=== PATIENT | male | born 1945 | race Caucasian/White ===

== ENCOUNTER → 2022-10-03 | Outpatient (REF) | payer MEDICARE, MEDICAID, SELFPAY ==
[2022-10-03 09:38] LABS: Hematocrit 36.6 % (40-54); Hemoglobin 11.4 g/dL (13.0-16.5); Mean Corp Hgb Conc 31.1 g/dL (32-36); Mean Corpuscular Hgb 29.4 pg (27.0-32.0); Mean Corpuscular Volume 94.3 fL (80-94); Platelet Count 224 K/mm3 (150-450); RBC Distribution Width CV 16.2 % (11.6-14.6); RBC Distribution Width SD 56.2 fl (35.1-43.9); Red Blood Count 3.88 M/mm3 (4.6-6.2); White Blood Count 6.3 K/mm3 (4.4-11.0)
[2022-10-03 10:01] LABS: ALB/GLOB Ratio 0.8 RATIO (0.9-2.4); AST(SGOT) 23 U/L (15-37); Alanine Aminotransfer ALT/SGPT 18 U/L (16-61); Albumin, Serum 2.8 g/dL (3.2-5.0); Alkaline Phosphatase 84 U/L (45-117); Anion Gap 5 (5-15); BUN 12 mg/dL (7-18); BUN/Creat Ratio 16.2 RATIO (10-20); Chloride 103 mmol/L (98-107); Creatinine, Serum 0.74 mg/dL (0.70-1.30); EST Glomerular Filtration Rate 109 mL/min (>60); Est Glom Filt Rate - Afr Amer 132 mL/min (>60); Globulin 3.7 g/dL (2.2-4.2); Glucose 105 mg/dL (74-106); Potassium 3.8 mmol/L (3.5-5.1); Protein, Total 6.5 g/dL (6.4-8.2); Sodium Level 138 mmol/L (136-145)
== END ==
LOC: OLS.SANC 07:14
PROVIDERS: Visit Provider Internal Medicine
DX: I50.9 Heart failure, unspecified (principal)
CPT/HCPCS: 36415; 80053; 85027

== ENCOUNTER → 2022-10-28 | Outpatient (REF) | payer MEDICARE, MEDICAID, SELFPAY ==
[2022-10-28 08:04] LABS: Color, Urine Yellow (Yellow); Glucose, Dipstick Normal (Normal); Ketone-Dipstick Negative (Negative); Leukocyte Esterase-Dipstick 25 /ul (Negative); Nitrite-Dipstick Negative (Negative); Occult Blood-Urine 10 /ul (Negative); Protein-Dipstick 15 mg/dl (Negative); Urine Bilirubin Dipstick Negative (Negative); Urine Clarity Clear (Clear); Urine Urobilinogen Normal (Normal)
== END ==
LOC: OLS.SANC 05:00
PROVIDERS: Visit Provider Internal Medicine
DX: R39.9 Unspecified symptoms and signs involving the genitourinary system (principal)
CPT/HCPCS: 81002; 87086

== ENCOUNTER → 2022-10-31 | Outpatient (REF) | payer MEDICARE, MEDICAID, SELFPAY ==
[2022-10-31 09:34] LABS: Hematocrit 31.3 % (40-54); Hemoglobin 9.7 g/dL (13.0-16.5); Mean Corpuscular Hgb 28.9 pg (27.0-32.0); Mean Corpuscular Volume 93.2 fL (80-94); Mean Platelet Vol. 9.7 fl (6.2-12.0); Platelet Count 236 K/mm3 (150-450); RBC Distribution Width CV 16.7 % (11.6-14.6); RBC Distribution Width SD 56.7 fl (35.1-43.9); Red Blood Count 3.36 M/mm3 (4.6-6.2); White Blood Count 6.3 K/mm3 (4.4-11.0)
[2022-10-31 09:59] LABS: Anion Gap 3 (5-15); BUN 12 mg/dL (7-18); BUN/Creat Ratio 13.9 RATIO (10-20); Calcium,Total 8.5 mg/dL (8.5-10.1); Chloride 106 mmol/L (98-107); Creatinine, Serum 0.86 mg/dL (0.70-1.30); EST Glomerular Filtration Rate 92 mL/min (>60); Est Glom Filt Rate - Afr Amer 111 mL/min (>60); Glucose 89 mg/dL (74-106); Potassium 4.1 mmol/L (3.5-5.1); Sodium Level 138 mmol/L (136-145)
== END ==
LOC: OLS.SANC 07:15
PROVIDERS: Visit Provider Internal Medicine
DX: J44.9 Chronic obstructive pulmonary disease, unspecified (principal); I10 Essential (primary) hypertension; E78.5 Hyperlipidemia, unspecified
CPT/HCPCS: 36415; 80048; 85027

== ENCOUNTER → 2022-11-23 | Outpatient (REF) | payer MEDICARE, MEDICAID, SELFPAY ==
[2022-11-23 10:24] LABS: Color, Urine Yellow (Yellow); Glucose, Dipstick Normal (Normal); Ketone-Dipstick Negative (Negative); Leukocyte Esterase-Dipstick Negative /ul (Negative); Nitrite-Dipstick Negative (Negative); Occult Blood-Urine Negative /ul (Negative); Protein-Dipstick Negative (Negative); Urine Bilirubin Dipstick Negative (Negative); Urine Clarity Clear (Clear); Urine Urobilinogen 1 mg/dl (Normal); Urine pH 6.5 (5.0 - 8.0)
== END ==
LOC: OLS.SANC 01:00
PROVIDERS: Visit Provider Internal Medicine
DX: R39.9 Unspecified symptoms and signs involving the genitourinary system (principal)
CPT/HCPCS: 81002; 87086

== ENCOUNTER → 2022-11-24 | Outpatient (REF) | payer MEDICARE, MEDICAID, SELFPAY ==
[2022-11-24 08:56] LABS: Hematocrit 33.4 % (40-54); Hemoglobin 10.2 g/dL (13.0-16.5); Mean Corp Hgb Conc 30.5 g/dL (32-36); Mean Corpuscular Hgb 28.1 pg (27.0-32.0); Mean Platelet Vol. 9.6 fl (6.2-12.0); Platelet Count 259 K/mm3 (150-450); RBC Distribution Width CV 16.6 % (11.6-14.6); RBC Distribution Width SD 56.3 fl (35.1-43.9); Red Blood Count 3.63 M/mm3 (4.6-6.2); White Blood Count 7.3 K/mm3 (4.4-11.0)
[2022-11-24 09:09] LABS: Anion Gap 3 (5-15); BUN 12 mg/dL (7-18); BUN/Creat Ratio 15.2 RATIO (10-20); Calcium,Total 8.8 mg/dL (8.5-10.1); Chloride 106 mmol/L (98-107); Creatinine, Serum 0.79 mg/dL (0.70-1.30); EST Glomerular Filtration Rate 101 mL/min (>60); Est Glom Filt Rate - Afr Amer 123 mL/min (>60); Glucose 118 mg/dL (74-106); Potassium 3.8 mmol/L (3.5-5.1); Sodium Level 138 mmol/L (136-145)
== END ==
LOC: OLS.SANC 05:00
PROVIDERS: Visit Provider Internal Medicine
DX: I48.91 Unspecified atrial fibrillation (principal); D64.9 Anemia, unspecified; J44.9 Chronic obstructive pulmonary disease, unspecified; E78.5 Hyperlipidemia, unspecified
CPT/HCPCS: 36415; 80048; 85027

== ENCOUNTER → 2022-12-01 | Outpatient (REF) | payer MEDICARE, MEDICAID, SELFPAY ==
[2022-12-01 08:55] LABS: Hematocrit 32.3 % (40-54); Hemoglobin 9.9 g/dL (13.0-16.5); Mean Corp Hgb Conc 30.7 g/dL (32-36); Mean Corpuscular Hgb 27.8 pg (27.0-32.0); Mean Corpuscular Volume 90.7 fL (80-94); Mean Platelet Vol. 9.6 fl (6.2-12.0); Platelet Count 248 K/mm3 (150-450); RBC Distribution Width CV 16.5 % (11.6-14.6); RBC Distribution Width SD 55.4 fl (35.1-43.9); Red Blood Count 3.56 M/mm3 (4.6-6.2)
[2022-12-01 09:13] LABS: Anion Gap 4 (5-15); BUN 15 mg/dL (7-18); BUN/Creat Ratio 18.9 RATIO (10-20); Calcium,Total 8.5 mg/dL (8.5-10.1); Chloride 106 mmol/L (98-107); Creatinine, Serum 0.79 mg/dL (0.70-1.30); EST Glomerular Filtration Rate 101 mL/min (>60); Est Glom Filt Rate - Afr Amer 122 mL/min (>60); Glucose 101 mg/dL (74-106); Sodium Level 138 mmol/L (136-145)
== END ==
LOC: OLS.SANC 05:00
PROVIDERS: Visit Provider Internal Medicine
DX: I48.91 Unspecified atrial fibrillation (principal); I11.0 Hypertensive heart disease with heart failure; I50.9 Heart failure, unspecified; J44.9 Chronic obstructive pulmonary disease, unspecified; E78.5 Hyperlipidemia, unspecified
CPT/HCPCS: 36415; 80048; 85027

== ENCOUNTER → 2022-12-02 | Outpatient (REF) | payer MEDICARE, MEDICAID, SELFPAY ==
[2022-12-02 08:31] LABS: Hematocrit 32.1 % (40-54); Hemoglobin 9.8 g/dL (13.0-16.5); Mean Corp Hgb Conc 30.5 g/dL (32-36); Mean Corpuscular Hgb 27.9 pg (27.0-32.0); Mean Corpuscular Volume 91.5 fL (80-94); Mean Platelet Vol. 10.1 fl (6.2-12.0); Platelet Count 269 K/mm3 (150-450); RBC Distribution Width CV 16.7 % (11.6-14.6); RBC Distribution Width SD 55.6 fl (35.1-43.9); Red Blood Count 3.51 M/mm3 (4.6-6.2); White Blood Count 6.8 K/mm3 (4.4-11.0)
[2022-12-02 08:44] LABS: Anion Gap 4 (5-15); BUN 16 mg/dL (7-18); BUN/Creat Ratio 19.1 RATIO (10-20); Calcium,Total 8.4 mg/dL (8.5-10.1); Chloride 105 mmol/L (98-107); Creatinine, Serum 0.84 mg/dL (0.70-1.30); EST Glomerular Filtration Rate 95 mL/min (>60); Est Glom Filt Rate - Afr Amer 114 mL/min (>60); Glucose 93 mg/dL (74-106); Potassium 3.9 mmol/L (3.5-5.1); Sodium Level 138 mmol/L (136-145)
== END ==
LOC: OLS.SANC 05:00
PROVIDERS: Visit Provider Internal Medicine
DX: I48.91 Unspecified atrial fibrillation (principal); J44.9 Chronic obstructive pulmonary disease, unspecified; I10 Essential (primary) hypertension
CPT/HCPCS: 36415; 80048; 85027

== ENCOUNTER → 2022-12-16 | Outpatient (REF) | payer MEDICARE, MEDICAID, SELFPAY ==
[2022-12-16 07:39] LABS: Hematocrit 26.5 % (40-54); Mean Corp Hgb Conc 30.2 g/dL (32-36); Mean Corpuscular Volume 92.7 fL (80-94); Mean Platelet Vol. 9.6 fl (6.2-12.0); Platelet Count 278 K/mm3 (150-450); RBC Distribution Width CV 17.3 % (11.6-14.6); RBC Distribution Width SD 57.9 fl (35.1-43.9); Red Blood Count 2.86 M/mm3 (4.6-6.2); White Blood Count 6.5 K/mm3 (4.4-11.0)
[2022-12-16 07:50] LABS: Anion Gap 2 (5-15); BUN 14 mg/dL (7-18); BUN/Creat Ratio 18.7 RATIO (10-20); Calcium,Total 8.1 mg/dL (8.5-10.1); Chloride 104 mmol/L (98-107); Creatinine, Serum 0.75 mg/dL (0.70-1.30); EST Glomerular Filtration Rate 108 mL/min (>60); Est Glom Filt Rate - Afr Amer 130 mL/min (>60); Glucose 110 mg/dL (74-106); Sodium Level 137 mmol/L (136-145)
== END ==
LOC: OLS.SANC 05:00
PROVIDERS: Visit Provider Internal Medicine
DX: I48.91 Unspecified atrial fibrillation (principal); D64.9 Anemia, unspecified; J44.9 Chronic obstructive pulmonary disease, unspecified; I10 Essential (primary) hypertension; E78.5 Hyperlipidemia, unspecified
CPT/HCPCS: 36415; 80048; 85027

== ENCOUNTER → 2022-12-19 | Outpatient (REF) | payer MEDICARE, MEDICAID, SELFPAY ==
[2022-12-19 08:36] LABS: Hematocrit 27.1 % (40-54); Hemoglobin 8.1 g/dL (13.0-16.5); Mean Corp Hgb Conc 29.9 g/dL (32-36); Mean Corpuscular Hgb 27.7 pg (27.0-32.0); Mean Corpuscular Volume 92.8 fL (80-94); Mean Platelet Vol. 9.6 fl (6.2-12.0); Platelet Count 311 K/mm3 (150-450); RBC Distribution Width CV 17.2 % (11.6-14.6); RBC Distribution Width SD 58.6 fl (35.1-43.9); Red Blood Count 2.92 M/mm3 (4.6-6.2); White Blood Count 6.1 K/mm3 (4.4-11.0)
[2022-12-19 08:57] LABS: ALB/GLOB Ratio 0.5 RATIO (0.9-2.4); AST(SGOT) 17 U/L (15-37); Alanine Aminotransfer ALT/SGPT 17 U/L (16-61); Albumin, Serum 2.1 g/dL (3.2-5.0); Alkaline Phosphatase 119 U/L (45-117); Anion Gap 3 (5-15); BUN 17 mg/dL (7-18); BUN/Creat Ratio 24.3 RATIO (10-20); Calcium,Total 8.5 mg/dL (8.5-10.1); Chloride 106 mmol/L (98-107); EST Glomerular Filtration Rate 116 mL/min (>60); Est Glom Filt Rate - Afr Amer 141 mL/min (>60); Globulin 4.4 g/dL (2.2-4.2); Glucose 104 mg/dL (74-106); Potassium 3.9 mmol/L (3.5-5.1); Protein, Total 6.5 g/dL (6.4-8.2); Sodium Level 138 mmol/L (136-145)
== END ==
LOC: OLS.SANC 05:00
PROVIDERS: Visit Provider Internal Medicine
DX: I48.91 Unspecified atrial fibrillation (principal); J44.9 Chronic obstructive pulmonary disease, unspecified; E78.5 Hyperlipidemia, unspecified
CPT/HCPCS: 36415; 80053; 85027

== ENCOUNTER → 2022-12-27 | Outpatient (REF) | payer MEDICARE, MEDICAID, SELFPAY ==
[2022-12-27 10:07] LABS: Hematocrit 29.5 % (40-54); Hemoglobin 8.8 g/dL (13.0-16.5); Mean Corp Hgb Conc 29.8 g/dL (32-36); Mean Corpuscular Hgb 26.7 pg (27.0-32.0); Mean Corpuscular Volume 89.7 fL (80-94); Mean Platelet Vol. 9.5 fl (6.2-12.0); Platelet Count 355 K/mm3 (150-450); RBC Distribution Width CV 17.5 % (11.6-14.6); RBC Distribution Width SD 57.8 fl (35.1-43.9); Red Blood Count 3.29 M/mm3 (4.6-6.2); White Blood Count 6.3 K/mm3 (4.4-11.0)
[2022-12-27 10:44] LABS: Vitamin B12 678 pg/mL (211-911); Vitamin D,25 Hydroxy 35.9 ng/mL
[2022-12-27 11:04] LABS: AST(SGOT) 18 U/L (15-37); Alanine Aminotransfer ALT/SGPT 15 U/L (16-61); Albumin, Serum 2.5 g/dL (3.2-5.0); Alkaline Phosphatase 117 U/L (45-117); Anion Gap 4 (5-15); BUN 23 mg/dL (7-18); BUN/Creat Ratio 25.2 RATIO (10-20); Bilirubin, Direct 0.18 mg/dL (0.00-0.30); Chloride 104 mmol/L (98-107); Creatinine, Serum 0.91 mg/dL (0.70-1.30); EST Glomerular Filtration Rate 86 mL/min (>60); Est Glom Filt Rate - Afr Amer 104 mL/min (>60); Globulin 4.5 g/dL (2.2-4.2); Glucose 104 mg/dL (74-106); Potassium 3.9 mmol/L (3.5-5.1); Sodium Level 138 mmol/L (136-145); T3 Uptake 37 % (33-40); T4 Free Direct 1.29 ng/dL (0.76-1.46); T4 Total, Thyroxin 9.8 ug/dL (4.5-12.1); T7 / Free Thyroxin Index 3.6 (1.4-4.5); Thyroid Stim Hormone (TSH) 3.62 uIU/mL (0.358-3.74)
== END ==
LOC: OLS.SANC 05:00
PROVIDERS: Visit Provider Internal Medicine
DX: J44.9 Chronic obstructive pulmonary disease, unspecified (principal); N39.0 Urinary tract infection, site not specified; I10 Essential (primary) hypertension; E55.9 Vitamin D deficiency, unspecified; E78.5 Hyperlipidemia, unspecified
CPT/HCPCS: 36415; 80048; 80076; 82306; 82607; 82746; 84436; 84439; 84443; 84479; 85027

== ENCOUNTER → 2022-12-28 | Outpatient (REF) | payer MEDICARE, MEDICAID, SELFPAY ==
[2022-12-29 08:50] LABS: Color, Urine Yellow (Yellow); Glucose, Dipstick Normal (Normal); Ketone-Dipstick Negative (Negative); Leukocyte Esterase-Dipstick Negative /ul (Negative); Nitrite-Dipstick Negative (Negative); Occult Blood-Urine Negative /ul (Negative); Protein-Dipstick 15 mg/dl (Negative); Urine Bilirubin Dipstick Negative (Negative); Urine Clarity Sl. Cloudy (Clear); Urine Urobilinogen Normal (Normal)
== END ==
LOC: OLS.SANC 07:30
PROVIDERS: Visit Provider Internal Medicine
DX: N39.0 Urinary tract infection, site not specified (principal)
CPT/HCPCS: 81002; 87086; 87088

== ENCOUNTER → 2023-01-10 | Outpatient (REF) | payer MEDICARE, MEDICAID, SELFPAY ==
[2023-01-10 10:14] LABS: Hematocrit 27.5 % (40-54); Hemoglobin 8.3 g/dL (13.0-16.5); Mean Corp Hgb Conc 30.2 g/dL (32-36); Mean Corpuscular Hgb 26.7 pg (27.0-32.0); Mean Corpuscular Volume 88.4 fL (80-94); Mean Platelet Vol. 9.8 fl (6.2-12.0); Platelet Count 241 K/mm3 (150-450); RBC Distribution Width CV 17.5 % (11.6-14.6); RBC Distribution Width SD 56.3 fl (35.1-43.9); Red Blood Count 3.11 M/mm3 (4.6-6.2); White Blood Count 6.3 K/mm3 (4.4-11.0)
[2023-01-10 10:31] LABS: Anion Gap 4 (5-15); BUN 17 mg/dL (7-18); BUN/Creat Ratio 21.5 RATIO (10-20); Calcium,Total 7.9 mg/dL (8.5-10.1); Chloride 107 mmol/L (98-107); Creatinine, Serum 0.79 mg/dL (0.70-1.30); EST Glomerular Filtration Rate 101 mL/min (>60); Est Glom Filt Rate - Afr Amer 122 mL/min (>60); Glucose 91 mg/dL (74-106); Potassium 3.8 mmol/L (3.5-5.1); Sodium Level 141 mmol/L (136-145)
== END ==
LOC: OLS.SANC 05:00
PROVIDERS: Visit Provider Internal Medicine
DX: I48.91 Unspecified atrial fibrillation (principal); J44.9 Chronic obstructive pulmonary disease, unspecified; E78.5 Hyperlipidemia, unspecified
CPT/HCPCS: 36415; 80048; 85027

== ENCOUNTER → 2023-01-17 | Outpatient (REF) | payer MEDICARE, MEDICAID, SELFPAY ==
[2023-01-17 09:54] LABS: Hematocrit 27.8 % (40-54); Hemoglobin 8.1 g/dL (13.0-16.5); Mean Corp Hgb Conc 29.1 g/dL (32-36); Mean Corpuscular Hgb 25.5 pg (27.0-32.0); Mean Corpuscular Volume 87.4 fL (80-94); Platelet Count 252 K/mm3 (150-450); RBC Distribution Width CV 17.7 % (11.6-14.6); Red Blood Count 3.18 M/mm3 (4.6-6.2); White Blood Count 6.1 K/mm3 (4.4-11.0)
[2023-01-17 10:15] LABS: ALB/GLOB Ratio 0.6 RATIO (0.9-2.4); AST(SGOT) 14 U/L (15-37); Alanine Aminotransfer ALT/SGPT 13 U/L (16-61); Albumin, Serum 2.3 g/dL (3.2-5.0); Alkaline Phosphatase 92 U/L (45-117); Anion Gap 2 (5-15); BUN 23 mg/dL (7-18); Calcium,Total 7.9 mg/dL (8.5-10.1); Chloride 107 mmol/L (98-107); Creatinine, Serum 0.88 mg/dL (0.70-1.30); EST Glomerular Filtration Rate 89 mL/min (>60); Est Glom Filt Rate - Afr Amer 108 mL/min (>60); Globulin 3.7 g/dL (2.2-4.2); Glucose 99 mg/dL (74-106); Potassium 4.3 mmol/L (3.5-5.1); Sodium Level 140 mmol/L (136-145)
== END ==
LOC: OLS.SANC 05:00
PROVIDERS: Visit Provider Internal Medicine
DX: I48.91 Unspecified atrial fibrillation (principal); D64.9 Anemia, unspecified; I11.0 Hypertensive heart disease with heart failure; I50.9 Heart failure, unspecified; J44.9 Chronic obstructive pulmonary disease, unspecified; E78.5 Hyperlipidemia, unspecified
CPT/HCPCS: 36415; 80053; 85027

== ENCOUNTER → 2023-01-20 | Outpatient (REF) | payer MEDICARE, MEDICAID, SELFPAY ==
[2023-01-20 09:45] LABS: AST(SGOT) 17 U/L (15-37); Alanine Aminotransfer ALT/SGPT 13 U/L (16-61); Albumin, Serum 2.4 g/dL (3.2-5.0); Alkaline Phosphatase 98 U/L (45-117); Bilirubin, Direct 0.19 mg/dL (0.00-0.30); Globulin 3.8 g/dL (2.2-4.2); Protein, Total 6.2 g/dL (6.4-8.2); Thyroid Stim Hormone (TSH) 2.46 uIU/mL (0.358-3.74)
== END ==
LOC: OLS.SANC 05:00
PROVIDERS: Visit Provider Internal Medicine
DX: I48.91 Unspecified atrial fibrillation (principal); J44.9 Chronic obstructive pulmonary disease, unspecified; I10 Essential (primary) hypertension; E78.5 Hyperlipidemia, unspecified
CPT/HCPCS: 36415; 80076; 84443

== ENCOUNTER → 2023-01-24 | Outpatient (REF) | payer MEDICARE, MEDICAID, SELFPAY ==
[2023-01-24 09:05] LABS: Hematocrit 28.3 % (40-54); Hemoglobin 8.5 g/dL (13.0-16.5); Mean Corpuscular Hgb 25.8 pg (27.0-32.0); Mean Platelet Vol. 9.7 fl (6.2-12.0); Platelet Count 238 K/mm3 (150-450); RBC Distribution Width CV 17.9 % (11.6-14.6); RBC Distribution Width SD 56.1 fl (35.1-43.9); Red Blood Count 3.29 M/mm3 (4.6-6.2); White Blood Count 4.8 K/mm3 (4.4-11.0)
[2023-01-24 09:21] LABS: Anion Gap 2 (5-15); BUN 15 mg/dL (7-18); BUN/Creat Ratio 17.7 RATIO (10-20); Calcium,Total 8.3 mg/dL (8.5-10.1); Chloride 105 mmol/L (98-107); Creatinine, Serum 0.85 mg/dL (0.70-1.30); EST Glomerular Filtration Rate 93 mL/min (>60); Est Glom Filt Rate - Afr Amer 113 mL/min (>60); Glucose 98 mg/dL (74-106); Potassium 4.3 mmol/L (3.5-5.1); Sodium Level 137 mmol/L (136-145)
== END ==
LOC: OLS.SANC 05:00
PROVIDERS: Visit Provider Internal Medicine
DX: D64.9 Anemia, unspecified (principal); J44.9 Chronic obstructive pulmonary disease, unspecified; I10 Essential (primary) hypertension; E78.5 Hyperlipidemia, unspecified
CPT/HCPCS: 36415; 80048; 85027

== ENCOUNTER → 2023-02-07 | Outpatient (REF) | payer MEDICARE, MEDICAID, SELFPAY ==
--- OUTSIDE RECORDS SUMMARY | 2023-02-07 04:36 | XMS RPT_ITS | CCD ---
Author Name Unknown Address [address] [place] [address] Organization [facility] Care Team Providers Care Gemologist Name Role Phone CALLUM CAMACHO Unavailable Unavailable DONNA NIXON Unavailable Unavailable NICOLE CAMACHO (RES) Unavailable VERONA CastilloCA (RES) Unavailable UnaJuan Groves Unavailable Unavailable PROVIDER, UNKNOWN Unavailable Unavailable Carlos Cuevas Unavailable Unavailable Carlos Cuevas Primary Care Provider Carlos Cuevas MD Primary Care Provider Michael Remy Attending Unavailable PROVIDER, UNKNOWN Referring Unavailable Carlos Cuevas Primary Care Unavailable Carlos Cuevas MD Primary Care Provider Carlos Cuevas MD Primary Care Provider CARLOS CUEVAS Attending Unavailable CARLOS CUEVAS Primary Care Unavailable CARLOS CUEVAS Primary Care Unavailable PRAKASH ZURITA Consulting Unavailable KING ROBLES Attending Unavailable MAURO MORATAYA Admitting Unavailable PRAKASH ZURITA Consulting Unavailable CEZAR FORBES Admitting Unavailable CEZAR FORBES Attending Unavailable CARLOS CUEVAS Primary Care Unavailable Allergies Allergy Classification Reported Allergen(s) Allergy Type Date of Onset Reaction(s) Facility [facility]io[facility] (1 source) Codeine Drug Allergy 02-09-2017 Itching [facility] (7 sources) Codeine Drug Allergy 02-09-2017 Itching [facility] Work Phone: Medications Current Medications Medication Drug Class(es) Dates Sig (Normalized) Sig (Original) [id number] 200 actuat albuterol 0.09 mg/actuat metered dose inhaler (15 sources) beta2-Adrenergic Agonist Start: 09-27-2022 albuterol 108 (90 Base) MCG/ACT inhaler 4 puff Completed/Discontinued Medications Medication Drug Class(es) Dates Sig (Normalized) Sig (Original) Acetaminophen (4 sources) Start: 09-24-2022 End: 09-29-2022 take 1 tablet by mouth every six hours as needed for pain and fever acetaminophen (Tylenol) tablet 650 mg Problems Active Problems Problem Classification Problem Date Documented Date Episodic/Chronic Cardiac dysrhythmias (17 sources) Atrial fibrillation; Translations: [Unspecified atrial fibrillation] Onset: 03-22-2016 04-03-2020 Chronic Chronic kidney disease (5 sources) Anemia in chronic kidney disease; Translations: [Chronic kidney disease, unspecified] Onset: 07-15-2022 07-15-2022 Chronic Chronic obstructive pulmonary disease and bronchiectasis (18 sources) Acute exacerbation of chronic obstructive airways disease; Translations: [Chronic obstructive lung disease] Onset: 03-22-2016 04-03-2020 Chronic Conduction disorders (12 sources) Right bundle branch block AND left posterior fascicular block; Translations: [Bifascicular block] Onset: 04-03-2020 04-03-2020 Chronic Congestive heart failure; nonhypertensive (20 sources) Chronic combined systolic and diastolic heart failure; Translations: [Congestive heart failure stage C] Onset: 03-22-2016 Resolved: 07-15-2022 04-03-2020 Chronic Congestive heart failure; nonhypertensive (2 sources) Congestive heart failure; nonhypertensive Onset: 04-14-2020 Deficiency and other anemia (2 sources) Anemia in chronic kidney disease; Translations: [Anemia in chronic kidney disease] Onset: 07-15-2022 Chronic Disorders of lipid metabolism (12 sources) Hyperlipidemia; Translations: [Hyperlipidemia, unspecified] Onset: 04-03-2020 04-03-2020 Chronic Heart valve disorders (9 sources) Aortic stenosis, non-rheumatic ; Translations: [Nonrheumatic aortic (valve) stenosis] Onset: 09-24-2022 09-25-2022 Chronic Hypertension with complications and secondary hypertension (12 sources) Hypertensive heart disease with congestive heart failure; Translations: [Hypertensive heart disease with heart failure] Onset: 04-03-2020 04-03-2020 Chronic Other nutritional; endocrine; and metabolic disorders (10 sources) Body mass index 40+ - severely obese; Translations: [Morbid (severe) obesity due to excess calories] Onset: 04-05-2016 04-03-2020 Chronic Other nutritional; endocrine; and metabolic disorders (3 sources) Obesity; Translations: [Other obesity] Onset: 04-10-2020 07-03-2022 Chronic Other nutritional; endocrine; and metabolic disorders (2 sources) Body mass index (BMI) 40.0-44.9, adult; Translations: [Body mass index (BMI) 40.0-44.9, adult ([facility])] Onset: 07-15-2022 Chronic Other nutritional; endocrine; and metabolic disorders (1 source) Weight gain; Translations: [Weight gain] Episodic Pulmonary heart disease (12 sources) Pulmonary hypertension; Translations: [Pulmonary hypertension, unspecified] Onset: 03-28-2016 04-03-2020 Chronic Residual codes; unclassified (8 sources) Obstructive sleep apnea syndrome; Translations: [Obstructive sleep apnea (adult) (pediatric)] Onset: 06-04-2020 06-04-2020 Chronic Respiratory failure; insufficiency; arrest (adult) (9 sources) Chronic hypoxemic respiratory failure; Translations: [Chronic respiratory failure with hypoxia] Onset: 06-04-2020 Chronic Unclassified (1 source) Unknown / UNK(Unknown) Onset: 12-06-2016 Unclassified (2 sources) Chronic heart failure co-occurrent with normal ejection fraction; Translations: [Chronic heart failure with preserved ejection fraction (HCC)] Onset: 04-11-2020 04-11-2020 Unclassified (2 sources) Patient Stated Goal Onset: 04-14-2020 Unclassified (2 sources) Longstanding persistent atrial fibrillation; Translations: [Longstanding persistent atrial fibrillation (HCC)] Onset: 07-03-2022 Past or Other Problems Problem Classification Problem Date Documented Da te Episodic/Chronic Diabetes mellitus without complication (8 sources) Prediabetes; Translations: [Prediabetes] Onset: 04-12-2021 12-02-2021 Episodic Inflammation; infection of eye (except that caused by tuberculosis or sexually transmitteddisease) (8 sources) Ulcer of eyelid; Translations: [Ulcerative blepharitis right eye, unspecified eyelid] Onset: 03-22-2016 03-22-2016 Episodic Other aftercare (9 sources) Long-term current use of anticoagulant; Translations: [nursing home (current) use of anticoagulants] Onset: 06-15-2016 04-03-2020 Episodic Other eye disorders (10 sources) Unspecified ectropion of right eye, unspecified eyelid; Translations: [Ectropion of right eyelid] Onset: 04-10-2020 04-10-2020 Episodic Other lower respiratory disease (16 sources) Dyspnea; Translations: [Dyspnea, unspecified] Onset: 04-06-2020 04-06-2020 Episodic Other lower respiratory disease (2 sources) Shortness of breath; Translations: [Shortness of breath] Onset: 09-24-2022 Episodic Other non-epithelial cancer of skin (12 sources) Basal cell carcinoma of skin of right eyelid, including canthus; Translations: [Basal cell carcinoma of skin, unspecified] Onset: 10-13-2016 08-15-2018 Episodic Pancreatic disorders (not diabetes) (8 sources) Gallstone pancreatitis; Translations: [Acute recurrent pancreatitis ] Onset: 12-13-2017 12-13-2017 Episodic Pleurisy; pneumothorax; pulmonary collapse (6 sources) Bilateral pleural effusion; Translations: [Pleural effusion] Onset: 07-03-2022 07-03-2022 Episodic Pneumonia (except that caused by tuberculosis or sexually transmitted disease) (2 sources) Pneumonia, unspecified organism; Translations: [Pneumonia, unspecified organism] Onset: 07-03-2022 Episodic Residual codes; unclassified (2 sources) Localized edema; Translations: [Localized edema] Onset: 07-03-2022 Episodic Skin and subcutaneous tissue infections (5 sources) Cellulitis of right lower limb; Translations: [Cellulitis of right lower limb] Onset: 10-19-2020 Episodic Spondylosis; intervertebral disc disorders; other back problems (4 sources) Acute back pain with sciatica; Translations: [Lumbago with sciatica, left side] Onset: 12-29-2021 12-29-2021 Episodic Results Test Name Value Interpretation Reference Range Facil ity Vital Signs Date Time Vital Sign Value Performing Clinician Faci lity 09-29-2022 09:35-0400 Body temperature 97.39 [degF] Lupillo Richards MD Work Phone: [facility] 09-29-2022 07:48-0400 Diastolic blood pressure 75 mm[Hg] Lupillo Richards MD Work Phone: [facility] 09-29-2022 07:48-0400 Heart rate 82 /min Lupillo Richards MD Work Phone: [facility] 09-29-2022 07:48-0400 Respiratory rate 18 /min Lupillo Richards MD Work Phone: [facility] 09-29-2022 07:48-0400 SaO2% (BldA) [Mass fraction] 99 % Lupillo Richards MD Work Phone: [facility] 09-29-2022 07:48-0400 Systolic blood pressure 128 mm[Hg] Lupillo Richards MD Work Phone: [facility] 09-26-2022 13:03-0400 Body height 182.9 cm Lupillo Richards MD Work Phone: [facility] 09-24-2022 18:58-0400 Body mass index (BMI) [Ratio] 31.74 kg/m2 Lupillo Richards MD Work Phone: [facility] 09-24-2022 18:58-0400 Body weight 106.14 kg Lupillo Richards MD Work Phone: [facility] 10-14-2020 17:58-0400 Diastolic blood pressure 78 mm[Hg] Carlos Cuevas MD Work Phone: [facility] Work Phone: 10-14-2020 17:58-0400 Heart rate 70 /min Carlos Cuevas MD Work Phone: [facility] Work Phone: 10-14-2020 17:58-0400 Respiratory rate 18 /min Carlos Cuevas MD Work Phone: [facility] Work Phone: 10-14-2020 17:58-0400 SaO2% (BldA) [Mass fraction] 98 % Carlos Cuevas MD Work Phone: [facility] Work Phone: 10-14-2020 17:58-0400 Systolic blood pressure 121 mm[Hg] Carlos Cuevas MD Work Phone: [facility] Work Phone: 10-14-2020 17:22-0400 Body mass index (BMI) [Ratio] 40.55 kg/m2 Carlos Cuevas MD Work Phone: [facility] Work Phone: 10-14-2020 17:22-0400 Body temperature 99.19 [degF] Carlos Cuevas MD Work Phone: [facility] Work Phone: 10-14-2020 17:22-0400 Body weight 135.63 kg Carlos Cuevas MD Work Phone: [facility] Work Phone: 07-10-2020 11:17-0400 Heart rate 72 /min Rakesh Damon MD Work Phone: [facility] Work Phone: 07-10-2020 11:17-0400 Respiratory rate 20 /min Rakesh Damon MD Work Phone: [facility] Work Phone: 07-10-2020 11:17-0400 SaO2% (BldA) [Mass fraction] 93 % Rakesh Damon MD Work Phone: [facility] Work Phone: 04-13-2020 09:45-0500 BMI (Body Mass Index) 41.07 kg/m2 Benita Husseinbe [facility] Work Phone: 04-13-2020 09:45-0500 Body weight 137.35 kg Benita Kibe [facility] Work Phone: 04-13-2020 07:57-0500 Pulse Oximetry 93 % Benita Kibe [facility] Work Phone: 04-13-2020 07:57-0500 Respiratory Rate 18 /min Benita Shelby SHAWA Work Phone: 04-13-2020 07:44-0500 Body Temperature 97.7 [degF] Benita Husseinbe [facility] Work Phone: 04-13-2020 07:44-0500 BP Diastolic 49 mm[Hg] Benita Husseinbe [facility] Work Phone: 04-13-2020 07:44-0500 BP Systolic 95 mm[Hg] Benita Shelby SHAWA Work Phone: 04-13-2020 07:44-0500 Pulse (Heart Rate) 77 /min Benita Shelby SHAWA Work Phone: 04-11-2020 16:05-0500 Height 182.9 cm Benita SHAWA Work Phone: 04-08-2020 15:45-0500 Body Temperature 97.3 [degF] Arslan SHAWA Work Phone: 04-08-2020 15:45-0500 BP Diastolic 69 mm[Hg] Arslan SHAWA Work Phone: 04-08-2020 15:45-0500 BP Systolic 113 mm[Hg] Arslan SHAWA Work Phone: 04-08-2020 15:45-0500 Pulse (Heart Rate) 86 /min Arslan SHAWA Work Phone: 04-08-2020 15:45-0500 Pulse Oximetry 93 % Arslan SHAWA Work Phone: 04-08-2020 15:45-0500 Respiratory Rate 22 /min Arslan SHAWA Work Phone: 04-08-2020 04:40-0500 BMI (Body Mass Index) 52.76 kg/m2 Arslan SHAWA Work Phone: 04-08-2020 04:40-0500 Body weight 176.45 kg Arslan GANDARA Work Phone: 04-04-2020 11:05-0500 Height 182.9 cm Arslan GANDARA Work Phone: Encounters Encounter Date Encounter Type Care Provider Facility Start: 12-26-2022 Telephone encounter Carlos Jain MD Work Phone: [facility] Start: 09-24-2022 End: 09-29-2022 Evaluation and management of inpatient PRAKASHReilly ZURITA [facility] Start: 09-24-2022 End: 09-29-2022 Evaluation and management of inpatient Lupillo Richards MD Work Phone: [facility] 2E TELEMETRY Procedures Date Procedure Procedure Detail Performing Clinician Start: 09-28-2022 SARS-CoV-2 (COVID-19 ) Ag [Presence] in Respiratory specimen by Rapid immunoassay Cezar Forbes MD Work Phone: Start: 09-27-2022 BEDSIDE SPIROMETRY W ITH BRONCHODILATOR Prakash Zurita MD Work Phone: Start: 09-26-2022 SARS-CoV-2 (COVID-19 ) Ag [Presence] in Respiratory specimen by Rapid immunoassay Cezar Forbes MD Work Phone: Start: 09-26-2022 Basic metabolic pane l calcium total Pamela Jaswinder PA-C Work Phone: Start: 09-25-2022 Glucose quantitative blood xcpt reagent strip Cezar Forbes MD Work Phone: Start: 09-25-2022 Assay of lactate Preethi Tony [employer]ING SALES MANAGER - [employer] OPERATOR Work Phone: Start: 09-24-2022 Assay of lactate Preethi Tony [employer]ING SALES MANAGER - [employer] PRESS OPERATOR Work Phone: Start: 09-24-2022 Assay of lactate Malathi oscar Richards MD Work Phone: Start: 09-24-2022 Basic metabolic pane l calcium total Lupillo Richards MD Work Phone: Start: 09-24-2022 Radiologic exam ches t single view Lupillo B Lafountain MD Work Phone: Start: 09-24-2022 Ecg routine ecg w/le ast 12 lds trcg only w/o i&r Lupillo Richards MD Work Phone: Start: 07-03-2022 Thyrotropin [Units/v olume] in Serum or Plasma Lupillo Richards MD Work Phone: Start: 11-08-2021 Lipid 1996 panel - S rossy or Plasma Lynne Mello RN Start: 07-10-2020 Brncdilat rspse spmt ry pre&post-brncdilat admn Rakesh Damon MD Work Phone: Start: 04-13-2020 Assay of magnesium Risa Porter Work Phone: Start: 04-13-2020 Basic metabolic pane l calcium total Rimma Porter Work Phone: Start: 04-13-2020 Blood count complete auto&auto difrntl wbc Rimma Cravena Work Phone: Start: 04-13-2020 Natriuretic peptide Jose M rowan Porter Work Phone: Start: 04-12-2020 Assay of magnesium Risa Cristinalla Work Phone: Start: 04-12-2020 Basic metabolic pane l calcium total Reynaer Ibethlla Work Phone: Start: 04-12-2020 Blood count complete auto&auto difrntl wbc Rimma Porter Work Phone: Start: 04-11-2020 Assay of magnesium Risa Cristinalla Work Phone: Start: 04-11-2020 Basic metabolic pane l calcium total Rimma Cristinalla Work Phone: Start: 04-11-2020 Blood count complete auto&auto difrntl wbc Rimma Porter Work Phone: Start: 04-11-2020 Lipid panel Rimma trevino Work Phone: Start: 04-10-2020 Assay of troponin quantitative Rimma Porter Work Phone: Start: 04-10-2020 Assay of troponin quantitative Rimma Porter Work Phone: Start: 04-10-2020 Urnls dip stick/tabl et rgnt auto w/o microscopy Benita Husseinbe Work Phone: Start: 04-10-2020 Radiologic exam ches t single view Benita Husseinbe Work Phone: Start: 04-10-2020 POCT VENOUS Benita Kib e Work Phone: Start: 04-10-2020 Assay of troponin quantitative Benita Kibe Work Phone: Start: 04-10-2020 Basic metabolic pane l calcium total Benita Kibe Work Phone: Start: 04-10-2020 Blood count complete auto&auto difrntl wbc Benita Kibe Work Phone: Start: 04-10-2020 Natriuretic peptide Lillie sca Kibe Work Phone: Start: 04-10-2020 Oxygen therapy [[facility] Data Set] Benita Kibe Work Phone: Start: 04-10-2020 Ecg routine ecg w/le ast 12 lds w/i&r Benita Kibe Work Phone: Start: 04-08-2020 Assay of magnesium Imol a K Osapay Work Phone: Start: 04-08-2020 Basic metabolic pane l calcium total Imola K Osapay Work Phone: Start: 04-08-2020 Blood count complete automated Imola K Osapay Work Phone: Start: 04-07-2020 Radiologic exam ches t single view Tanika Akers Work Phone: Start: 04-07-2020 Assay of magnesium Imol a K Osapay Work Phone: Start: 04-07-2020 Basic metabolic pane l calcium total Imola K Osapay Work Phone: Start: 04-07-2020 Blood count complete automated Imola K Osapay Work Phone: Start: 04-06-2020 Assay of magnesium Imol a K Osapay Work Phone: Start: 04-06-2020 Basic metabolic pane l calcium total Imola K Osapay Work Phone: Start: 04-06-2020 Blood count complete automated Imola K Osapay Work Phone: Start: 04-06-2020 Natriuretic peptide Imo la K Osapay Work Phone: Start: 04-05-2020 Echo tthrc r-t 2d w/wom-mode compl spec&colr d Imola K Osapay Work Phone: Start: 04-05-2020 Assay of magnesium Imol a K Osapay Work Phone: Start: 04-05-2020 Basic metabolic pane l calcium total Imola K Osapay Work Phone: Start: 04-05-2020 Blood count complete automated Imola K Osapay Work Phone: Start: 04-04-2020 Assay of magnesium Imol a K Osapay Work Phone: Start: 04-04-2020 Basic metabolic pane l calcium total Imola K Osapay Work Phone: Start: 04-04-2020 Blood count complete automated Imola K Osapay Work Phone: Start: 04-04-2020 Lipid panel Imola K Os apay Work Phone: Start: 04-04-2020 Prothrombin time Imola K Osapay Work Phone: Start: 04-04-2020 Ecg routine ecg w/le ast 12 lds w/i&r Imola K Osapay Work Phone: Start: 04-03-2020 Urnls dip stick/tabl et rgnt auto w/o microscopy Mauro Faria Work Phone: Start: 04-03-2020 Assay of troponin quantitative Melvi K Osapaherbie Work Phone: Start: 04-03-2020 RESPIRATORY PANEL, MOLECULAR, WITH COVID-19 Mauro Faria Work Phone: Start: 04-03-2020 Assay of magnesium Yuri Faria Work Phone: Start: 04-03-2020 Assay of troponin quantitative Mauro Faria Work Phone: Start: 04-03-2020 Blood count complete auto&auto difrntl wbc Mauro Faria Work Phone: Start: 04-03-2020 Comprehensive metabo lic panel Mauro Faria Work Phone: Start: 04-03-2020 COVID-19, RAPID Mauro Faria Work Phone: Start: 04-03-2020 Natriuretic peptide Gerardo aracelil Giana Work Phone: Start: 04-03-2020 Radiologic exam ches t single view Mauro Faria Work Phone: Start: 04-03-2020 Ecg routine ecg w/le ast 12 lds w/i&r Mauro Faria Work Phone: Plan of Treatment Date Care Activity Detail Author Start: 11-08-2026 Lipid panel Lipid Panel [facility] Start: 09-03-2024 DTaP/Tdap/Td vaccine (2 - Td or Tdap) DTaP/Tdap/Td vaccine (2 - Td or Tdap) [facility] Work Phone: Start: 09-03-2024 DTaP/Tdap/Td vaccine (2 - Td) DTaP/Tdap/Td vaccine (2 - Td) [facility] Work Phone: Start: 09-03-2024 DTaP/Tdap/Td Vaccines (2 - Td or Tdap) DTaP/Tdap/Td Vaccines (2 - Td or Tdap) [facility] Start: 09-27-2023 Creatinine measurement Creatinine Level [facility] Start: 09-27-2023 Potassium measurement Potassium Level [facility] Start: 07-05-2023 Echocardiography Echocardiogram [facility] Start: 07-04-2023 Thyroid stimulating hormone measurement TSH Level [facility] Start: 05-27-2023 Hepatitis C screening Hepatitis C Screening [facility] Immunizations Immunization Date Immunization Notes Care Provider Fa chuck 12-23-2020 Vikash SARS-CoV-2 Vaccination Lynne Mello RN [facility] 11-30-2020 Influenza, High-dose Seasonal, Quadrivalent, Preservative Free Lynne Mello RN [facility] 11-30-2020 influenza virus vacc ine, unspecified formulation Lynne Mello RN [facility] 05-15-2020 COVID-19, J&J, PF, 0.5 mL Da floresita Cuevas MD Work Phone: [facility] Work Phone: 01-06-2020 Influenza, High-dose , Quadv, 65 yrs +, IM (Fluzone) [facility] 10-04-2018 pneumococcal polysaccharide vaccine, 23 valent [facility] 11-30-2017 influenza, high dose seasonal, preservative-free [facility] 11-25-2016 influenza, high dose seasonal, preservative-free [facility] 11-25-2016 pneumococcal conjuga te vaccine, 13 valent [facility] 09-03-2014 tetanus toxoid, redu clau diphtheria toxoid, and acellular pertussis vaccine, adsorbed [facility] Payers Date Payer Category [facility] [place] [facility] [place] [place] [facility] [place] ONLY [id number] 2022-Present [address] [place] [address] Medicaid HMO [id number] 2022 Medicare [id number] 2015 Medicare 2015 Medicare [id number] 1945 Unknown [id number] 1945 Unknown [id number] Social History Date Type Detail Facility Start: 04-07-2020 End: 04-13-2020 Tobacco smoking status NHIS Current some day smoker [facility] Work Phone: Start: 06-04-1980 End: 03-06-2020 History of tobacco use Cigarette Smoker [facility] Work Phone: Start: 04-07-2020 End: 09-26-2022 Cigarettes smoked current (pack per day) - Reported [facility] Start: 04-07-2020 End: 12-29-2021 Tobacco use and exposure Former user [employer] Phone: End: 03-04-2016 History of tobacco use User of smokeless tobacco [employer] Phone: Start: 04-07-2020 End: 09-27-2022 Alcohol intake Current non-drinker of alcohol (finding) [facility] Work Phone: Start: 09-27-2019 History SDOH Physica l Activity DPW 0 [facility] Work Phone: Start: 09-27-2019 End: 05-26-2022 History SDOH Financial 4 [facility] Work Phone: Start: 09-27-2019 End: 05-26-2022 History SDOH Food Worry 1 [facility] Work Phone: Start: 09-27-2019 End: 05-26-2022 History SDOH Transport Med 2 [facility] Work Phone: Start: 12-13-2017 Tobacco Comment smokes 3 packs per week [facility] Work Phone: Start: 1945 Sex Assigned At Not on file [facility] Work Phone: Start: 09-14-2022 End: 09-24-2022 Exposure to SARS-CoV-2 (event) Not sure [facility] Work Phone: Start: 06-04-2020 End: 12-29-2021 Tobacco smoking status NHIS Former smoker [facility] Work Phone: Start: 06-04-1980 End: 03-06-2020 History of tobacco use Current smoker [facility] Start: 10-06-2020 History SDOH Financial 5 [facility] Work Phone: Start: 09-24-2022 End: 09-26-2022 Humiliation, Afraid, Rape, and Kick questionnaire [HARK] [facility] Within the last year , have you been afraid of your partner or ex-partner? No [facility] Are you now , , , , never or living with a partner? Never [facility] How often to you hav e a drink containing alcohol? Never [facility] How many standard dr inks containing alcohol do you have on a typical day? Patient does not drink [facility] How hard is it for y ou to pay for the very basics like food, housing, medical care, and heating Very hard [facility] Do you feel stress - tense, restless, nervous, or anxious, or unable to sleep at night because your mind is troubled all the time - these days [OSQ] Not at all [facility] (I/We) worried whesummer er (my/our) food would run out before (I/we) got money to buy more. Never true [facility] Goals Date Patient Goal Desired Activity /State Clinical Notes 10-14-2020 to 12-28-2022 Telephone Encounter - VARGAS Covarrubias CNP - 12/28/2022 7:29 AM ESTTelephone Encounter - VARGAS Covarrubias CNP - 12/28/2022 7:29 AM MAMTA Razo - 09/29/2022 3:52 PM EDT Note Date & Type Note Facility 12-28-2022 Telephone encounter Note Noted. Will have this managed by the provider seeing him at the [facility]. Thank you. [facility] Phone: 12-28-2022 Miscellaneous Notes Noted. Will have this managed by the provider seeing him at the [facility]. Thank you. The patient is a patient at [facility]. Called patient no answer and no voicemail box set up. We received a fax from [facility] for a prescription request that is not on the patients med list. Attempted to call patient to see if he is using formoterol. Will need to try and call patient again tomorrow. Please do not sign encounter till patient is contacted. The faxed form is in the black box until patient is contacted. documented in this encounter [facility] 12-27-2022 Telephone encounter Note The patient is a patient at [facility]. [facility] 12-26-2022 Telephone encounter Note Called patient no answer and no voicemail box set up. We received a fax from [facility] for a prescription request that is not on the patients med list. Attempted to call patient to see if he is using formoterol. Will need to try and call patient again tomorrow. Please do not sign encounter till patient is contacted. The faxed form is in the black box until patient is contacted. 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 male who presents with chief complaint of dyspnea on exertion. He states he is unable to walk 10 ft and he is short of breath. He denies recent illness of travel. He noticed this last night and when he got up this am to make coffee he was short of breath. The following is a summary of his diagnosis/management during his stay here at [facility]: # Worsening shortness of breath with exertion - BNP only 867. He does have some edema in both legs but states its same and hasn't been any worse. 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 Lasix held as patient was hypotensive in ER (BP was 87/68 and was given fluid bolus in ER). Cardiology Dr. Shepard initially saw and planned for lexiscan stress test to rule out angina equivalent but patient follows with Dr. Zurita who saw and cancelled stress today as patient having runs of Vtach and also in A.fib with RVR. Breathing fine now. Cardiology has okayed for discharge once facility arranged. # Lactic acid elevated - was given bolus of 500 ml in ED, repeat levels now back to normal at 1.6. # Chronic HFpEF and right side heart failure- compensated and NOT in exacerbation. Last echo 06/2022 showed EF of 55% and severe RV and RA dilation with moderate reduced RV systolic function, moderate aortic stenosis. Lasix held as patient was hypotensive in ER (BP was 87/68 and was given fluid bolus in ER). Cardiology has seen. Currently lasix remains on hold. Will continue to hold while here and on discharge will discharge on half dose of prior lasix (was on 40mg daily and therefore will plan to discharge on 20mg daily). Will add daily potassium with lasix on discharge. Discussed with cardiogy Dr. Zurita. Patient will need to follow up with cardiology on discharge. # Multiple beat runs of V tach on 09/26 - cardiology aware. Potassium and mag were normal. Patient started on Amio drip initially and now changed to PO per cardiology. Cardiology has okayed for discharge once facility arranged by [facility]. # Chronic Afib with RVR - was started on Amio drip per cardiology and now is rate controlled. Patient now changed to PO amio per cardiology. Patient also on Eliquis. Dr. Zurita following. Rate remains controlled. # Acute hypotension in ER (was given fluid bolus for BP of 87/68) - he has a history of this with recent admission, improved with fluids, monitor BP. Lasix currently held. BP has been stable. Plan to resume lasix on discharge but only at 20mg daily instead of 40mg like before. # COPD- w/ chronic respiratory failure, does not appear in AE, lung exam shows decreased BS but clear with no wheezing. # Chronic hypoxic respiratory failure due to copd - on chronic 3-4 L NC O2. Currently on baseline oxygen. # Moderate aortic stenosis per echo on 07/03/2022 # Chronic Anemia - now at 12.9, improved # HPL- continue statin # Obesity # Low risk exposure from room mate who tested positive for COVID. Recommendations from ID stewardship is to do covid antigen day 1, 3 and 5 as precaution. 1st one done on 09/26 was negative. And second on 09/28 was also negative. patient asymptomatic Addendum: Per nursing assessment, patient documented to have a BMI of 31.74 / Obesity. Patient wears cpap at home. Epic shows Co2 level of 37 on this admission. This can be further specified as specified as: Obesity - with likely obesity hypoventilation syndrome Physical exam: General appearance: No apparent distress, appears stated age, HEENT: Eyes: No scleral icterus Cardiovascular: S1/S2 heard, irregular Respiratory: decreased BS but clear to auscultation bilaterally, no wheezing. Abdomen: Soft, non-tender, non-distended bowel sounds positive Musculoskeletal: No obvious deformities seen Skin: No visible rashes or lesions. SIGNIFICANT DIAGNOSTIC STUDIES: As above CONSULTANTS: Cardiology RECOMMENDED NEXT STEPS: DISCHARGE MEDICATIONS: Medication List START taking these medications amiodarone 400 MG tablet Commonly known as: Pacerone Take 1 tablet (400 mg) by m (more content not included)... [facility] 09-29-2022 History of Presen t illness Narrative Occupational Therapy Facility/Department: [address] Occupational Therapy Treatment NAME: Adam Mendes : 1945 Date of Service: 09/29/2022 Discharge Recommendations: Home with assist PRN, Home with Home health OT Assessment REQUIRES OT FOLLOW-UP: Yes Performance deficits / Impairments: Decreased functional mobility , Decreased ADL status, Decreased endurance, Decreased balance, Decreased high-level IADLs Assessment: Pt a little agitated this date and wants to know when he is going home. Pt needed max encouragement for UB self care. Pt washed his arms, face, chest and stomach with set up while sitting EOB. Doffed T-shirt and donned gown with set up. Pt stepped into slip on shoes while at the EOB. Did not attempt to fix at the heel. Stood approx 2 min and O2 remains 96-97% in standing. Pt had no LOB and no c/o dizziness. No device used. Pt is limited by fatigue and agitation this date. Pt is recommended for HHC and assist PRN as needed at d/c. Patient Diagnosis(es): The primary encounter diagnosis was Shortness of breath. A diagnosis of Nonrheumatic aortic valve stenosis was also pertinent to this visit. has a past medical history of Atrial fibrillation (CMS/HCC) (HCC), Atrial fibrillation (CMS/HCC) (HCC), Basal cell carcinoma, Cancer (CMS/HCC) (HCC), CHF (congestive heart failure) (CMS/HCC) (HCC), COPD (chronic obstructive pulmonary disease) (HCC), Hyperlipidemia, Hypertension, and Pulmonary hypertension (HCC). He has no past medical history of Arthritis, Asthma, CAD (coronary artery disease), Cerebral artery occlusion with cerebral infarction ([facility]), Diabetes mellitus (HCC), Hemodialysis patient ([facility]/HCC) ([facility]), History of blood transfusion, blood clots, or Thyroid disease. has a past surgical history that includes Hernia repair; Skin biopsy; Eye surgery; and Tonsillectomy. Restrictions Restrictions/Precautions Restrictions/Precautions: General Precautions, Fall Risk Required Braces or Orthoses?: No Cognition/Orientation Overall Cognitive Status: Exceptions Arousal/Alertness: Appropriate responses to stimuli Following Commands: Follows all commands without difficulty Attention Span: Appears intact Memory: Decreased short term memory Safety Judgement: Decreased awareness of need for assistance Problem Solving: Decreased awareness of errors Insights: Decreased awareness of deficits Initiation: Requires cues for some Sequencing: Requires cues for some Cognition Comment: Pt needed encouragement for ADL's and seems unaware of hygiene needs. Pt forgetful and slighlty agitated and wants to know what is going on . Overall Orientation Status: Within Functional Limits Subjective General Chart Reviewed: Yes Family / Caregiver Present: No Subjective Subjective: Sitting EOB. Wants to know when he is leaving and why he is still here. General Comments Comments: OK to see per RN. RN states pt is forgetful and is asking staff all day when he is leaving. Patient Stated Goal: Wants to go home. Patient Observation Observations: Pt sitting EOB and is on O2 at 2 liters. Pt is 99% in sitting and 96-97% in standing. Objective Grooming/Oral Hygiene Assistance Level: Set-up Skilled Clinical Factors: Pt washed his face with set up assist and encouragement. Upper Extremity Bathing Assistance Level: Set-up, Verbal cues Skilled Clinical Factors: Set up assist and verbal cues to wash UB while sitting EOB. Lower Extremity Bathing Skilled Clinical Factors: encouraged but declines UE Dressing Assistance Level: Stand by assist Skilled Clinical Factors: Doffed pullover T -shirt sitting EOB and donned hospital gown. Assist to tie only. Putting On/Taking Off Footwear Assistance Level: Set-up Skilled Clinical Factors: Pt able to step into his shoes while sitting EOB but does not get heel in. Pt's shoes have flattened heels as if he usually wears his shoes this way. Toileting Skilled Clinical Factors: Pt declines Balance Sitting Balance: Modified independent (EOB) Standing Balance: Stand by assistance Standing Balance Time: ~ 2 mintue Activity: O2 reading Comment: Pt stood at the bedside for O2 satreading. Was 99% in sitting and was 96-97% in standing. Pt fatigues and appears SOB towards end of stand. Pt denies and states that he is just angry because he wants to know why he is still here and wants to know what is going on. Functional Mobility Functional Mobility Comments: Pt declines functional mobility. I can get up and walk and do it all the time . Pt slightly agitated. HR 104 in standing. Bed mobility Supine to Sit: Unable to assess Sit to Supine: Unable to assess Comment: EOB before and after session. Transfers Sit to stand: Stand by assistance Stand to sit: Stand by assistance Transfer Comments: Sit <> stand from EOB this date. No device used. Pt denies dizziness and had no LOB. Does fatigue in standing. Plan # of visits: 3 Current Treatment Recommendations: Strengthening, Balance Training, Functional Mobility Training, Endurance Training, Pain Management, Safety Education & Training, Patient/Caregiver Education & Training, Home Management Training, Equipment Evaluation, Education, & procurement, Self-Care / ADL Plan Comment: Continue OT tx per pt's POC and goals. Safety Safety Devices in place: Yes Type of devices: All fall risk precautions in place, Call light within reach, Gait belt, Patient at risk for falls, Left in bed, Nurse notified, No alarms engaged upon entry into room, Patient left seated EOB AM-PAC Score AM-PAC Inpatient Daily Activity Raw Score: 20 ADL Inpatient [facility] G-Code Modifier: CJ Goals Encounter Problems Encounter Problems (Active) Dressing Upper Extremities Patient will complete upper body dressing MOD I (Progressing) Start: 09/27/22 Expected End: 10/04/22 Dressings Lower Extremities Patient will dress lower body MOD I (Progressing) Start: 09/27/22 Expected End: 10/04/22 Mobility Patient will demonstrate functional mobility with LRD and MOD I (Not Addressed) Start: 09/27/22 Expected End: 10/04/22 Toileting Patient will complete toileting tasks at standard toilet with modified independence. (Not Addressed) Start: 09/27/22 Expected End: 10/04/22 Transfers Patient will complete functional transfer with least restrictive device with modified independence in order to prepare for ambulation. (Progressing) Start: 09/27/22 Expected End: 10/04/22 Education Education Given To: Patient Education Provided: OT role, Plan of care, ADL adaptive strategies, Transfer training, Equipment, Energy conservation, Benefits of increasing activity level Education Method: Demonstration, Verbal, Teach Back Barriers to Learning: None Education Outcome: Verbalized understanding, Demonstrated understanding Therapy Time Individual Co-treatment Time In 1416 Time Out 1428 Minutes 12 Timed Code Treatment Minutes: 9 Minutes (adl) MAMTA Tam Images from the original note were not included. Subjective: Symptoms: Improved. He reports cough, weakness and anxiety. Diet: Adequate intake. Activity level: Impaired due to weakness. Pain: He reports no pain. VITAL SIGNS: Temp: [35.3 C (95.5 F)-35.8 C (96.5 F)] 35.3 C (95.5 F) Heart Rate: [78-82] 82 Resp: [18-20] 18 BP: (120-128)/(70-75) 128/75 FiO2 (%): [3 %] 3 % INTAKE/OUTPUT No intake/output data recorded. MEDS: amiodarone, 400 mg, Oral, Daily apixaban, 5 mg, Oral, BID atorvastatin, 10 mg, Oral, Nightly potassium chloride CR, 10 mEq, Oral, BID PRN medications: acetaminophen OR acetaminophen, aluminum & magnesium hydroxide-simethicone OR calcium carbonate, Melatonin OR traZODone OR diphenhydrAMINE, ondansetron ODT OR ondansetron, perflutren lipid microspheres, polyethylene glycol (PEG) 3350 LABS: Lab Results Component Value Date MG 2.1 09/26/2022 Lab Results Component Value Date WBC 7.1 09/24/2022 HGB 12.9 (L) 09/24/2022 HCT 40.0 09/24/2022 MCV 91.2 09/24/2022 PLT 220 09/24/2022 Lab Results Component Value Date GLUCOSE 128 (H) 09/26/2022 CALCIUM 9.3 09/26/2022 NA 137 09/26/2022 K 4.6 09/26/2022 CO2 37 (H) 09/26/2022 CL 97 (L) 09/26/2022 BUN 28 (H) 09/26/2022 CREATININE 0.83 09/26/2022 BNP: No results for input(s): BNP in the last 72 hours. PT/INR: No results for input(s): PROTIME, INR in the last 72 hours. APTT:No results for input(s): APTT in the last 72 hours. CARDIAC ENZYMES: No results for input(s): CKTOTAL, CKMB, CKMBINDEX, TROPONINI in the last 72 hours. FASTING LIPID PANEL:No results found for: CHLPL, HDL, LDLDIRECT, LDLCALC, TRIG LIVER PROFILE: Lab Results Component Value Date ALT 18 07/04/2022 AST 33 07/04/2022 ALKPHOS 94 07/04/2022 BILITOT 0.7 07/04/2022 Lab Results Component Value Date TSH 1.563 07/03/2022 No results found for: DIGOXIN ECHOCARDIOGRAM: 07/03/22 TRANSTHORACIC ECHOCARDIOGRAM (TTE) COMPLETE (CONTRAST/BUBBLE/3D PRN) 07/04/2022 6:24 PM (Final) Interpretation Summary Left Ventricle: Left ventricle size is normal. Normal wall thickness. Normal left ventricular systolic function. The EF by visual approximation is 55%. Normal wall motion. Right Ventricle: Right ventricle is severely dilated. Moderately reduced systolic function. Aortic Valve: Trileaflet. Moderately thickened cusps. Moderately calcified cusps. Moderate stenosis of the aortic valve. AV mean gradient is 11 mmHg. LVOT:AV VTI Index is 0.31. AV area by continuity VTI is 1.2 cm2. Tricuspid Valve: Mildly elevated RVSP. RVSP is 37 mmHg. Left Atrium: Left atrium is severely dilated. LA Vol Index A/L is 81 mL/m2. Right Atrium: Right atrium is severely dilated. No vegetations or other evidence for infectious endocarditis. Technically difficult study. Signed by: Waqas Juarez MD on 07/04/2022 6:24 PM X-RAYS === 09/24/22 === XR CHEST 1 VIEW - Impression - 1. Lines/Tubes/Devices/Hardware: Leads noted. Please confirm position and function of any catheters or attempted catheters clinically. 2. Lungs: No convincing acute process.. Limited due to portable technique. Consider follow-up with PA and lateral chest for persistent symptoms. 3. Pleura: No significant effusion. No significant pneumothorax. 4. Heart and mediastinum: Limited due to technique. 5. Upper abdomen: No acute process seen. 6. Thorax:No acute bony process Report Dictated on Electronically Signed By: Juan Lyons MD Electronically Signed Date/Time: 09/24/2022 10:37 AM EDT Objective: General Appearance: In no acute distress. Vital signs: (most recent): Blood pressure 128/75, pulse 82, temperature (!) 35.3 C (95.5 F), temperature source Temporal, resp. rate 18, height 6' (1.829 m), weight 234 lb (106 kg), SpO2 99 %. Vital signs are normal. Output: Producing urine and producing stool. HEENT: Normal HEENT exam. (Right lower lid ectropion) Lungs: Normal effort and normal respiratory rate. There are decreased breath sounds and rhonchi. Heart: Normal rate. Irregular rhythm. S2 normal. Positive for murmur. (NSVT better.) Abdomen: Abdomen is soft. Bowel sounds are normal. There is no abdominal tenderness. Extremities: Decreased range of motion. Pulses: Distal pulses are intact. Neurological: Patient is alert and oriented to person, place and time. Pupils: Pupils are equal, round, and reactive to light. Skin: Warm and dry. Assessment: Condition: In stable condition. Improving. (Principal Problem: Shortness of breath & COPD (chronic obstructive pulmonary disease) (HCC)>>>Resp Rx. 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 Amiodarone to PO transition. 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 Plan: Transfer Plan: OK for discharge. Per physical therapy. Advance diet as tolerated. Administer medications as ordered. 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 PO Amiodarone Nonrheumatic aortic valve stenosis>>>Observation & Medical Rx Pulmonary hypertension (HCC)>>>Treat FELICIANO & COPD>>Meds Hyperlipemia>>>Meds Reevaluate D/W patient). I personally obtained the medrano and critical portions of the history and physical exam. I reviewed the labs, imaging studies, and electronic medical record. I reviewed the chart documentation, and discussed the patient with treatment team members. I have edited the note to reflect my clinical findings and my assessment and plan. Please note, the time of this note does not reflect the time I saw this patient today, but the time of this documentation. Portions of this note including HPI, ROS, impression/plan, and examination may have been copied forward from admission to today as to provide important historical information essential in contributing to medical decision making. Documentation has been reviewed and edited as necessary to support clinical decision making for today's visit and to reflect my own independent evaluation of this patient. SIGNATURE: Prakash Zurita MD; FACC; FHRS; FASNC; CCDS. PATIENT NAME: Adam Mendes DATE: 09/29/2022 PAGER: [phone] Images from the original note were not included. Hospitalist Progress Note 09/28/2022 [phone]: Please page me ([phone]) for patient care issues. [phone]: Please page [facility] Hospitalist for any issues. Subjective: Admit Date: 09/24/2022 PCP: Carlos Cuevas MD Room#: B2-246/B2-246 B Interval History: Patient states he is breathing fine today and denies sob at rest. A little sob with exertion but feels it is his baseline. Denies palpitations. No chest pain. No NV. No fevers or chills. No new cough. No lightheadedness or dizziness today. Adult diet Regular @[id number]@ 24HR INTAKE/OUTPUT: No intake or output data in the 24 hours ending 09/28/22 1043 Past Medical History: Past Medical History: Diagnosis Date Atrial fibrillation (CMS/HCC) (HCC) Atrial fibrillation (CMS/HCC) (HCC) CHADS 2= 2 ( CHF, HTN) HAS BLED 2 =asa, age) Basal cell carcinoma Cancer (CMS/HCC) (HCC) CHF (congestive heart failure) (CMS/HCC) (HCC) COPD (chronic obstructive pulmonary disease) (HCC) Hyperlipidemia Hypertension Pulmonary hypertension (HCC) LABS: CBC: No results for input(s): WBC, RBC, HGB, HCT, MCV, RDW, PLT in the last 72 hours. BMP: Recent Labs 09/26/22 1134 NA 137 K 4.6 CL 97* CO2 37* BUN 28* CREATININE 0.83 GLUCOSE 128* CALCIUM 9.3 ANIONGAP 2* LIVER PROFILE:No results for input(s): AST, ALT, BILITOT, ALKPHOS, PROT in the last 72 hours. No lab exists for component: LABALBU PT/INR: No results for input(s): PROTIME, INR in the last 72 hours. CARDIAC ENZYMES: No results for input(s): TROPONINI in the last 72 hours. Procalcitonin: No results found for: PROCAL COVID-19 PCR: No results for input(s): COVID19 in the last 72 hours. Objective: Vitals: BP 97/57 (BP Location: Left arm, Patient Position: Sitting) Pulse 87 Temp 36.1 C (97 F) (Temporal) Resp 20 Ht 6' (1.829 m) Wt 234 lb (106 kg) SpO2 93% BMI 31.74 kg/m Pulse Ox: SpO2 Av.7 % Min: 90 % Max: 98 % Supplemental O2: O2 Flow Rate (L/min): 3 L/min General appearance: No apparent distress, appears stated age, HEENT: Eyes: No scleral icterus Oral: Tongue is semi-moist Cardiovascular: S1/S2 heard, irregular Respiratory: decreased BS but clear to auscultation bilaterally, no wheezing. Abdomen: Soft, non-tender, non-distended bowel sounds positive Musculoskeletal: No obvious deformities seen Skin: No visible rashes or lesions. Medications: amiodarone, 400 mg, Oral, Daily apixaban, 5 mg, Oral, BID atorvastatin, 10 mg, Oral, Nightly potassium chloride CR, 10 mEq, Oral, BID Assessment # Worsening shortness of breath with exertion - BNP only 867. He does have some edema in both legs but states its same and hasn't been any worse. 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 Lasix held as patient was hypotensive in ER (BP was 87/68 and was given fluid bolus in ER). Cardiology Dr. Shepard initially saw and planned for lexiscan stress test to rule out angina equivalent but patient follows with Dr. Zurita who saw and cancelled stress today as patient having runs of Vtach and also in A.fib with RVR. Breathing much better now. # Lactic acid elevated - was given bolus of 500 ml in ED, repeat levels now back to normal at 1.6. # Chronic HFpEF and right side heart failure- compensated and NOT in exacerbation. Last echo 06/2022 showed EF of 55% and severe RV and RA dilation with moderate reduced RV systolic function, moderate aortic stenosis. Lasix held as patient was hypotensive in ER (BP was 87/68 and was given fluid bolus in ER). Defer to cardiology when to resume. Cardiology following. # Multiple beat runs of V tach on 09/26 - cardiology aware. Potassium and mag were normal. Patient started on Amio drip initially and now changed to PO. # Chronic Afib with RVR - was started on Amio drip per cardiology and now is rate controlled. Patient now changed to PO amio per cardiology. Patient also on Eliquis. Dr. Zurita following. Rate remains controlled. # Acute hypotension in ER (was given fluid bolus for BP of 87/68) - he has a history of this with recent admission, improved with fluids, monitor BP. Lasix currently held. BP has been stable. # COPD- w/ chronic respiratory failure, does not appear in AE, lung exam shows decreased BS but clear with no wheezing. # Chronic hypoxic respiratory failure due to copd - on chronic 3-4 L NC O2. Currently on baseline oxygen. # Moderate aortic stenosis per echo on 07/03/2022 # Chronic Anemia - now at 12.9, improved # HPL- continue statin # Obesity # Low risk exposure from room mate who tested positive for COVID. Recommendations from ID stewardship is to do covid antigen day 1, 3 and 5 as precaution. 1st one done on 09/26 was negative. Will repeat on 09/28 and 09/30. Plan Repeat covid antigen today given recent low risk exposure as recommended by ID stewardship. Now off of amio drip and changed to PO amio per cardiology. Rate is controlled. Lasix remains on hold. Resume?? (defer when to resume to cardiology). Check daily labs. Continue all other tx the same. PT/OT has seen and recommending home with assist PRN and home health but Per TCC, Siblings state patient can't go back home as he does not have any assistance and are hoping for him to go to a SNF Extended Emergency Contact Information Primary Emergency Contact: Jacqui Mendes Relation: Sibling Secondary Emergency Contact: Adenike Villasenor Relation: Sibling CEZAR FORBES MD Division of Hospitalist Medicine Inpatient Medical Services/[facility] PAGER: Epic chat Occupational Therapy Facility[facility]Department: [facility] [facility] Occupational Therapy Treatment NAME: Adam Mendes : 1945 Date of Service: 09/28/2022 Discharge Recommendations: Home with assist PRN, Home with Home health OT Assessment REQUIRES OT FOLLOW-UP: Yes Performance deficits / Impairments: Decreased functional mobility , Decreased ADL status, Decreased endurance, Decreased balance, Decreased high-level IADLs Assessment: Pt seated EOB upon arrival, agreeable to OT tx. This session was focused on ADL's, STS, balance, transfer and mobility training without use of device. Pt ranges from SBA-CGA for mobility and min assist for ADL's this date. Pt was educated on use of AE for LB dressing to increase indpt. O2 levels and HR monitored throughout therapy session. Pt O2 on 3 L ranges from 86-97% with mobility and HR 96-120 BPM. Pt is limited by generalized weakness, decreased activity tolerance, mild instability, line mgmnt. Pt would continue to benefit from skilled OT therapy services to adapt to deficits and increase strength/endurance. OT is rec [facility] with PRN assist upon planned D/C. Prognosis: Good History: Pt in 09/24 with SOB, fatiuge, and diminished mobility. Exam: AM-PAC Patient Diagnosis(es): The primary encounter diagnosis was Shortness of breath. A diagnosis of Nonrheumatic aortic valve stenosis was also pertinent to this visit. has a past medical history of Atrial fibrillation (CMS/HCC) (HCC), Atrial fibrillation (CMS/HCC) (HCC), Basal cell carcinoma, Cancer (CMS/HCC) (HCC), CHF (congestive heart failure) (CMS/HCC) (HCC), COPD (chronic obstructive pulmonary disease) (HCC), Hyperlipidemia, Hypertension, and Pulmonary hypertension (HCC). He has no past medical history of Arthritis, Asthma, CAD (coronary artery disease), Cerebral artery occlusion with cerebral infarction (HCC), Diabetes mellitus (HCC), Hemodialysis patient (CMS/HCC) (HCC), History of blood transfusion, blood clots, or Thyroid disease. has a past surgical history that includes Hernia repair; Skin biopsy; Eye surgery; and Tonsillectomy. Restrictions Restrictions/Precautions Restrictions/Precautions: General Precautions, Fall Risk Required Braces or Orthoses?: No Vision/Hearing TE-MOAK Cognition/Orientation Overall Cognitive Status: WFL Overall Orientation Status: Within Functional Limits Subjective Ok for therapy per RN. Patient Stated Goal: none stated. Oxygen Therapy SpO2: 93 % Patient Activity During SpO2 Measurement: Walking Oxygen Therapy: Supplemental oxygen O2 Delivery Method: Nasal cannula Objective UE Dressing Assistance Level: Minimal assistance Skilled Clinical Factors: Seated EOB pt required min assist for line mgmnt and to down laces. Putting On/Taking Off Footwear Assistance Level: Minimal assistance Skilled Clinical Factors: Pt required min assist when donning shoes to adjust over BL heel d/t poor trunk flexion- educated pt on use of long handle shoe horn to increase indpt. Balance Sitting Balance: Stand by assistance Standing Balance: Stand by assistance Standing Balance Time: ~ 2 mintue Activity: static standing Comment: Pt completed static standing balance for ~2 mins with SBA for safety d/t generalized weakness and slight instability but no true LOB, slight fatigue noted. Functional Mobility Functional - Mobility Device: No device Activity: Other Assist Level: Contact guard assistance Functional Mobility Comments: Pt completed light bedroom mobility without use of device and CGA for safety d/t slight unsteadiness. HR monitored at 86-120 BOP and O2 with mobility at 3 L at 86-95% with education for proper pursed lip breathing and good carry-over. Bed mobility Supine to Sit: Unable to assess Sit to Supine: Unable to assess Scooting: Supervision Comment: Pt was SUP to scoot hips foward. Unable to acess rest of bed-mobility as pt seated on EOB pre/post session. Transfers Stand Step Transfers: Stand by assistance (Pt completed stand step transfer to EOB with SBA for safety to monitor balance d/t generalized weakness without use of device.) Sit to stand: Stand by assistance Stand to sit: Stand by assistance Transfer Comments: From EOB pt completed x3 STS with proper handplacement for elevation/descent without use of device, pt was SBA for safety to monitor balance and denies any dizziness with positional changes, Plan # of visits: 4 Current Treatment Recommendations: Strengthening, Balance Training, Functional Mobility Training, Endurance Training, Pain Management, Safety Education & Training, Patient/Caregiver Education & Training, Home Management Training, Equipment Evaluation, Education, & procurement, Self-Care / ADL Plan Comment: Continue OT tx per pt's POC and goals. Safety Safety Devices in place: Yes Type of devices: All fall risk precautions in place, Call light within reach, Gait belt, Patient at risk for falls, Left in bed, Nurse notified, No alarms engaged upon entry into room Restraints Initially in place: No AM-PAC Score AM-PAC Inpatient Daily Activity Raw Score: 19 ADL Inpatient CMS G-Code Modifier: CK Goals Encounter Problems Encounter Problems (Active) Dressing Upper Extremities Patient will complete upper body dressing MOD I (Progressing) Start: 09/27/22 Expected End: 10/04/22 Dressings Lower Extremities Patient will dress lower body MOD I (Progressing) Start: 09/27/22 Expected End: 10/04/22 Mobility Patient will demonstrate functional mobility with LRD and MOD I (Progressing) Start: 09/27/22 Expected End: 10/04/22 Toileting Patient will complete toileting tasks at standard toilet with modified independence. (Not Addressed) Start: 09/27/22 Expected End: 10/04/22 Transfers Patient will complete functional transfer with least restrictive device with modified independence in order to prepare for ambulation. (Progressing) Start: 09/27/22 Expected End: 10/04/22 Education Education Given To: Patient Education Provided: OT role, Plan of care, ADL adaptive strategies, Transfer training, Equipment, Energy conservation, Breathing technique Education Provided Comments: Education on proper pursed lip breathing. Education Method: Demonstration, Verbal, Teach Back Barriers to Learning: None Education Outcome: Verbalized understanding, Demonstrated understanding Therapy Time Individual Co-treatment Time In 913 Time Out 936 Minutes 23 Timed Code Treatment Minutes: 23 Minutes (1 ADL, 1 THER ACT) FERMIN Bee Images from the original note were not included. Subjective: Symptoms: Improved. He reports cough, weakness and anxiety. Diet: Adequate intake. Activity level: Impaired due to weakness. Pain: He reports no pain. VITAL SIGNS: Temp: [35.7 C (96.3 F)-36.1 C (97 F)] 36.1 C (97 F) Heart Rate: [76-90] 87 Resp: [18-22] 20 BP: (94-123)/(52-69) 97/57 FiO2 (%): [3 %] 3 % INTAKE/OUTPUT I/O last 3 completed shifts: In: 240 (2.3 mL/kg) [P.O.:240] Out: 650 (6.1 mL/kg) [Urine:650 (0.2 mL/kg/hr)] Weight: 106.1 kg MEDS: amiodarone, 400 mg, Oral, Daily apixaban, 5 mg, Oral, BID atorvastatin, 10 mg, Oral, Nightly potassium chloride CR, 10 mEq, Oral, BID PRN medications: acetaminophen OR acetaminophen, aluminum & magnesium hydroxide-simethicone OR calcium carbonate, Melatonin OR traZODone OR diphenhydrAMINE, ondansetron ODT OR ondansetron, perflutren lipid microspheres, polyethylene glycol (PEG) 3350 LABS: Lab Results Component Value Date MG 2.1 09/26/2022 Lab Results Component Value Date WBC 7.1 09/24/2022 HGB 12.9 (L) 09/24/2022 HCT 40.0 09/24/2022 MCV 91.2 09/24/2022 PLT 220 09/24/2022 Lab Results Component Value Date GLUCOSE 128 (H) 09/26/2022 CALCIUM 9.3 09/26/2022 NA 137 09/26/2022 K 4.6 09/26/2022 CO2 37 (H) 09/26/2022 CL 97 (L) 09/26/2022 BUN 28 (H) 09/26/2022 CREATININE 0.83 09/26/2022 BNP: No results for input(s): BNP in the last 72 hours. PT/INR: No results for input(s): PROTIME, INR in the last 72 hours. APTT:No results for input(s): APTT in the last 72 hours. CARDIAC ENZYMES: No results for input(s): CKTOTAL, CKMB, CKMBINDEX, TROPONINI in the last 72 hours. FASTING LIPID PANEL:No results found for: CHLPL, HDL, LDLDIRECT, LDLCALC, TRIG LIVER PROFILE: Lab Results Component Value Date ALT 18 07/04/2022 AST 33 07/04/2022 ALKPHOS 94 07/04/2022 BILITOT 0.7 07/04/2022 Lab Results Component Value Date TSH 1.563 07/03/2022 No results found for: DIGOXIN ECHOCARDIOGRAM: 07/03/22 TRANSTHORACIC ECHOCARDIOGRAM (TTE) COMPLETE (CONTRAST/BUBBLE/3D PRN) 07/04/2022 6:24 PM (Final) Interpretation Summary Left Ventricle: Left ventricle size is normal. Normal wall thickness. Normal left ventricular systolic function. The EF by visual approximation is 55%. Normal wall motion. Right Ventricle: Right ventricle is severely dilated. Moderately reduced systolic function. Aortic Valve: Trileaflet. Moderately thickened cusps. Moderately calcified cusps. Moderate stenosis of the aortic valve. AV mean gradient is 11 mmHg. LVOT:AV VTI Index is 0.31. AV area by continuity VTI is 1.2 cm2. Tricuspid Valve: Mildly elevated RVSP. RVSP is 37 mmHg. Left Atrium: Left atrium is severely dilated. LA Vol Index A/L is 81 mL/m2. Right Atrium: Right atrium is severely dilated. No vegetations or other evidence for infectious endocarditis. Technically difficult study. Signed by: Waqas Juarez MD on 07/04/2022 6:24 PM X-RAYS === 09/24/22 === XR CHEST 1 VIEW - Impression - 1. Lines/Tubes/Devices/Hardware: Leads noted. Please confirm position and function of any catheters or attempted catheters clinically. 2. Lungs: No convincing acute process.. Limited due to portable technique. Consider follow-up with PA and lateral chest for persistent symptoms. 3. Pleura: No significant effusion. No significant pneumothorax. 4. Heart and mediastinum: Limited due to technique. 5. Upper abdomen: No acute process seen. 6. Thorax:No acute bony process Report Dictated on Electronically Signed By: Juan Lyons MD Electronically Signed Date/Time: 09/24/2022 10:37 AM EDT Objective: General Appearance: In no acute distress. Vital signs: (most recent): Blood pressure 97/57, pulse 87, temperature 36.1 C (97 F), temperature source Temporal, resp. rate 20, height 6' (1.829 m), weight 234 lb (106 kg), SpO2 93 %. Vital signs are normal. Output: Producing urine and producing stool. HEENT: Normal HEENT exam. (Right lower lid ectropion) Lungs: Normal effort and normal respiratory rate. There are decreased breath sounds and rhonchi. Heart: Normal rate. Irregular rhythm. S2 normal. Positive for murmur. (NSVT better.) Abdomen: Abdomen is soft. Bowel sounds are normal. There is no abdominal tenderness. Extremities: Decreased range of motion. Pulses: Distal pulses are intact. Neurological: Patient is alert and oriented to person, place and time. Pupils: Pupils are equal, round, and reactive to light. Skin: Warm and dry. Assessment: Condition: In stable condition. Improving. (Principal Problem: Shortness of breath & COPD (chronic obstructive pulmonary disease) (HCC)>>>Resp Rx. 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 Amiodarone to PO transition. 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 Plan: Per physical therapy. Advance diet as tolerated. Administer medications as ordered. 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 PO Amiodarone Nonrheumatic aortic valve stenosis>>>Observation & Medical Rx Pulmonary hypertension (HCC)>>>Treat FELICIANO & COPD>>Meds Hyperlipemia>>>Meds Reevaluate D/W patient & NS). I personally obtained the medrano and critical portions of the history and physical exam. I reviewed the labs, imaging studies, and electronic medical record. I reviewed the chart documentation, and discussed the patient with treatment team members. I have edited the note to reflect my clinical findings and my assessment and plan. Please note, the time of this note does not reflect the time I saw this patient today, but the time of this documentation. Portions of this note including HPI, ROS, impression/plan, and examination may have been copied forward from admission to today as to provide important historical information essential in contributing to medical decision making. Documentation has been reviewed and edited as necessary to support clinical decision making for today's visit and to reflect my own independent evaluation of this patient. SIGNATURE: Prakash Zurita MD; FACC; FHRS; FASNC; CCDS. PATIENT NAME: Adam Mendes DATE: 09/28/2022 PAGER: [phone] Physical Therapy Facility/Department: [facility] Physical Therapy Initial Evaluation NAME: Adam Mendes : 1945 Date of Service: 09/27/2022 Discharge Recommendations: Home with Home health PT, Home with assist PRN PT Equipment Recommendations Equipment Needed: No Assessment Requires PT Follow-Up: Yes Assessment: Pt admitted 09/24 with SOB and found to have tachycardia. Pt with significant history of COPD and CHF. Pt presents with the below deficits limiting his functional independence. On evaluation patient requires supervision for bed mobility, SBA for transfers and CGA for ambulation with use of no device. Pt demos general unsteadiness and fatigue with mobiltiy. Pt educated on energy conervation techniques, O2 use and safety and use of pulse ox at home. Pt expected to continue to benefit from skilled PT to increase functional indendence and safety. Rec [facility] PT and assist prn. Performance Deficits/Impairments: Decreased functional mobility , Decreased ADL status, Decreased strength, Decreased safe awareness, Decreased endurance, Decreased balance, Decreased posture Decision Making: Medium Complexity History: Pt admitted 09/24 with SOB and found to have tachycardia. Pt with significant history of COPD and CHF. PMH listed below. Exam: AM-PAC Clinical Presentation: Pt has PMH as indicated below that contributes to his clinical presentation. At baseline patient lives with his sister and is functionally independent with a cane prn. Pt would benefit from [facility] PT on discharge. Barriers to Learning: none Barriers to Learning: none Activity Tolerance Activity Tolerance: Patient limited by fatigue, Patient limited by endurance Patient Diagnosis(es): The primary encounter diagnosis was Shortness of breath. A diagnosis of Nonrheumatic aortic valve stenosis was also pertinent to this visit. has a past medical history of Atrial fibrillation (CMS/HCC) (HCC), Atrial fibrillation (CMS/HCC) (HCC), Basal cell carcinoma, Cancer (CMS/HCC) (HCC), CHF (congestive heart failure) (CMS/HCC) (HCC), COPD (chronic obstructive pulmonary disease) (HCC), Hyperlipidemia, Hypertension, and Pulmonary hypertension (HCC). He has no past medical history of Arthritis, Asthma, CAD (coronary artery disease), Cerebral artery occlusion with cerebral infarction (HCC), Diabetes mellitus (HCC), Hemodialysis patient (CMS/HCC) (HCC), History of blood transfusion, blood clots, or Thyroid disease. has a past surgical history that includes Hernia repair; Skin biopsy; Eye surgery; and Tonsillectomy. Restrictions Restrictions/Precautions Restrictions/Precautions: General Precautions, Fall Risk Required Braces or Orthoses?: No Vision/Hearing Vision: Within Functional Limits Hearing: Functional/adequate for paticipation in therapy Hearing Exceptions: Hard of hearing/hearing concerns Cognition/Orientation Overall Cognitive Status: WFL Overall Orientation Status: Within Functional Limits Subjective General Chart Reviewed: Yes Patient Assessed for Rehabilitation Services: Yes Family / Caregiver Present: No Follows Commands: Within Functional Limits General Comment Comments: Per RN patient okay for therapy Subjective Subjective: Pt lying in bed and agreeable to therapy Patient Stated Goal: To return home. Social/Functional History Social/Functional History Lives With: Family (sister) Type of Home: House Home Layout: One level Home Access: Stairs to enter without rails Entrance Stairs - Number of Steps: 3 Bathroom Shower/Tub: Tub/Shower unit (pt sponge bathes) Bathroom Toilet: Standard Bathroom Equipment: Grab bars in shower Bathroom Accessibility: Accessible Home Equipment: Standard walker, Wheelchair-manual ADL Assistance: Independent Homemaking Assistance: Independent Homemaking Responsibilities: Yes Ambulation Assistance: Independent With device?: No Transfer Assistance: Independent Active Product Merchandiser: No Patient's Product Merchandiser Info: brother or sister drives Objective Observation/Palpation Posture: Fair Observation: continuous tele intact, PIV intact; Pt on RA and Spo2 86-94% Gross Assessment: Yes AROM: Generally decreased, functional PROM: Generally decreased, functional Strength: Generally decreased, functional Coordination: Generally decreased, functional Tone: Normal Sensation: Intact Bed mobility Supine to Sit: Supervision Sit to Supine: Supervision Scooting: Supervision Comment: Cues for line management with PIV for safety. No physical assist needed. Use of bedrail. Denies dizziness with change in position. Transfers Sit to Stand: Stand by assistance Stand to sit: Stand by assistance Comment: Pt requires SBA for safety and cues for PIV line management. No acute LOB noted. Ambulation Ambulation: Yes Ambulation 1 Surface 1: Level tile Device 1: No device Assistance 1: Contact guard Quality of Gait 1: reciprocal stepping, equal step length, slow lluvia, shuffling Distance (ft) 1: ~50'x1 Comments 1: Pt completed with CGA for safety and demos slow lluvia and short reicprocal steps. Pt with general unsteadiness and use of furniture to steady. Denies dizziness. Spo2 86% once returned to room and recovered to 92% with standing rest break. Pt educated on correct use of pulse ox at home and importance of wearing O2 NC when ambulating without rest breaks. Pt verbalizes good understanding. Balance Posture: Good Sitting - Static: Good Sitting - Dynamic: Good Standing - Static: Good, - Standing - Dynamic: Fair, + Plan # of visits: 4 visits Current Treatment Recommendations: Strengthening, ROM, Balance Training, Functional Mobility Training, Transfer Training, Endurance Training, Gait Training, Pain Management, Home Exercise Program, Safety Education & Training, Patient/Caregiver Education & Training, Equipment Evaluation, Education, & procurement, Positioning, Stair training Plan Comment: all goals and/or treatment were established in collaboration with patient Safety Safety Devices Safety Devices in Place: Yes Type of Devices: All fall risk precautions in place, Call light within reach, Gait belt, Patient at risk for falls, Left in bed, Nurse notified AM-PAC Score AM-PAC Inpatient Mobility Raw Score (No Stairs) : 17 Goals Encounter Problems Encounter Problems (Active) Balance Patient will maintain dynamic standing balance for 4 minutes with modified independence in order to demonstrate decreased risk of falling. Start: 09/27/22 Expected End: 10/02/22 Exercise Patient will complete lower extremity exercises for 1-2 sets / 5-10 reps in order to improve strength and activity tolerance for mobility. Start: 09/27/22 Expected End: 10/02/22 Mobility Patient will ambulate 100 feet with modified independence and least restrictive device in order to improve safety and independence with mobility. Start: 09/27/22 Expected End: 10/02/22 Patient will ascend and descend 3 stairs with least restrictive device and CGA in order to safely negotiate home. Start: 09/27/22 Expected End: 10/02/22 Pain - Adult Transfers Patient will perform bed mobility with modified independence in order to improve independence and prepare for out of bed mobility. Start: 09/27/22 Expected End: 10/02/22 Patient will complete functional transfer with least restrictive device with modified independence in order to prepare for ambulation. Start: 09/27/22 Expected End: 10/02/22 Education Education Given To: Patient Education Provided: Goals, PT Role, Plan of Care, Discharge recommendations, Precautions, Transfer Training, Energy Conservation, General Safety, Gait Training, Equipment, Functional Mobility Training, Injury Prevention Education Provided Comments: energy conservation, pulse ox, O2 NC use Education Method: Demonstration, Verbal Barriers to Learning: None Education Outcome: Verbalized understanding, Demonstrated understanding, Continued education needed Therapy Time Individual Co-treatment Time In 917 Time Out 0936 Minutes 18 Timed Code Treatment Minutes: 8 Minutes (1 Gt) Charo Walters PT Occupational Therapy Facility/Department: [address] Occupational Therapy Initial Evaluation NAME: Adam Mendes : 1945 Date of Service: 09/27/2022 Discharge Recommendations: Home with assist PRN, Home with Home health OT OT Equipment Recommendations Equipment Needed: No Assessment REQUIRES OT FOLLOW-UP: Yes Performance deficits / Impairments: Decreased functional mobility , Decreased ADL status, Decreased endurance, Decreased balance, Decreased high-level IADLs Assessment: Pt in 09/24 with SOB, fatiuge, and diminished mobility. Pt was previously IND for ADLs, IADLs, and functional transfers / mobility without a device. He is currentlty MIN A - CGA for ADLs, functional transfers / mobility with a FWW. Pt HR noted to be improved from yesterday with 80-120 during activity. Good device management with extended time this date. SpO2 noted to be WFL before and during activity on room air. 94% following activity. Pt is currently below baseline and would benefit from skilled OT services. Recommend planned D/C for [facility] OT with assist PRN. Prognosis: Good Decision Making: Medium Complexity History: Pt in 09/24 with SOB, fatiuge, and diminished mobility. Exam: AM-PAC Assistance / Modification: MIN A - CGA Activity Tolerance Activity Tolerance: Patient limited by fatigue Patient Diagnosis(es): The primary encounter diagnosis was Shortness of breath. A diagnosis of Nonrheumatic aortic valve stenosis was also pertinent to this visit. has a past medical history of Atrial fibrillation (CMS/HCC) (HCC), Atrial fibrillation (CMS/HCC) (HCC), Basal cell carcinoma, Cancer (CMS/HCC) (HCC), CHF (congestive heart failure) (CMS/HCC) (HCC), COPD (chronic obstructive pulmonary disease) (HCC), Hyperlipidemia, Hypertension, and Pulmonary hypertension (HCC). He has no past medical history of Arthritis, Asthma, CAD (coronary artery disease), Cerebral artery occlusion with cerebral infarction (HCC), Diabetes mellitus (HCC), Hemodialysis patient (CMS/HCC) ([facility]), History of blood transfusion, blood clots, or Thyroid disease. has a past surgical history that includes Hernia repair; Skin biopsy; Eye surgery; and Tonsillectomy. Restrictions Restrictions/Precautions Restrictions/Precautions: General Precautions, Fall Risk Required Braces or Orthoses?: No Vision/Hearing Vision: Within Functional Limits Hearing: Functional/adequate for paticipation in therapy Hearing Exceptions: Hard of hearing/hearing concerns Cognition/Orientation Overall Cognitive Status: WFL Overall Orientation Status: Within Functional Limits Subjective General Chart Reviewed: Yes Patient Assessed for Rehabilitation Services: Yes Family / Caregiver Present: No Subjective Subjective: pleasant and cooperative General Comments Comments: OK to see per RN Patient Stated Goal: none stated. Pain Assessment Pain Assessment: No/denies pain Social/Functional History Social/Functional History Lives With: Family (sister) Type of Home: House Home Layout: One level Home Access: Stairs to enter without rails Entrance Stairs - Number of Steps: 3 Bathroom Shower/Tub: Tub/Shower unit (pt sponge bathes) Bathroom Toilet: Standard Bathroom Equipment: Grab bars in shower Bathroom Accessibility: Accessible Home Equipment: Standard walker, Wheelchair-manual ADL Assistance: Independent Homemaking Assistance: Independent Homemaking Responsibilities: Yes Ambulation Assistance: Independent With device?: No Transfer Assistance: Independent Active Product Merchandiser: No Patient's Product Merchandiser Info: brother or sister drives Objective Gross Assessment: Yes (BUE) AROM: Within functional limits Strength: Within functional limits Observation/Palpation Posture: Fair Observation: tele intact and in place, PIV intact and in place Balance Sitting Balance: Stand by assistance (seated at EOB) Standing Balance: Contact guard assistance Standing Balance Time: ~ 1 mintue Activity: static standing Comment: at FWW, increased time required to complete all functional tasks. Increased reliance on device for safety with fair handplacement, correcting with time. Mild fatigue noted. Functional Mobility Functional - Mobility Device: Rolling Walker Activity: Other (short functional home distances in hallway) Assist Level: Contact guard assistance Functional Mobility Comments: no true LOB noted, improving FWW management and hand placement with occasional cueing for safety with line management. CGA overall with mild instability throughout. HR noted to increase to 120s from 80s during mobiltiy. Recovers with return to sitting at EOB. SpO2 noted to be WFL on room air upon arrival and > 92% following mobility on room air. Pt reports that he is typically on 3L O2. spO2 noted to be 94% following mobility while sitting at EOB. Rn in room and aware following session. ADL Feeding: Modified independent Grooming: Contact guard assistance UE Bathing: Contact guard assistance LE Bathing: Minimal assistance UE Dressing: Contact guard assistance LE Dressing: Minimal assistance Toileting: Minimal assistance Additional Comments: Pt limited by increased fatigue at this time with elevated HR noted during OOB activity at this time. Pt demos fair balance, and good strength and functional reach this date for OOB activity. Fair FWW management noted at this time. Increased reliance on device for stability during OOb activity. He demos no true LOb, hwoever diminished stability thorughout. Requires occasional rest breaks 2/2 fatigue and elevated HR Bed mobility Supine to Sit: Stand by assistance Sit to Supine: Stand by assistance Scooting: Stand by assistance Comment: HOB elevated, denies dizziness with positional changes. Increased fatigue noted at this time. SBA overall for safety. Increased reliance on bed rails. Transfers Sit to stand: Contact guard assistance Stand to sit: Contact guard assistance Transfer Comments: from EOB to FWW, good hand placement for push up from / reach back for seated surfaces. Denies dizziness. Good ble management for proper ARAMIS. Plan # of visits: 5 Current Treatment Recommendations: Strengthening, Balance Training, Functional Mobility Training, Endurance Training, Pain Management, Safety Education & Training, Patient/Caregiver Education & Training, Home Management Training, Equipment Evaluation, Education, & procurement, Self-Care / ADL Plan Comment: POC and goals established in collaboration with pt. Safety Safety Devices in place: Yes Type of devices: All fall risk precautions in place, Call light within reach, Gait belt, Patient at risk for falls, Left in bed, Nurse notified, No alarms engaged upon entry into room Restraints Initially in place: No AM-PAC Score AM-PAC Inpatient Daily Activity Raw Score: 19 ADL Inpatient CMS G-Code Modifier: CK Goals Encounter Problems Encounter Problems (Active) Dressing Upper Extremities Patient will complete upper body dressing MOD I Start: 09/27/22 Expected End: 10/04/22 Dressings Lower Extremities Patient will dress lower body MOD I Start: 09/27/22 Expected End: 10/04/22 Mobility Patient will demonstrate functional mobility with LRD and MOD I Start: 09/27/22 Expected End: 10/04/22 Toileting Patient will complete toileting tasks at standard toilet with modified independence. Start: 09/27/22 Expected End: 10/04/22 Transfers Patient will complete functional transfer with least restrictive device with modified independence in order to prepare for ambulation. Start: 09/27/22 Expected End: 10/04/22 Education Education Given To: Patient Education Provided: OT role, Plan of care, ADL adaptive strategies, Transfer training, Equipment Education Method: Demonstration, Verbal, Teach Back Barriers to Learning: None Education Outcome: Verbalized understanding, Demonstrated understanding Therapy Time Individual Co-treatment Time In 0848 Time Out 0911 Minutes 23 Kal Stearns OT Images from the original note were not included. Subjective: Symptoms: Stable. He reports cough, weakness and anxiety. Diet: Adequate intake. Activity level: Impaired due to weakness. Pain: He reports no pain. VITAL SIGNS: Temp: [35.6 C (96.1 F)-36.5 C (97.7 F)] 36.1 C (97 F) Heart Rate: [73-105] 73 Resp: [19-26] 24 BP: (115-130)/(72-88) 122/83 INTAKE/OUTPUT I/O last 3 completed shifts: In: 243.2 (2.3 mL/kg) [I.V.:143.2 (1.3 mL/kg); IV Piggyback:100] Out: 650 (6.1 mL/kg) [Urine:650 (0.2 mL/kg/hr)] Weight: 106.1 kg MEDS: albuterol, 4 puff, Inhalation, Once apixaban, 5 mg, Oral, BID atorvastatin, 10 mg, Oral, Nightly potassium chloride CR, 10 mEq, Oral, BID amiodarone, 0.5 mg/min, Last Rate: 0.5 mg/min (09/27/22 0434) PRN medications: acetaminophen OR acetaminophen, aluminum & magnesium hydroxide-simethicone OR calcium carbonate, Melatonin OR traZODone OR diphenhydrAMINE, ondansetron ODT OR ondansetron, perflutren lipid microspheres, polyethylene glycol (PEG) 3350 LABS: Lab Results Component Value Date MG 2.1 09/26/2022 Lab Results Component Value Date WBC 7.1 09/24/2022 HGB 12.9 (L) 09/24/2022 HCT 40.0 09/24/2022 MCV 91.2 09/24/2022 PLT 220 09/24/2022 Lab Results Component Value Date GLUCOSE 128 (H) 09/26/2022 CALCIUM 9.3 09/26/2022 NA 137 09/26/2022 K 4.6 09/26/2022 CO2 37 (H) 09/26/2022 CL 97 (L) 09/26/2022 BUN 28 (H) 09/26/2022 CREATININE 0.83 09/26/2022 BNP: Recent Labs 09/24/22 1038 BNP 867* PT/INR: No results for input(s): PROTIME, INR in the last 72 hours. APTT:No results for input(s): APTT in the last 72 hours. CARDIAC ENZYMES: Recent Labs 09/24/22 1038 TROPONINI 0.013 FASTING LIPID PANEL:No results found for: CHLPL, HDL, LDLDIRECT, LDLCALC, TRIG LIVER PROFILE: Lab Results Component Value Date ALT 18 07/04/2022 AST 33 07/04/2022 ALKPHOS 94 07/04/2022 BILITOT 0.7 07/04/2022 Lab Results Component Value Date TSH 1.563 07/03/2022 No results found for: DIGOXIN ECHOCARDIOGRAM: 07/03/22 TRANSTHORACIC ECHOCARDIOGRAM (TTE) COMPLETE (CONTRAST/BUBBLE/3D PRN) 07/04/2022 6:24 PM (Final) Interpretation Summary Left Ventricle: Left ventricle size is normal. Normal wall thickness. Normal left ventricular systolic function. The EF by visual approximation is 55%. Normal wall motion. Right Ventricle: Right ventricle is severely dilated. Moderately reduced systolic function. Aortic Valve: Trileaflet. Moderately thickened cusps. Moderately calcified cusps. Moderate stenosis of the aortic valve. AV mean gradient is 11 mmHg. LVOT:AV VTI Index is 0.31. AV area by continuity VTI is 1.2 cm2. Tricuspid Valve: Mildly elevated RVSP. RVSP is 37 mmHg. Left Atrium: Left atrium is severely dilated. LA Vol Index A/L is 81 mL/m2. Right Atrium: Right atrium is severely dilated. No vegetations or other evidence for infectious endocarditis. Technically difficult study. Signed by: Waqas Juarez MD on 07/04/2022 6:24 PM X-RAYS === 09/24/22 === XR CHEST 1 VIEW - Impression - 1. Lines/Tubes/Devices/Hardware: Leads noted. Please confirm position and function of any catheters or attempted catheters clinically. 2. Lungs: No convincing acute process.. Limited due to portable technique. Consider follow-up with PA and lateral chest for persistent symptoms. 3. Pleura: No significant effusion. No significant pneumothorax. 4. Heart and mediastinum: Limited due to technique. 5. Upper abdomen: No acute process seen. 6. Thorax:No acute bony process Report Dictated on Electronically Signed By: Juan Lyons MD Electronically Signed Date/Time: 09/24/2022 10:37 AM EDT Objective: General Appearance: In no acute distress. Vital signs: (most recent): Blood pressure 122/83, pulse 73, temperature 36.1 C (97 F), temperature source Temporal, resp. rate 24, height 6' (1.829 m), weight 234 lb (106 kg), SpO2 99 %. Vital signs are normal. Output: Producing urine and producing stool. HEENT: Normal HEENT exam. (Right lower lid ectropion) Lungs: Normal effort and normal respiratory rate. There are decreased breath sounds and rhonchi. Heart: Normal rate. Irregular rhythm. S2 normal. Positive for murmur. (NSVT on monitor) Abdomen: Abdomen is soft. Bowel sounds are normal. There is no abdominal tenderness. Extremities: Decreased range of motion. Pulses: Distal pulses are intact. Neurological: Patient is alert and oriented to person, place and time. Pupils: Pupils are equal, round, and reactive to light. Skin: Warm and dry. Assessment: Condition: In stable condition. Improving. (Principal Problem: Shortness of breath & COPD (chronic obstructive pulmonary disease) (HCC)>>>Resp Rx. 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 Pt unable to lift arms out of the way of camera>>>Meds Atrial fibrillation (CMS/HCC) (HCC)>>>Rate control & anticoagulate NSVT (nonsustained ventricular tachycardia) (HCC)>>>Keep K>4.0 & Mag>2.0. 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 Plan: Per physical therapy. Advance diet as tolerated. Administer medications as ordered. 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 Had to start IV Amiodarone Nonrheumatic aortic valve stenosis>>>Observation & Medical Rx Pulmonary hypertension (HCC)>>>Treat FELICIANO & COPD>>Meds Hyperlipemia>>>Meds Reevaluate D/W patient & NS). I personally obtained the medrano and critical portions of the history and physical exam. I reviewed the labs, imaging studies, and electronic medical record. I reviewed the chart documentation, and discussed the patient with treatment team members. I have edited the note to reflect my clinical findings and my assessment and plan. Please note, the time of this note does not reflect the time I saw this patient today, but the time of this documentation. Portions of this note including HPI, ROS, impression/plan, and examination may have been copied forward from admission to today as to provide important historical information essential in contributing to medical decision making. Documentation has been reviewed and edited as necessary to support clinical decision making for today's visit and to reflect my own independent evaluation of this patient. SIGNATURE: Prakash Zurita MD; FACC; FHRS; FASNC; CCDS. PATIENT NAME: Adam Mendes DATE: 09/27/2022 PAGER: [phone] Images from the original note were not included. Hospitalist Progress Note 09/27/[id number]: Please page me ([phone]) for patient care issues. [phone]: Please page [facility] Hospitalist for any issues. Subjective: Admit Date: 09/24/2022 PCP: Carlos Cuevas MD Room#: [facility] B Interval History: Patient states he is breathing fine today and denies sob at rest. Denies palpitations. Currently on amiodarone drip. No chest pain. No NV. No fevers or chills. No new cough. No lightheadedness or dizziness today. Adult diet Regular @[id number]@ 24HR INTAKE/OUTPUT: Intake/Output Summary (Last 24 hours) at 09/27/2022 0841 Last data filed at 09/27/2022 0300 Gross per 24 hour Intake 243.19 ml Output 650 ml Net -406.81 ml Past Medical History: Past Medical History: Diagnosis Date Atrial fibrillation (CMS/HCC) (HCC) Atrial fibrillation (CMS/HCC) (HCC) CHADS 2= 2 ( CHF, HTN) HAS BLED 2 =asa, age) Basal cell carcinoma Cancer (CMS/HCC) (HCC) CHF (congestive heart failure) (CMS/HCC) (HCC) COPD (chronic obstructive pulmonary disease) (HCC) Hyperlipidemia Hypertension Pulmonary hypertension (HCC) LABS: CBC: Recent Labs 09/24/22 1038 WBC 7.1 RBC 4.39* HGB 12.9* HCT 40.0 MCV 91.2 RDW 17.3* PLT 220 BMP: Recent Labs 09/24/22 1038 09/26/22 1134 NA 136 137 K 3.8 4.6 CL 98 97* CO2 33* 37* BUN 22* 28* CREATININE 1.00 0.83 GLUCOSE 145* 128* CALCIUM 9.1 9.3 ANIONGAP 5 2* LIVER PROFILE:No results for input(s): AST, ALT, BILITOT, ALKPHOS, PROT in the last 72 hours. No lab exists for component: LABALBU PT/INR: No results for input(s): PROTIME, INR in the last 72 hours. CARDIAC ENZYMES: Recent Labs 09/24/22 1038 TROPONINI 0.013 Procalcitonin: No results found for: PROCAL COVID-19 PCR: No results for input(s): COVID19 in the last 72 hours. Objective: Vitals: BP 122/83 (BP Location: Right arm, Patient Position: Lying) Pulse 73 Temp 36.1 C (97 F) (Temporal) Resp 24 Ht 6' (1.829 m) Wt 234 lb (106 kg) SpO2 99% BMI 31.74 kg/m Pulse Ox: SpO2 Av.8 % Min: 97 % Max: 100 % Supplemental O2: O2 Flow Rate (L/min): 3 L/min General appearance: No apparent distress, appears stated age, HEENT: Eyes: No scleral icterus Oral: Tongue is semi-moist Cardiovascular: S1/S2 heard, RRR Respiratory: decreased BS but clear to auscultation bilaterally, no wheezing. Abdomen: Soft, non-tender, non-distended bowel sounds positive Musculoskeletal: No obvious deformities seen Skin: No visible rashes or lesions. Medications: amiodarone, 0.5 mg/min, Last Rate: 0.5 mg/min (09/27/22 0434) albuterol, 4 puff, Inhalation, Once apixaban, 5 mg, Oral, BID atorvastatin, 10 mg, Oral, Nightly potassium chloride CR, 10 mEq, Oral, BID Assessment # Worsening shortness of breath with exertion - BNP only 867. He does have some edema in both legs but states its same and hasn't been any worse. 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 Lasix held as patient was hypotensive in ER (BP was 87/68 and was given fluid bolus in ER). Cardiology Dr. Shepard initially saw and planning for lexiscan stress test to rule out angina equivalent but patient follows with Dr. Zurita who saw and cancelled stress today as patient having runs of Vtach and also in A.fib with RVR. # Lactic acid elevated - was given bolus of 500 ml in ED, repeat levels now back to normal at 1.6. # Chronic HFpEF and right side heart failure- compensated and NOT in exacerbation. last echo 06/2022 showed EF of 55% and severe RV and RA dilation with moderate reduced RV systolic function, moderate aortic stenosis. Lasix held as patient was hypotensive in ER (BP was 87/68 and was given fluid bolus in ER). # Multiple beat runs of V tach on 09/26 - cardiology aware. Potassium and mag were normal. Patient started on Amio. # Acute hypotension in ER (was given fluid bolus for BP of 87/68) - he has a history of this with recent admission, improved with fluids , monitor BP. Lasix currently held. # COPD- w/ chronic respiratory failure, does not appear in AE, lung exam shows decreased BS but clear with no wheezing. # Chronic hypoxic respiratory failure due to copd - on chronic 3-4 L NC O2. Currently on baseline oxygen. # Moderate aortic stenosis per echo on 07/03/2022 # Chronic Afib with RVR - now started on Amio per cardiology. Dr. Zurita following. # Chronic Anemia - now at 12.9, improved # HPL- continue statin # Obesity # Low risk exposure from room mate who tested positive for COVID. Recommendations from ID stewardship is to do covid antigen day 1, 3 and 5 as precaution. 1st one done on 09/26 was negative. Will repeat on 09/28 and 09/30. Plan Repeat covid antigen tomorrow. Continue holding lasix given hypotension on admission that was fluid responsive. Continue amio for a.fib with RVR as per cardiology. Lasix remains on hold. Resume?? (defer when to resume to cardiology). Check daily labs. Continue all other tx the same. PT/OT eval pending. Per TCC, Siblings state patient can't go back home and are hoping for him to go to a SNF Extended Emergency Contact Information Primary Emergency Contact: Jacqui Mendes Relation: Sibling Secondary Emergency Contact: Adenike Villasenor Relation: Sibling CEZAR FORBES MD Division of Hospitalist Medicine Inpatient Medical Services/[facility] PAGER: Epic chat Occupational Therapy Facility/Department: Occupational Therapy Initial Evaluation NAME: Adam Mendes : 1945 Date of Service: 09/26/2022 Chart review completed and spoke to RN. Patient with recent/current elevated HR (150-180s) and on amiodarone drip and not appropriate to participate in therapy assessment. Will continue to follow and re-attempt as appropriate. Sheryl Orr OT Physical Therapy Facility/Department: [address] Physical Therapy NAME: Adam Mendes : 1945 Date of Service: 09/26/2022 Chart review completed and spoke to RN. Patient with recent/current elevated HR (150-180s) and on amiodarone drip and not appropriate to participate in therapy assessment. Will continue to follow and re-attempt as appropriate. Valerie Polk, PT Nutrition Assessment Type and Reason for Visit: Initial, Positive Nutrition Screen (pt has had weight loss -states intentional) Nutrition Recommendations/Plan: Suggest to continue a regular diet to promote intakes per MNT protocol , initiated vanilla Ensure plus high protein once daily( 350 mckay, 20 gm pro/serving) Please document PO intakes-diet and ONS- consistently in the flowsheet to better assess intake adequacy. Suggest daily mvi Monitor labs, status, intakes,wts to reassess. Follow up at least weekly Malnutrition Assessment: Malnutrition Status: At risk for malnutrition (Comment) Context: Chronic Illness Findings of the 6 clinical characteristics of malnutrition: Energy Intake: 75% or less estimated energy requirements for 1 month or longer (17.1 in 9 mos) Weight Loss: Body Fat Loss: Mild body fat loss (mod) Muscle Mass Loss: Mild muscle mass loss (mod) Fluid Accumulation: Mild Extremities Shader And Toner Strength: Normal debeader strength Nutrition Assessment: PER PA-Mr. Mendes has a history of permanent atrial fibrillation, hypertension, and COPD dependent on home oxygen therapy. He presented with progressive fatigue, weakness, and exertional shortness of breath. His weight was down about 30 pounds from decrease calories. It was felt his shortness of breath was more likely related to underlying pulmonary disease1. Shortness of breath. -Likely related to his underlying pulmonary disease. -Stress testing is ordered to rule out anginal equivalent. 2. Atrial fibrillation. -He is on Eliquis for stroke risk reduction. 3. Moderate aortic valve stenosis. -Last echocardiogram was completed on July 04, 2022 4. COPD. 5. Regular ectopic beats noted on monitor. -Last blood work was September 24, will add a BMP to document stability of electrolytes..STRESS TEST CANCELLED Estimated Daily Nutrient Needs: Energy Requirements Based On: Kcal/kg Weight Used for Energy Requirements: [place] Weight for Energy Calculation (kg): 81 kg Total Energy Requirements (kcals/day): 28-32 or 4508-4059 Weight Used for Protein Requirements: [place] Weight in Kg Used for Protein Requirements: 81 kg Estimated Total Protein (g/day): 1-1.4 or 81-113 Estimated Daily Total Fluid (ml/day): or per md Nutrition Related Findings: SIGNIFICANT WT LOSS-17.1% IN 9 MOS- vs fluid -CHEST CLEAR, non pitting edema,has a fib, 8/5 bm,droopy lid, un 28, glu 128,glu 145, [id number], neg 1075 cc Wound Type: None Current Nutrition Therapies: Adult diet Regular Current Oral Intake Average Meal Intake: 76-100% Average Supplements Intake: None Ordered Anthropometric Measures: Height: 182.9 cm (6') Current Body Weight: 105 kg (232 lb) Weight Source: Standing Scale (09/26) Admission Body Weight: 106 kg (234 lb) (09/24/22) Usual Body Weight: 127 kg (280 lb) % Weight Change (Calculated): -17.1 [place] Body Weight (lbs) (Calculated): 178 lbs [place] Body Weight (Kg) (Calculated): 81 kg % [place] Body Weight (Calculated): 130.3 % BMI (kg/m2) (Calculated): 31.5 BMI Categories: Obese Class 1 (BMI 30.0-34.9) Nutrition Diagnosis: Inadequate protein-energy intake related to impaired respiratory function as evidenced by weight loss, weight loss greater than or equal to 10% in 6 months (17.1% in 9 mos) Nutrition Interventions: Nutrition Education/Counseling: Education initiated, Education declined (declined caridac education- encouraged Ensure) Coordination of Nutrition Care: Continue to monitor while inpatient Plan of Care discussed with: pt Goals: Goals: Meet at least 75% of estimated needs, other (specify) Specify Other Goals: with slow wt loss Nutrition Monitoring and Evaluation: Behavioral-Environmental Outcomes: None Identified Food/Nutrient Intake Outcomes: Food and Nutrient Intake Physical Signs/Symptoms Outcomes: Biochemical Data, Chewing or Swallowing, Fluid Status or Edema, Meal Time Behavior, Nutrition Focused Physical Findings, Skin, Weight Discharge Planning: Continue current diet Rolanda Serna RD Contact: [phone] secure chat Images from the original note were not included. Hospitalist Progress Note 09/26/2022 [phone]: Please page me ([phone]) for patient care issues. [phone]: Please page [facility] Hospitalist for any issues. Subjective: Admit Date: 09/24/2022 PCP: Carlos Cuevas MD Room#: B2-249/B2-249 B Interval History: Patient states he is breathing much better today. Denies sob at rest and said he is not that sob with exertion as before. No chest pain. No NV. No fevers or chills. No new cough. No lightheadedness or dizziness today. NPO diet @[id number]@ 24HR INTAKE/OUTPUT: Intake/Output Summary (Last 24 hours) at 09/26/2022 1051 Last data filed at 09/26/2022 0800 Gross per 24 hour Intake 0 ml Output -- Net 0 ml Past Medical History: Past Medical History: Diagnosis Date Atrial fibrillation (CMS/HCC) (HCC) Atrial fibrillation (CMS/HCC) (HCC) CHADS 2= 2 ( CHF, HTN) HAS BLED 2 =asa, age) Basal cell carcinoma Cancer (CMS/HCC) (HCC) CHF (congestive heart failure) ([facility]/HCC) (HCC) COPD (chronic obstructive pulmonary disease) (HCC) Hyperlipidemia Hypertension Pulmonary hypertension (HCC) LABS: CBC: Recent Labs 09/24/22 1038 WBC 7.1 RBC 4.39* HGB 12.9* HCT 40.0 MCV 91.2 RDW 17.3* PLT 220 BMP: Recent Labs 09/24/22 1038 NA 136 K 3.8 CL 98 CO2 33* BUN 22* CREATININE 1.00 GLUCOSE 145* CALCIUM 9.1 ANIONGAP 5 LIVER PROFILE:No results for input(s): AST, ALT, BILITOT, ALKPHOS, PROT in the last 72 hours. No lab exists for component: LABALBU PT/INR: No results for input(s): PROTIME, INR in the last 72 hours. CARDIAC ENZYMES: Recent Labs 09/24/22 1038 TROPONINI 0.013 Procalcitonin: No results found for: PROCAL COVID-19 PCR: No results for input(s): COVID19 in the last 72 hours. Objective: Vitals: BP (!) 98/43 (BP Location: Left arm, Patient Position: Lying) Pulse 69 Temp 36.2 C (97.1 F) (Temporal) Resp 20 Wt 234 lb (106 kg) SpO2 97% BMI 31.74 kg/m Pulse Ox: SpO2 Av.2 % Min: 94 % Max: 100 % Supplemental O2: O2 Flow Rate (L/min): 3 L/min General appearance: No apparent distress, appears stated age, HEENT: Eyes: No scleral icterus Oral: Tongue is semi-moist Cardiovascular: S1/S2 heard, RRR Respiratory: decreased BS but clear to auscultation bilaterally, no wheezing. Abdomen: Soft, non-tender, non-distended bowel sounds positive Musculoskeletal: No obvious deformities seen Skin: No visible rashes or lesions. Medications: apixaban, 5 mg, Oral, BID atorvastatin, 10 mg, Oral, Nightly potassium chloride CR, 10 mEq, Oral, BID Assessment # Worsening shortness of breath with exertion - BNP only 867. He does have some edema in both legs but states its same and hasn't been any worse. 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 Lasix held as patient was hypotensive in ER (BP was 87/68 and was given fluid bolus in ER). Cardiology Dr. Shepard initially saw and planning for lexiscan stress test to rule out angina equivalent but patient follows with Dr. Zurita who saw and cancelled stress today as patient having runs of Vtach. # Lactic acid elevated - was given bolus of 500 ml in ED, repeat levels now back to normal at 1.6. # Chronic HFpEF and right side heart failure- compensated and NOT in exacerbation. last echo 06/2022 showed EF of 55% and severe RV and RA dilation with moderate reduced RV systolic function, moderate aortic stenosis. Lasix held as patient was hypotensive in ER (BP was 87/68 and was given fluid bolus in ER). # 6 beats run of V tach on 09/26 - cardiology aware. Spoke with Dr. Zurita who states he is checking potassium and mag. If normal, he may consider amio but at this time holding off. # Acute hypotension in ER (was given fluid bolus for BP of 87/68) - he has a history of this with recent admission, improved with fluids , monitor BP. Lasix currently held. # COPD- w/ chronic respiratory failure, does not appear in AE, lung exam shows decreased BS but clear with no wheezing. # Chronic hypoxic respiratory failure due to copd - on chronic 3-4 L NC O2. Currently on baseline oxygen. # Moderate aortic stenosis per echo on 07/03/2022 # Chronic Afib- mostly rate controlled, continue OAC but NOT on any rate controlling meds. # Chronic Anemia - now at 12.9, improved # HPL- continue statin # Obesity Plan Low risk exposure from room mate who tested positive yesterday for COVID. Recommendations from ID stewardship is to do covid antigen day 1, 3 and 5 as precaution. Will start 1st one today. Continue holding lasix given hypotension on admission that was fluid responsive. Cardiology saw for worsening sob and was planning to rule out angina equivalent vs valvular cause, vs other etiology. Cardiology Dr. Shepard initially saw and planning for lexiscan stress test to rule out angina equivalent but patient follows with Dr. Zurita who saw and cancelled stress today as patient having runs of Vtach. Spoke with Dr. Zurita who states he is checking potassium and mag. If normal, he may consider amio but at this time holding off. Check daily labs. Continue all other tx the same. Also will get PT/OT eval. Per TCC, Siblings state patient can't go back home and are hoping for him to go to a SNF Extended Emergency Contact Information Primary Emergency Contact: Jacqui Mendes Relation: Sibling Secondary Emergency Contact: Adenike Villasenor Relation: Sibling CEZAR FORBES MD Division of Hospitalist Medicine Inpatient Medical Services/[facility] PAGER: Epic chat Images from the original note were not included. Subjective: Symptoms: Stable. He reports cough, weakness and anxiety. Diet: Adequate intake. Activity level: Impaired due to weakness. Pain: He reports no pain. VITAL SIGNS: Temp: [35.7 C (96.2 F)-36.4 C (97.6 F)] 36.2 C (97.1 F) Heart Rate: [68-82] 69 Resp: [16-20] 20 BP: (98-112)/(43-66) 98/43 INTAKE/OUTPUT I/O last 3 completed shifts: In: - (0 mL/kg) Out: 1075 (10.1 mL/kg) [Urine:1075 (0.3 mL/kg/hr)] Weight: 106.1 kg MEDS: apixaban, 5 mg, Oral, BID atorvastatin, 10 mg, Oral, Nightly potassium chloride CR, 10 mEq, Oral, BID PRN medications: acetaminophen OR acetaminophen, aluminum & magnesium hydroxide-simethicone OR calcium carbonate, Melatonin OR traZODone OR diphenhydrAMINE, ondansetron ODT OR ondansetron, perflutren lipid microspheres, polyethylene glycol (PEG) 3350, regadenoson LABS: No results found for: MG Lab Results Component Value Date WBC 7.1 09/24/2022 HGB 12.9 (L) 09/24/2022 HCT 40.0 09/24/2022 MCV 91.2 09/24/2022 PLT 220 09/24/2022 Lab Results Component Value Date GLUCOSE 145 (H) 09/24/2022 CALCIUM 9.1 09/24/2022 NA 136 09/24/2022 K 3.8 09/24/2022 CO2 33 (H) 09/24/2022 CL 98 09/24/2022 BUN 22 (H) 09/24/2022 CREATININE 1.00 09/24/2022 BNP: Recent Labs 09/24/22 1038 BNP 867* PT/INR: No results for input(s): PROTIME, INR in the last 72 hours. APTT:No results for input(s): APTT in the last 72 hours. CARDIAC ENZYMES: Recent Labs 09/24/22 1038 TROPONINI 0.013 FASTING LIPID PANEL:No results found for: CHLPL, HDL, LDLDIRECT, LDLCALC, TRIG LIVER PROFILE: Lab Results Component Value Date ALT 18 07/04/2022 AST 33 07/04/2022 ALKPHOS 94 07/04/2022 BILITOT 0.7 07/04/2022 Lab Results Component Value Date TSH 1.563 07/03/2022 No results found for: DIGOXIN ECHOCARDIOGRAM: 07/03/22 TRANSTHORACIC ECHOCARDIOGRAM (TTE) COMPLETE (CONTRAST/BUBBLE/3D PRN) 07/04/2022 6:24 PM (Final) Interpretation Summary Left Ventricle: Left ventricle size is normal. Normal wall thickness. Normal left ventricular systolic function. The EF by visual approximation is 55%. Normal wall motion. Right Ventricle: Right ventricle is severely dilated. Moderately reduced systolic function. Aortic Valve: Trileaflet. Moderately thickened cusps. Moderately calcified cusps. Moderate stenosis of the aortic valve. AV mean gradient is 11 mmHg. LVOT:AV VTI Index is 0.31. AV area by continuity VTI is 1.2 cm2. Tricuspid Valve: Mildly elevated RVSP. RVSP is 37 mmHg. Left Atrium: Left atrium is severely dilated. LA Vol Index A/L is 81 mL/m2. Right Atrium: Right atrium is severely dilated. No vegetations or other evidence for infectious endocarditis. Technically difficult study. Signed by: Waqas Juarez MD on 07/04/2022 6:24 PM X-RAYS === 09/24/22 === XR CHEST 1 VIEW - Impression - 1. Lines/Tubes/Devices/Hardware: Leads noted. Please confirm position and function of any catheters or attempted catheters clinically. 2. Lungs: No convincing acute process.. Limited due to portable technique. Consider follow-up with PA and lateral chest for persistent symptoms. 3. Pleura: No significant effusion. No significant pneumothorax. 4. Heart and mediastinum: Limited due to technique. 5. Upper abdomen: No acute process seen. 6. Thorax:No acute bony process Report Dictated on Electronically Signed By: Juan Lyons MD Electronically Signed Date/Time: 09/24/2022 10:37 AM EDT Objective: General Appearance: In no acute distress. Vital signs: (most recent): Blood pressure (!) 98/43, pulse 69, temperature 36.2 C (97.1 F), temperature source Temporal, resp. rate 20, weight 234 lb (106 kg), SpO2 97 %. Vital signs are normal. Output: Producing urine and producing stool. HEENT: Normal HEENT exam. (Right lower lid ectropion) Lungs: Normal effort and normal respiratory rate. There are decreased breath sounds and rhonchi. Heart: Normal rate. Irregular rhythm. S2 normal. Positive for murmur. (NSVT on monitor) Abdomen: Abdomen is soft. Bowel sounds are normal. There is no abdominal tenderness. Extremities: Decreased range of motion. Pulses: Distal pulses are intact. Neurological: Patient is alert and oriented to person, place and time. Pupils: Pupils are equal, round, and reactive to light. Skin: Warm and dry. Assessment: Condition: In stable condition. Improving. (Principal Problem: Shortness of breath & COPD (chronic obstructive pulmonary disease) (HCC)>>>Resp Rx. 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 Pt unable to lift arms out of the way of camera Atrial fibrillation (CMS/HCC) (HCC)>>>Rate control & anticoagulate NSVT (nonsustained ventricular tachycardia) (HCC)>>>Keep K>4.0 & Mag>2.0. May need Meds. 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 Plan: Per physical therapy. Advance diet as tolerated. Administer medications as ordered. 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 Pt unable to lift arms out of the way of camera Atrial fibrillation (CMS/HCC) (HCC)>>>Rate control & anticoagulate NSVT (nonsustained ventricular tachycardia) (HCC)>>>Keep K>4.0 & Mag>2.0. May need Meds. If PFTs OK may use Low dose Amiodarone Nonrheumatic aortic valve stenosis>>>Observation & medical Rx Pulmonary hypertension (HCC)???Treat FELICIANO & COPD>>Meds Hyperlipemia>>>Meds Reevaluate D/W patient & family). I personally obtained the medrano and critical portions of the history and physical exam. I reviewed the labs, imaging studies, and electronic medical record. I reviewed the chart documentation, and discussed the patient with treatment team members. I have edited the note to reflect my clinical findings and my assessment and plan. Please note, the time of this note does not reflect the time I saw this patient today, but the time of this documentation. SIGNATURE: Prakash Zurita MD; FACC; FHRS; FASNC; CCDS. PATIENT NAME: Adam Mendes DATE: 09/26/2022 PAGER: [phone] [facility] [place] [facility] Cardiology /Electrophysiology Progress Note HPI / Interval History: Mr. Mendes has a history of permanent atrial fibrillation, hypertension, and COPD dependent on home oxygen therapy. He presented with progressive fatigue, weakness, and exertional shortness of breath. His weight was down about 30 pounds from decrease calories. It was felt his shortness of breath was more likely related to underlying pulmonary disease. A stress test has been ordered to rule out potential anginal equivalent. He states he feels his breathing is back to his baseline. Denies any complaints of chest pain. He is scheduled for a nuclear medicine stress test this morning. Assessment/Plan HF NYHA Class [] I [] II [] III [] IV Shortness of breath. -Likely related to his underlying pulmonary disease. -Stress testing is ordered to rule out anginal equivalent. 2. Atrial fibrillation. -He is on Eliquis for stroke risk reduction. 3. Moderate aortic valve stenosis. -Last echocardiogram was completed on July 04, 2022 4. COPD. 5. Regular ectopic beats noted on monitor. -Last blood work was September 24, will add a BMP to document stability of electrolytes. Patient sees Dr Zurita in the outpt setting. Will need follow up scheduled with him. Medications: apixaban, 5 mg, Oral, BID atorvastatin, 10 mg, Oral, Nightly potassium chloride CR, 10 mEq, Oral, BID Infusion Medications: Physical Examination: Vitals: 09/25/22 1539 09/25/22 2021 09/25/22 2235 09/26/22 0743 BP: 100/66 110/66 (!) 98/43 BP Location: Left arm Left arm Left arm Patient Position: Sitting Lying Lying Pulse: 68 82 70 69 Resp: 16 16 20 Temp: 36.4 C (97.6 F) 36 C (96.8 F) 36.2 C (97.1 F) TempSrc: Temporal Temporal Temporal SpO2: 98% 97% 94% 97% Weight: No intake or output data in the 24 hours ending 09/26/22 0942 Wt Readings from Last 3 Encounters: 09/24/22 234 lb (106 kg) 07/15/22 266 lb 12.8 oz (121 kg) 07/06/22 286 lb 3.2 oz (130 kg) Physical Exam Constitutional: General: He is not in acute distress. Appearance: He is not diaphoretic. Comments: NC O2 in place HENT: Head: Normocephalic. Eyes: General: Right eye: No discharge. Left eye: No discharge. Conjunctiva/sclera: Conjunctivae normal. Cardiovascular: Rate and Rhythm: Normal rate. Rhythm irregular. Pulmonary: Breath sounds: No wheezing or rales. Abdominal: General: Bowel sounds are normal. Palpations: Abdomen is soft. Musculoskeletal: Right lower leg: No edema. Left lower leg: No edema. Skin: General: Skin is warm and dry. Findings: No erythema or rash. Neurological: Mental Status: He is oriented to person, place, and time. Psychiatric: Mood and Affect: Mood normal. Laboratory Tests: Recent Labs 09/24/22 1038 NA 136 K 3.8 CL 98 CO2 33* BUN 22* CREATININE 1.00 Recent Labs 09/24/22 1038 WBC 7.1 HGB 12.9* HCT 40.0 MCV 91.2 PLT 220 Recent Labs 09/24/22 1038 TROPONINI 0.013 Recent Labs 09/24/22 1038 BNP 867* No results for input(s): TRIG, HDL, LDLCALC, CHOL in the last 72 hours. No results found for: LDLCHOLESTER Lab Results Component Value Date TSH 1.563 07/03/2022 No results found for: EFBP, PLVEF, LVEFPHYS, LVEF2D, EF 07/03/22 TRANSTHORACIC ECHOCARDIOGRAM (TTE) COMPLETE (CONTRAST/BUBBLE/3D PRN) 07/04/2022 6:24 PM (Final) Interpretation Summary Left Ventricle: Left ventricle size is normal. Normal wall thickness. Normal left ventricular systolic function. The EF by visual approximation is 55%. Normal wall motion. Right Ventricle: Right ventricle is severely dilated. Moderately reduced systolic function. Aortic Valve: Trileaflet. Moderately thickened cusps. Moderately calcified cusps. Moderate stenosis of the aortic valve. AV mean gradient is 11 mmHg. LVOT:AV VTI Index is 0.31. AV area by continuity VTI is 1.2 cm2. Tricuspid Valve: Mildly elevated RVSP. RVSP is 37 mmHg. Left Atrium: Left atrium is severely dilated. LA Vol Index A/L is 81 mL/m2. Right Atrium: Right atrium is severely dilated. No vegetations or other evidence for infectious endocarditis. Technically difficult study. Signed by: Waqas Juarez MD on 07/04/2022 6:24 PM Other reports reviewed: Cardiac Tests: ECG: Tracing reviewed. Telemetry findings reviewed: afib with ventricular ectopic beats No results found for: EFBP, PLVEF, LVEFPHYS, LVEF2D, EF Pamela San PA-C Date Of Service 09/26/2022 Nutrition rescreen complete. Pt assigned a level one for nutrition care. Images from the original note were not included. Hospitalist Progress Note 09/25/[id number]: Please page me ([phone]) for patient care issues. [phone]: Please page [facility] night Hospitalist for any issues. Subjective: Admit Date: 09/24/2022 PCP: Carlos Cuevas MD Room#: B2-249/B2-249 B Interval History: patient breathing fine in bed. Denies sob in bed but states currently cannot walk short distance without being severely sob. No chest pain. No NV. No fevers or chills. No new cough. No lightheadedness or dizziness today. Adult diet Regular; Low Sodium (2 gm) @[id number]@ 24HR INTAKE/OUTPUT: Intake/Output Summary (Last 24 hours) at 09/25/2022 1141 Last data filed at 09/24/2022 2100 Gross per 24 hour Intake -- Output 1075 ml Net -1075 ml Past Medical History: Past Medical History: Diagnosis Date Atrial fibrillation (CMS/HCC) (HCC) Atrial fibrillation (CMS/HCC) (HCC) CHADS 2= 2 ( CHF, HTN) HAS BLED 2 =asa, age) Basal cell carcinoma Cancer (CMS/HCC) (HCC) CHF (congestive heart failure) (CMS/HCC) (HCC) COPD (chronic obstructive pulmonary disease) (HCC) Hyperlipidemia Hypertension Pulmonary hypertension (HCC) LABS: CBC: Recent Labs 09/24/22 1038 WBC 7.1 RBC 4.39* HGB 12.9* HCT 40.0 MCV 91.2 RDW 17.3* PLT 220 BMP: Recent Labs 09/24/22 1038 NA 136 K 3.8 CL 98 CO2 33* BUN 22* CREATININE 1.00 GLUCOSE 145* CALCIUM 9.1 ANIONGAP 5 LIVER PROFILE:No results for input(s): AST, ALT, BILITOT, ALKPHOS, PROT in the last 72 hours. No lab exists for component: LABALBU PT/INR: No results for input(s): PROTIME, INR in the last 72 hours. CARDIAC ENZYMES: Recent Labs 09/24/22 1038 TROPONINI 0.013 Procalcitonin: No results found for: PROCAL COVID-19 PCR: No results for input(s): COVID19 in the last 72 hours. Objective: Vitals: BP 101/81 Pulse 87 Temp (!) 35.7 C (96.3 F) (Temporal) Resp 15 Wt 234 lb (106 kg) SpO2 99% BMI 31.74 kg/m Pulse Ox: SpO2 Av.3 % Min: 90 % Max: 100 % Supplemental O2: O2 Flow Rate (L/min): 4 L/min General appearance: No apparent distress, appears stated age, HEENT: Eyes: No scleral icterus Oral: Tongue is semi-moist Cardiovascular: S1/S2 heard, RRR Respiratory: decreased BS but clear to auscultation bilaterally, no wheezing. Abdomen: Soft, non-tender, non-distended bowel sounds positive Musculoskeletal: No obvious deformities seen Skin: No visible rashes or lesions. Medications: apixaban, 5 mg, Oral, BID atorvastatin, 10 mg, Oral, Nightly potassium chloride CR, 10 mEq, Oral, BID Assessment # Worsening shortness of breath with exertion - BNP only 867. He does have some edema in both legs but states its same and hasn't been any worse. 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 Lasix held as patient was hypotensive in ER (BP was 87/68 and was given fluid bolus in ER). Rule out cardiac etiology (angina equivalent? Valvular?). Repeat troponin now. # Lactic acid elevated - was given bolus of 500 ml in ED, repeat levels now back to normal at 1.6. # Chronic HFpEF and right side heart failure- last echo 06/2022 showed EF of 55% and severe RV and RA dilation with moderate reduced RV systolic function, moderate aortic stenosis. Lasix held as patient was hypotensive in ER (BP was 87/68 and was given fluid bolus in ER). # Acute hypotension in ER (was given fluid bolus for BP of 87/68) - he has a history of this with recent admission, improved with fluids , monitor BP. Lasix currently held. # COPD- w/ chronic respiratory failure, does not appear in AE, lung exam shows decreased BS but clear with no wheezing. # Chronic hypoxic respiratory failure due to copd - on chronic 3-4 L NC O2. Currently on baseline oxygen. # Moderate aortic stenosis per echo on 07/03/2022 # Chronic Afib- mostly rate controlled, continue OAC but NOT on any rate controlling meds. # Chronic Anemia - now at 12.9, improved # HPL- continue statin # Obesity Plan Low risk exposure from room mate who tested positive today for COVID today. Recommendations from ID stewardship is to do covid antigen day 1, 3 and 5 as precaution. Will start 1st one today. Continue holding lasix given hypotension on admission that was fluid responsive. Consult cardiology given worsening sob to rule out angina equivalent vs valvular cause, vs other etiology. Spoke with dr. Shepard on phone who will see patient later. Check daily labs. Continue all other tx the same. Extended Emergency Contact Information Primary Emergency Contact: Jacqui Mendes Relation: Sibling Secondary Emergency Contact: Adenike Villasenor Relation: Sibling CEZAR FORBES MD Division of Hospitalist Medicine Inpatient Medical Services/[facility] PAGER: Epic chat documented in this encounter [facility] 09-29-2022 Note Formatting of this n ote might be different from the original. Discharge med list, MAR and Covid results transmitted to return back to [facility] via [facility] per [facility] request. [facility] 09-29-2022 Note Formatting of this n ote might be different from the original. Discharge med list, MAR and Covid results transmitted to return back to [facility] via [facility] per TCC request. [facility] 09-29-2022 Miscellaneous Notes Discharge med list, MAR and Covid results transmitted to return back to [facility] via [facility] per TCC request. Patient with discharge orders placed. [facility] tasked, via [facility], to send discharge paperwork to [facility]. Secure message sent to to arrange transportation, notify family and facility. 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 Asked by [facility] to set transport to [facility]. Cot transportation arranged through [facility] for 1600 pick pulling machine operator. Pt, pts brother, nurse, unit sec, TCC, and facility informed of time. PASRR completed in [facility] for [facility]. Sent updated notes to return back to [facility] via [facility] per [facility] request. Await review and response regarding ability to accept. [facility] notified. Images from the original note were not included. Care Management Progress Note Patient remains on 2E due to SOB, tachycardic Clinical updates: Patient on 2L O2. Still having episodes of SOB with exertion. Cardiology following . No labs for 2 days. Discharge plan: [facility], continuous churn buttermaker. Awaiting auth. [facility] sent auth to wrong insurance, for short term, need auth from Medicaid for continuous churn buttermaker. Message sent to [facility], via [employer]. Facility also requesting updated therapy and MD notes. Task sent to [facility] via [employer] to send updated therapy and MD notes to above facility. Patient states he thinks he remembers getting a phone call from [employer] in the middle of the night, but he doesn't remember and would like me to mckay his brother in regards to this. Spoke with brother, Jacqui, to inform of both things above. Jacqui states he is going to call security to check if anyone from [employer] called. Discharge obstacles: none noted. TCC to continue to follow. Discharge Milestones and Delays Expected Date/Time: 09/30/[address] discharge order Complete med reconciliation Case mgmt discharge readiness Clinical Stability Diagnsotic Workup Expected Discharge History Expected Date/Time Set By Reviewed At 09/30/2022 Vikki Mayo RN 09/29/2022 8:05 AM TCC estiamte 09/30/2022 Vikki Mayo RN 09/28/2022 7:52 AM 09/30/2022 Vikki Mayo RN 09/27/2022 7:46 AM 09/27/2022 Cezar Forbes MD 09/26/2022 2:18 PM 09/27/2022 Vikki Mayo RN 09/26/2022 8:03 AM 09/26/2022 VARGAS Morris CNP 09/24/2022 7:03 PM 09/26/2022 Preethi Jimenez APRN - [facility] 09/24/2022 3:36 PM 09/25/2022 Lupillo Richards MD 09/24/2022 3:05 PM Length of Stay (Days): 5 GMLOS: 2.7 The patient is Moderately Unstable - Medium risk of patient condition declining or worsening The patient's goals for the shift include rest The clinical goals for the shift include maintain safety Over the shift, the patient did not make progress toward the following goals. Barriers to progression include none. Recommendations to address these barriers include continue current care plan. Images from the original note were not included. Care Management Progress Note Patient remains on 2E due to SOB, tachycardic Clinical updates: Patient on room air. Still having episodes of SOB with exertion. Cardiology following . No labs for 2 days. Discharge plan: [facility], halfway. Awaiting auth. Discharge obstacles: none noted. TCC to continue to follow. Discharge Milestones and Delays Expected Date/Time: 09/30/[address] discharge order Complete med reconciliation Case mgmt discharge readiness Clinical Stability Diagnsotic Workup Expected Discharge History Expected Date/Time Set By Reviewed At 09/30/2022 Vikki Mayo RN 09/28/2022 7:52 AM TCC lio 09/30/2022 Vikki Mayo RN 09/27/2022 7:46 AM 09/27/2022 Cezar Forbes MD 09/26/2022 2:18 PM 09/27/2022 Vikki Mayo RN 09/26/2022 8:03 AM 09/26/2022 Preethi Jimenez APRN - [facility] 09/24/2022 7:03 PM 09/26/2022 Preethi Jimenez APRN - [facility] 09/24/2022 3:36 PM 09/25/2022 Lupillo Richards MD 09/24/2022 3:05 PM Length of Stay (Days): 4 GMLOS: 2.7 Referral placed to [facility] per TCC request. Await review and response regarding ability to accept. TCC notified. Images from the original note were not included. Care Management Progress Note Patient remains on 2E due to SOB, tachycardic Clinical updates: Patient on room air. Still having episodes of SOB with exertion. Cardiology following for runs of V-tach. Discharge plan: TBD. Possible continuous churn buttermaker. Spoke with brother Jacqui, and therapy. Therapy recommending home with home care. Explained to brother that insurance would not pay for a SNF since therapy recommending home care. Jacqui still insistent that patient cannot return home, that their sister is 80 and is not capable of helping him or taking care of him and that he himself is also unable. therapy stating that they can get equipment to help, brother says no. He states patient has Medicaid and would like to have referral placed to [facility] for continuous churn buttermaker placement under Medicaid. Jacqui states he has already talked to someone at [facility] and they are able to accept. Explained the process here and he verbalized understanding. Also explained that if patient decides he does not want to go, we cannot force him. Task sent to [facility] via [facility] to place referral as above. Discharge obstacles: none noted. TCC to continue to follow. Discharge Milestones and Delays Expected Date/Time: 09/30/[address] discharge order Complete med reconciliation Case mgmt discharge readiness Clinical Stability Diagnsotic Workup Expected Discharge History Expected Date/Time Set By Reviewed At 09/30/2022 Vikki Mayo RN 09/27/2022 7:46 AM TCC lio 09/27/2022 Cezar Forbes MD 09/26/2022 2:18 PM 09/27/2022 Vikki Mayo RN 09/26/2022 8:03 AM 09/26/2022 VARGAS Morris CNP 09/24/2022 7:03 PM 09/26/2022 VARGAS Morris CNP 09/24/2022 3:36 PM 09/25/2022 Lupillo Richards MD 09/24/2022 3:05 PM Length of Stay (Days): 3 GMLOS: 2.7 Problem: Safety - Adult Goal: Free from fall injury Outcome: Progressing Flowsheets (Taken 09/27/2022 0234) Free from fall injury: Instruct family/caregiver on patient safety Images from the original note were not included. Care Management Progress Note TRANSITIONAL CARE DAILY NOTE/UPDATES: Patient remains on 2E due to SOB. Clinical updates: Patient was NPO for nuclear stress test today. Patient on 3L O2, has O2 at home. Cardiology following. Discharge plan: TBD. Spoke with brother Jacqui, who states patient cannot return home as they can't take care of him, would like him placed at [facility] in [place]. Explained to brother that I will need to get therapy ordered and we will have to see what their recommendations are, if they recommend a skilled facility we can make the referral but if they recommend home with home care insurance would not pay for a SNF. He verbalized understanding. Secure message sent to Dr. Forbes asking for a therapy order, he will order therapy. Discharge obstacles: none noted. TCC to continue to follow. Discharge Milestones and Delays Expected Date/Time: 09/27/[address] discharge order Complete med reconciliation Case mgmt discharge readiness Clinical Stability Diagnsotic Workup Expected Discharge History Expected Date/Time Set By Reviewed At 09/27/2022 Vikki Mayo RN 09/26/2022 8:03 AM TCC estiamte 09/26/2022 VARGAS Morris CNP 09/24/2022 7:03 PM 09/26/2022 VARGAS Morris CNP 09/24/2022 3:36 PM 09/25/2022 Lupillo Richards MD 09/24/2022 3:05 PM Length of Stay (Days): 0 GMLOS: No GMLOS Documented The patient is Moderately Stable - Low risk of patient condition declining or worsening The patient's goals for the shift include eat/drink after stress test The clinical goals for the shift include tolerate stress test Over the shift, the patient did not make progress toward the following goals. Barriers to progression include pending test. Care Managment Initial Assessment Date: 09/25/2022 Patient Name: Adam Mendes : 1945 Patient Information Source of Information: Patient Name/Contact Information: JACQUI MENDES [phone] BROTHER Cognition/Language: WFL - Within Functional Limits Permission given to speak with patient retention representative/caregiver as indicated: Yes Confirmation of Payer with patient/family: Yes Payer Name: UHC MEDICARE [place]: No Confirmation of Primary Care Physician: Confirmed PCP Name: DR. CUEVAS Seen in last 2 years?: Yes Primary Caregiver: Self If assistance needed, confirmed caregiver ready, willing and able to care for patient at discharge: Yes Confirmed with: PER PATIENT SISTER ADENIKE Living Arrangements Current Residence: House Number of Floors 1 Number of Entry Steps: 3 Bed/Bath Levels: Both first floor Facility: [facility] Name[facility] Plan to Return: Yes Lives with: Extended family members (SISTER ADENIKE) Support Systems: Family members (SISTER AND BROTHER) Activities of Daily Living Ambulation: Independent Bathing/Dressing: Independent (HAS BEEN SPONGE BATHING) Elimination/Continence/Toiletin g: Independent Feeding: Independent Who Assists with Activities of Daily Living: Instrumental Activities of Daily Living Prescription Coverage: Yes Pharmacy Used: [facility] Medication Management: Prescription pick-up Who assists with medication securing and setup?: SISTER OR BROTHER ASSIST WITH PICKING UP PRESCRIPTIONS Transportation/Shopping: Assistance Provider Transportation/Shopping Assistance Provider Name: SISTER OR BROTHER Transportation Mode: Car Needs Assistance with Transportation at Discharge: No (SISTER OR BROTHER) Meal Preparation: Assistance Provider Meal Prep Assistance Provider Name: Laundry/Cleaning: Assistance Provider Laundry/Cleaning Assistance Provider Name: Finances/Bill Paying: Independent Communication: Independent Types of Care Services/Equipment Utilized Care Services: Dialysis Type: NA Durable Medical Equipment: Walker, Wheelchair (standard or power), Nebulizer, Oxygen (Continuous or prn) Oxygen Flow Rate: 3.5 LITERS TO 4 LITERS CONT DME Provider: RA Patient's Goal/Discharge Plan Patient expects to be discharged to: HOME Discharge Planning Actions: Continue to follow Patient's Choice Rights and [employer] and Collaborative Relationships Disclosed as Indicated for Post-Acute Care: NA Interdisciplinary Team Engagement: Home Health Care Social Work Referral for: Additional Information:observation status from home with sob. Ad[facility], cardiology consulted, daily labs. Discharge preparation checklist reviewed with patient. Has prescription coverage and able to afford medications. Lives at home with his sister. Wears oxygen at 3.5 to 4 liters cont at home. Has nebulizer with medications. States is in dependent in his adls and his sister performs most household tasks. His brother or sister provide transportation for him, as he does not drive. Is currently refusing need for home care services. States his brother has been looking into assisted living facilities for him . When asked if he had director case through his insurance company he was working with, he stated he had a couple people , but he did not know their names. Discharge plan is home with brother and sister to assist when medically stable. Rolanda Matthews RN documented in this encounter [facility] 09-29-2022 Note Formatting of this n ote might be different from the original. Patient with discharge orders placed. CHARITO tasked, via [employer], to send discharge paperwork to [facility]. Secure message sent to to arrange transportation, notify family and facility. 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 [facility] 09-29-2022 Note Formatting of this n ote might be different from the original. Patient with discharge orders placed. CHARITO tasked, via [employer], to send discharge paperwork to [facility]. Secure message sent to to arrange transportation, notify family and facility. 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 male who presents with chief complaint of dyspnea on exertion. He states he is unable to walk 10 ft and he is short of breath. He denies recent illness of travel. He noticed this last night and when he got up this am to make coffee he was short of breath. The following is a summary of his diagnosis/management during his stay here at [facility]: # Worsening shortness of breath with exertion - BNP only 867. He does have some edema in both legs but states its same and hasn't been any worse. 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 Lasix held as patient was hypotensive in ER (BP was 87/68 and was given fluid bolus in ER). Cardiology Dr. Shepard initially saw and planned for lexiscan stress test to rule out angina equivalent but patient follows with Dr. Zurita who saw and cancelled stress today as patient having runs of Vtach and also in A.fib with RVR. Breathing fine now. Cardiology has okayed for discharge once facility arranged. # Lactic acid elevated - was given bolus of 500 ml in ED, repeat levels now back to normal at 1.6. # Chronic HFpEF and right side heart failure- compensated and NOT in exacerbation. Last echo 06/2022 showed EF of 55% and severe RV and RA dilation with moderate reduced RV systolic function, moderate aortic stenosis. Lasix held as patient was hypotensive in ER (BP was 87/68 and was given fluid bolus in ER). Cardiology has seen. Currently lasix remains on hold. Will continue to hold while here and on discharge will discharge on half dose of prior lasix (was on 40mg daily and therefore will plan to discharge on 20mg daily). Will add daily potassium with lasix on discharge. Discussed with cardiogy Dr. Zurita. Patient will need to follow up with cardiology on discharge. # Multiple beat runs of V tach on 09/26 - cardiology aware. Potassium and mag were normal. Patient started on Amio drip initially and now changed to PO per cardiology. Cardiology has okayed for discharge once facility arranged by [facility]/SW. # Chronic Afib with RVR - was started on Amio drip per cardiology and now is rate controlled. Patient now changed to PO amio per cardiology. Patient also on Eliquis. Dr. Zurita following. Rate remains controlled. # Acute hypotension in ER (was given fluid bolus for BP of 87/68) - he has a history of this with recent admission, improved with fluids, monitor BP. Lasix currently held. BP has been stable. Plan to resume lasix on discharge but only at 20mg daily instead of 40mg like before. # COPD- w/ chronic respiratory failure, does not appear in AE, lung exam shows decreased BS but clear with no wheezing. # Chronic hypoxic respiratory failure due to copd - on chronic 3-4 L NC O2. Currently on baseline oxygen. # Moderate aortic stenosis per echo on 07/03/2022 # Chronic Anemia - now at 12.9, improved # HPL- continue statin # Obesity # Low risk exposure from room mate who tested positive for COVID. Recommendations from ID stewardship is to do covid antigen day 1, 3 and 5 as precaution. 1st one done on 09/26 was negative. And second on 09/28 was also negative. patient asymptomatic Physical exam: General appearance: No apparent distress, appears stated age, HEENT: Eyes: No scleral icterus Cardiovascular: S1/S2 heard, irregular Respiratory: decreased BS but clear to auscultation bilaterally, no wheezing. Abdomen: Soft, non-tender, non-distended bowel sounds positive Musculoskeletal: No obvious deformities seen Skin: No visible rashes or lesions. SIGNIFICANT DIAGNOSTIC STUDIES: As above CONSULTANTS: Cardiology RECOMMENDED NEXT STEPS: DISCHARGE MEDICATIONS: Medication List START taking these medications amiodarone 400 MG tablet Commonly known as: Pacerone Take 1 tablet (400 mg) by mouth daily. Do not start before September 30, 2022. Start taking on: September 30, 2022 polyethylene glycol (PEG) 3350 17 g packet Commonly known as: Miralax Take 17 g by mouth Daily as needed (constipation) for up to 3 days. CHANGE how you take these medications furosemide 40 MG tablet Commonly known as: Lasix Take 0.5 tablets (20 mg) by mouth daily. What changed: how much to take potassium chloride CR 10 MEQ ER tablet Commonly known as: Klor-Con M10 Take 1 tablet (10 mEq) by mouth daily. What changed: when to take this CONTINUE taking these medications albuterol (2.5 MG/3ML) 0.083% nebulizer solution USE 1 VIAL IN NEBULIZER 6 TIMES DAILY apixaban 5 MG tablet Commonly known as: Eliquis Take 1 tablet (5 mg) by mouth 2 times daily. DSS 100 MG capsule nitroglycerin 0.4 MG SL tablet Commonly known as: Nitrostat oxygen gas Commonly known as: O2 simvastatin 20 MG tablet Commonly known as: Zocor Where to Get Your Medications These medications were sent to [facility] [place] [id number] [facility], [facility] [address] furosemide 40 MG tablet Information about where to get these medications is not yet available Ask your nurse or doctor about these medications amiodarone 400 MG tablet polyethylene glycol (PEG) 3350 17 g packet potassium chloride CR 10 MEQ ER tablet DIET: Adult diet Regular ACTIVITY: Up with assist _ COMPLEXITY OF FOLLOW UP: [] Moderate Complexity: follow up within 7-14 calendar days (64349) [] Severe Complexity: follow up within 7 calendar days (06219) FOLLOW UP TESTING, PENDING RESULTS OR REFERRALS AT TRANSITIONAL CARE VISIT: [] Yes [] No PENDING STUDIES: DISPOSITION: Skilled Facility FACILITY/HOME CARE AGENCY NAME: Follow up with No follow-up provider specified. Follow up with cardiology and PCP INSTRUCTIONS TO MA/SW: Please call patient on day after discharge (must document patient contacted within 2 business days of discharge). FOLLOW UP QUESTIONS FOR MA/SW: 1. Did you get medications filled and taking them as instructed from discharge? 2. Are you following your discharge instructions from your hospital stay? 3. Please confirm patient is scheduled for a follow up appointment within the above time frame. DISCHARGE TIME: > 31 minutes SIGNED: CEZAR FORBES MD 09/29/2022, 3:02 PM documented in this encounter [facility] 09-29-2022 Note Formatting of this n ote might be different from the original. Asked by [facility] to set transport to [facility]. Cot transportation arranged through [facility] for 1600 pick pulling machine operator. Pt, pts brother, nurse, unit sec, TCC, and facility informed of time. [facility] 09-29-2022 Note Formatting of this n ote might be different from the original. Asked by [facility] to set transport to [facility]. Cot transportation arranged through [facility] for 1600 pick pulling machine operator. Pt, pts brother, nurse, unit sec, TCC, and facility informed of time. [facility] 09-29-2022 Note Care Management Prog ress Note Patient remains on 2E due to SOB, tachycardic Clinical updates: Patient on 2L O2. Still having episodes of SOB with exertion. Cardiology following . No labs for 2 days. Discharge plan: [facility], continuous churn buttermaker. Awaiting auth. [facility] sent auth to [facility] insurance, for short term, need auth from Medicaid for halfway. Message sent to [facility], via [employer]. Facility also requesting updated therapy and MD notes. Task sent to [facility] via [employer] to send updated therapy and MD notes to above facility. Patient states he thinks he remembers getting a phone call from [employer] in the middle of the night, but he doesn't remember and would like me to mckay his brother in regards to this. Spoke with brother, Jacqui, to inform of both things above. Jacqui states he is going to call security to check if anyone from [employer] called. Discharge obstacles: none noted. TCC to continue to follow. Discharge Milestones and Delays Expected Date/Time: 09/30/[address] discharge order Complete med reconciliation Case mgmt discharge readiness Clinical Stability Diagnsotic Workup Expected Discharge History Expected Date/Time Set By Reviewed At 09/30/2022 Vikki Mayo RN 09/29/2022 8:05 AM TCC [place]iamte 09/30/2022 Vikki Mayo RN 09/28/2022 7:52 AM 09/30/2022 Vikki Mayo RN 09/27/2022 7:46 AM 09/27/2022 Cezar Forbes MD 09/26/2022 2:18 PM 09/27/2022 Vikki Mayo RN 09/26/2022 8:03 AM 09/26/2022 VARGAS Morris CNP 09/24/2022 7:03 PM 09/26/2022 VARGAS Morris CNP 09/24/2022 3:36 PM 09/25/2022 Lupillo Richards MD 09/24/2022 3:05 PM Length of Stay (Days): 5 GMLOS: 2.7 [facility] 09-29-2022 Note Formatting of this n ote might be different from the original. PASRR completed in [facility]. [facility] 09-29-2022 Note Formatting of this n ote might be different from the original. PASRR completed in [facility]. [facility] 09-29-2022 Hospital Discharg e instructions Yina Melo RN - 09/29/2022 11:27 AM EDT Continuity of Care Form Patient Name: Adam Mendes : 1945 Admit date: 09/24/2022 Discharge date: 09/29/22 Code Status Order: Full Code Advance Directives: N Admitting Physician: Cezar Forbes MD PCP: Carlos Cuevas MD Discharging Nurse: Discharging Hospital Unit/Room#: B2-246/B2-246 B Discharging Unit Phone Number: [phone] Emergency Contact: Extended Emergency Contact Information Primary Emergency Contact: Jacqui Mendes Relation: Sibling Secondary Emergency Contact: Adenike Villasenor Relation: Sibling Past Surgical History: Past Surgical History: Procedure Laterality Date EYE SURGERY HERNIA REPAIR SKIN BIOPSY TONSILLECTOMY (HISTORICAL) Immunization History: Immunization History Administered Date(s) Administered Influenza, High Dose Seasonal, Preservative Free 11/25/2016, 11/30/2017 Influenza, High-dose Seasonal, Quadrivalent, Preservative Free 01/06/2020, 11/30/2020 Vikash SARS-CoV-2 Vaccination 05/15/2020, 12/23/2020 Pneumococcal Conjugate PCV 13 11/25/2016 Pneumococcal Polysaccharide PPSV23 10/04/2018 Tdap 09/03/2014 Active Problems: Medical Problems Problem List * (Principal) Shortness of breath Pulmonary hypertension (HCC) 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) Hyperlipemia 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 (HCC) Pre-diabetes Acute left-sided low back pain with left-sided sciatica Pleural effusion on right Body mass index (BMI) 40.0-44.9, adult ([facility]) Anemia due to chronic kidney disease NSVT (nonsustained ventricular tachycardia) ([facility]) Nonrheumatic aortic valve stenosis Ectropion of right eye Chronic heart failure with preserved ejection fraction ([facility]) ([facility]) Dyspnea Chronic respiratory failure with hypoxia ([facility]) ([facility]) FELICIANO (obstructive sleep apnea) COPD (chronic obstructive pulmonary disease) ([facility]) Ulceration of right eyelid Atrial fibrillation (CMS/HCC) ([facility]) Moderate obesity Cellulitis of right lower extremity Current use of continuous churn buttermaker anticoagulation Hyperglycemia Basal cell carcinoma (BCC) of right lower eyelid Isolation/Infection: No active isolations No active infections Nurse Assessment: Last Vital Signs: BP 128/75 (BP Location: Right arm, Patient Position: Sitting) Pulse 82 Temp 36.3 C (97.4 F) (Oral) Resp 18 Ht 1.829 m (6') Wt 106 kg (234 lb) SpO2 99% BMI 31.74 kg/m Last documented pain score (0-10 scale): Last Weight: Wt Readings from Last 1 Encounters: 09/24/22 106 kg (234 lb) Mental Status: ROSELIA Patient Mental Status: oriented and alert IV Access: ROSELIA IV Access: None Nursing Mobility/ADLs: Walking Minimal assistance Transfer Minimal assistance Bathing Minimal assistance Dressing Minimal assistance Toileting Minimal assistance Feeding Minimal assistance Station Engineer Main Line Minimal assistance Med Delivery yes Wound Care Documentation and Therapy: Elimination: Continence: Bowel: yes Bladder: yes Urinary Catheter: None Colostomy/Ileostomy/Ileal Conduit: None Date of Last BM: No intake or output data in the 24 hours ending 09/29/22 1127 No intake/output data recorded. Safety Concerns: at risk for falls Impairments/Disabilities: vision and hearing Nutrition Therapy: Current Nutrition Therapy: Oral diet: general Routes of Feeding: oral Liquids: no restrictions Daily Fluid Restriction: no Last Modified Barium Swallow with Video (Video Swallowing Test): not done Treatments at the Time of Hospital Discharge: Respiratory Treatments: na Oxygen Therapy: is on oxygen at 3 L/min per nasal cannula. Ventilator: No ventilator support Rehab Therapies: physical therapy and occupational therapy Weight Bearing Status/Restrictions: no restriction Other Medical Equipment (for information only, NOT a DME order): walker Other Treatments: Patient's personal belongings (please select all that are sent with patient): none RN SIGNATURE: MANAGEMENT/SOCIAL WORK SECTION Inpatient Status Date: 09/24/2022 Readmission Risk Assessment Score: @READMISSIONRISKDETAILS@ Discharging to Facility/ Agency Name: [facility] Address: [place] [address] Fax: Dialysis Facility (if applicable) Name: Address: Dialysis Schedule: Phone: Fax: Wheel Truer/Oil Drilling Engineer signature: ICIAN SECTION Prognosis: fair Condition at Discharge: stable Rehab Potential (if transferring to Rehab): good Recommended Labs or Other Treatments After Discharge: Physician Certification: I certify the above information and transfer of Adam Mendes is necessary for the continuing treatment of the diagnosis listed and that he requires retirement facility for greater than 30 days. Update Admission H&P: No change in H&P PHYSICIAN SIGNATURE: documented in this encounter [facility] 09-29-2022 Note Formatting of this n ote might be different from the original. Sent updated notes to return back to [facility] per TCC request. Await review and response regarding ability to accept. TCC notified. [facility] 09-29-2022 Note Formatting of this n ote might be different from the original. Sent updated notes to return back to [facility] per TCC request. Await review and response regarding ability to accept. TCC notified. [facility] 09-29-2022 Note Formatting of this n ote is different from the original. Images from the original note were not included. Care Management Progress Note Patient remains on 2E due to SOB, tachycardic Clinical updates: Patient on 2L O2. Still having episodes of SOB with exertion. Cardiology following . No labs for 2 days. Discharge plan: [facility] [place], halfway. Awaiting auth. [facility] sent auth to [facility] insurance, for short term, need auth from Medicaid for continuous churn buttermaker. Message sent to [facility], via [employer]. Facility also requesting updated therapy and MD notes. Task sent to [facility] via [employer] to send updated therapy and MD notes to above facility. Patient states he thinks he remembers getting a phone call from [employer] in the middle of the night, but he doesn't remember and would like me to mckay his brother in regards to this. Spoke with brother, Jacqui, to inform of both things above. Jacqui states he is going to call security to check if anyone from [employer] called. Discharge obstacles: none noted. TCC to continue to follow. Discharge Milestones and Delays Expected Date/Time: 09/30/[address] discharge order Complete med reconciliation Case mgmt discharge readiness Clinical Stability Diagnsotic Workup Expected Discharge History Expected Date/Time Set By Reviewed At 09/30/2022 Vikki Mayo RN 09/29/2022 8:05 AM TCC estiamte 09/30/2022 Vikki Mayo RN 09/28/2022 7:52 AM 09/30/2022 Vikki Mayo RN 09/27/2022 7:46 AM 09/27/2022 Cezar Forbes MD 09/26/2022 2:18 PM 09/27/2022 Vikki Mayo RN 09/26/2022 8:03 AM 09/26/2022 Preethi Jimenez APRN - DAREK 09/24/2022 7:03 PM 09/26/2022 Preethi Jimenez APRN - DAREK 09/24/2022 3:36 PM 09/25/2022 Lupillo Richards MD 09/24/2022 3:05 PM Length of Stay (Days): 5 GMLOS: 2.7 [facility] 09-29-2022 Note Formatting of this n ote is different from the original. Images from the original note were not included. Care Management Progress Note Patient remains on 2E due to SOB, tachycardic Clinical updates: Patient on 2L O2. Still having episodes of SOB with exertion. Cardiology following . No labs for 2 days. Discharge plan: [facility] halfway. Awaiting auth. [facility] sent auth to [facility] insurance, for short term, need auth from Medicaid for halfway. Message sent to [facility], via [employer]. Facility also requesting updated therapy and MD notes. Task sent to [facility] via [employer] to send updated therapy and MD notes to above facility. Patient states he thinks he remembers getting a phone call from [employer] in the middle of the night, but he doesn't remember and would like me to mckay his brother in regards to this. Spoke with brother, Jacqui, to inform of both things above. Jacqui states he is going to call security to check if anyone from [employer] [facility] called. Discharge obstacles: none noted. TCC to continue to follow. Discharge Milestones and Delays Expected Date/Time: 09/30/[address] discharge order Complete med reconciliation Case mgmt discharge readiness Clinical Stability Diagnsotic Workup Expected Discharge History Expected Date/Time Set By Reviewed At 09/30/2022 Vikki Mayo RN 09/29/2022 8:05 AM TCC [place] 09/30/2022 Vikki Mayo RN 09/28/2022 7:52 AM 09/30/2022 Vikki Mayo RN 09/27/2022 7:46 AM 09/27/2022 Cezar Forbes MD 09/26/2022 2:18 PM 09/27/2022 Vikki Mayo RN 09/26/2022 8:03 AM 09/26/2022 Pretehi Jimenez APRN - MOLD PRESS OPERATOR 09/24/2022 7:03 PM 09/26/2022 Preethi Jimenez APRN - DAREK 09/24/2022 3:36 PM 09/25/2022 Lupillo Richards MD 09/24/2022 3:05 PM Length of Stay (Days): 5 GMLOS: 2.7 [facility] 09-29-2022 Plan of care note The patient is Moderately Unstable - Medium risk of patient condition declining or worsening The patient's goals for the shift include rest The clinical goals for the shift include maintain safety Over the shift, the patient did not make progress toward the following goals. Barriers to progression include none. Recommendations to address these barriers include continue current care plan. [facility] 09-28-2022 Note Hospitalist Progress Note 09/28/2022 [phone]: Please page il ([phone]) for patient care issues. [phone]: Please page [facility] Hospitalist for any issues. Subjective: Admit Date: 09/24/2022 PCP: Carlos Cuevas MD Room#: B2-246/B2-246 B Interval History: Patient states he is breathing fine today and denies sob at rest. A little sob with exertion but feels it is his baseline. Denies palpitations. No chest pain. No NV. No fevers or chills. No new cough. No lightheadedness or dizziness today. Adult diet Regular @[id number]@ 24HR INTAKE/OUTPUT: No intake or output data in the 24 hours ending 09/28/22 1043 Past Medical History: Past Medical History: Diagnosis Date Atrial fibrillation (CMS/HCC) (HCC) Atrial fibrillation (CMS/HCC) (HCC) CHADS 2= 2 ( CHF, HTN) HAS BLED 2 =asa, age) Basal cell carcinoma Cancer (CMS/HCC) (HCC) CHF (congestive heart failure) (CMS/HCC) (HCC) COPD (chronic obstructive pulmonary disease) (HCC) Hyperlipidemia Hypertension Pulmonary hypertension (HCC) LABS: CBC: No results for input(s): WBC, RBC, HGB, HCT, MCV, RDW, PLT in the last 72 hours. BMP: Recent Labs 09/26/22 1134 NA 137 K 4.6 CL 97* CO2 37* BUN 28* CREATININE 0.83 GLUCOSE 128* CALCIUM 9.3 ANIONGAP 2* LIVER PROFILE:No results for input(s): AST, ALT, BILITOT, ALKPHOS, PROT in the last 72 hours. No lab exists for component: LABALBU PT/INR: No results for input(s): PROTIME, INR in the last 72 hours. CARDIAC ENZYMES: No results for input(s): TROPONINI in the last 72 hours. Procalcitonin: No results found for: PROCAL COVID-19 PCR: No results for input(s): COVID19 in the last 72 hours. Objective: Vitals: BP 97/57 (BP Location: Left arm, Patient Position: Sitting) Pulse 87 Temp 36.1 ?C (97 ?F) (Temporal) Resp 20 Ht 6' (1.829 m) Wt 234 lb (106 kg) SpO2 93% BMI 31.74 kg/m? Pulse Ox: SpO2 Av.7 % Min: 90 % Max: 98 % Supplemental O2: O2 Flow Rate (L/min): 3 L/min General appearance: No apparent distress, appears stated age, HEENT: Eyes: No scleral icterus Oral: Tongue is semi-moist Cardiovascular: S1/S2 heard, irregular Respiratory: decreased BS but clear to auscultation bilaterally, no wheezing. Abdomen: Soft, non-tender, non-distended bowel sounds positive Musculoskeletal: No obvious deformities seen Skin: No visible rashes or lesions. Medications: amiodarone, 400 mg, Oral, Daily apixaban, 5 mg, Oral, BID atorvastatin, 10 mg, Oral, Nightly potassium chloride CR, 10 mEq, Oral, BID Assessment # Worsening shortness of breath with exertion - BNP only 867. He does have some edema in both legs but states its same and hasn't been any worse. 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 Lasix held as patient was hypotensive in ER (BP was 87/68 and was given fluid bolus in ER). Cardiology Dr. Shepard initially saw and planned for lexiscan stress test to rule out angina equivalent but patient follows with Dr. Zurita who saw and cancelled stress today as patient having runs of Vtach and also in A.fib with RVR. Breathing much better now. # Lactic acid elevated - was given bolus of 500 ml in ED, repeat levels now back to normal at 1.6. # Chronic HFpEF and right side heart failure- compensated and NOT in exacerbation. Last echo 06/2022 showed EF of 55% and severe RV and RA dilation with moderate reduced RV systolic function, moderate aortic stenosis. Lasix held as patient was hypotensive in ER (BP was 87/68 and was given fluid bolus in ER). Defer to cardiology when to resume. Cardiology following. # Multiple beat runs of V tach on 09/26 - cardiology aware. Potassium and mag were normal. Patient started on Amio drip initially and now changed to PO. # Chronic Afib with RVR - was started on Amio drip per cardiology and now is rate controlled. Patient now changed to PO amio per cardiology. Patient also on Eliquis. Dr. Zurita following. Rate remains controlled. # Acute hypotension in ER (was given fluid bolus for BP of 87/68) - he has a history of this with recent admission, improved with fluids, monitor BP. Lasix currently held. BP has been stable. # COPD- w/ chronic respiratory failure, does not appear in AE, lung exam shows decreased BS but clear with no wheezing. # Chronic hypoxic respiratory failure due to copd - on chronic 3-4 L NC O2. Currently on baseline oxygen. # Moderate aortic stenosis per echo on 07/03/2022 # Chronic Anemia - now at 12.9, improved # HPL- continue statin # Obesity # Low risk exposure from room mate who tested positive for COVID. Recommendations from ID stewardship is to do covid antigen day 1, 3 and 5 as precaution. 1st one done on 09/26 was negative. Will repeat on 09/28 and 09/30. Plan Repeat covid antigen today given recent low risk exposure as recommended by ID stewardship. Now off of [place] (more content not included)... [facility] 09-28-2022 Note Care Management Prog ress Note Patient remains on 2E due to SOB, tachycardic Clinical updates: Patient on room air. Still having episodes of SOB with exertion. Cardiology following . No labs for 2 days. Discharge plan: [facility]. Awaiting auth. Discharge obstacles: none noted. TCC to continue to follow. Discharge Milestones and Delays Expected Date/Time: 09/30/[address] discharge order Complete med reconciliation Case mgmt discharge readiness Clinical Stability Diagnsotic Workup Expected Discharge History Expected Date/Time Set By Reviewed At 09/30/2022 Vikki Mayo RN 09/28/2022 7:52 AM TCC estiaashlyn 09/30/2022 Vikki Mayo RN 09/27/2022 7:46 AM 09/27/2022 Cezar Forbes MD 09/26/2022 2:18 PM 09/27/2022 Vikki Mayo RN 09/26/2022 8:03 AM 09/26/2022 Preethi Jimenez CATERING SALES MANAGER - MOLD PRESS OPERATOR 09/24/2022 7:03 PM 09/26/2022 Preethi Jimenez APRN - MOLD PRESS OPERATOR 09/24/2022 3:36 PM 09/25/2022 Lupillo Richards MD 09/24/2022 3:05 PM Length of Stay (Days): 4 GMLOS: 2.7 [facility] 09-28-2022 Note Formatting of this n ote is different from the original. Images from the original note were not included. Care Management Progress Note Patient remains on 2E due to SOB, tachycardic Clinical updates: Patient on room air. Still having episodes of SOB with exertion. Cardiology following . No labs for 2 days. Discharge plan: [facility]. Awaiting auth. Discharge obstacles: none noted. TCC to continue to follow. Discharge Milestones and Delays Expected Date/Time: 09/30/[address] discharge order Complete med reconciliation Case mgmt discharge readiness Clinical Stability Diagnsotic Workup Expected Discharge History Expected Date/Time Set By Reviewed At 09/30/2022 Vikki Mayo RN 09/28/2022 7:52 AM TCC [place] 09/30/2022 Vikki Mayo RN 09/27/2022 7:46 AM 09/27/2022 Cezar Forbes MD 09/26/2022 2:18 PM 09/27/2022 Vikki Mayo RN 09/26/2022 8:03 AM 09/26/2022 Preethi Jimenez APRN - DAREK 09/24/2022 7:03 PM 09/26/2022 Preethi Jimenez APRN - MOLD PRESS OPERATOR 09/24/2022 3:36 PM 09/25/2022 Lupillo Richards MD 09/24/2022 3:05 PM Length of Stay (Days): 4 GMLOS: 2.7 T [facility] 09-28-2022 Note Formatting of this n ote is different from the original. Images from the original note were not included. Care Management Progress Note Patient remains on 2E due to SOB, tachycardic Clinical updates: Patient on room air. Still having episodes of SOB with exertion. Cardiology following . No labs for 2 days. Discharge plan: [facility] term. Awaiting auth. Discharge obstacles: none noted. TCC to continue to follow. Discharge Milestones and Delays Expected Date/Time: 09/30/[address] discharge order Complete med reconciliation Case mgmt discharge readiness Clinical Stability Diagnsotic Workup Expected Discharge History Expected Date/Time Set By Reviewed At 09/30/2022 Vikki Mayo RN 09/28/2022 7:52 AM TCC [place] 09/30/2022 Vikki Mayo RN 09/27/2022 7:46 AM 09/27/2022 Cezar Forbes MD 09/26/2022 2:18 PM 09/27/2022 Vikki Mayo RN 09/26/2022 8:03 AM 09/26/2022 Preethi Jimenez APRN - MOLD PRESS OPERATOR 09/24/2022 7:03 PM 09/26/2022 Preethi Jimenez APRN - MOLD PRESS OPERATOR 09/24/2022 3:36 PM 09/25/2022 Lupillo Richards MD 09/24/2022 3:05 PM Length of Stay (Days): 4 GMLOS: 2.7 [facility] 09-27-2022 Note Referral placed to [facility] via [facility] per TCC request. Await review and response regarding ability to accept. TCC notified. [facility] 09-27-2022 Note Formatting of this n ote might be different from the original. Referral placed to [facility] via [employer] per TCC request. Await review and response regarding ability to accept. TCC notified. [facility] 09-27-2022 Note Formatting of this n ote might be different from the original. Referral placed to [facility] via [employer] per TCC request. Await review and response regarding ability to accept. TCC notified. T [facility] 09-27-2022 Note Care Management Prog ress Note Patient remains on 2E due to SOB, tachycardic Clinical updates: Patient on room air. Still having episodes of SOB with exertion. Cardiology following for runs of V-tach. Discharge plan: TBD. Possible halfway. Spoke with brother Jacqui, and therapy. Therapy recommending home with home care. Explained to brother that insurance would not pay for a SNF since therapy recommending home care. Jacqui still insistent that patient cannot return home, that their sister is 80 and is not capable of helping him or taking care of him and that he himself is also unable. therapy stating that they can get equipment to help, brother says no. He states patient has Medicaid and would like to have referral placed to [facility] for continuous churn buttermaker placement under Medicaid. Jacqui states he has already talked to someone at [facility] and they are able to accept. Explained the process here and he verbalized understanding. Also explained that if patient decides he does not want to go, we cannot force him. Task sent to [facility] via [employer] to place referral as above. Discharge obstacles: none noted. TCC to continue to follow. Discharge Milestones and Delays Expected Date/Time: 09/30/[address] discharge order Complete med reconciliation Case mgmt discharge readiness Clinical Stability Diagnsotic Workup Expected Discharge History Expected Date/Time Set By Reviewed At 09/30/2022 Vikki Mayo RN 09/27/2022 7:46 AM TCC [place] 09/27/2022 Cezar Forbes MD 09/26/2022 2:18 PM 09/27/2022 Vikki Mayo RN 09/26/2022 8:03 AM 09/26/2022 VARGAS Morris CNP 09/24/2022 7:03 PM 09/26/2022 VARGAS Morris CNP 09/24/2022 3:36 PM 09/25/2022 Lupillo Richards MD 09/24/2022 3:05 PM Length of Stay (Days): 3 GMLOS: 2.7 [facility] 09-27-2022 Note Hospitalist Progress Note 09/27/2022 [phone]: Please page me ([phone]) for patient care issues. [phone]: Please page [facility] Hospitalist for any issues. Subjective: Admit Date: 09/24/2022 PCP: Carlos Cuevas MD Room#: B2-246/B2-246 B Interval History: Patient states he is breathing fine today and denies sob at rest. Denies palpitations. Currently on amiodarone drip. No chest pain. No NV. No fevers or chills. No new cough. No lightheadedness or dizziness today. Adult diet Regular @[id number]@ 24HR INTAKE/OUTPUT: Intake/Output Summary (Last 24 hours) at 09/27/2022 0841 Last data filed at 09/27/2022 0300 Gross per 24 hour Intake 243.19 ml Output 650 ml Net -406.81 ml Past Medical History: Past Medical History: Diagnosis Date Atrial fibrillation (CMS/HCC) (HCC) Atrial fibrillation (CMS/HCC) (HCC) CHADS 2= 2 ( CHF, HTN) HAS BLED 2 =asa, age) Basal cell carcinoma Cancer (CMS/HCC) (HCC) CHF (congestive heart failure) (CMS/HCC) (HCC) COPD (chronic obstructive pulmonary disease) (HCC) Hyperlipidemia Hypertension Pulmonary hypertension (HCC) LABS: CBC: Recent Labs 09/24/22 1038 WBC 7.1 RBC 4.39* HGB 12.9* HCT 40.0 MCV 91.2 RDW 17.3* PLT 220 BMP: Recent Labs 09/24/22 1038 09/26/22 1134 NA 136 137 K 3.8 4.6 CL 98 97* CO2 33* 37* BUN 22* 28* CREATININE 1.00 0.83 GLUCOSE 145* 128* CALCIUM 9.1 9.3 ANIONGAP 5 2* LIVER PROFILE:No results for input(s): AST, ALT, BILITOT, ALKPHOS, PROT in the last 72 hours. No lab exists for component: LABALBU PT/INR: No results for input(s): PROTIME, INR in the last 72 hours. CARDIAC ENZYMES: Recent Labs 09/24/22 1038 TROPONINI 0.013 Procalcitonin: No results found for: PROCAL COVID-19 PCR: No results for input(s): COVID19 in the last 72 hours. Objective: Vitals: BP 122/83 (BP Location: Right arm, Patient Position: Lying) Pulse 73 Temp 36.1 ?C (97 ?F) (Temporal) Resp 24 Ht 6' (1.829 m) Wt 234 lb (106 kg) SpO2 99% BMI 31.74 kg/m? Pulse Ox: SpO2 Av.8 % Min: 97 % Max: 100 % Supplemental O2: O2 Flow Rate (L/min): 3 L/min General appearance: No apparent distress, appears stated age, HEENT: Eyes: No scleral icterus Oral: Tongue is semi-moist Cardiovascular: S1/S2 heard, RRR Respiratory: decreased BS but clear to auscultation bilaterally, no wheezing. Abdomen: Soft, non-tender, non-distended bowel sounds positive Musculoskeletal: No obvious deformities seen Skin: No visible rashes or lesions. Medications: amiodarone, 0.5 mg/min, Last Rate: 0.5 mg/min (09/27/22 0434) albuterol, 4 puff, Inhalation, Once apixaban, 5 mg, Oral, BID atorvastatin, 10 mg, Oral, Nightly potassium chloride CR, 10 mEq, Oral, BID Assessment # Worsening shortness of breath with exertion - BNP only 867. He does have some edema in both legs but states its same and hasn't been any worse. 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 Lasix held as patient was hypotensive in ER (BP was 87/68 and was given fluid bolus in ER). Cardiology Dr. Shepard initially saw and planning for lexiscan stress test to rule out angina equivalent but patient follows with Dr. Zurita who saw and cancelled stress today as patient having runs of Vtach and also in A.fib with RVR. # Lactic acid elevated - was given bolus of 500 ml in ED, repeat levels now back to normal at 1.6. # Chronic HFpEF and right side heart failure- compensated and NOT in exacerbation. last echo 06/2022 showed EF of 55% and severe RV and RA dilation with moderate reduced RV systolic function, moderate aortic stenosis. Lasix held as patient was hypotensive in ER (BP was 87/68 and was given fluid bolus in ER). # Multiple beat runs of V tach on 09/26 - cardiology aware. Potassium and mag were normal. Patient started on Amio. # Acute hypotension in ER (was given fluid bolus for BP of 87/68) - he has a history of this with recent admission, improved with fluids , monitor BP. Lasix currently held. # COPD- w/ chronic respiratory failure, does not appear in AE, lung exam shows decreased BS but clear with no wheezing. # Chronic hypoxic respiratory failure due to copd - on chronic 3-4 L NC O2. Currently on baseline oxygen. # Moderate aortic stenosis per echo on 07/03/2022 # Chronic Afib with RVR - now started on Amio per cardiology. Dr. Zurita following. # Chronic Anemia - now at 12.9, improved # HPL- continue statin # Obesity # Low risk exposure from room mate who tested positive for COVID. Recommendations from ID stewardship is to do covid antigen day 1, 3 and 5 as precaution. 1st one done on 09/26 was negative. Will repeat on 09/28 and 09/30. Plan Repeat covid antigen tomorrow. Continue holding lasix given hypotension on admission that was fluid responsive. Continue amio for a.fib with RVR as per cardiology. Lasix remain (more content not included)... [facility] 09-27-2022 Note Formatting of this n ote is different from the original. Images from the original note were not included. Care Management Progress Note Patient remains on 2E due to SOB, tachycardic Clinical updates: Patient on room air. Still having episodes of SOB with exertion. Cardiology following for runs of V-tach. Discharge plan: TBD. Possible continuous churn buttermaker. Spoke with brother Jacqui, and therapy. Therapy recommending home with home care. Explained to brother that insurance would not pay for a SNF since therapy recommending home care. Jacqui still insistent that patient cannot return home, that their sister is 80 and is not capable of helping him or taking care of him and that he himself is also unable. therapy stating that they can get equipment to help, brother says no. He states patient has Medicaid and would like to have referral placed to [facility] [place] for halfway placement under Medicaid. Jacqui states he has already talked to someone at [facility] and they are able to accept. Explained the process here and he verbalized understanding. Also explained that if patient decides he does not want to go, we cannot force him. Task sent to [facility] via [facility] to place referral as above. Discharge obstacles: none noted. TCC to continue to follow. Discharge Milestones and Delays Expected Date/Time: 09/30/[address] discharge order Complete med reconciliation Case mgmt discharge readiness Clinical Stability Diagnsotic Workup Expected Discharge History Expected Date/Time Set By Reviewed At 09/30/2022 Vikki Mayo RN 09/27/2022 7:46 AM TCC lio 09/27/2022 Cezar Forbes MD 09/26/2022 2:18 PM 09/27/2022 Vikki Mayo RN 09/26/2022 8:03 AM 09/26/2022 VARGAS Morris CNP 09/24/2022 7:03 PM 09/26/2022 VARGAS Morris CNP 09/24/2022 3:36 PM 09/25/2022 Lupillo Richards MD 09/24/2022 3:05 PM Length of Stay (Days): 3 GMLOS: 2.7 [facility] 09-27-2022 Note Formatting of this n ote is different from the original. Images from the original note were not included. Care Management Progress Note Patient remains on 2E due to SOB, tachycardic Clinical updates: Patient on room air. Still having episodes of SOB with exertion. Cardiology following for runs of V-tach. Discharge plan: TBD. Possible continuous churn buttermaker. Spoke with brother Jacqui, and therapy. Therapy recommending home with home care. Explained to brother that insurance would not pay for a SNF since therapy recommending home care. Jacqui still insistent that patient cannot return home, that their sister is 80 and is not capable of helping him or taking care of him and that he himself is also unable. therapy stating that they can get equipment to help, brother says no. He states patient has Medicaid and would like to have referral placed to [facility] for continuous churn buttermaker placement under Medicaid. Jacqui states he has already talked to someone at [facility] and they are able to accept. Explained the process here and he verbalized understanding. Also explained that if patient decides he does not want to go, we cannot force him. Task sent to [facility] via [facility] to place referral as above. Discharge obstacles: none noted. TCC to continue to follow. Discharge Milestones and Delays Expected Date/Time: 09/30/[address] discharge order Complete med reconciliation Case mgmt discharge readiness Clinical Stability Diagnsotic Workup Expected Discharge History Expected Date/Time Set By Reviewed At 09/30/2022 Vikki Mayo RN 09/27/2022 7:46 AM TCC lio 09/27/2022 Cezar Forbes MD 09/26/2022 2:18 PM 09/27/2022 Vikki Mayo RN 09/26/2022 8:03 AM 09/26/2022 VARGAS Morris CNP 09/24/2022 7:03 PM 09/26/2022 VARGAS Morris CNP 09/24/2022 3:36 PM 09/25/2022 Lupillo Richards MD 09/24/2022 3:05 PM Length of Stay (Days): 3 GMLOS: 2.7 T [facility] 09-27-2022 Note Problem: Safety - Ad ult Goal: Free from fall injury Outcome: Progressing Flowsheets (Taken 09/27/2022 0234) Free from fall injury: Instruct family/caregiver on patient safety [facility] 09-27-2022 Plan of care note Problem: Safety - Adult Goal: Free from fall injury Outcome: Progressing Flowsheets (Taken 09/27/2022 0234) Free from fall injury: Instruct family/caregiver on patient safety T [facility] 09-26-2022 Note Care Management Prog ress Note TRANSITIONAL CARE DAILY NOTE/UPDATES: Patient remains on 2E due to SOB. Clinical updates: Patient was NPO for nuclear stress test today. Patient on 3L O2, has O2 at home. Cardiology following. Discharge plan: TBD. Spoke with brother Jacqui, who states patient cannot return home as they can't take care of him, would like him placed at [facility] in [place]. Explained to brother that I will need to get therapy ordered and we will have to see what their recommendations are, if they recommend a skilled facility we can make the referral but if they recommend home with home care insurance would not pay for a SNF. He verbalized understanding. Secure message sent to Dr. Forbes asking for a therapy order, he will order therapy. Discharge obstacles: none noted. TCC to continue to follow. Discharge Milestones and Delays Expected Date/Time: 09/27/[address] discharge order Complete med reconciliation Case mgmt discharge readiness Clinical Stability Diagnsotic Workup Expected Discharge History Expected Date/Time Set By Reviewed At 09/27/2022 Vikki Mayo RN 09/26/2022 8:03 AM TCC [place] 09/26/2022 VARGAS Morris CNP 09/24/2022 7:03 PM 09/26/2022 VARGSA Morris CNP 09/24/2022 3:36 PM 09/25/2022 Lupillo Richards MD 09/24/2022 3:05 PM Length of Stay (Days): 0 GMLOS: No GMLOS Documented [facility] 09-26-2022 Note Formatting of this n ote is different from the original. Images from the original note were not included. Care Management Progress Note TRANSITIONAL CARE DAILY NOTE/UPDATES: Patient remains on 2E due to SOB. Clinical updates: Patient was NPO for nuclear stress test today. Patient on 3L O2, has O2 at home. Cardiology following. Discharge plan: TBD. Spoke with brother Jacqui, who states patient cannot return home as they can't take care of him, would like him placed at [facility] in [place]. Explained to brother that I will need to get therapy ordered and we will have to see what their recommendations are, if they recommend a skilled facility we can make the referral but if they recommend home with home care insurance would not pay for a SNF. He verbalized understanding. Secure message sent to Dr. Forbes asking for a therapy order, he will order therapy. Discharge obstacles: none noted. TCC to continue to follow. Discharge Milestones and Delays Expected Date/Time: 09/27/[address] discharge order Complete med reconciliation Case mgmt discharge readiness Clinical Stability Diagnsotic Workup Expected Discharge History Expected Date/Time Set By Reviewed At 09/27/2022 Vikki Mayo RN 09/26/2022 8:03 AM TCC [place] 09/26/2022 VARGAS Morris CNP 09/24/2022 7:03 PM 09/26/2022 VARGAS Morris CNP 09/24/2022 3:36 PM 09/25/2022 Lupillo Richards MD 09/24/2022 3:05 PM Length of Stay (Days): 0 GMLOS: No GMLOS Documented [facility] 09-26-2022 Note Formatting of this n ote is different from the original. Images from the original note were not included. Care Management Progress Note TRANSITIONAL CARE DAILY NOTE/UPDATES: Patient remains on 2E due to SOB. Clinical updates: Patient was NPO for nuclear stress test today. Patient on 3L O2, has O2 at home. Cardiology following. Discharge plan: TBD. Spoke with brother Jacqui, who states patient cannot return home as they can't take care of him, would like him placed at [facility] in [place]. Explained to brother that I will need to get therapy ordered and we will have to see what their recommendations are, if they recommend a skilled facility we can make the referral but if they recommend home with home care insurance would not pay for a SNF. He verbalized understanding. Secure message sent to Dr. Forbes asking for a therapy order, he will order therapy. Discharge obstacles: none noted. TCC to continue to follow. Discharge Milestones and Delays Expected Date/Time: 09/27/[address] discharge order Complete med reconciliation Case mgmt discharge readiness Clinical Stability Diagnsotic Workup Expected Discharge History Expected Date/Time Set By Reviewed At 09/27/2022 Vikki Mayo RN 09/26/2022 8:03 AM [facility] [place] 09/26/2022 VARGAS Morris CNP 09/24/2022 7:03 PM 09/26/2022 VARGAS Morris CNP 09/24/2022 3:36 PM 09/25/2022 Lupillo Richards MD 09/24/2022 3:05 PM Length of Stay (Days): 0 GMLOS: No GMLOS Documented [facility] 09-26-2022 Note Hospitalist Progress Note 09/26/[id number]: Please page me ([phone]) for patient care issues. [phone]: Please page [facility] Hospitalist for any issues. Subjective: Admit Date: 09/24/2022 PCP: Carlos Cuevas MD Room#: B2-249/B2-249 B Interval History: Patient states he is breathing much better today. Denies sob at rest and said he is not that sob with exertion as before. No chest pain. No NV. No fevers or chills. No new cough. No lightheadedness or dizziness today. NPO diet @[id number]@ 24HR INTAKE/OUTPUT: Intake/Output Summary (Last 24 hours) at 09/26/2022 1051 Last data filed at 09/26/2022 0800 Gross per 24 hour Intake 0 ml Output -- Net 0 ml Past Medical History: Past Medical History: Diagnosis Date Atrial fibrillation (CMS/HCC) (HCC) Atrial fibrillation (CMS/HCC) (HCC) CHADS 2= 2 ( CHF, HTN) HAS BLED 2 =asa, age) Basal cell carcinoma Cancer (CMS/HCC) (HCC) CHF (congestive heart failure) (CMS/HCC) (HCC) COPD (chronic obstructive pulmonary disease) (HCC) Hyperlipidemia Hypertension Pulmonary hypertension (HCC) LABS: CBC: Recent Labs 09/24/22 1038 WBC 7.1 RBC 4.39* HGB 12.9* HCT 40.0 MCV 91.2 RDW 17.3* PLT 220 BMP: Recent Labs 09/24/22 1038 NA 136 K 3.8 CL 98 CO2 33* BUN 22* CREATININE 1.00 GLUCOSE 145* CALCIUM 9.1 ANIONGAP 5 LIVER PROFILE:No results for input(s): AST, ALT, BILITOT, ALKPHOS, PROT in the last 72 hours. No lab exists for component: LABALBU PT/INR: No results for input(s): PROTIME, INR in the last 72 hours. CARDIAC ENZYMES: Recent Labs 09/24/22 1038 TROPONINI 0.013 Procalcitonin: No results found for: PROCAL COVID-19 PCR: No results for input(s): COVID19 in the last 72 hours. Objective: Vitals: BP (!) 98/43 (BP Location: Left arm, Patient Position: Lying) Pulse 69 Temp 36.2 ?C (97.1 ?F) (Temporal) Resp 20 Wt 234 lb (106 kg) SpO2 97% BMI 31.74 kg/m? Pulse Ox: SpO2 Av.2 % Min: 94 % Max: 100 % Supplemental O2: O2 Flow Rate (L/min): 3 L/min General appearance: No apparent distress, appears stated age, HEENT: Eyes: No scleral icterus Oral: Tongue is semi-moist Cardiovascular: S1/S2 heard, RRR Respiratory: decreased BS but clear to auscultation bilaterally, no wheezing. Abdomen: Soft, non-tender, non-distended bowel sounds positive Musculoskeletal: No obvious deformities seen Skin: No visible rashes or lesions. Medications: apixaban, 5 mg, Oral, BID atorvastatin, 10 mg, Oral, Nightly potassium chloride CR, 10 mEq, Oral, BID Assessment # Worsening shortness of breath with exertion - BNP only 867. He does have some edema in both legs but states its same and hasn't been any worse. 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 Lasix held as patient was hypotensive in ER (BP was 87/68 and was given fluid bolus in ER). Cardiology Dr. Shepard initially saw and planning for lexiscan stress test to rule out angina equivalent but patient follows with Dr. Zurita who saw and cancelled stress today as patient having runs of Vtach. # Lactic acid elevated - was given bolus of 500 ml in ED, repeat levels now back to normal at 1.6. # Chronic HFpEF and right side heart failure- compensated and NOT in exacerbation. last echo 06/2022 showed EF of 55% and severe RV and RA dilation with moderate reduced RV systolic function, moderate aortic stenosis. Lasix held as patient was hypotensive in ER (BP was 87/68 and was given fluid bolus in ER). # 6 beats run of V tach on 09/26 - cardiology aware. Spoke with Dr. Zurita who states he is checking potassium and mag. If normal, he may consider amio but at this time holding off. # Acute hypotension in ER (was given fluid bolus for BP of 87/68) - he has a history of this with recent admission, improved with fluids , monitor BP. Lasix currently held. # COPD- w/ chronic respiratory failure, does not appear in AE, lung exam shows decreased BS but clear with no wheezing. # Chronic hypoxic respiratory failure due to copd - on chronic 3-4 L NC O2. Currently on baseline oxygen. # Moderate aortic stenosis per echo on 07/03/2022 # Chronic Afib- mostly rate controlled, continue OAC but NOT on any rate controlling meds. # Chronic Anemia - now at 12.9, improved # HPL- continue statin # Obesity Plan Low risk exposure from room mate who tested positive yesterday for COVID. Recommendations from ID stewardship is to do covid antigen day 1, 3 and 5 as precaution. Will start 1st one today. Continue holding lasix given hypotension on admission that was fluid responsive. Cardiology saw for worsening sob and was planning to rule out angina equivalent vs valvular cause, vs other etiology. Cardiology Dr. Shepard initially saw and planning for lexiscan stress test to rule out angina equivalent but patient follows with Dr. Zurita who saw (more content not included)... [facility] 09-26-2022 Note [facility] Cardiology /Electrophysiology Progress Note HPI / Interval History: Mr. Mendes has a history of permanent atrial fibrillation, hypertension, and COPD dependent on home oxygen therapy. He presented with progressive fatigue, weakness, and exertional shortness of breath. His weight was down about 30 pounds from decrease calories. It was felt his shortness of breath was more likely related to underlying pulmonary disease. A stress test has been ordered to rule out potential anginal equivalent. He states he feels his breathing is back to his baseline. Denies any complaints of chest pain. He is scheduled for a nuclear medicine stress test this morning. Assessment/Plan HF NYHA Class [] I [] II [] III [] IV Shortness of breath. -Likely related to his underlying pulmonary disease. -Stress testing is ordered to rule out anginal equivalent. 2. Atrial fibrillation. -He is on Eliquis for stroke risk reduction. 3. Moderate aortic valve stenosis. -Last echocardiogram was completed on July 04, 2022 4. COPD. 5. Regular ectopic beats noted on monitor. -Last blood work was September 24, will add a BMP to document stability of electrolytes. Patient sees Dr Zurita in the outpt setting. Will need follow up scheduled with him. Medications: apixaban, 5 mg, Oral, BID atorvastatin, 10 mg, Oral, Nightly potassium chloride CR, 10 mEq, Oral, BID Infusion Medications: Physical Examination: Vitals: 09/25/22 1539 09/25/22 2021 09/25/22 2235 09/26/22 0743 BP: 100/66 110/66 (!) 98/43 BP Location: Left arm Left arm Left arm Patient Position: Sitting Lying Lying Pulse: 68 82 70 69 Resp: 16 16 20 Temp: 36.4 ?C (97.6 ?F) 36 ?C (96.8 ?F) 36.2 ?C (97.1 ?F) TempSrc: Temporal Temporal Temporal SpO2: 98% 97% 94% 97% Weight: No intake or output data in the 24 hours ending 09/26/22 0942 Wt Readings from Last 3 Encounters: 09/24/22 234 lb (106 kg) 07/15/22 266 lb 12.8 oz (121 kg) 07/06/22 286 lb 3.2 oz (130 kg) Physical Exam Constitutional: General: He is not in acute distress. Appearance: He is not diaphoretic. Comments: NC O2 in place HENT: Head: Normocephalic. Eyes: General: Right eye: No discharge. Left eye: No discharge. Conjunctiva/sclera: Conjunctivae normal. Cardiovascular: Rate and Rhythm: Normal rate. Rhythm irregular. Pulmonary: Breath sounds: No wheezing or rales. Abdominal: General: Bowel sounds are normal. Palpations: Abdomen is soft. Musculoskeletal: Right lower leg: No edema. Left lower leg: No edema. Skin: General: Skin is warm and dry. Findings: No erythema or rash. Neurological: Mental Status: He is oriented to person, place, and time. Psychiatric: Mood and Affect: Mood normal. Laboratory Tests: Recent Labs 09/24/22 1038 NA 136 K 3.8 CL 98 CO2 33* BUN 22* CREATININE 1.00 Recent Labs 09/24/22 1038 WBC 7.1 HGB 12.9* HCT 40.0 MCV 91.2 PLT 220 Recent Labs 09/24/22 1038 TROPONINI 0.013 Recent Labs 09/24/22 1038 BNP 867* No results for input(s): TRIG, HDL, LDLCALC, CHOL in the last 72 hours. No results found for: LDLCHOLESTER Lab Results Component Value Date TSH 1.563 07/03/2022 No results found for: EFBP, PLVEF, LVEFPHYS, LVEF2D, EF 07/03/22 TRANSTHORACIC ECHOCARDIOGRAM (TTE) COMPLETE (CONTRAST/BUBBLE/3D PRN) 07/04/2022 6:24 PM (Final) Interpretation Summary Left Ventricle: Left ventricle size is normal. Normal wall thickness. Normal left ventricular systolic function. The EF by visual approximation is 55%. Normal wall motion. Right Ventricle: Right ventricle is severely dilated. Moderately reduced systolic function. Aortic Valve: Trileaflet. Moderately thickened cusps. Moderately calcified cusps. Moderate stenosis of the aortic valve. AV mean gradient is 11 mmHg. LVOT:AV VTI Index is 0.31. AV area by continuity VTI is 1.2 cm2. Tricuspid Valve: Mildly elevated RVSP. RVSP is 37 mmHg. Left Atrium: Left atrium is severely dilated. LA Vol Index A/L is 81 mL/m2. Right Atrium: Right atrium is severely dilated. No vegetations or other evidence for infectious endocarditis. Technically difficult study. Signed by: Waqas Juarez MD on 07/04/2022 6:24 PM Other reports reviewed: Cardiac Tests: ECG: Tracing reviewed. Telemetry findings reviewed: afib with ventricular ectopic beats No results found for: EFBP, PLVEF, LVEFPHYS, LVEF2D, EF Pamelabarbara San PA-C Date Of Service 09/26/2022 [facility] 09-26-2022 Plan of care note The patient is Moderately Stable - Low risk of patient condition declining or worsening The patient's goals for the shift include eat/drink after stress test The clinical goals for the shift include tolerate stress test Over the shift, the patient did not make progress toward the following goals. Barriers to progression include pending test. [facility] 09-25-2022 Consult note Associated Order (s): IP CONSULT TO CARDIOLOGY Images from the original note were not included. [facility] [address] TELEMETRY [address] [place] [id number] Dept: [phone] This is a 77-year-old man seen for dyspnea. His history includes Atrial fibrillation, permanent Hypertension COPD on home oxygen therapy. He was in his usual state of health until about 2 weeks ago when he noted progressive fatigue, weakness, and exertional dyspnea. He had occasional nonproductive cough. He had no chest pain or fever or chills. He said that he had no obvious trigger. He has lost weight from about 264 pounds to 234 pounds. He noticed that he just decreased his food intake. This was intentional. He said he cut out foods that he thought were high in calories and not helpful as far as nutrition. An echocardiogram in June of this year revealed a left ventricular ejection fraction of 55%. There was severe right atrial and right ventricular enlargement, severe left atrial enlargement, and mild to moderate aortic stenosis. His peak gradient was 18, mean 11, dimensionless index 0.31, calculated aortic valve area of 1.2 cm . His inferior vena cava was 2.2, tricuspid regurgitant jet velocity normal at 2.3. His medications at home include apixaban 5 mg twice a day, furosemide 40 mg daily, simvastatin 20 mg daily, and oxygen. He is a former smoker. On physical exam he appears in no distress. His temperature is not elevated, heart rate in the 80s, respiratory rate 15, blood pressure 101/81, oxygen saturation 99% on supplemental oxygen. Jugular venous distention is not seen. His heart sounds are soft but otherwise unremarkable. He is in no respiratory distress. He has mild pretibial pitting edema, 1+. His extremities are warm. His BUN is 22, creatinine 1.0, NT proBNP 867, troponin normal, hemoglobin 12.9, platelets 220. I reviewed his chest x-ray. It did not appear congested. His EKG shows atrial fibrillation, right bundle branch block. The 1 in June of this year was the same. I reviewed both. A focused cardiac ultrasound today at the bedside revealed dilated right ventricle, normal left ventricle. I could not see the mitral and aortic valves well. I could only get subcostal views. Medical decision making This does not appear to be significant or definite heart failure based on his physical exam, chest x-ray, and relatively low proBNP. He certainly has chronic lung disease but he does not appear to be in an acute exacerbation from that. His echocardiogram only 2-1/2 months ago did not suggest severe aortic stenosis. I reviewed those images and the aortic stenosis does not appear severe. Recommend 1 dose of IV Lasix to see if that improves his dyspnea. Continue a apixaban for his permanent atrial fibrillation. Nuclear stress test, pharmacologic. He would not do well on the treadmill. I do not think we could get great images by echocardiogram for a stress echocardiogram. If the nuclear stress test is clearly abnormal, I would recommend a right and left heart cath. If it is normal, I would continue treating his lung disease and encouraged referral to cardiopulmonary rehab. [facility] 09-25-2022 Consult note Associated Order (s): IP CONSULT TO CARDIOLOGY Images from the original note were not included. [facility] TELEMETRY [address] [place] [id number] Dept: [phone] This is a 77-year-old man seen for dyspnea. His history includes Atrial fibrillation, permanent Hypertension COPD on home oxygen therapy. He was in his usual state of health until about 2 weeks ago when he noted progressive fatigue, weakness, and exertional dyspnea. He had occasional nonproductive cough. He had no chest pain or fever or chills. He said that he had no obvious trigger. He has lost weight from about 264 pounds to 234 pounds. He noticed that he just decreased his food intake. This was intentional. He said he cut out foods that he thought were high in calories and not helpful as far as nutrition. An echocardiogram in June of this year revealed a left ventricular ejection fraction of 55%. There was severe right atrial and right ventricular enlargement, severe left atrial enlargement, and mild to moderate aortic stenosis. His peak gradient was 18, mean 11, dimensionless index 0.31, calculated aortic valve area of 1.2 cm . His inferior vena cava was 2.2, tricuspid regurgitant jet velocity normal at 2.3. His medications at home include apixaban 5 mg twice a day, furosemide 40 mg daily, simvastatin 20 mg daily, and oxygen. He is a former smoker. On physical exam he appears in no distress. His temperature is not elevated, heart rate in the 80s, respiratory rate 15, blood pressure 101/81, oxygen saturation 99% on supplemental oxygen. Jugular venous distention is not seen. His heart sounds are soft but otherwise unremarkable. He is in no respiratory distress. He has mild pretibial pitting edema, 1+. His extremities are warm. His BUN is 22, creatinine 1.0, NT proBNP 867, troponin normal, hemoglobin 12.9, platelets 220. I reviewed his chest x-ray. It did not appear congested. His EKG shows atrial fibrillation, right bundle branch block. The 1 in June of this year was the same. I reviewed both. A focused cardiac ultrasound today at the bedside revealed dilated right ventricle, normal left ventricle. I could not see the mitral and aortic valves well. I could only get subcostal views. Medical decision making This does not appear to be significant or definite heart failure based on his physical exam, chest x-ray, and relatively low proBNP. He certainly has chronic lung disease but he does not appear to be in an acute exacerbation from that. His echocardiogram only 2-1/2 months ago did not suggest severe aortic stenosis. I reviewed those images and the aortic stenosis does not appear severe. Recommend 1 dose of IV Lasix to see if that improves his dyspnea. Continue a apixaban for his permanent atrial fibrillation. Nuclear stress test, pharmacologic. He would not do well on the treadmill. I do not think we could get great images by echocardiogram for a stress echocardiogram. If the nuclear stress test is clearly abnormal, I would recommend a right and left heart cath. If it is normal, I would continue treating his lung disease and encouraged referral to cardiopulmonary rehab. documented in this encounter [facility] 09-25-2022 Note Hospitalist Progress Note 09/25/2022 [phone]: Please page me ([phone]) for patient care issues. [phone]: Please page [facility] night Hospitalist for any issues. Subjective: Admit Date: 09/24/2022 PCP: Carlos Cuevas MD Room#: B2-249/B2-249 B Interval History: patient breathing fine in bed. Denies sob in bed but states currently cannot walk short distance without being severely sob. No chest pain. No NV. No fevers or chills. No new cough. No lightheadedness or dizziness today. Adult diet Regular; Low Sodium (2 gm) @[id number]@ 24HR INTAKE/OUTPUT: Intake/Output Summary (Last 24 hours) at 09/25/2022 1141 Last data filed at 09/24/2022 2100 Gross per 24 hour Intake -- Output 1075 ml Net -1075 ml Past Medical History: Past Medical History: Diagnosis Date Atrial fibrillation (CMS/HCC) (HCC) Atrial fibrillation (CMS/HCC) (HCC) CHADS 2= 2 ( CHF, HTN) HAS BLED 2 =asa, age) Basal cell carcinoma Cancer (CMS/HCC) (HCC) CHF (congestive heart failure) (CMS/HCC) (HCC) COPD (chronic obstructive pulmonary disease) (HCC) Hyperlipidemia Hypertension Pulmonary hypertension (HCC) LABS: CBC: Recent Labs 09/24/22 1038 WBC 7.1 RBC 4.39* HGB 12.9* HCT 40.0 MCV 91.2 RDW 17.3* PLT 220 BMP: Recent Labs 09/24/22 1038 NA 136 K 3.8 CL 98 CO2 33* BUN 22* CREATININE 1.00 GLUCOSE 145* CALCIUM 9.1 ANIONGAP 5 LIVER PROFILE:No results for input(s): AST, ALT, BILITOT, ALKPHOS, PROT in the last 72 hours. No lab exists for component: LABALBU PT/INR: No results for input(s): PROTIME, INR in the last 72 hours. CARDIAC ENZYMES: Recent Labs 09/24/22 1038 TROPONINI 0.013 Procalcitonin: No results found for: PROCAL COVID-19 PCR: No results for input(s): COVID19 in the last 72 hours. Objective: Vitals: BP 101/81 Pulse 87 Temp (!) 35.7 ?C (96.3 ?F) (Temporal) Resp 15 Wt 234 lb (106 kg) SpO2 99% BMI 31.74 kg/m? Pulse Ox: SpO2 Av.3 % Min: 90 % Max: 100 % Supplemental O2: O2 Flow Rate (L/min): 4 L/min General appearance: No apparent distress, appears stated age, HEENT: Eyes: No scleral icterus Oral: Tongue is semi-moist Cardiovascular: S1/S2 heard, RRR Respiratory: decreased BS but clear to auscultation bilaterally, no wheezing. Abdomen: Soft, non-tender, non-distended bowel sounds positive Musculoskeletal: No obvious deformities seen Skin: No visible rashes or lesions. Medications: apixaban, 5 mg, Oral, BID atorvastatin, 10 mg, Oral, Nightly potassium chloride CR, 10 mEq, Oral, BID Assessment # Worsening shortness of breath with exertion - BNP only 867. He does have some edema in both legs but states its same and hasn't been any worse. 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 Lasix held as patient was hypotensive in ER (BP was 87/68 and was given fluid bolus in ER). Rule out cardiac etiology (angina equivalent? Valvular?). Repeat troponin now. # Lactic acid elevated - was given bolus of 500 ml in ED, repeat levels now back to normal at 1.6. # Chronic HFpEF and right side heart failure- last echo 06/2022 showed EF of 55% and severe RV and RA dilation with moderate reduced RV systolic function, moderate aortic stenosis. Lasix held as patient was hypotensive in ER (BP was 87/68 and was given fluid bolus in ER). # Acute hypotension in ER (was given fluid bolus for BP of 87/68) - he has a history of this with recent admission, improved with fluids , monitor BP. Lasix currently held. # COPD- w/ chronic respiratory failure, does not appear in AE, lung exam shows decreased BS but clear with no wheezing. # Chronic hypoxic respiratory failure due to copd - on chronic 3-4 L NC O2. Currently on baseline oxygen. # Moderate aortic stenosis per echo on 07/03/2022 # Chronic Afib- mostly rate controlled, continue OAC but NOT on any rate controlling meds. # Chronic Anemia - now at 12.9, improved # HPL- continue statin # Obesity Plan Low risk exposure from room mate who tested positive today for COVID today. Recommendations from ID stewardship is to do covid antigen day 1, 3 and 5 as precaution. Will start 1st one today. Continue holding lasix given hypotension on admission that was fluid responsive. Consult cardiology given worsening sob to rule out angina equivalent vs valvular cause, vs other etiology. Spoke with dr. Shepard on phone who will see patient later. Check daily labs. Continue all other tx the same. Extended Emergency Contact Information Primary Emergency Contact: Jacqui Mendes Relation: Sibling Secondary Emergency Contact: Adenike Villasenor Relation: Sibling CEZAR FORBES MD Division of Hospitalist Medicine Inpatient Medical Services/[facility] PAGER: Tristin lynn [facility] 09-25-2022 Note Formatting of this n ote might be different from the original. Care Managment Initial Assessment Date: 09/25/2022 Patient Name: Adam Mendes : 1945 Patient Information Source of Information: Patient Name/Contact Information: JACQUI MENDES [phone] BROTHER Cognition/Language: WFL - Within Functional Limits Permission given to speak with patient retention representative/caregiver as indicated: Yes Confirmation of Payer with patient/family: Yes Payer Name: [employer] MEDICARE : No Confirmation of Primary Care Physician: Confirmed PCP Name: DR. CUEVAS Seen in last 2 years?: Yes Primary Caregiver: Self If assistance needed, confirmed caregiver ready, willing and able to care for patient at discharge: Yes Confirmed with: PER PATIENT SISTER ADENIKE Living Arrangements Current Residence: House Number of Floors 1 Number of Entry Steps: 3 Bed/Bath Levels: Both first floor Facility: Facility Name: NA Plan to Return: Yes Lives with: Extended family members (SISTER ADENIKE) Support Systems: Family members (SISTER AND BROTHER) Activities of Daily Living Ambulation: Independent Bathing/Dressing: Independent (HAS BEEN SPONGE BATHING) Elimination/Continence/Toiletin g: Independent Feeding: Independent Who Assists with Activities of Daily Living: Instrumental Activities of Daily Living Prescription Coverage: Yes Pharmacy Used: [facility] Medication Management: Prescription pick-up Who assists with medication securing and setup?: SISTER OR BROTHER ASSIST WITH PICKING UP PRESCRIPTIONS Transportation/Shopping: Assistance Provider Transportation/Shopping Assistance Provider Name: SISTER OR BROTHER Transportation Mode: Car Needs Assistance with Transportation at Discharge: No (SISTER OR BROTHER) Meal Preparation: Assistance Provider Meal Prep Assistance Provider Name: SISTER Laundry/Cleaning: Assistance Provider Laundry/Cleaning Assistance Provider Name: Finances/Bill Paying: Independent Communication: Independent Types of Care Services/Equipment Utilized Care Services: Dialysis Type: NA Durable Medical Equipment: Walker, Wheelchair (standard or power), Nebulizer, Oxygen (Continuous or prn) Oxygen Flow Rate: 3.5 LITERS TO 4 LITERS CONT DME Provider: RA Patient's Goal/Discharge Plan Patient expects to be discharged to: HOME Discharge Planning Actions: Continue to follow Patient's Choice Rights and [employer] and Collaborative Relationships Disclosed as Indicated for Post-Acute Care: NA Interdisciplinary Team Engagement: Home Health Care Social Work Referral for: Additional Information:observation status from home with sob. Admitted to tel, cardiology consulted, daily labs. Discharge preparation checklist reviewed with patient. Has prescription coverage and able to afford medications. Lives at home with his sister. Wears oxygen at 3.5 to 4 liters cont at home. Has nebulizer with medications. States is in dependent in his adls and his sister performs most household tasks. His brother or sister provide transportation for him, as he does not drive. Is currently refusing need for home care services. States his brother has been looking into assisted living facilities for him . 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 Discharge plan is home with brother and sister to assist when medically stable. Rolanda Matthews RN [facility] 09-25-2022 Note Formatting of this n ote might be different from the original. Care Managment Initial Assessment Date: 09/25/2022 Patient Name: Adam Mendes : 1945 Patient Information Source of Information: Patient Name/Contact Information: JACQUI MENDES [phone] BROTHER Cognition/Language: WFL - Within Functional Limits Permission given to speak with patient retention representative/caregiver as indicated: Yes Confirmation of Payer with patient/family: Yes Payer Name: [facility] MEDICARE : No Confirmation of Primary Care Physician: Confirmed PCP Name: DR. CUEVAS Seen in last 2 years?: Yes Primary Caregiver: Self If assistance needed, confirmed caregiver ready, willing and able to care for patient at discharge: Yes Confirmed with: PER PATIENT SISTER ADENIKE Living Arrangements Current Residence: House Number of Floors 1 Number of Entry Steps: 3 Bed/Bath Levels: Both first floor Facility: Facility Name: [facility] Plan to Return: Yes Lives with: Extended family members (SISTER ADENIKE) Support Systems: Family members (SISTER AND BROTHER) Activities of Daily Living Ambulation: Independent Bathing/Dressing: Independent (HAS BEEN SPONGE BATHING) Elimination/Continence/Toiletin g: Independent Feeding: Independent Who Assists with Activities of Daily Living: Instrumental Activities of Daily Living Prescription Coverage: Yes Pharmacy Used[facility] Medication Management: Prescription pick-up Who assists with medication securing and setup?: SISTER OR BROTHER ASSIST WITH PICKING UP PRESCRIPTIONS Transportation/Shopping: Assistance Provider Transportation/Shopping Assistance Provider Name: SISTER OR BROTHER Transportation Mode: Car Needs Assistance with Transportation at Discharge: No (SISTER OR BROTHER) Meal Preparation: Assistance Provider Meal Prep Assistance Provider Name: SISTER Laundry/Cleaning: Assistance Provider Laundry/Cleaning Assistance Provider Name: Finances/Bill Paying: Independent Communication: Independent Types of Care Services/Equipment Utilized Care Services: Dialysis Type: NA Durable Medical Equipment: Walker, Wheelchair (standard or power), Nebulizer, Oxygen (Continuous or prn) Oxygen Flow Rate: 3.5 LITERS TO 4 LITERS CONT DME Provider: RA Patient's Goal/Discharge Plan Patient expects to be discharged to: HOME Discharge Planning Actions: Continue to follow Patient's Choice Rights and [employer] and Collaborative Relationships Disclosed as Indicated for Post-Acute Care: NA Interdisciplinary Team Engagement: Home Health Care Social Work Referral for: Additional Information:observation status from home with sob. Admitted to [facility], cardiology consulted, daily labs. Discharge preparation checklist reviewed with patient. Has prescription coverage and able to afford medications. Lives at home with his sister. Wears oxygen at 3.5 to 4 liters cont at home. Has nebulizer with medications. States is in dependent in his adls and his sister performs most household tasks. His brother or sister provide transportation for him, as he does not drive. Is currently refusing need for home care services. States his brother has been looking into assisted living facilities for him . When asked if he had director case through his insurance company he was working with, he stated he had a couple people , but he did not know their names. Discharge plan is home with brother and sister to assist when medically stable. Rolanda Matthews RN [facility] 09-24-2022 Emergency department Note Patient transported to via [employer] at this time in stable condition. Ondina Bateman RN 09/24/22 1837 [facility] 09-24-2022 Emergency department Note Patient transported to via [employer] at this time in stable condition. Ondina Bateman RN 09/24/22 1837 Meal tray ordered for patient at this time. Sitting up at side of bed for comfort. Call light within reach. Respirations easy and unlabored. Does not appear to be in distress. Ondina Bateman RN 09/24/22 1438 Respiratory at bedside at this time. Ondina Bateman RN 09/24/22 1246 Respiratory called for breathing treatment at this time. Ondina Bateman RN 09/24/22 1243 Patient states he is experiencing increase SOB. Requesting a breathing treatment at this time. Dr. Richards notified. Ondina Bateman RN 09/24/22 1331 Xray at bedside at this time Ondina Bateman RN 09/24/22 1023 Emergency Department Encounter [facility] ED Patient: Adam Mendes : 1945 Date of Evaluation: 09/24/2022 ED Provider: Lupillo Richards MD Note: I wore an N95 mask and gloves during this encounter. CHIEF COMPLAINT: Short of breath Chief Complaint Patient presents with Shortness of Breath HPI: Adam Mendes is a 77 y.o. male with PMH per EMR including atrial fibrillation ho medication including Eliquis, congestive heart failure, COPD, hyperlipidemia, hypertension, pulmonary hypertension, former tobacco use, presents with concern for shortness of breath. Patient reports beginning yesterday evening he has had worsening shortness of breath, he reports when he walks approximately 10 feet he will feels winded which is atypical for him, he denies fever chills, cough, chest pain, wheezing, abdominal pain, nausea vomiting, lower extremity swelling or calf pain. Patient denies recent immobilization, surgery, trauma, or travel, denies history of deep vein thrombosis or PE, denies hemoptysis, denies unilateral lower extremity swelling or leg pain. REVIEW OF SYSTEMS: Pertinent positives and negatives as per HPI. HISTORIES: PAST MEDICAL HISTORY: as per HPI SOCIAL HISTORY: As per HPI MEDICATIONS: Nursing notes and EMR reviewed ALLERGIES: Nursing notes and EMR reviewed PHYSICAL EXAM: Vital signs: reviewed General: no apparent distress, well appearing-nontoxic Eyes: no conjunctival injection, eyes tracking HEENT: airway patent, mucous membranes moist Cardiovascular: regular rhythm, normal rate Respiratory: non-labored breathing, breath sounds clear, no wheezing crackles or rhonchi, no tachypnea, speaks in full sentence Gastrointestinal: soft, non-distended, non-tender to deep palpation throughout Extremities: no obvious deformity, mild symmetrical lower extremity edema, no calf tenderness Integumentary: warm, dry Neurologic: alert and oriented, answering questions appropriately, no obvious neurologic deficits MEDICAL DECISION MAKING: Medications sodium chloride 0.9 % bolus 500 mL (0 mL IntraVENous Stopped 09/24/22 1345) albuterol (2.5 MG/3ML) 0.083% nebulizer solution 2.5 mg (2.5 mg Nebulization Given 09/24/22 1247) Adam Mendes is a 77 y.o. male who presents as above, with acute on chronic exertional dyspnea, arrives afebrile hypertensive otherwise reassuring vitals including saturating on baseline oxygen requirement 4 L nasal cannula, well-appearing, lungs clear, presentation concerning for CHF exacerbation, ACS, no COPD exacerbation evident, discussed with patient, will obtain work-up to evaluate including chest x-ray, EKG, laboratory evaluation. We will treat with nebulized albuterol patient's request. Labs obtained, interpreted by me, notable for creatinine 1.0 previously 0.7, BNP 867 comparable to prior evaluations, lactate 2.4, no leukocytosis, hemoglobin 12.9 previously 10.3 EKG obtained, per my interpretation, notable for atrial fibrillation, PVC, right bundle branch block, no acute ischemic changes compared to prior EKG, previously in a-fib. Troponin 0.013 CXR obtained, interpreted per radiologist no acute findings, no significant effusion, no pneumothorax Given hypotension, mildly elevated lactate, BNP not significantly elevated relative to baseline, will treat with 500 mL fluid bolus and repeat lactate. Repeat lactate 2.3, patient informed of findings, he endorses ongoing exertional dyspnea, management options discussed, he is uncomfortable with plan for discharge, plan for hospitalization for further evaluation and management including further cardiac work-up as indicated, I discussed with admitting Dr. Forbes in agreement with plan, stable for admission. DIAGNOSIS: Shortness of breath, hypotension, chronic hypoxic respiratory failure DISPOSITION: Admission PRESCRIPTIONS: New Prescriptions No medications on file Comment: Please note this report has been produced using speech recognition software and may contain errors related to that system including errors in grammar, punctuation, and spelling, as well as words and phrases that may be inappropriate. If there are any questions or concerns please feel free to contact the dictating provider for clarification. Lupillo Richards MD [employer] Lupillo Richards MD 09/24/22 5670 Pt c.o increased SOB since this a.m. Pt states he cant walk more then 5 ft without feeling winded. Pt wears 3-4 L NC baseline. Hypotensive in triage. documented in this encounter [facility] 09-24-2022 Note Attending History an d Physical Admit Date: 09/24/2022 PCP: Carlos Cuevas MD CHIEF COMPLAINT: shortness of breath, fatigue Reason for Admission: shortness of breath History Obtained From: patient, chart HISTORY OF PRESENT ILLNESS: Adam is a 77 y.o. male with past medical history below who presents with chief complaint of dyspnea on exertion. He states he is unable to walk 10 ft and he is short of breath. He denies recent illness of travel. He noticed this last night and when he got up this am to make coffee he was short of breath . He has no other complaints Denies chest pain, abdominal pain, nausea, vomiting, diarrhea, constipation, fevers, or chills. Will admit for further evaluation and management. Past Medical History: Past Medical History: Diagnosis Date Atrial fibrillation (CMS/HCC) (HCC) Atrial fibrillation (CMS/HCC) (HCC) CHADS 2= 2 ( CHF, HTN) HAS BLED 2 =asa, age) Basal cell carcinoma Cancer (CMS/HCC) (HCC) CHF (congestive heart failure) (CMS/HCC) (HCC) COPD (chronic obstructive pulmonary disease) (HCC) Hyperlipidemia Hypertension Pulmonary hypertension (HCC) Past Surgical History: Past Surgical History: Procedure Laterality Date EYE SURGERY HERNIA REPAIR SKIN BIOPSY TONSILLECTOMY (HISTORICAL) Social History: Social History Socioeconomic History Marital status: Single Spouse name: Not on file Number of children: Not on file Years of education: Not on file Highest education level: Not on file Occupational History Not on file Tobacco Use Smoking status: Former Packs/day: 1.50 Types: Cigarettes Start date: 06/04/1980 Quit date: 03/06/2020 Years since quittin.5 Smokeless tobacco: Former Quit date: 03/04/2016 Substance and Sexual Activity Alcohol use: No Drug use: No Sexual activity: Not on file Other Topics Concern Not on file Social History Narrative Not on file Social Determinants of Health Financial Resource Strain: Low Risk (05/26/2022) Overall Financial Resource Strain (CARDIA) Difficulty of Paying Living Expenses: Not very hard Food Insecurity: No Food Insecurity (05/26/2022) Hunger Vital Sign Worried About Running Out of Food in the Last Year: Never true Ran Out of Food in the Last Year: Never true Transportation Needs: No Transportation Needs (05/26/2022) PRAPARE - Transportation Lack of Transportation (Medical): No Lack of Transportation (Non-Medical): No Physical Activity: Not on file Stress: Not on file Social Connections: Not on file Intimate Partner Violence: Not on file Housing Stability: Not on file Family History: Family History Problem Relation Name Age of Onset No Known Problems Mother No Known Problems Father Medications Prior to Admission: No current facility-administered medications on file prior to encounter. Current Outpatient Medications on File Prior to Encounter Medication Sig Dispense Refill albuterol (2.5 MG/3ML) 0.083% nebulizer solution USE 1 VIAL IN NEBULIZER 6 TIMES DAILY 360 mL 1 apixaban (Eliquis) 5 MG tablet Take 1 tablet (5 mg) by mouth 2 times daily. 60 tablet 5 Docusate Sodium (DSS) 100 MG capsule every 12 hours. furosemide (Lasix) 40 MG tablet Take 1 tablet (40 mg) by mouth daily. 30 tablet 1 nitroglycerin (Nitrostat) 0.4 MG SL tablet up to max of 3 total doses. If no relief after 1 dose, call 911. oxygen (O2) gas Inhale 3-4 L/min continuous. via nasal canula potassium chloride CR (Klor-Con M10) 10 MEQ ER tablet Take 1 tablet by mouth in the morning and 1 tablet before bedtime. simvastatin (Zocor) 20 MG tablet Take 1 tablet by mouth Nightly. Allergies: Allergies Allergen Reactions Codeine Itching REVIEW OF SYSTEMS: Constitutional: Negative for fever, chills, activity change and unexpected weight change. HEENT: Negative for congestion, postnasal drip and sneezing. Eyes: Negative for itching and visual disturbance. Respiratory: Negative for apnea, cough, choking, chest tightness, wheezing and stridor. Positive for Shortness of breath Cardiovascular: Negative for chest pain. Gastrointestinal: Negative for nausea, vomiting, abdominal pain, diarrhea and blood in stool. Genitourinary: Negative for dysuria, frequency and flank pain. Musculoskeletal: Negative for myalgias and joint swelling. Skin: Negative for rash. Neurological: Negative for dizziness, tremors, seizures, syncope, facial asymmetry, speech difficulty, weakness, numbness and headaches. Hematological: Negative for adenopathy. Psychiatric/Behavioral: Negative for suicidal ideas, behavioral problems, self-injury and dysphoric mood. Vitals: BP 102/51 Pulse 90 Temp (!) 35.8 ?C (96.5 ?F) (Temporal) Resp 18 SpO2 98% BMI Classification: Morbidly Obese (>40.0) Pulse Ox: SpO2 Av.8 % Min: 94 % Max: 100 % Supplemental O2: O2 Flow Rate (L/min): 4 L/min PHYSICAL EXAM: General appearance: pleasant alert and oriented elderly male sitting on the side of his (more content not included)... [facility] 09-24-2022 Emergency department Note Meal tray ordered for patient at this time. Sitting up at side of bed for comfort. Call light within reach. Respirations easy and unlabored. Does not appear to be in distress. Ondina Bateman RN 09/24/22 1438 [facility] 09-24-2022 Emergency department Note Respiratory at bedside at this time. Ondina Bateman RN 09/24/22 1246 [facility] 09-24-2022 Emergency department Note Respiratory called for breathing treatment at this time. Ondina Bateman RN 09/24/22 1243 [facility] 09-24-2022 Emergency department Note Patient states he is experiencing increase SOB. Requesting a breathing treatment at this time. Dr. Richards notified. Ondina Bateman RN 09/24/22 1331 [facility] 09-24-2022 Emergency department Note Xray at bedside at this time Ondina Bateman RN 09/24/22 1023 [facility] 09-24-2022 Emergency department Triage note Pt c.o increased SOB since this a.m. Pt states he cant walk more then 5 ft without feeling winded. Pt wears 3-4 L NC baseline. Hypotensive in triage. [facility] 09-24-2022 Physician Emergency department Note Emergency Department Encounter [facility] ED Patient: Adam Mendes : 1945 Date of Evaluation: 09/24/2022 ED Provider: Lupillo Richards MD Note: I wore an N95 mask and gloves during this encounter. CHIEF COMPLAINT: Short of breath Chief Complaint Patient presents with Shortness of Breath HPI: Adam Mendes is a 77 y.o. male with PMH per EMR including atrial fibrillation ho medication including Eliquis, congestive heart failure, COPD, hyperlipidemia, hypertension, pulmonary hypertension, former tobacco use, presents with concern for shortness of breath. Patient reports beginning yesterday evening he has had worsening shortness of breath, he reports when he walks approximately 10 feet he will feels winded which is atypical for him, he denies fever chills, cough, chest pain, wheezing, abdominal pain, nausea vomiting, lower extremity swelling or calf pain. Patient denies recent immobilization, surgery, trauma, or travel, denies history of deep vein thrombosis or PE, denies hemoptysis, denies unilateral lower extremity swelling or leg pain. REVIEW OF SYSTEMS: Pertinent positives and negatives as per HPI. HISTORIES: PAST MEDICAL HISTORY: as per HPI SOCIAL HISTORY: As per HPI MEDICATIONS: Nursing notes and EMR reviewed ALLERGIES: Nursing notes and EMR reviewed PHYSICAL EXAM: Vital signs: reviewed General: no apparent distress, well appearing-nontoxic Eyes: no conjunctival injection, eyes tracking HEENT: airway patent, mucous membranes moist Cardiovascular: regular rhythm, normal rate Respiratory: non-labored breathing, breath sounds clear, no wheezing crackles or rhonchi, no tachypnea, speaks in full sentence Gastrointestinal: soft, non-distended, non-tender to deep palpation throughout Extremities: no obvious deformity, mild symmetrical lower extremity edema, no calf tenderness Integumentary: warm, dry Neurologic: alert and oriented, answering questions appropriately, no obvious neurologic deficits MEDICAL DECISION MAKING: Medications sodium chloride 0.9 % bolus 500 mL (0 mL IntraVENous Stopped 09/24/22 1345) albuterol (2.5 MG/3ML) 0.083% nebulizer solution 2.5 mg (2.5 mg Nebulization Given 09/24/22 1247) Adam Mendes is a 77 y.o. male who presents as above, with acute on chronic exertional dyspnea, arrives afebrile hypertensive otherwise reassuring vitals including saturating on baseline oxygen requirement 4 L nasal cannula, well-appearing, lungs clear, presentation concerning for CHF exacerbation, ACS, no COPD exacerbation evident, discussed with patient, will obtain work-up to evaluate including chest x-ray, EKG, laboratory evaluation. We will treat with nebulized albuterol patient's request. Labs obtained, interpreted by me, notable for creatinine 1.0 previously 0.7, BNP 867 comparable to prior evaluations, lactate 2.4, no leukocytosis, hemoglobin 12.9 previously 10.3 EKG obtained, per my interpretation, notable for atrial fibrillation, PVC, right bundle branch block, no acute ischemic changes compared to prior EKG, previously in a-fib. Troponin 0.013 CXR obtained, interpreted per radiologist no acute findings, no significant effusion, no pneumothorax Given hypotension, mildly elevated lactate, BNP not significantly elevated relative to baseline, will treat with 500 mL fluid bolus and repeat lactate. Repeat lactate 2.3, patient informed of findings, he endorses ongoing exertional dyspnea, management options discussed, he is uncomfortable with plan for discharge, plan for hospitalization for further evaluation and management including further cardiac work-up as indicated, I discussed with admitting Dr. Forbes in agreement with plan, stable for admission. DIAGNOSIS: Shortness of breath, hypotension, chronic hypoxic respiratory failure DISPOSITION: Admission PRESCRIPTIONS: New Prescriptions No medications on file Comment: Please note this report has been produced using speech recognition software and may contain errors related to that system including errors in grammar, punctuation, and spelling, as well as words and phrases that may be inappropriate. If there are any questions or concerns please feel free to contact the dictating provider for clarification. Lupillo Richards MD [employer] Lupillo Richards MD 09/24/22 1530 [facility] 07-08-2022 Note Care Management Prog ress Note DC orders in from Dr Robles. Patient to be transported home by sister. No needs identified, DC home independently. Discharge Milestones and Delays Expected Date/Time: 07/08/2022 Midday Disposition: Home or Self Care Transport status: No current request Discharge Milestones Completed Place discharge order Complete med reconciliation Case mgmt discharge readiness Clinical Stability Diagnsotic Workup Expected Discharge History Expected Date/Time Set By Reviewed At 07/08/2022 Midday King Robels MD 07/08/2022 12:03 PM Cardiac clearance, await clinical improvement. Declining [facility] 07/08/2022 VENKAT Rajput 07/08/2022 10:03 AM 07/07/2022 VENKAT Rajput 07/07/2022 10:27 AM Cardiac clearance, await clinical improvement 07/07/2022 VENKAT Rajput 07/06/2022 10:40 AM 07/05/2022 Alma Delia rBitton RN 07/05/2022 9:10 AM 07/06/2022 VENKAT Rajput 07/04/2022 10:27 AM 07/06/2022 Aram Stevens DO 07/03/2022 4:20 AM 07/06/2022 Mauro Morataya MD 07/03/2022 3:07 AM Length of Stay (Days): 5 GMLOS: 3.9 [facility] 07-08-2022 Note Discharge Summary Adam Mendes : 1945 ADMIT DATE: 07/03/2022 DISCHARGE DATE: 07/08/2022 PRIMARY CARE PHYSICIAN: Carlos Cuevas MD VISIT STATUS: inpatient CODE STATUS: Full Code DISCHARGE DIAGNOSES: Acute on chronic HFpEF, likely unrelated to hypertension COPD exacerbation Chronic respiratory failure Afib Hypotension Anemia Hyperlipidemia FELICIANO obesity HOSPITAL COURSE: 76 year old presented with increasing SOB and lower extremity edema. He was admitted, monitored on telemetry, given IV lasix, aerosols and IV steroids. An echocardiogram was performed. He was seen by Cardiology. He was seen by PT/OT. He did have hypotension and BP meds were adjusted/held. Steroids were transitioned to oral. The IV lasix was also held due to persistent hypotension. He slowly improved, BP stabilized, symptoms lessened, he returned to near baseline and was discharged home. SIGNIFICANT DIAGNOSTIC STUDIES: CXR, echocardiogram CONSULTANTS: Cardiology RECOMMENDED NEXT STEPS: Continue prednisone taper. HHC. Decrease lasix to once daily. Stop coreg and lisinopril. Follow up BP closely as an outpatient. Follow up with PCP and Cardiology as outpatient. Physical Exam: Vitals: BP 104/60 Pulse 83 Temp 36.8 ?C (98.3 ?F) (Temporal) Resp 18 Ht 6' (1.829 m) Wt 286 lb 3.2 oz (130 kg) SpO2 94% BMI 38.82 kg/m? Pulse Ox: SpO2 Av.3 % Min: 88 % Max: 99 % General appearance: alert, cooperative and no distress Mental Status: oriented to person, place and time and normal affect Lungs: coarse breath sounds bilaterally, normal effort Heart: irregular rhythm, no murmur Abdomen: soft, nontender, nondistended, bowel sounds present, no masses Extremities: + edema, no redness, no tenderness in the calves Skin: no gross lesions, rashes LABS: CBC: Recent Labs 07/07/22 0110 07/08/22 0201 WBC 6.4 6.7 RBC 2.77* 2.78* HGB 8.2* 8.3* HCT 26.2* 26.0* MCV 94.5 93.6 RDW 17.6* 17.0* PLT 140 143 BMP: Recent Labs 07/06/22 0318 07/07/22 0110 07/08/22 0201 NA 137 138 137 K 4.6 4.6 4.4 CL 98 101 98 CO2 38* 37* 40* BUN 37* 31* 25* CREATININE 0.78 0.74 0.70 GLUCOSE 106* 138* 111* CALCIUM 7.9* 7.8* 7.8* ANIONGAP 0* 0* -1* DISCHARGE MEDICATIONS: Medication List START taking these medications bacitracin-polymyxin b ointment Commonly known as: Polysporin Apply 1 each (1 g) topically 3 times daily for 5 days. ferrous sulfate 325 (65 Fe) MG tablet Take 1 tablet (325 mg) by mouth daily (with breakfast). Do not start before July 09, 2022. Start taking on: July 09, 2022 predniSONE 10 MG tablet Commonly known as: Deltasone Take 3 tablets (30 mg) by mouth daily for 3 days, THEN 2 tablets (20 mg) daily for 3 days, THEN 1 tablet (10 mg) daily for 7 days. Do not start before July 09, 2022. Start taking on: July 09, 2022 CHANGE how you take these medications furosemide 40 MG tablet Commonly known as: Lasix Take 1 tablet (40 mg) by mouth daily. What changed: when to take this CONTINUE taking these medications albuterol (2.5 MG/3ML) 0.083% nebulizer solution USE 1 VIAL IN NEBULIZER 6 TIMES DAILY apixaban 5 MG tablet Commonly known as: Eliquis nitroglycerin 0.4 MG SL tablet Commonly known as: Nitrostat oxygen gas Commonly known as: O2 potassium chloride CR 10 MEQ ER tablet Commonly known as: Klor-Con M10 simvastatin 20 MG tablet Commonly known as: Zocor STOP taking these medications carvedilol 6.25 MG tablet Commonly known as: Coreg lisinopril 5 MG tablet Where to Get Your Medications These medications were sent to [facility] [address] [place] [address] Hours: Monday to Monday 10 am to 6 pm bacitracin-polymyxin b ointment ferrous sulfate 325 (65 Fe) MG tablet furosemide 40 MG tablet predniSONE 10 MG tablet DIET: Adult diet Regular ACTIVITY: up with assist COMPLEXITY OF FOLLOW UP: [] Moderate Complexity: follow up within 7-14 calendar days (99637) [] Severe Complexity: follow up within 7 calendar days (93053) FOLLOW UP TESTING, PENDING RESULTS OR REFERRALS AT TRANSITIONAL CARE VISIT: [] Yes [] No PENDING STUDIES: No DISPOSITION: Home FACILITY/HOME CARE AGENCY NAME: Follow up with Prakash Zurita MD [address] [place] [address], [address] [place] [id number] Follow up in 2 week(s) Carlos Cuevas MD [address] [facility] [address] Schedule an appointment as soon as possible for a visit in 1 week(s) INSTRUCTIONS TO MA/SW: Please call patient on day after discharge (must document patient contacted within 2 business days of discharge). FOLLOW UP QUESTIONS FOR MA/SW: 1. Did you get medications filled and taking them as instructed from discharge? 2. Are you following your discharge instructions from your hospital stay? 3. Please confirm patient is s (more content not included)... [facility] 07-07-2022 Note Problem: Safety - Ad ult Goal: Free from fall injury Outcome: Progressing Problem: Discharge Planning Goal: Discharge to home or other facility with appropriate resources Outcome: Progressing Problem: Chronic Conditions and Co-morbidities Goal: Patient's chronic conditions and co-morbidity symptoms are monitored and maintained or improved Outcome: Progressing Problem: Knowledge Deficit Goal: Patient/family/caregiver demonstrates understanding of disease process, treatment plan, medications, and discharge instructions Outcome: Progressing Problem: Potential for Compromised Skin Integrity Goal: Skin Integrity is Maintained or Improved Outcome: Progressing Goal: Nutritional status is improving Outcome: Progressing Problem: Urinary Incontinence Goal: Perineal skin integrity is maintained or improved Outcome: Progressing The patient is Moderately Stable - Low risk of patient condition declining or worsening The patient's goals for the shift include ble redness evaluation The clinical goals for the shift include safety [facility] 07-07-2022 Note Hospitalist Progress Note 07/07/2022 [phone]: Please page me ([phone]) for patient care issues. [phone]: Please page [facility] Hospitalist for any issues. Subjective: Admit Date: 07/03/2022 PCP: Carlos Cuevas MD Room#: [id number] A Interval History: Patient states he feels a little tired but other than that, states he is doing fine this am. Denies being sob currently (then states maybe a little). No chest pain. No NV. No fevers or chills. Currently on 3L NC O2. Adult diet Regular @[id number]@ 24HR INTAKE/OUTPUT: Intake/Output Summary (Last 24 hours) at 07/07/2022 1018 Last data filed at 07/07/2022 0858 Gross per 24 hour Intake 10 ml Output 250 ml Net -240 ml Past Medical History: Past Medical History: Diagnosis Date Atrial fibrillation (CMS/HCC) (HCC) Atrial fibrillation (CMS/HCC) (HCC) CHADS 2= 2 ( CHF, HTN) HAS BLED 2 =asa, age) Basal cell carcinoma Cancer (CMS/HCC) (HCC) CHF (congestive heart failure) (CMS/HCC) (HCC) COPD (chronic obstructive pulmonary disease) (HCC) Hyperlipidemia Hypertension Pulmonary hypertension (HCC) LABS: CBC: Recent Labs 07/07/22 0110 WBC 6.4 RBC 2.77* HGB 8.2* HCT 26.2* MCV 94.5 RDW 17.6* PLT 140 BMP: Recent Labs 07/05/22 0613 07/06/22 0318 07/07/22 0110 NA 136 137 138 K 4.0 4.6 4.6 CL 98 98 101 CO2 36* 38* 37* BUN 37* 37* 31* CREATININE 0.74 0.78 0.74 GLUCOSE 168* 106* 138* CALCIUM 7.9* 7.9* 7.8* ANIONGAP 2* 0* 0* LIVER PROFILE: No results for input(s): AST, ALT, BILITOT, ALKPHOS, PROT in the last 72 hours. No lab exists for component: LABALBU PT/INR: No results for input(s): PROTIME, INR in the last 72 hours. CARDIAC ENZYMES: No results for input(s): TROPONINI in the last 72 hours. Procalcitonin: No results found for: PROCAL COVID-19 PCR: No results for input(s): COVID19 in the last 72 hours. Objective: Vitals: BP 108/75 (BP Location: Left arm, Patient Position: Sitting) Pulse 84 Temp 36.2 ?C (97.1 ?F) (Temporal) Resp 18 Ht 6' (1.829 m) Wt 286 lb 3.2 oz (130 kg) SpO2 95% BMI 38.82 kg/m? Pulse Ox: SpO2 Av.3 % Min: 94 % Max: 100 % Supplemental O2: O2 Flow Rate (L/min): 3 L/min General appearance: No apparent distress, appears stated age, HEENT: Eyes: No scleral icterus Oral: Tongue is semi-moist Cardiovascular: S1/S2 heard, irregular Respiratory: a little decreased only but clear to auscultation bilaterally Abdomen: Soft, non-tender, obese, bowel sounds positive Musculoskeletal: No obvious deformities seen Skin: No visible rashes or lesions. 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 Cardiology following. Strict I/Os, daily weight. Check daily labs. Lasix/zaroxolyn held due to hypotension. Appears euvolemic now. # Acute COPD exacerbation - now stable. continue po prednisone and PRN breathing tx. # Chronic hypoxia/hypercarbia due to copd exacerbation/pneumonia was ruled out (antibx stopped). Continue supportive NC O2 (states usually on 3-4L at home. Currently on 3L here). # Chronic A.fib -rate controlled. Was on coreg but dose had to be decreased to 3.125 mg on 07/04 due to hypotension and then stopped by cardiology on 07/06 due to ongoing hypotension. Rate remains controlled. # Acute hypotension on 07/04 (BP 76/44) - decreased coreg to 3.125 mg bid on 07/04. Patient BP was 83/57 on 07/05 and lasix/zaroxolyn was held per cardiology. Cardiology discussed with nursing to hold diuretics for SBP less than 100. BP on 07/06 was 90/42 and cardiology stopped coreg. BP now much better and no further hypotension. # Chronic anemia # Hx of pulmonary HTN # HLD # Obesity with FELICIANO - on cpap at home Plan Continue po prednisone but will taper today. Continue PRN breathing tx. BP now much better with stopping Coreg. A.fib remains controlled. Await for further recommendations per Dr. Zurita. Will only discharge home when okay with Cardiology. Addendum: spoke with Dr. Zurita, he states BP is good now and he will restart diuretics and watch today. If BP remains stable tomorrow, then will likely discharge home tomorrow. PT has seen and recommending home with assist PRN Total time spent (which include face to face and non face to face encounters) : 33 minutes Toxic drug monitoring/narrow therapeutic index drug monitoring if any: # Drug name : # Route administered : # Method of monitoring : Extended Emergency Contact Information Primary Emerge (more content not included)... [facility] 07-06-2022 Note Care Management Prog ress Note Patient remains on 4 South today with continued reports of dyspnea with exertion. On 4L O2 NC, at baseline. Continued PO steroids and breathing tx. Soft BP, monitoring. Cardiology following, cardiac medication adjustment. On tele. Monitoring labs/lytes. Strict I/O and lazo weights. Patient waiting on cardiac clearance for discharge. Therapy recommending [facility], patient declined. Discharge Milestones and Delays Expected Date/Time: 07/07/[address] discharge order Complete med reconciliation Case mgmt discharge readiness Clinical Stability Diagnsotic Workup Expected Discharge History Expected Date/Time Set By Reviewed At 07/07/2022 VENKAT Rajput 07/06/2022 10:40 AM Cardiac clearance, await clinical improvement 07/05/2022 Alma Delia Britton RN 07/05/2022 9:10 AM 07/06/2022 VENKAT Rajput 07/04/2022 10:27 AM 07/06/2022 Aram Stevens DO 07/03/2022 4:20 AM 07/06/2022 Mauro Morataya MD 07/03/2022 3:07 AM Length of Stay (Days): 3 GMLOS: 3.9 [facility] 07-06-2022 Note Hospitalist Progress Note 07/06/2022 [phone]: Please page me ([phone]) for patient care issues. [phone]: Please page [facility] Hospitalist for any issues. Subjective: Admit Date: 07/03/2022 PCP: Carlos Cuevas MD Room#: [id number] A Interval History: Patient doing fine this morning. States he is doing same. He admits to being a little sob only which is worst with exertion but denies any chest pain. Does NOT have any conversational dyspnea and breathing very comfortable. He denies any abdominal pain, nausea, vomiting, diarrhea, constipation, fevers, or chills. Adult diet Regular @[id number]@ 24HR INTAKE/OUTPUT: Intake/Output Summary (Last 24 hours) at 07/06/2022 0735 Last data filed at 07/05/2022 1431 Gross per 24 hour Intake -- Output 550 ml Net -550 ml Past Medical History: Past Medical History: Diagnosis Date Atrial fibrillation (CMS/HCC) (HCC) Atrial fibrillation (CMS/HCC) (HCC) CHADS 2= 2 ( CHF, HTN) HAS BLED 2 =asa, age) Basal cell carcinoma Cancer (CMS/HCC) (HCC) CHF (congestive heart failure) (CMS/HCC) (HCC) COPD (chronic obstructive pulmonary disease) (HCC) Hyperlipidemia Hypertension Pulmonary hypertension (HCC) LABS: CBC: Recent Labs 07/04/22246 WBC 11.8* RBC 2.64* HGB 8.0* HCT 24.7* MCV 93.6 RDW 17.3* PLT 154 BMP: Recent Labs 07/04/22 0247 07/05/22 0613 07/06/22 0318 NA 135 136 137 K 3.9 4.0 4.6 CL 96* 98 98 CO2 40* 36* 38* BUN 34* 37* 37* CREATININE 0.77 0.74 0.78 GLUCOSE 155* 168* 106* CALCIUM 7.8* 7.9* 7.9* ANIONGAP 0* 2* 0* LIVER PROFILE: Recent Labs 07/04/22246 AST 33 ALT 18 BILITOT 0.7 ALKPHOS 94 PROT 5.9* PT/INR: No results for input(s): PROTIME, INR in the last 72 hours. CARDIAC ENZYMES: Recent Labs 05/14/23 0906 TROPONINI <0.012 Procalcitonin: No results found for: PROCAL COVID-19 PCR: No results for input(s): COVID19 in the last 72 hours. Objective: Vitals: BP (!) 90/42 (BP Location: Left arm, Patient Position: Lying) Pulse 67 Temp 37.2 ?C (98.9 ?F) (Temporal) Resp 20 Ht 6' (1.829 m) Wt 287 lb (130 kg) SpO2 99% BMI 38.92 kg/m? Pulse Ox: SpO2 Av % Min: 95 % Max: 100 % Supplemental O2: O2 Flow Rate (L/min): 4 L/min General appearance: No apparent distress, appears stated age, HEENT: Eyes: No scleral icterus Oral: Tongue is semi-moist Cardiovascular: S1/S2 heard, irregular Respiratory: a little decreased only but clear to auscultation bilaterally Abdomen: Soft, non-tender, obese, bowel sounds positive Musculoskeletal: No obvious deformities seen Skin: No visible rashes or lesions. 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 Cardiology following. Strict I/Os, daily weight. Check daily labs. Lasix/zaroxolyn held this am due to hypotension. # Acute COPD exacerbation - now stable. continue po prednisone and PRN breathing tx. # Chronic hypoxia/hypercarbia due to copd exacerbation/pneumonia was ruled out (antibx stopped). Continue supportive NC O2 (states usually on 3-4L at home. Currently on 4L here). # Chronic A.fib -rate controlled. On coreg but dose had to be decreased to 3.125 mg due to hypotension. # Acute hypotension on 07/04 (BP 76/44) - decreased coreg to 3.125 mg bid on 07/04. Patient BP was 83/57 on 07/05 and lasix/zaroxolyn was held per cardiology. Cardiology discussed with nursing to hold diuretics for SBP less than 100. BP this am was 90/42. # Chronic anemia # Hx of pulmonary HTN # HLD # Obesity with FELICIANO - on cpap at home Plan Continue po prednisone. Continue PRN breathing tx. BP still running low side. Cardiology discussed with nursing to hold diuretics for SBP less than 100. BP this am was 90/42. Now coreg stopped on 07/06 per cardiology due to hypotension. Spoke with Dr. Zurita this am and he states will monitor and if patient starts to have RVR with his a.fib, then he will consider starting digoxin. He recommends to continue to monitor patient here. Continue strict I/Os and daily weight. Check daily labs. Continue NC O2. Continue all other tx the same. Will only discharge home when okay with Cardiology. Total time spent (which include face to face and non face to face encounters) : 33 minutes Toxic drug monitoring/narrow therapeutic index drug monitoring if any: # Drug name : # Route administered : # Method of monitoring : Extended Emergency Contact Information Primary Emergency Contact: Jacqui Mendes Colton Phon (more content not included)... [facility] 07-05-2022 Note Hospitalist Progress Note 07/05/2022 [phone]: Please page me ([phone]) for patient care issues. [phone]: Please page [facility] Hospitalist for any issues. Subjective: Admit Date: 07/03/2022 PCP: Carlos Cuevas MD Room#: [id number] A Interval History: Patient doing okay this am. He admits to being a little sob only which is worst with exertion but denies any chest pain. Does NOT have any conversational dyspnea and breathing very comfortable. No abdominal pain, nausea, vomiting, diarrhea, constipation, fevers, or chills. Adult diet Regular @[id number]@ 24HR INTAKE/OUTPUT: Intake/Output Summary (Last 24 hours) at 07/05/2022 1048 Last data filed at 07/04/2022 1941 Gross per 24 hour Intake -- Output 700 ml Net -700 ml Past Medical History: Past Medical History: Diagnosis Date Atrial fibrillation (CMS/HCC) (HCC) Atrial fibrillation (CMS/HCC) (HCC) CHADS 2= 2 ( CHF, HTN) HAS BLED 2 =asa, age) Basal cell carcinoma Cancer (CMS/HCC) (HCC) CHF (congestive heart failure) (CMS/HCC) (HCC) COPD (chronic obstructive pulmonary disease) (HCC) Hyperlipidemia Hypertension Pulmonary hypertension (HCC) LABS: CBC: Recent Labs 07/03/2213707/04/22246 WBC 6.8 11.8* RBC 3.01* 2.64* HGB 9.2* 8.0* HCT 28.2* 24.7* MCV 93.7 93.6 RDW 17.5* 17.3* PLT 168 154 BMP: Recent Labs 07/03/2213707/04/22 0247 07/05/22 0613 NA 138 135 136 K 4.2 3.9 4.0 CL 95* 96* 98 CO2 40* 40* 36* BUN 21* 34* 37* CREATININE 0.84 0.77 0.74 GLUCOSE 125* 155* 168* CALCIUM 8.4 7.8* 7.9* ANIONGAP 3 0* 2* LIVER PROFILE: Recent Labs 07/03/2213707/04/22 024 AST 37 33 ALT 21 18 BILITOT 1.1 0.7 ALKPHOS 129* 94 PROT 6.7 5.9* PT/INR: No results for input(s): PROTIME, INR in the last 72 hours. CARDIAC ENZYMES: Recent Labs 07/03/2213707/03/22 0906 TROPONINI 0.014 <0.012 Procalcitonin: Lab Results Component Value Date PROCAL 0.04 07/03/2022 COVID-19 PCR: No results for input(s): COVID19 in the last 72 hours. Objective: Vitals: BP 83/57 (BP Location: Left arm) Pulse 71 Temp 36.2 ?C (97.2 ?F) (Temporal) Resp 18 Ht 6' (1.829 m) Wt 287 lb (130 kg) SpO2 94% BMI 38.92 kg/m? Pulse Ox: SpO2 Av.1 % Min: 93 % Max: 98 % Supplemental O2: O2 Flow Rate (L/min): 4 L/min General appearance: No apparent distress, appears stated age, HEENT: Eyes: No scleral icterus Oral: Tongue is semi-moist Cardiovascular: S1/S2 heard, irregular Respiratory: a little decreased only but clear to auscultation bilaterally Abdomen: Soft, non-tender, obese, bowel sounds positive Musculoskeletal: No obvious deformities seen Skin: No visible rashes or lesions. 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 Cardiology following. Strict I/Os, daily weight. Check daily labs. Lasix/zaroxolyn held this am due to hypotension. # Acute COPD exacerbation - continue po prednisone and PRN breathing tx. # Chronic hypoxia/hypercarbia due to copd exacerbation/pneumonia was ruled out (antibx stopped). Continue supportive NC O2 (states usually on 3-4L at home. Currently on 4L here). # Chronic A.fib -rate controlled # Acute hypotension on 07/04 (BP 76/44) - decreased coreg to 3.125 mg bid on 07/04. Patient BP was 83/57 on 07/05 and lasix/zaroxolyn was held per cardiology. # Chronic anemia # Chronic HTN # Hx of pulmonary HTN # HLD # Obesity with FELICIANO - on cpap at home Plan Continue po prednisone. Continue PRN breathing tx. Lasix/zaroxolyn held this am per cardiology. Continue strict I/Os and daily weight. Check daily labs. Continue NC O2. Continue all other tx the same. Total time spent (which include face to face and non face to face encounters) : 34 minutes Toxic drug monitoring/narrow therapeutic index drug monitoring if any: # Drug name : # Route administered : # Method of monitoring : Extended Emergency Contact Information Primary Emergency Contact: Jacqui Mendes Relation: Sibling Secondary Emergency Contact: Adenike Villasenor Relation: Sibling CEZAR FORBES MD Division of Hospitalist Medicine Inpatient Medical Services/[facility] PAGER: Tristin lynn [facility] 07-04-2022 Note Care Management Prog ress Note Patient remains on 4 South today with continued complaints of dyspnea with exertion. Cardiology following. Right pleural effusion, diuresis. Hypotension, on tele. On 4L O2 NC, at baseline. Therapy recommending HHC, will update HHC to follow for discharge needs. Patient declined need during IA. Discharge Milestones and Delays Expected Date/Time: 07/06/[address] discharge order Complete med reconciliation Case mgmt discharge readiness Clinical Stability Diagnsotic Workup Expected Discharge History Expected Date/Time Set By Reviewed At 07/06/2022 VENKAT Rajput 07/04/2022 10:27 AM 07/06/2022 Aram Stevens DO 07/03/2022 4:20 AM 07/06/2022 Mauro Morataya MD 07/03/2022 3:07 AM Length of Stay (Days): 1 GMLOS: No GMLOS Documented [facility] 07-04-2022 Note Hospitalist Progress Note 07/04/2022 [phone]: Please page il ([phone]) for patient care issues. [phone]: Please page [facility] Hospitalist for any issues. Subjective: Admit Date: 07/03/2022 PCP: Carlos Cuevas MD Room#: [id number] A Interval History: No overnight issues. Denies chest pain, but admits to being a little sob which is worst with exertion. No abdominal pain, nausea, vomiting, diarrhea, constipation, fevers, or chills. Adult diet Regular @[id number]@ 24HR INTAKE/OUTPUT: Intake/Output Summary (Last 24 hours) at 07/04/2022 1050 Last data filed at 07/04/2022 0900 Gross per 24 hour Intake -- Output 1500 ml Net -1500 ml Past Medical History: Past Medical History: Diagnosis Date Atrial fibrillation (CMS/HCC) (HCC) Atrial fibrillation (CMS/HCC) (HCC) CHADS 2= 2 ( CHF, HTN) HAS BLED 2 =asa, age) Basal cell carcinoma Cancer (CMS/HCC) (HCC) CHF (congestive heart failure) (CMS/HCC) (HCC) COPD (chronic obstructive pulmonary disease) (HCC) Hyperlipidemia Hypertension Pulmonary hypertension (HCC) LABS: CBC: Recent Labs 07/03/228 07/04/22 024 WBC 6.8 11.8* RBC 3.01* 2.64* HGB 9.2* 8.0* HCT 28.2* 24.7* MCV 93.7 93.6 RDW 17.5* 17.3* PLT 168 154 BMP: Recent Labs 07/03/2213707/04/22 024 NA 138 135 K 4.2 3.9 CL 95* 96* CO2 40* 40* BUN 21* 34* CREATININE 0.84 0.77 GLUCOSE 125* 155* CALCIUM 8.4 7.8* ANIONGAP 3 0* LIVER PROFILE: Recent Labs 07/03/2213707/04/22246 AST 37 33 ALT 21 18 BILITOT 1.1 0.7 ALKPHOS 129* 94 PROT 6.7 5.9* PT/INR: No results for input(s): PROTIME, INR in the last 72 hours. CARDIAC ENZYMES: Recent Labs 07/03/228 07/03/22 0906 TROPONINI 0.014 <0.012 Procalcitonin: Lab Results Component Value Date PROCAL 0.04 07/03/2022 COVID-19 PCR: No results for input(s): COVID19 in the last 72 hours. Objective: Vitals: BP 104/54 Pulse 76 Temp 36.7 ?C (98.1 ?F) (Temporal) Resp 18 Ht 1.829 m (6' 0.01 ) Wt 130 kg (287 lb 7.7 oz) SpO2 97% BMI 38.98 kg/m? Pulse Ox: SpO2 Av.3 % Min: 90 % Max: 97 % Supplemental O2: O2 Flow Rate (L/min): 4 L/min General appearance: No apparent distress, appears stated age, HEENT: Eyes: No scleral icterus Oral: Tongue is semi-moist Cardiovascular: S1/S2 heard, irregular Respiratory: a little decreased only but clear to auscultation bilaterally Abdomen: Soft, non-tender, obese, bowel sounds positive Musculoskeletal: No obvious deformities seen Skin: No visible rashes or lesions. Medications: apixaban, 5 mg, Oral, BID atorvastatin, 10 mg, Oral, Nightly carvedilol, 6.25 mg, Oral, BID WC ferrous sulfate, 325 mg, Oral, Daily with breakfast furosemide, 40 mg, IntraVENous, BID lisinopril, 5 mg, Oral, Daily methylPREDNISolone sod suc (PF), 40 mg, IntraVENous, q6h Followed by [START ON 07/05/2022] predniSONE, 40 mg, Oral, Daily potassium chloride CR, 10 mEq, Oral, BID sodium chloride 0.9%, 10 mL, IntraVENous, 2 times per day Assessment # Acute on chronic combined diastolic/systolic heart failure exacerbation - BNP likely lower due obesity but CXR showing right sided effusion along with orthopnea/edema. Cardiology following. Continue IV lasix. Strict I/Os, daily weight. Check daily labs. # Acute COPD exacerbation - likely was mild, no further wheezing. stopped IV steroids and changed to po prednisone. Continue PRN breathing tx. # Chronic hypoxia/hypercarbia due to copd exacerbation/pneumonia was ruled out (antibx stopped). Continue supportive NC O2 (states usually on 3-4L at home. Currently on 4L here). # Chronic A.fib -rate controlled # Acute hypotension on 07/04 (BP 76/44) - decreased coreg to 3.125 mg bid. # Chronic anemia # Chronic HTN # Hx of pulmonary HTN # HLD # Obesity with FELICIANO - on cpap at home Plan Decrease coreg to 3.125mg bid due to hypotension and will have staff notify cardiology. Stop IV steroids and change to po prednisone. Continue PRN breathing tx. Continue IV lasix as per cardiology. Strict I/Os and daily weight. Check daily labs. Continue NC O2. Continue all other tx the same. Total time spent (which include face to face and non face to face encounters) : 37 minutes Toxic drug monitoring/narrow therapeutic index drug monitoring if any: # Drug name : # Route administered : # Method of monitoring : Extended Emergency Contact Information Primary Emergency Contact: Jacqui Mendes Relation: Sibling Secondary Emergency Contact: Adenike Villasenor Relation: Sibling CEZAR FORBES MD Division of Hospitalist Medicine Inpatient Medical Services/[facility]ER: [facility] 07-03-2022 Note History and Physical [facility] Adam Mendes : 1945 AGE 76 y.o. YEARS Note Date 07/03/2022 Primary Care Physician:Carlos Cuevas MD Current Providers as of 07/03/2022 PCP: Carlos Cuevas MD Referring Provider: not found, starting on MonJuly 03, 2022 12:00 AM Admitting Provider: Mauro Morataya MD, (Active) Attending Provider: Aram Stevens DO, starting on MonJuly 03, 2022 12:21 AM, ending on MonJuly 03, 2022 4:20 AM (Inactive) Attending Provider: Mauro Morataya MD, starting on MonJuly 03, 2022 3:07 AM (Active) Registered Nurse: Preethi Ng RN, starting on MonJuly 03, 2022 12:20 AM, ending on MonJuly 03, 2022 4:20 AM (Inactive) Registered Nurse: Andre Lynch RN, starting on MonJuly 03, 2022 4:26 AM (Active) Chief Complaint: sob and edema HPI: He presented to the emergency room with shortness of breath increasing over the last few days also increasing lower extremity edema He is more sob at rest and with exertion than normal for him + orthopnea He is on oxygen at baseline He is not on cpap at home, he states he cannot stand the mask He has a h/o copd - he quit smoking 4 years ago He reports the steroids in the emergency room did help him breathe when I currently see him he is improved he is not short of breath as he was on admission he is up and needing to urinate because of the furosemide he was given in the emergency room + cough but not of a lot of phlegm Review of Systems: General: Skin: HEENT: Cardiovascular Fever n Rashes Dry rash on left arm Difficulty chewing n Chest Pain n Chills n Sores n Appetite Loss n Chest Pressure n Fatigue n Epistaxis n Orthopnea Y He is unable to lay flat Sweats n Hearing loss n Palpitations GI: Tinnitus n GERD n Vision quality n RESP: Abdominal Pain n Glasses/Contacts : SOB/CASEY With exertion Nausea Loss taste/smell Hematuria n Cough y Vomiting n Dysuria n Productive/Sputum n Hematemesis n NEURO: Urgency n Hemoptysis n Diarrhea n Headaches n Frequency y Wheezing n Constipation n Seizures n Times at night urinating Heamatochezia n Neuropathy catheter present MSK: Melena Focal weakness Hesitancy Focal Numbness Incontinence Acute joint pain n PSYCH: Dizzy/Vertigo Redness n Depression Difficulty speaking Heme/Lymph Swelling y Anxiety Difficulty walking Lymphadenopathy Myalgia Ataxia Chronic joint pain Past Medical History: Diagnosis Date Atrial fibrillation (CMS/HCC) (HCC) Atrial fibrillation (CMS/HCC) (HCC) CHADS 2= 2 ( CHF, HTN) HAS BLED 2 =asa, age) Basal cell carcinoma Cancer (CMS/HCC) (HCC) CHF (congestive heart failure) (CMS/HCC) (HCC) COPD (chronic obstructive pulmonary disease) (HCC) Hyperlipidemia Hypertension Pulmonary hypertension (HCC) Past Surgical History: Procedure Laterality Date EYE SURGERY HERNIA REPAIR SKIN BIOPSY TONSILLECTOMY (HISTORICAL) Allergies Allergen Reactions Codeine Itching Medications Prior to Admission: Current Outpatient Medications Medication Instructions albuterol (2.5 MG/3ML) 0.083% nebulizer solution USE 1 VIAL IN NEBULIZER 6 TIMES DAILY apixaban (Eliquis) 5 MG tablet 1 tablet, Oral, 2 times daily carvedilol (Coreg) 6.25 MG tablet TAKE ONE TABLET BY MOUTH TWO TIMES A DAY for 30 days furosemide (Lasix) 40 MG tablet 1 tablet, Oral, 2 times daily lisinopril 5 MG tablet Oral nitroglycerin (Nitrostat) 0.4 MG SL tablet up to max of 3 total doses. If no relief after 1 dose, call 911. oxygen (O2) 3-4 L/min, Inhalation, Continuous, via nasal canula potassium chloride CR (Klor-Con M10) 10 MEQ ER tablet 1 tablet, Oral, 2 times daily simvastatin (Zocor) 20 MG tablet 1 tablet, Oral, Nightly Metoprololl was removed from his medlist Social History Social History Tobacco Use Smoking status: Former Packs/day: 1.50 Types: Cigarettes Start date: 06/04/1980 Quit date: 03/06/2020 Years since quittin.3 Smokeless tobacco: Former Quit date: 03/04/2016 Substance Use Topics Alcohol use: No Family History Family History Problem Relation Name Age of Onset No Known Problems Mother No Known Problems Father Physical Exam Temp (24hrs), Av.1 ?C (97 ?F), Min:36.1 ?C (97 ?F), Max:36.1 ?C (97 ?F) Body mass index is 39.63 kg/m?.BMI Classification: Obese (BMI 30.0-39.9) BP 94/63 (Patient Position: Sitting) Pulse 88 Temp 36.1 ?C (97 ?F) (Temporal) Resp 18 Ht 6' (1.829 m) SpO2 93% BMI 39.63 kg/m? Pulse Ox: SpO2 Av.7 % Min: 87 % Max: 98 % Supplemental O2: O2 Flow Rate (L/min): 4 L/min General appearance: No apparent distress, appears stated age and cooperative with exam HEENT: right eye droops due to past surgery Neck: Supple, with full range of motion. No jugular venous distention. Trachea midline. No lymphadenopathy. Respiratory: Bilateral wheezing and decreased breath sounds Cardiovascular: Regular rate and rh (more content not included)... [facility] 06-23-2022 Telephone encounter Note Patient notified. [facility] 06-23-2022 Miscellaneous Notes Patient notified. 1 loose bowel movement is not diarrhea, he does not need to take anything if he has had 1 loose bowel movement if he has watery bowel movement that is diarrhea and if that happens multiple times then he needs to take something S: Patient spoke with [facility] nurse regarding diarrhea B:onset symptoms/concern: 06/22/22, chronic bowel issues A: Patient complaints of diarrhea. Patient states mostly deals with constipation- will take stool softeners to help with constipation and feels they work too well and lead to diarrhea. Diarrhea typically does not last long. Had one loose BM today. Patient did take one dose of pepto bismol. No bloody/black material noted. Patient will occasional have mild abd cramping, but none today. Denies vomiting, fever, recent travel/ATB use, mucus/pus in stool or concerns for dehydration. Patient inquiring what he can take OTC to help with diarrhea? R: offered to make an apt to speak with provider about bowel habits/issues. Patient declines- had apt 07/04/22. Patient just wants to know an OTC option to help with diarrhea. Patient advised may take pepto bismol as directed ( as long as he doesn't have allergies/contraindications) patient advised to use caution taking meds to control diarrhea because could lead to constipation. Patient states understanding. Patient advised to call back with new/worsening symptoms. TE sent to office for provider review. Please advise with additional recommendations. Reason for Disposition Diarrhea is a chronic symptom (recurrent or ongoing AND lasting > 4 weeks) Protocols used: [id number] documented in this encounter [facility] 06-23-2022 Telephone encounter Note 1 loose bowel movement is not diarrhea, he does not need to take anything if he has had 1 loose bowel movement if he has watery bowel movement that is diarrhea and if that happens multiple times then he needs to take something [facility] 06-23-2022 Telephone encounter Note S: Patient spoke with [facility] nurse regarding diarrhea B:onset symptoms/concern: 06/22/22, chronic bowel issues A: Patient complaints of diarrhea. Patient states mostly deals with constipation- will take stool softeners to help with constipation and feels they work too well and lead to diarrhea. Diarrhea typically does not last long. Had one loose BM today. Patient did take one dose of pepto bismol. No bloody/black material noted. Patient will occasional have mild abd cramping, but none today. Denies vomiting, fever, recent travel/ATB use, mucus/pus in stool or concerns for dehydration. Patient inquiring what he can take OTC to help with diarrhea? R: offered to make an apt to speak with provider about bowel habits/issues. Patient declines- had apt 07/04/22. Patient just wants to know an OTC option to help with diarrhea. Patient advised may take pepto bismol as directed ( as long as he doesn't have allergies/contraindications) patient advised to use caution taking meds to control diarrhea because could lead to constipation. Patient states understanding. Patient advised to call back with new/worsening symptoms. TE sent to office for provider review. Please advise with additional recommendations. Reason for Disposition Diarrhea is a chronic symptom (recurrent or ongoing AND lasting > 4 weeks) Protocols used: [id number] [employer] 10-14-2020 Note HNO ID: [id number] Author: Connie Cruz APRN.MOLD PRESS OPERATOR Service: ? Author Type: Nurse Practitioner Type: Progress Notes Filed: 10/14/2020 11:02 AM Note Text: This note was created using [employer]. Subjective Adam Mendes is a 75 year old male. HPI by patient: Adam Mendes is a 75 year old male presenting to the office with the complaint of a possible infection on his right leg. Started approximately 4-5 days prior. Was itching the leg prior. Doesn't recall an actual open areas. Didn't bump leg on anything he can recall. Associated symptoms include very little tenderness to the site and some warmth noted yesterday. Denies fevers or generalized malaise. Denies history of previous skin infection. Denies recent travel. Is borderline diabetes. History of a-fib and copd, follows pulmonology. Uses 3 L at home and 5 L when he's out of his home. Last visit documented was 88% in office. OTC not used. No antibiotic use in the last 30 days. ALLERGIES No Known Allergies Family History Reviewed Including Cardiac Diseases, Psychiatric Diseases, AND Substance Abuse Problem: Heart Relation: Father Age of Onset: (Not Specified) Problem: Cancer Relation: Sister Age of Onset: (Not Specified) Social History Tobacco Use Smoking status: Current Every Day Smoker Packs/day: 1.00 Years: 53.00 Pack years: 53 Start date: 1963 Smokeless tobacco: Never Used Tobacco comment: 3 packs a week Alcohol use: No Drug use: No Active Ambulatory Problems Basal cell carcinoma (BCC) of right lower eyelid Date Noted: 08/03/2017 Resolved Ambulatory Problems No Resolved Ambulatory Problems No Additional Past Medical History Review of Systems Constitutional: Negative. HENT: Negative. Eyes: Negative. Respiratory: Negative. Cardiovascular: Negative. Gastrointestinal: Negative. Endocrine: Negative. Genitourinary: Negative. Musculoskeletal: Negative. Skin: Positive for wound. Neurological: Negative. Objective BP 99/54 Pulse 70 Temp 37.1 ?C (98.8 ?F) (Oral) Resp 14 SpO2 89% Physical Exam Vitals reviewed. Constitutional: General: He is not in acute distress. Appearance: He is not ill-appearing, toxic-appearing or diaphoretic. Pulmonary: Effort: Pulmonary effort is normal. Skin: General: Skin is warm and dry. Findings: Erythema (extensive erythema tothe right lower extremity-anterior and posterior, swelling and warmth noted.) present. No lesion or rash. Psychiatric: Behavior: Behavior is cooperative. Assessment and Plan (L03.115) Cellulitis of right lower extremity (primary encounter diagnosis) Plan: CONSULT TO EMERGENCY MEDICINE -Extensive erythema and swelling to right lower extremity. + warmth. Advising an ER referral now for further workup: possible lab work and iv antibiotics. Vitals are okay for private transport. Sister to take now. Unsure if he will go to [facility] or [facility]. 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) Hyperlipemia Other and unspecified hyperlipidemia Atrial fibrillation (CMS/HCC) (HCC) Atrial fibrillation 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 * Cellulitis (Kyrgyz) [facility] Summary Purpose Family History No Family History Records FoundNo Family History Records FoundNo Family History Records FoundNo Family History Records FoundNo Family History Records FoundNo Family History Records Found Advance Directives No Advanced Directives Records FoundDocuments on File Type Date Recorded Patient Testing Analyst Expl anation ACP-Advance Directive ACP-Power of Manager Procurement Latest Code Status on File Code Status Date Activated Date Inactivated Comments Full Code 04/03/2020 5:47 PM Full Code 12/13/2017 4:44 AM 12/14/2017 5:51 PM Full Code 03/25/2016 1:45 PM 03/31/2016 7:07 PM Full Code 03/22/2016 10:53 PM 03/25/2016 1:45 PM Latest Code Status on File Code Status Date Activated Date Inactivated Comments Full Code 04/10/2020 8:55 AM Full Code 04/03/2020 5:47 PM 04/08/2020 8:54 PM Latest Code Status on File Code Status Date Activated Date Inactivated Comments Full Code 04/10/2020 8:55 AM 04/13/2020 3:06 PM Latest Code Status on File Code Status Date Activated Date Inactivated Comments Full Code 09/24/2022 7:13 PM 09/29/2022 8:48 PM Code Status History Code Status Date Activated Date Inactivated Comments Full Code 07/03/2022 7:11 AM 07/08/2022 3:38 PM Discharge Instructions * Discharge Instr - Activity* Jacqui Orozco DO - 04/08/2020 10:28 AM EST As tolerated * Discharge Instr - Diet* Jacqui Orozco DO - 04/08/2020 10:29 AM EST Good nutrition is important when healing from an illness, injury, or surgery. Follow any nutrition recommendations given to you during your hospital stay. If you were given an oral nutrition supplement while in the hospital, continue to take this supplement at home. You can take it with meals, in-between meals, and/or before bedtime. These supplements can be purchased at most local grocery stores, pharmacies, and chain super-stores. If you have any questions about your diet or nutrition, call the hospital and ask for the dietitian. * Additional Instructions* Jacqui Orozco DO - 04/08/2020 HEART FAILURE SIGNS AND SYMPTOMS GREEN ZONE: All Clear- Your Symptoms Are Under Control No shortness of breath No weight gain of 3 pounds in 1 day or 5 pounds in 1 week No increase in your usual amount of swelling No chest pain No decreased ability to maintain usual activity This Means You Should: Continue taking your medications as prescribed Continue daily weights Continue low salt diet Keep all doctor appointments YELLOW ZONE: Caution as Your Health may be Worsening Weight increases 3 pounds in 1 day or 5 pounds in 1 week Increased cough, especially at night Increased shortness of breath with activity Increased shortness of breath laying down Have any wheezing or chest tightness at rest Need to sleep sitting in a chair or require more pillows when lying down Increased swelling in feet, ankles, or legs Feeling more tired or lack of energy Uneasy feeling or that something is wrong This Means You Should: Call your doctor for further instructions RED ZONE: Medical Alert Unrelieved shortness of breath with rest Unrelieved chest pain Confusion or you can't think clearly Fainting This Means You Should Call 911 Immediately documented in this encounter* Discharge Instr - Activity* Juan Rivers RN - 04/13/2020 10:45 AM EST As tolerated * Discharge Instr - Diet* Juan Rivers RN - 04/13/2020 10:45 AM EST ? Good nutrition is important when healing from an illness, injury, or surgery. Follow any nutrition recommendations given to you during your hospital stay. ? If you were given an oral nutrition supplement while in the hospital, continue to take this supplement at home. You can take it with meals, in-between meals, and/or before bedtime. These supplements can be purchased at most local grocery stores, pharmacies, and chain super-stores. ? If you have any questions about your diet or nutrition, call the hospital and ask for the dietitian. Heart Healthy. Watch sodium and fluid intake * Additional Instructions* Juan Rivers RN - 04/13/2020 HEART FAILURE SIGNS AND SYMPTOMS GREEN ZONE: All Clear- Your Symptoms Are Under Control No shortness of breath No weight gain of 3 pounds in 1 day or 5 pounds in 1 week No increase in your usual amount of swelling No chest pain No decreased ability to maintain usual activity This Means You Should: Continue taking your medications as prescribed Continue daily weights Continue low salt diet Keep all doctor appointments YELLOW ZONE: Caution as Your Health may be Worsening Weight increases 3 pounds in 1 day or 5 pounds in 1 week Increased cough, especially at night Increased shortness of breath with activity Increased shortness of breath laying down Have any wheezing or chest tightness at rest Need to sleep sitting in a chair or require more pillows when lying down Increased swelling in feet, ankles, or legs Feeling more tired or lack of energy Uneasy feeling or that something is wrong This Means You Should: Call your doctor for further instructions RED ZONE: Medical Alert Unrelieved shortness of breath with rest Unrelieved chest pain Confusion or you can't think clearly Fainting This Means You Should Call 911 Immediately documented in this encounter History of Present Illness * Preethi Kelly RN - 04/08/2020 3:53 PM EST Notified Tanika of home oxygen eval results. She discussed with Dr Damon and patient is ok to go home.Educated patient on increasing oxygen while ambulating/exertion per Tanika. * Otf Davis RCP - 04/08/2020 2:52 PM EST [facility] Respiratory Care Department Progress Note SpO2 at rest on 5 LPM o2 = 92% HR at rest = 109 SpO2 with ambulation on 6 LPM = 86% Peak HR = 122 Qualify for home O2 Y/N = {YES Patient mobile at home Y/N = {YES * Tanika Akers, CATERING SALES MANAGER - MOLD PRESS OPERATOR - 04/08/2020 10:55 AM EST [facility], Pulmonary Critical Care and Sleep Medicine [address] [place] [id number] Patient - Adam Mendes, Age - 74 y.o. - 1945 Room Number - [facility]/4551 Consulting - Melvi Higgins MD Primary Care Physician - Carlos Cuevas MD Date of Admission - 04/03/2020 2:11 PM Hospital Day - 5 Subjective/Events Past 24 hours/ROS Patient asleep in bed. Arouses easily weaned down to 5 liters NC. States his breathing is better. Wanting to know when he can go home. Unable to wear AutoPAP last night as it was too difficult to take on and off when he had to get up to the bathroom. All other systems reviewed Objective Vitals Vitals: BP 100/63 Pulse 85 Temp 97.8 F (36.6 C) (Tympanic) Resp 20 Ht 6' (1.829 m) Wt (!)389 lb (176.4 kg) SpO2 94% BMI 52.76 kg/m Pulse Ox: SpO2 Av.7 % Min: 94 % Max: 98 % Supplemental O2: O2 Flow Rate (L/min): 5 L/min I/O 24HR INTAKE/OUTPUT: No intake or output data in the 24 hours ending 04/08/20 1055 Patient Vitals for the past 96 hrs (Last 3 readings): Weight 04/08/20 0440 (!) 389 lb (176.4 kg) 04/07/20 0506 (!) 340 lb (154.2 kg) 04/05/20 0639 (!) 340 lb (154.2 kg) Exam General Appearance Awake, alert, oriented, in no acute distress. On 5 liters NC. HEENT - normocephalic, atraumatic, sclarea is anicteric, conjunctiva is pink, nasal mucosa is normal, no congestion, external ears are intact. Neck - Supple, trachea midline, full range of motion. Lymph nodes- no cervical, clavicular, or posterior auricular lymphadenopathy Lungs Normal effort, no obvious wheezing or crackles, diminished breath sounds at the bases. Cardiovascular - Heart sounds are normal. Regular rate and rhythm, without murmurs, rubs or gallops Abdomen - Soft, nontender, nondistended, no masses or organomegaly. Morbidly obese. Neurologic - Awake, alert, follows commands. Cranial nerves II-XII are intact, There are no focal motor deficits grossly Skin - No bruising or bleeding, normal turgor, no rashes or lesions Extremities - No clubbing, cyanosis, + edema Peripheral pulses- present bilaterally and symmetric Psychiatric: appropriate, oriented to person, place and time/date Meds carvedilol 6.25 mg Oral BID WC furosemide 40 mg Oral BID predniSONE 40 mg Oral Daily apixaban 5 mg Oral BID atorvastatin 10 mg Oral Nightly sodium chloride flush 10 mL Intravenous 2 times per day ipratropium-albuterol 1 ampule Inhalation Q4H WA calcium carbonate, sodium chloride, melatonin, sodium chloride flush, promethazine OR ondansetron, polyethylene glycol, acetaminophen OR acetaminophen Labs CBC Recent Labs 04/08/20 0452 WBC 7.2 HGB 13.5 HCT 43.4 MCV 91.9 PLT 89* BMP: Recent Labs 04/08/20 0452 NA 133* K 4.4 CL 89* CO2 41* BUN 29* CREATININE 0.69 GLUCOSE 110* MG 2.0 ABG: No results for input(s): PH, PCO2, PO2, HCO3, O2SAT in the last 72 hours. No results found for: IFIO2, MODE, SETTIDVOL, SETPEEP LIVER PROFILE No results for input(s): AST, ALT, LIPASE, BILIDIR, BILITOT, ALKPHOS in the last 72 hours. 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) [I45.2] 04/03/2020 Priority: Medium Hyperlipemia [E78.5] 04/03/2020 Priority: Medium 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 (HCC) [I11.0, I50.42] 04/03/2020 Priority: Medium Dyspnea [R06.00] Chronic combined systolic and diastolic heart failure (HCC) [I50.42] 04/03/2020 Current use of continuous churn buttermaker anticoagulation [Z79.01] 06/15/2016 Morbid obesity with BMI of 40.0-44.9, adult ([facility]) [E66.01, Z68.41] 04/05/2016 Atrial fibrillation ([facility]) [I48.91] 03/22/2016 COPD (chronic obstructive pulmonary disease) ([facility]) [J44.9] 03/22/2016 Assessment and Plan Acute on chronic hypoxic respiratory failure - Weaned down to 5 liters NC - Wean FiO2 as patient can tolerate. Keep SpO2 92% - Baseline home O2 is 2-3 liters NC. - Patient was 89% sitting at edge of bed per PT this morning. He declined to work with them. Need RT to evaluate for how much O2 patient will need to use at home. COPD AE - Continue BD therapy, steroids - Negative for cough or increased sputum production. No acute infiltrate on imaging. Negative for leukocytosis or fever. - Continue Albuterol at home. Add Pulmicort to nebulizer routine as patient declined inhalers. - Consider outpatient PFT's if patient is willing. FELICIANO/OHS/ Morbid obesity (BMI 46.11) - Patient states he is unable to tolerate NIPPV due to his malignancy in his right eye and the inability to tolerate the mask/ pressure. - Attempted to try AutoPAP last night with nasal pillows but was unable to tolerate. - would benefit from weight loss CHF AE, HFpEF. Small pleural effusions - f/u CXR was reviewed. Patient received dose of Albumin and IV lasix yesterday. - po lasix resumed - EF 54%, severely dilated RV - Cardiology on board. Pulmonary hypertension - as above. Hx Hypertension however has been hypotensive- improved - monitor VS closely. - As per PCP Hyponatremia- improving - monitor BMP Hx Basal cell carcinoma of right upper cheek/lower eyelid - Bx in 2017. S/p 5fx of radiation, completed 08/31/2017. - Had followed with Dr. Farias at [facility] Hx Atrial fibrillation, on OAC - Carvedilol, Eliquis GI/ DVT prophylaxis -n/a -Eliquis Advance Directive: Full Code Discharge planning: Patient declined therapy evaluations. Check O2 evaluation with respiratory therapy today to know safe O2 requirements for going home. Planning for possible d/c home today. Will f/u in COPD clinic. I will discuss the patient's case and plan of care with my collaborating physician Dr. Damon Case discussed with nurse and patient Questions and concerns addressed. Associated attestation - Rakesh Damon MD - 04/08/2020 4:58 PM EST I have evaluated the patient and reviewed the case with the FLIGHT OPERATIONS ENGINEER. I agree with the current plan of care including the workup, evaluation, management, and diagnosis. Care plan has been discussed. I independently examined and evaluated the patient. The documentation below has been reviewed and edited as needed to reflect the findings of my evaluation. Patient to have a close follow-up on Monday, continue with current level of care * Rhina Barraza, PT - 04/08/2020 9:47 AM EST Physical Therapy Facility/Department: [facility] 4S TELEMETRY Initial Assessment NAME: Adam Mendes : 1945 Date of Service: 04/08/2020 Chart review complete. Upon entry into room pt found ambulating from bathroom with no device and [id number]. Stated he has been getting up independently. SpO2 was ~89% sitting EOB. RN notified. He is declining all therapy services. He lives with his sister who does the housekeeping but is otherwise independent. No acute PT needs identified. Rhina Barraza PT * Preethi Kelly RN - 04/08/2020 9:44 AM EST Agree with Student Nurse morning assessment. * Prakash Zurita MD - 04/08/2020 8:41 AM EST Progress Note Date:04/08/2020 Room:[address] [place] [address] Patient Name:Adam Mendes Date of :1945 Age:74 y.o. Subjective Subjective: Symptoms: Stable. He reports shortness of breath, weakness and anxiety. Diet: Adequate intake. Activity level: Returning to normal. Pain: He reports no pain. Review of Systems Constitutional: Positive for fatigue. HENT: Negative. Respiratory: Positive for shortness of breath. Cardiovascular: Positive for palpitations and leg swelling. Gastrointestinal: Negative. Genitourinary: Positive for difficulty urinating. Musculoskeletal: Positive for arthralgias and myalgias. Neurological: Positive for weakness. Psychiatric/Behavioral: The patient is nervous/anxious. Objective Vitals Last 24 Hours: TEMPERATURE: Temp Av.3 F (36.8 C) Min: 98.2 F (36.8 C) Max: 98.4 F (36.9 C) RESPIRATIONS RANGE: Resp Av.3 Min: 16 Max: 22 PULSE OXIMETRY RANGE: SpO2 Av.7 % Min: 94 % Max: 98 % PULSE RANGE: Pulse Av.5 Min: 66 Max: 92 BLOOD PRESSURE RANGE: Systolic (24hrs), Av , Min:102 , Max:109 ; Diastolic (24hrs), Av, Min:41, Max:76 I/O (24Hr): No intake or output data in the 24 hours ending 04/08/20 08 Objective: General Appearance: Comfortable and well-appearing. Vital signs: (most recent): Blood pressure (!) 102/41, pulse 92, temperature 98.2 F (36.8 C), temperature source Tympanic, resp. rate 20, height 6' (1.829 m), weight (!) 389 lb (176.4 kg), SpO2 94 %.Vital signs are normal. Output: Producing urine and producing stool. HEENT: Normal HEENT exam. (Right ectropion) Lungs: Normal effort and normal respiratory rate. There are decreased breath sounds and rhonchi. Heart: Normal rate. Irregular rhythm. S2 normal. Positive for murmur. Abdomen: Abdomen is soft and distended. Bowel sounds are normal. There is no abdominal tenderness. There is no mass. Extremities: Decreased range of motion. There is dependent edema and local swelling. Pulses: Distal pulses are intact. Neurological: Patient is alert and oriented to person, place and time. Pupils: Pupils are equal, round, and reactive to light. Skin: Warm and dry. There is a rash and ecchymosis. Labs/Imaging/Diagnostics Labs: CBC: Recent Labs 04/06/2033804/07/2035204/08/20451 WBC 8.8 6.8 7.2 RBC 4.84 5.00 4.73 HGB 13.9 14.4 13.5 HCT 44.0 46.1 43.4 MCV 91.0 92.2 91.9 RDW 16.5* 16.4* 16.3* PLT 114* 110* 89* CHEMISTRIES: Recent Labs 04/06/2033804/07/2035204/08/20451 NA 129* 137 133* K 5.0 5.0 4.4 CL 90* 93* 89* CO2 39* 38* 41* BUN 41* 35* 29* CREATININE 0.80 0.73 0.69 GLUCOSE 132* 104* 110* MG 2.3 2.3 2.0 PT/INR: No results for input(s): PROTIME, INR in the last 72 hours. APTT:No results for input(s): APTT in the last 72 hours. LIVER PROFILE: No results for input(s): AST, ALT, BILIDIR, BILITOT, ALKPHOS in the last 72 hours. Imaging Last 24 Hours: Xr Chest Portable Result Date: 04/03/2020 Patient Name: ADAM MENDES Diagnostic Radiology ACCESSION EXAM DATE/TIME PROCEDURE ORDERING PROVIDER [id number] 04/03/2020 15:13 EST CR Chest Portable DAREK FARIA DANIEL M CPT code 63246 Reason For Exam (CR Chest Portable) dyspnea Report Portable chest 04/03/2020: Clinical Information: Dyspnea. Findings: A single AP portable view of the chest was obtained at 1457 hours. Comparison was made to the prior study 12/13/2017. The trachea is midline. The heart is mildly enlarged. No focal areas of consolidation or volume loss are seen. There are small bilateral pleural effusions. The pulmonary vasculature does not appear congested. The visualized bony structuresare intact. Report Dictated on --- Final --- Dictating Physician: MD LATONYA, MEKHI Signed Date and Time: 04/03/2020 3:21 pm Signed by: MD HANKS RISA Transcribed Date and Time: 04/03/2020 3:22 Assessment//Plan Assessment: Condition: In stable condition. Improving. 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 Plan: Start/continue incentive spirometry and continue respiratory treatments. Restricted diet and advance diet as tolerated. Administer medications as ordered. 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 Reevaluate). I personally obtained the medrano and critical portions of the history and physical exam. I reviewed the labs, imaging studies, and electronic medical record. I reviewed the chart documentation, and discussed the patient with treatment team members. I have edited the note to reflect my clinical findings and my assessment and plan. SIGNATURE: Prakash Zurita MD; FACC; FHRS; FASNC; CCDS. PATIENT NAME: Adam Mendes DATE: 04/08/2020 PAGER: [phone] * Lara Kim RN - 04/08/2020 3:22 AM EST Patient unable to handle cpap. Patient continually getting up and down. Nasal cannula reapplied. * Tanika Akers APRN - CNP - 04/07/2020 3:31 PM EST CXR reviewed. Will give x 1 dose of Albumin and x1 dose of IV lasix post Albumin. * Jacqui Orozco DO - 04/07/2020 1:51 PM EST Hospitalist Progress Note 04/07/2020 1:51 PM [phone]: Please page me ([phone]) for patient care issues. [phone]: Please page [facility] night Hospitalist for any issues. Subjective: Admit Date: 04/03/2020 PCP: Carlos Cuevas MD Room#: [id number]/[id number] Interval History: No overnight issues. Denies chest pain, sob, abdominal pain, nausea, vomiting, diarrhea, constipation, fevers, or chills. DIET LOW SODIUM 2 GM; Patient Vitals for the past 96 hrs (Last 3 readings): Weight 04/07/20 0506 (!) 340 lb (154.2 kg) 04/05/20 0639 (!) 340 lb (154.2 kg) 04/03/20 1414 (!) 325 lb (147.4 kg) 24HR INTAKE/OUTPUT: Intake/Output Summary (Last 24 hours) at 04/07/2020 1351 Last data filed at 04/06/2020 1727 Gross per 24 hour Intake 300 ml Output Net 300 ml Past Medical History: Diagnosis Date Atrial fibrillation (HCC) CHADS 2= 2 ( CHF, HTN) HAS BLED 2 =asa, age) Atrial fibrillation (HCC) Basal cell carcinoma Cancer (HCC) CHF (congestive heart failure) (HCC) COPD (chronic obstructive pulmonary disease) (HCC) Pulmonary hypertension (HCC) Medications: predniSONE 40 mg Oral Daily apixaban 5 mg Oral BID atorvastatin 10 mg Oral Nightly sodium chloride flush 10 mL Intravenous 2 times per day ipratropium-albuterol 1 ampule Inhalation Q4H WA [Held by provider] losartan 25 mg Oral Daily carvedilol 6.25 mg Oral BID WC LABS: CBC: Recent Labs 04/05/2075504/06/2033804/07/203 WBC 6.1 8.8 6.8 RBC 4.90 4.84 5.00 HGB 14.1 13.9 14.4 HCT 44.8 44.0 46.1 MCV 91.4 91.0 92.2 RDW 16.4* 16.5* 16.4* PLT 109* 114* 110* BMP: Recent Labs 04/05/2075504/06/2033804/07/20352 NA 134* 129* 137 K 5.3* 5.0 5.0 CL 92* 90* 93* CO2 38* 39* 38* BUN 35* 41* 35* CREATININE 0.82 0.80 0.73 GLUCOSE 150* 132* 104* CALCIUM 8.7 8.4 8.4 ANIONGAP 4 0 6 LIVER PROFILE:No results for input(s): AST, ALT, BILITOT, ALKPHOS, LABALBU, PROT in the last 72 hours. PT/INR: No results for input(s): PROTIME, INR in the last 72 hours. CARDIAC ENZYMES: No results for input(s): TROPONINI in the last 72 hours. Procalcitonin: Lab Results Component Value Date PROCAL <0.10 03/27/2016 COVID-19 PCR: No results for input(s): COVID19 in the last 72 hours. Objective: Vitals: BP (!) 90/56 Pulse 79 Temp 97.9 F (36.6 C) (Temporal) Resp 20 Ht 6' (1.829 m) Wt (!) 340 lb (154.2 kg) SpO2 94% BMI 46.11 kg/m Pulse Ox: SpO2 Av.1 % Min: 93 % Max: 98 % Supplemental O2: O2 Flow Rate (L/min): 6 L/min General appearance: No apparent distress, appears stated age and cooperative with exam HEENT: Normal cephalic, atraumatic without obvious deformity. Pupils equal, round, and reactive to light. Extra ocular muscles intact. Right sclera/conjuntiva red but not painful Neck: Supple, with full range of motion. No jugular venous distention. Trachea midline. No lymphadenopathy. Respiratory: Normal respiratory effort. Clear to auscultation, bilaterally without Rales/Wheezes/Rhonchi. Cardiovascular: Regular rate and rhythm with normal S1/S2 without murmurs, rubs or gallops. Abdomen: Soft, non-tender, non-distended with normal bowel sounds. No rebound or guarding. Musculoskeletal: Bilateral LE edema Skin: Skin color, texture, turgor normal. No rashes or lesions. Neurologic: Neurovascularly intact without any focal sensory/motor deficits. Cranial nerves: II-XIIintact, grossly non-focal. Assessment 1. Dyspnea 2/2 Acute on chronic heart failure and AE COPD 2. Hyperkalemia-resolved 3. AE COPD on 2-3L NC O2 at baseline 4. Right sided HF - severely dilated Right heart 5. AFib on OAC 6. Right Eye BCC 7. Pulm HTN 8. Hypercapnia likely chronic 9. Suspect OHS / FELICIANO Plan -telemetry monitoring, daily weights, I&Os, decrease coreg, start Lasix 20 IV BID -cards and pulm following -am labs, replace lytes prn -increase activity -DVT prophylaxis: [] Lovenox [] Heparin [] SCDs [x] Encourage ambulation [x] Already on Anticoagulation (Eliquis) Advance Directive: Full Code Discharge planning: TBD Jacqui Orozco DO Division of Hospitalist Medicine Inpatient Medical Services PAGER: [phone] * Gertrude Sheehan, OT - 04/07/2020 12:11 PM EST Occupational Therapy Occupational Therapy Initial Assessment Date: 04/07/2020 Patient Name: Adam Mendes : 1945 Date of Service: 04/07/2020 Discharge Recommendations: Home with assist PRN(Initial 24 hour assist from family) OT Equipment Recommendations Equipment Needed: No Assessment Performance deficits / Impairments: Decreased high-level IADLs Assessment: Pt is a 74 yo male admitted to [facility] with increased weakness, CASEY, BLE edema, found to have CHF exacerbation. Pt is currently at SUPV level, has assist from sister prn for homegoing. Pt currently declining all post acute therapy, reports no concerns for homegoing, has all necessary equipment needed. OT eval only at this time d/t pt being at baseline fxn. Prognosis: Good Decision Making: Medium Complexity History: Pt's history significant for A fib, CA, CHF, COPD, and pulm HTN. Detailed PMH is listed below. Exam: AM PAC Assistance / Modification: SUPV OT Education: OT Role;Plan of Care;Energy Conservation Barriers to Learning: None REQUIRES OT FOLLOW UP: No Activity Tolerance Activity Tolerance: Patient Tolerated treatment well Safety Devices Safety Devices in place: Yes Type of devices: All fall risk precautions in place;Nurse notified;Left in bed;Call light within reach Patient Diagnosis(es): The primary encounter diagnosis was Dyspnea, unspecified type. Diagnoses of COPD exacerbation (HCC), Bilateral pleural effusion, Congestive heart failure, unspecified HF chronicity, unspecified heart failure type (HCC), and Weight gain were also pertinent to this visit. has a past medical history of Atrial fibrillation (HCC), Atrial fibrillation (HCC), Basal cell carcinoma, Cancer (HCC), CHF (congestive heart failure) (HCC), COPD (chronic obstructive pulmonary disease) (HCC), and Pulmonary hypertension (HCC). has a past surgical history that includes hernia repair. Restrictions Restrictions/Precautions Restrictions/Precautions: Up Ad Ronda, General Precautions(6L O2) Required Braces or Orthoses?: No Subjective General Chart Reviewed: Yes Patient assessed for rehabilitation services?: Yes Family / Caregiver Present: No Subjective Subjective: Per RN, pt ok to see. Pt in bed on arrival, pleasant and cooperative, agreeable to OT eval. General Comment Comments: Per RN, pt has been taking self to/from bathroom, has extended O2 lines. Patient Currently in Pain: Denies Vital Signs Patient Currently in Pain: Denies Social/Functional History Social/Functional History Lives With: Family(Sister) Type of Home: House Home Layout: One level, Laundry in basement Home Access: Stairs to enter with rails, Stairs to enter without rails Entrance Stairs - Number of Steps: 3 w/ ramandeep HR thru front, 1 w/o rail thru garage Entrance Stairs - Rails: Both Bathroom Shower/Tub: Tub/Shower unit(pt typically sink bathes) Bathroom Toilet: Standard Bathroom Equipment: Grab bars in shower Bathroom Accessibility: Accessible Home Equipment: Standard walker, Oxygen(3L O2 at home) Receives Help From: Family(sister is able to assist prn, pt reports brother is in area to assist prn as well) ADL Assistance: Independent Homemaking Responsibilities: No(sister completes) Ambulation Assistance: Independent(without AD) Transfer Assistance: Independent 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 Additional Comments: pt reports being active at home, likes to fish Objective Vision: Within Functional Limits Hearing: Exceptions to WFL Hearing Exceptions: Hard of hearing/hearing concerns Orientation Overall Orientation Status: Within Functional Limits Observation/Palpation Posture: Fair Observation: 6L O2 w/ humidity Balance Sitting Balance: Independent Standing Balance: Supervision(without AD) Functional Mobility Functional - Mobility Device: No device Activity: To/from bathroom Assist Level: Supervision Functional Mobility Comments: no use of AD, but pt prefers to furniture walk with use of bed rail/door frame. Pt reports this is typical for him, has cane to use prn. Good O2 line mgmt, has O2 at baseline. ADL Feeding: Independent Grooming: Supervision UE Bathing: Supervision LE Bathing: Supervision UE Dressing: Supervision LE Dressing: Supervision Toileting: Supervision Additional Comments: pt able to naveed shoes while seated EOB, no assist required, good functional reach noted. Pt reports he has been taking self to/from bathroom for toileting this admission. Bed mobility Supine to Sit: Modified independent Sit to Supine: Modified independent Scooting: Modified independent Comment: Use of bed rail, denies dizziness with change in position Transfers Sit to stand: Supervision;Stand by assistance Stand to sit: Supervision;Stand by assistance Transfer Comments: SBA progressing to SUPV without AD, some initial unsteadiness with use of bed rail upon standing Cognition Overall Cognitive Status: WFL Sensation Overall Sensation Status: WFL(denies BUE parasthesia) LUE AROM (degrees) LUE AROM : WFL RUE AROM (degrees) RUE AROM : WFL LUE Strength Gross LUE Strength: WFL RUE Strength Gross RUE Strength: WFL Plan Plan Plan Comment: POC made in collaboration with pt. Patient's occupational therapy plan of care supervision is transferred to Inpatient Therapy Services Department occupational therapist. AM-PAC Score AM-PAC Inpatient Daily Activity Raw Score: 19 (04/07/20 1210) AM-PAC Inpatient ADL T-Scale Score : 40.22 (04/07/20 1210) ADL Inpatient CMS 0-100% Score: 42.8 (04/07/200) ADL Inpatient CMS G-Code Modifier : CK (04/07/201209) Goals Therapy Time Individual Concurrent Group Co-treatment Time In 1054 Time Out 1104 Minutes 10 Gertrude Sheehan OT * AkersSlick ferraraidi, CATERING SALES MANAGER - MOLD PRESS OPERATOR - 04/07/2020 11:13 AM EST [facility], Pulmonary Critical Care and Sleep Medicine [address] [place] [id number] Patient - Adam Mendes, Age - 74 y.o. - 1945 Room Number - [id number] Consulting - Melvi Higgins MD Primary Care Physician - [facility] [id number] Date of Admission - 04/03/2020 2:11 PM Hospital Day - 4 Subjective/Events Past 24 hours/ROS Patient awake lying in bed. Denies any chest pain or cough. States his leg edema has improved. Still has some shortness of breath with exertional activity. O2 increased to 6 liters NC. His lasix is still on hold. He wants to know when he can go home. All other systems reviewed Objective Vitals Vitals: BP (!) 90/56 Pulse 79 Temp 97.9 F (36.6 C) (Temporal) Resp 20 Ht 6' (1.829 m) Wt (!) 340 lb (154.2 kg) SpO2 95% BMI 46.11 kg/m Pulse Ox: SpO2 Av.3 % Min: 93 % Max: 98 % Supplemental O2: O2 Flow Rate (L/min): 6 L/min I/O 24HR INTAKE/OUTPUT: Intake/Output Summary (Last 24 hours) at 04/07/2020 1114 Last data filed at 04/06/2020 1727 Gross per 24 hour Intake 300 ml Output Net 300 ml Patient Vitals for the past 96 hrs (Last 3 readings): Weight 04/07/20 0506 (!) 340 lb (154.2 kg) 04/05/20 0639 (!) 340 lb (154.2 kg) 04/03/20 1414 (!) 325 lb (147.4 kg) Exam General Appearance Awake, alert, oriented, in no acute distress. On 6 liters NC. HEENT - normocephalic, atraumatic, sclarea is anicteric, conjunctiva is pink, nasal mucosa is normal, no congestion, external ears are intact. Neck - Supple, trachea midline, full range of motion. Lymph nodes- no cervical, clavicular, or posterior auricular lymphadenopathy Lungs Normal effort, no obvious wheezing or crackles, diminished breath sounds at the bases. Cardiovascular - Heart sounds are normal. Regular rate and rhythm, without murmurs, rubs or gallops Abdomen - Soft, nontender, nondistended, no masses or organomegaly. Morbidly obese. Neurologic - Awake, alert, follows commands. Cranial nerves II-XII are intact, There are no focal motor deficits grossly Skin - No bruising or bleeding, normal turgor, no rashes or lesions Extremities - No clubbing, cyanosis. + BLE edema Peripheral pulses- present bilaterally and symmetric Psychiatric: appropriate, oriented to person, place and time/date Meds predniSONE 40 mg Oral Daily apixaban 5 mg Oral BID atorvastatin 10 mg Oral Nightly sodium chloride flush 10 mL Intravenous 2 times per day ipratropium-albuterol 1 ampule Inhalation Q4H WA [Held by provider] losartan 25 mg Oral Daily carvedilol 6.25 mg Oral BID calcium carbonate, sodium chloride, melatonin, sodium chloride flush, promethazine OR ondansetron, polyethylene glycol, acetaminophen OR acetaminophen Labs CBC Recent Labs 04/07/20 0353 WBC 6.8 HGB 14.4 HCT 46.1 MCV 92.2 PLT 110* BMP: Recent Labs 04/07/20 0353 NA 137 K 5.0 CL 93* CO2 38* BUN 35* CREATININE 0.73 GLUCOSE 104* MG 2.3 ABG: No results for input(s): PH, PCO2, PO2, HCO3, O2SAT in the last 72 hours. No results found for: IFIO2, MODE, SETTIDVOL, SETPEEP LIVER PROFILE No results for input(s): AST, ALT, LIPASE, BILIDIR, BILITOT, ALKPHOS in the last 72 hours. 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) [I45.2] 04/03/2020 Priority: Medium Hyperlipemia [E78.5] 04/03/2020 Priority: Medium 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 (HCC) [I11.0, I50.42] 04/03/2020 Priority: Medium Dyspnea [R06.00] Chronic combined systolic and diastolic heart failure (HCC) [I50.42] 04/03/2020 Current use of halfway anticoagulation [Z79.01] 06/15/2016 Morbid obesity with BMI of 40.0-44.9, adult (HCC) [E66.01, Z68.41] 04/05/2016 Atrial fibrillation (HCC) [I48.91] 03/22/2016 COPD (chronic obstructive pulmonary disease) (HCC) [J44.9] 03/22/2016 Assessment and Plan Acute on chronic hypoxic respiratory failure - Supplemental O2 increased to 6 liters NC - Wean FiO2 as patient can tolerate. Keep SpO2 92% - Baseline home O2 is 2-3 liters NC. - Will get f/u CXR today COPD AE - Continue BD therapy, steroids - Negative for cough or increased sputum production. No acute infiltrate on imaging. Negative for leukocytosis or fever. - I discussed the use of maintenance inhalers at home. Patient initially declined but is willing touse Pulmicort BID and then use his Albuterol nebulizer prn. - Consider outpatient PFT's if patient is willing. FELICIANO/OHS/ Morbid obesity (BMI 46.11) - Patient states he is unable to tolerate NIPPV due to his malignancy in his right eye and the inability to tolerate the mask/ pressure. - would benefit from weight loss CHF AE, HFpEF. Small pleural effusions - Lasix on hold d/t hypotension- as per PCP/ Cardiology - f/u CXR today - EF 54%, severely dilated RV - Cardiology on board. Pulmonary hypertension - as above. Hx Hypertension however blood pressure lower this morning - monitor VS closely. Off Lasix. - As per PCP Hyponatremia - monitor BMP Hx Basal cell carcinoma of right upper cheek/lower eyelid - Bx in 2017. S/p 5fx of radiation, completed 08/31/2017. - Had followed with Dr. Farias at [facility] Hx Atrial fibrillation, on OAC - Carvedilol, Eliquis GI/ DVT prophylaxis -n/a -Eliquis Advance Directive: Full Code Discharge planning: TBD. PT/OT evaluations I will discuss the patient's case and plan of care with my collaborating physician Dr. Damon Case discussed with nurse and patient Questions and concerns addressed. Associated attestation - Rakesh Damon MD - 04/07/2020 6:57 PM EST I have personally performed a face to face diagnostic evaluation on this patient. Labs, imaging studies and electronic medical record have been reviewed by me. This note documented by the EFREN reflects my history, exam and medical decision making as discussed with the EFREN . I have reviewed and agreewith the care plan. Changes were made in the orders as necessary My history, exam, assessment and plan are as follows. Patient intolerant of positive pressure therapy, and 6 L oxygen currently, patient on 3 L nasal cannula at home Assessment Vitals: BP (!) 90/56 Pulse 79 Temp 97.9 F (36.6 C) (Temporal) Resp 20 Ht 6' (1.829 m) Wt (!) 340 lb (154.2 kg) SpO2 95% BMI 46.11 kg/m Pulse Ox: SpO2 Av.3 % Min: 93 % Max: 98 % Supplemental O2: O2 Flow Rate (L/min): 6 L/min General appearance: No apparent distress, appears stated age and cooperative with exam Respiratory: Normal effort, Poor air entry bilaterally, no obvious wheezing or crackles, diminishedbreath sounds at the bases Cardiovascular: Heart sounds are normal. Regular rate and rhythm Abdomen - Soft, nontender, nondistended, no masses or organomegaly Extremities - No clubbing, cyanosis, +edema Dx/ Plan of care Acute and chronic hypoxic respiratory failure, now on 6 L supplemental oxygen, try to wean supplemental oxygen to his baseline before patient is discharged, encouraged patient to ambulate and monitoroxygen saturation with ambulation COPD with acute exacerbation-continue bronchodilators Obstructive sleep apnea hypercapnia syndrome/obesity hypoventilation syndrome, consider nasal pillows to see whether patient will be able to tolerate positive pressure therapy Heart failure with preserved ejection fraction with severe pulmonary hypertension, diuresis on holddue to hypotension, continue supplemental oxygen, patient may benefit from positive pressure therapy if he is agreeable to use it Pulmonary hypertension probably related to combination of heart failure, chronic obstructive pulmonary disease, untreated sleep apneaas above Oxygen supplement to maintain SpO2 92%. Wean FiO2 as patient tolerates Continue current BD therapy Steroids. * Prakash Zurita MD - 04/07/2020 8:17 AM EST Progress Note Date:04/07/2020 Room:[address] [place] [address] Patient Name:Adam Mendes Date of :1945 Age:74 y.o. Subjective Subjective: Symptoms: Stable. He reports shortness of breath, weakness and anxiety. Diet: Adequate intake. Activity level: Returning to normal. Pain: He reports no pain. Review of Systems Constitutional: Positive for fatigue. HENT: Negative. Respiratory: Positive for shortness of breath. Cardiovascular: Positive for palpitations and leg swelling. Gastrointestinal: Negative. Genitourinary: Positive for difficulty urinating. Musculoskeletal: Positive for arthralgias and myalgias. Neurological: Positive for weakness. Psychiatric/Behavioral: The patient is nervous/anxious. Objective Vitals Last 24 Hours: TEMPERATURE: Temp Av.6 F (36.4 C) Min: 97.2 F (36.2 C) Max: 97.9 F (36.6 C) RESPIRATIONS RANGE: Resp Av Min: 14 Max: 18 PULSE OXIMETRY RANGE: SpO2 Av.3 % Min: 93 % Max: 98 % PULSE RANGE: Pulse Av Min: 79 Max: 93 BLOOD PRESSURE RANGE: Systolic (24hrs), Av , Min:90 , Max:106 ; Diastolic (24hrs), Av, Min:56, Max:87 I/O (24Hr): Intake/Output Summary (Last 24 hours) at 04/07/2020 0812 Last data filed at 04/06/2020 1727 Gross per 24 hour Intake 500 ml Output Net 500 ml Objective: General Appearance: Comfortable and well-appearing. Vital signs: (most recent): Blood pressure (!) 90/56, pulse 79, temperature 97.9 F (36.6 C), temperature source Temporal, resp. rate 14, height 6' (1.829 m), weight (!) 340 lb (154.2 kg), SpO2 98 %. Vital signs are normal. Output: Producing urine and producing stool. HEENT: Normal HEENT exam. (Right ectropion) Lungs: Normal effort and normal respiratory rate. There are decreased breath sounds and rhonchi. Heart: Normal rate. Irregular rhythm. S2 normal. Positive for murmur. Abdomen: Abdomen is soft and distended. Bowel sounds are normal. There is no abdominal tenderness. There is no mass. Extremities: Decreased range of motion. There is dependent edema and local swelling. Pulses: Distal pulses are intact. Neurological: Patient is alert and oriented to person, place and time. Pupils: Pupils are equal, round, and reactive to light. Skin: Warm and dry. There is a rash and ecchymosis. Labs/Imaging/Diagnostics Labs: CBC: Recent Labs 04/05/20 0756 04/06/20 0339 04/07/20 0353 WBC 6.1 8.8 6.8 RBC 4.90 4.84 5.00 HGB 14.1 13.9 14.4 HCT 44.8 44.0 46.1 MCV 91.4 91.0 92.2 RDW 16.4* 16.5* 16.4* PLT 109* 114* 110* CHEMISTRIES: Recent Labs 04/05/20 0756 04/06/20 0339 04/07/20 0353 NA 134* 129* 137 K 5.3* 5.0 5.0 CL 92* 90* 93* CO2 38* 39* 38* BUN 35* 41* 35* CREATININE 0.82 0.80 0.73 GLUCOSE 150* 132* 104* MG 2.1 2.3 2.3 PT/INR: No results for input(s): PROTIME, INR in the last 72 hours. APTT:No results for input(s): APTT in the last 72 hours. LIVER PROFILE: No results for input(s): AST, ALT, BILIDIR, BILITOT, ALKPHOS in the last 72 hours. Imaging Last 24 Hours: Xr Chest Portable Result Date: 04/03/2020 Patient Name: ADAM MENDES Diagnostic Radiology ACCESSION EXAM DATE/TIME PROCEDURE ORDERING PROVIDER [id number] 04/03/2020 15:13 EST CR Chest Portable DAREK FARIA DANIEL M CPT code 46711 Reason For Exam (CR Chest Portable) dyspnea Report Portable chest 04/03/2020: Clinical Information: Dyspnea. Findings: A single AP portable view of the chest was obtained at 1457 hours. Comparison was made to the prior study 12/13/2017. The trachea is midline. The heart is mildly enlarged. No focal areas of consolidation or volume loss are seen. There are small bilateral pleural effusions. The pulmonary vasculature does not appear congested. The visualized bony structuresare intact. Report Dictated on --- Final --- Dictating Physician: MD HANKS RISA Signed Date and Time: 04/03/2020 3:21 pm Signed by: MD HANKS RISA Transcribed Date and Time: 04/03/2020 3:22 Assessment//Plan Assessment: Condition: In stable condition. Improving. 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 Plan: Start/continue incentive spirometry and continue respiratory treatments. Restricted diet and advance diet as tolerated. Administer medications as ordered. 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 Reevaluate). I personally obtained the medrano and critical portions of the history and physical exam. I reviewed the labs, imaging studies, and electronic medical record. I reviewed the chart documentation, and discussed the patient with treatment team members. I have edited the note to reflect my clinical findings and my assessment and plan. SIGNATURE: Prakash Zurita MD; FACC; FHRS; FASNC; CCDS. PATIENT NAME: Adam Mendes DATE: 04/07/2020 PAGER: [phone] * Melvi Higgins MD - 04/06/2020 1:46 PM EST Hospitalist Progress Note 04/06/2020 1:46 PM [phone]: Please page il [phone] for patient care issues. [phone]: Please page [facility] Hospitalist for any issues. Subjective: Admit Date: 04/03/2020 PCP: Carlos Cuevas MD Interval History: No overnight issues. Improving overall DIET LOW SODIUM 2 GM; Patient Vitals for the past 96 hrs (Last 3 readings): Weight 04/05/20 0639 (!) 340 lb (154.2 kg) 04/03/20 1414 (!) 325 lb (147.4 kg) 24HR INTAKE/OUTPUT: No intake or output data in the 24 hours ending 04/06/20 1346 Medications: predniSONE 40 mg Oral Daily apixaban 5 mg Oral BID atorvastatin 10 mg Oral Nightly sodium chloride flush 10 mL Intravenous 2 times per day ipratropium-albuterol 1 ampule Inhalation Q4H WA [Held by provider] losartan 25 mg Oral Daily carvedilol 6.25 mg Oral BID WC Objective: Vitals: BP (!) 97/58 Pulse 84 Temp 98 F (36.7 C) (Temporal) Resp 16 Ht 6' (1.829 m) Wt (!) 340 lb (154.2 kg) SpO2 95% BMI 46.11 kg/m Pulse Ox: SpO2 Av.9 % Min: 88 % Max: 95 % Supplemental O2: O2 Flow Rate (L/min): 6 L/min General appearance: No apparent distress, appears stated age and cooperative with exam HEENT: Normal cephalic, atraumatic without obvious deformity. Pupils equal, round, and reactive to light. Extra ocular muscles intact. Conjunctivae/corneas clear. Neck: Supple, with full range of motion. No jugular venous distention. Trachea midline. No lymphadenopathy. Respiratory: Normal respiratory effort. Exp wheezing mild Cardiovascular: Regular rate and rhythm with normal S1/S2 without murmurs, rubs or gallops. Abdomen: Soft, non-tender, non-distended with normal bowel sounds. No rebound or guarding. Musculoskeletal: Trace edema bilaterally. Full range of motion without deformity. Skin: Skin color, texture, turgor normal. No rashes or lesions. Neurologic: Neurovascularly intact without any focal sensory/motor deficits. Cranial nerves: II-XIIintact, grossly non-focal. LABS: CBC: Recent Labs 04/04/20 0704 04/05/2075504/06/20 0339 WBC 5.8 6.1 8.8 RBC 4.97 4.90 4.84 HGB 14.3 14.1 13.9 HCT 46.1 44.8 44.0 MCV 92.8 91.4 91.0 RDW 16.5* 16.4* 16.5* PLT 107* 109* 114* BMP: Recent Labs 04/04/20 0704 04/05/20 0756 04/06/20 0339 NA 134* 134* 129* K 5.5* 5.3* 5.0 CL 93* 92* 90* CO2 38* 38* 39* BUN 27* 35* 41* CREATININE 0.82 0.82 0.80 GLUCOSE 108* 150* 132* CALCIUM 8.5 8.7 8.4 ANIONGAP 3 4 0 LIVER PROFILE: Recent Labs 04/03/20 1501 AST 53* ALT 32 BILITOT 1.1 ALKPHOS 149* LABALBU 3.6 PROT 7.4 PT/INR: Recent Labs 04/04/20 0704 PROTIME 12.9* INR 1.2* CARDIAC ENZYMES: Recent Labs 04/03/20 1501 04/03/20 1816 TROPONINI 0.020 0.025 Procalcitonin: Lab Results Component Value Date PROCAL <0.10 03/27/2016 Glucose: No results for input(s): POCGLU in the last 72 hours. COVID-19 PCR: Recent Labs 04/03/20 1501 04/03/20 1521 COVID19 see below NEGATIVE: No targets were detected by the [employer] Upper Respiratory Pathogens PCR Panel. _ Expected Result: Not Detected The [employer] Upper Respiratory Pathogens PCR Panel can detect the following targets: SARS-CoV-2, Adenovirus, Coronavirus 229E, Coronavirus HKU1, Coronavirus NL63, Coronavirus OC43, Human Metapneumovirus, Human Rhinovirus/Enterovirus, Influenza A, Influenza B, Parainfluenza Virus 1, Parainfluenza Virus 2, Parainfluenza Virus 3, Parainfluenza Virus 4, Respiratory Syncytial Virus, Bordetella pertussis, Bordetella parapertussis, Chlamydia pneumoniae, Mycoplasma pneumoniae. Negative results do not preclude SARS-CoV-2 infection and should not be used as the sole basis for treatment or other patient management decisions. This assay was developed by [employer] and distributed under an Emergency Use Authorization (EUA) granted by the FDA for the qualitative detection of SARS-CoV-2 nucleic acid. Provider and patient fact sheets can be found at https://www.fda. gov/media/293465/download and https://www.fda.gov/media/440945/download. Assessment / Plan 1. Dyspnea - concerning for Acute on chronic heart failure and AE COPD 2. Hyperkalemia 3. AE COPD on 2-3L NC O2 at baseline 4. Right sided HF - severely dilated Right heart 5. AFib on OAC 6. Right Eye BCC 7. Pulm HTN 8. Hypercapnia likely chronic 9. Suspect OHS / FELICIANO - Lasix IV held due to hypotension - Cardio on - ARB added - Steroids, BD, NC O2 support keep O2 mmd72-58% - Consult pulm for eval and med optimization for COPD -am labs, replace lytes prn -increase activity -DVT prophylaxis: [] Lovenox [] Heparin [] SCDs [x] Encourage ambulation [x] Already on Anticoagulation Advance Directive: Full Code Discharge planning: TBD Melvi Higgins MD Division of Hospitalist Medicine Inpatient Medical Services PAGER: [phone] * Prakash Zurita MD - 04/06/2020 8:44 AM EST Progress Note Date:04/06/2020 Room:[address] [place] [address] Patient Name:Adam Mendes Date of :1945 Age:74 y.o. Subjective Subjective: Symptoms: Stable. He reports shortness of breath, weakness and anxiety. Diet: Adequate intake. Activity level: Returning to normal. Pain: He reports no pain. Review of Systems Constitutional: Positive for fatigue. HENT: Negative. Respiratory: Positive for shortness of breath. Cardiovascular: Positive for palpitations and leg swelling. Gastrointestinal: Negative. Genitourinary: Positive for difficulty urinating. Musculoskeletal: Positive for arthralgias and myalgias. Neurological: Positive for weakness. Psychiatric/Behavioral: The patient is nervous/anxious. Objective Vitals Last 24 Hours: TEMPERATURE: Temp Av.9 F (36.6 C) Min: 97.4 F (36.3 C) Max: 98.2 F (36.8 C) RESPIRATIONS RANGE: Resp Av.2 Min: 16 Max: 24 PULSE OXIMETRY RANGE: SpO2 Av.5 % Min: 88 % Max: 94 % PULSE RANGE: Pulse Av.3 Min: 63 Max: 85 BLOOD PRESSURE RANGE: Systolic (24hrs), Av , Min:97 , Max:97 ; Diastolic (24hrs), Av, Min:55, Max:59 I/O (24Hr): No intake or output data in the 24 hours ending 04/06/20 0844 Objective: General Appearance: Comfortable and well-appearing. Vital signs: (most recent): Blood pressure (!) 97/58, pulse 84, temperature 98 F (36.7 C), temperature source Temporal, resp. rate 16, height 6' (1.829 m), weight (!) 340 lb (154.2 kg), SpO2 93 %. Vital signs are normal. Output: Producing urine and producing stool. HEENT: Normal HEENT exam. Lungs: Normal effort and normal respiratory rate. There are decreased breath sounds and rhonchi. Heart: Normal rate. Irregular rhythm. S2 normal. Positive for murmur. Abdomen: Abdomen is soft and distended. Bowel sounds are normal. There is no abdominal tenderness. There is no mass. Extremities: Decreased range of motion. There is dependent edema and local swelling. Pulses: Distal pulses are intact. Neurological: Patient is alert and oriented to person, place and time. Pupils: Pupils are equal, round, and reactive to light. Skin: Warm and dry. There is a rash and ecchymosis. Labs/Imaging/Diagnostics Labs: CBC: Recent Labs 04/04/20 0704 04/05/20 0756 04/06/20 0339 WBC 5.8 6.1 8.8 RBC 4.97 4.90 4.84 HGB 14.3 14.1 13.9 HCT 46.1 44.8 44.0 MCV 92.8 91.4 91.0 RDW 16.5* 16.4* 16.5* PLT 107* 109* 114* CHEMISTRIES: Recent Labs 04/04/20 0704 04/05/20 0756 04/06/20 0339 NA 134* 134* 129* K 5.5* 5.3* 5.0 CL 93* 92* 90* CO2 38* 38* 39* BUN 27* 35* 41* CREATININE 0.82 0.82 0.80 GLUCOSE 108* 150* 132* MG 2.2 2.1 2.3 PT/INR: Recent Labs 04/04/20 0704 PROTIME 12.9* INR 1.2* APTT:No results for input(s): APTT in the last 72 hours. LIVER PROFILE: Recent Labs 04/03/20 1501 AST 53* ALT 32 BILITOT 1.1 ALKPHOS 149* Imaging Last 24 Hours: Xr Chest Portable Result Date: 04/03/2020 Patient Name: ADAM MENDES Diagnostic Radiology ACCESSION EXAM DATE/TIME PROCEDURE ORDERING PROVIDER [id number] 04/03/2020 15:13 EST CR Chest Portable GIANA DAREKMAURO CPT code 96439 Reason For Exam (CR Chest Portable) dyspnea Report Portable chest 04/03/2020: Clinical Information: Dyspnea. Findings: A single AP portable view of the chest was obtained at 1457 hours. Comparison was made to the prior study 12/13/2017. The trachea is midline. The heart is mildly enlarged. No focal areas of consolidation or volume loss are seen. There are small bilateral pleural effusions. The pulmonary vasculature does not appear congested. The visualized bony structuresare intact. Report Dictated on --- Final --- Dictating Physician: MD HANKS RISA Signed Date and Time: 04/03/2020 3:21 pm Signed by: MD HANKS RISA Transcribed Date and Time: 04/03/2020 3:22 Assessment//Plan Assessment: Condition: In stable condition. Improving. 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 Plan: Start/continue incentive spirometry and continue respiratory treatments. Restricted diet and advance diet as tolerated. Administer medications as ordered. 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 I personally obtained the medrano and critical portions of the history and physical exam. I reviewed the labs, imaging studies, and electronic medical record. I reviewed the chart documentation, and discussed the patient with treatment team members. I have edited the note to reflect my clinical findings and my assessment and plan. SIGNATURE: Prakash Zurita MD; FACC; FHRS; FASNC; CCDS. PATIENT NAME: Adam Mendes DATE: 04/06/2020 PAGER: [phone] * Melvi Higgins MD - 04/05/2020 2:27 PM EST Hospitalist Progress Note 04/05/2020 2:27 PM [phone]: Please page [place] [phone] for patient care issues. [phone]: Please page [facility] night Hospitalist for any issues. Subjective: Admit Date: 04/03/2020 PCP: Carlos Cuevas MD Interval History: No overnight issues. Cont to have SOB and CASEY, edema in LEs, says breathing treatments help Edema improving DIET LOW SODIUM 2 GM; Patient Vitals for the past 96 hrs (Last 3 readings): Weight 04/05/20 0639 (!) 340 lb (154.2 kg) 04/03/20 1414 (!) 325 lb (147.4 kg) 24HR INTAKE/OUTPUT: No intake or output data in the 24 hours ending 04/05/20 1427 Medications: predniSONE 40 mg Oral Daily apixaban 5 mg Oral BID atorvastatin 10 mg Oral Nightly sodium chloride flush 10 mL Intravenous 2 times per day furosemide 40 mg Intravenous BID ipratropium-albuterol 1 ampule Inhalation Q4H WA losartan 25 mg Oral Daily carvedilol 6.25 mg Oral BID WC Objective: Vitals: BP 101/75 Pulse 86 Temp 98.4 F (36.9 C) (Temporal) Resp 24 Ht 6' (1.829 m) Wt (!)340 lb (154.2 kg) SpO2 91% BMI 46.11 kg/m Pulse Ox: SpO2 Av.9 % Min: 90 % Max: 96 % Supplemental O2: O2 Flow Rate (L/min): 5 L/min General appearance: No apparent distress, appears stated age and cooperative with exam HEENT: Normal cephalic, atraumatic without obvious deformity. Pupils equal, round, and reactive to light. Extra ocular muscles intact. Conjunctivae/corneas clear. Neck: Supple, with full range of motion. No jugular venous distention. Trachea midline. No lymphadenopathy. Respiratory: Normal respiratory effort. Clear to auscultation, bilaterally without Rales/Wheezes/Rhonchi. Cardiovascular: Regular rate and rhythm with normal S1/S2 without murmurs, rubs or gallops. Abdomen: Soft, non-tender, non-distended with normal bowel sounds. No rebound or guarding. Musculoskeletal: 2+ edema bilaterally. Full range of motion without deformity. Skin: Skin color, texture, turgor normal. No rashes or lesions. Neurologic: Neurovascularly intact without any focal sensory/motor deficits. Cranial nerves: II-XIIintact, grossly non-focal. LABS: CBC: Recent Labs 04/03/20 1501 04/04/20 0704 04/05/20 0756 WBC 6.4 5.8 6.1 RBC 5.12 4.97 4.90 HGB 15.0 14.3 14.1 HCT 47.1 46.1 44.8 MCV 92.0 92.8 91.4 RDW 16.5* 16.5* 16.4* PLT 124* 107* 109* BMP: Recent Labs 04/03/20 1501 04/04/20 0704 04/05/20 0756 NA 135 134* 134* K 5.4* 5.5* 5.3* CL 93* 93* 92* CO2 40* 38* 38* BUN 28* 27* 35* CREATININE 0.86 0.82 0.82 GLUCOSE 122* 108* 150* CALCIUM 8.8 8.5 8.7 ANIONGAP 2 3 4 LIVER PROFILE: Recent Labs 04/03/20 1501 AST 53* ALT 32 BILITOT 1.1 ALKPHOS 149* LABALBU 3.6 PROT 7.4 PT/INR: Recent Labs 04/04/20 0704 PROTIME 12.9* INR 1.2* CARDIAC ENZYMES: Recent Labs 04/03/20 1501 04/03/20 1816 TROPONINI 0.020 0.025 Procalcitonin: Lab Results Component Value Date PROCAL <0.10 03/27/2016 Glucose: No results for input(s): POCGLU in the last 72 hours. COVID-19 PCR: Recent Labs 04/03/20 1501 04/03/20 1521 COVID19 see below NEGATIVE: No targets were detected by the [employer] Upper Respiratory Pathogens PCR Panel. _ Expected Result: Not Detected The [employer] Upper Respiratory Pathogens PCR Panel can detect the following targets: SARS-CoV-2, Adenovirus, Coronavirus 229E, Coronavirus HKU1, Coronavirus NL63, Coronavirus OC43, Human Metapneumovirus, Human Rhinovirus/Enterovirus, Influenza A, Influenza B, Parainfluenza Virus 1, Parainfluenza Virus 2, Parainfluenza Virus 3, Parainfluenza Virus 4, Respiratory Syncytial Virus, Bordetella pertussis, Bordetella parapertussis, Chlamydia pneumoniae, Mycoplasma pneumoniae. Negative results do not preclude SARS-CoV-2 infection and should not be used as the sole basis for treatment or other patient management decisions. This assay was developed by [employer] and distributed under an Emergency Use Authorization (EUA) granted by the FDA for the qualitative detection of SARS-CoV-2 nucleic acid. Provider and patient fact sheets can be found at https://www.fda. gov/media/961923/download and https://www.fda.gov/media/510342/download. Assessment / Plan 1. Dyspnea - concerning for Acute on chronic heart failure and AE COPD 2. Hyperkalemia 3. AE COPD on 2-3L NC O2 at baseline 4. Right sided HF - severely dilated Right heart 5. AFib on OAC 6. Right Eye BCC 7. Pulm HTN 8. Hypercapnia likely chronic 9. Suspect OHS / FELICIANO - Lasix IV BID, I/Os, DWs - Cardio con - ARB added - Steroids, BD, NC O2 support keep O2 awo46-42% - Consult pulm for eval and med optimization for COPD -am labs, replace lytes prn -increase activity -DVT prophylaxis: [] Lovenox [] Heparin [] SCDs [x] Encourage ambulation [x] Already on Anticoagulation Advance Directive: Full Code Discharge planning: TBD Melvi Higgins MD Division of Hospitalist Medicine Inpatient Medical Services PAGER: [phone] * Prakash Zurita MD - 04/05/2020 9:40 AM EST Progress Note Date:04/05/2020 Room:[address] [address] Patient Name:Adam Mendes Date of :1945 Age:74 y.o. Subjective Subjective: Symptoms: Stable. He reports shortness of breath, weakness and anxiety. Diet: Adequate intake. Activity level: Impaired due to weakness. Pain: He reports no pain. Review of Systems Constitutional: Positive for chills and fatigue. HENT: Positive for congestion. Respiratory: Positive for shortness of breath. Cardiovascular: Positive for palpitations and leg swelling. Gastrointestinal: Positive for abdominal distention. Genitourinary: Positive for difficulty urinating. Musculoskeletal: Positive for arthralgias and myalgias. Neurological: Positive for weakness. Psychiatric/Behavioral: The patient is nervous/anxious. Objective Vitals Last 24 Hours: TEMPERATURE: Temp Av.6 F (36.4 C) Min: 97 F (36.1 C) Max: 98.4 F (36.9 C) RESPIRATIONS RANGE: Resp Av.6 Min: 16 Max: 22 PULSE OXIMETRY RANGE: SpO2 Av.2 % Min: 90 % Max: 96 % PULSE RANGE: Pulse Av.7 Min: 85 Max: 95 BLOOD PRESSURE RANGE: Systolic (24hrs), Av , Min:95 , Max:120 ; Diastolic (24hrs), Av, Min:58, Max:84 I/O (24Hr): No intake or output data in the 24 hours ending 04/05/20 0944 Objective: General Appearance: Comfortable and well-appearing. Vital signs: (most recent): Blood pressure 101/75, pulse 86, temperature 98.4 F (36.9 C), temperature source Temporal, resp. rate 20, height 6' (1.829 m), weight (!) 340 lb (154.2 kg), SpO2 93 %. Vital signs are normal. Output: Producing urine and producing stool. HEENT: Normal HEENT exam. Lungs: Normal effort and normal respiratory rate. There are decreased breath sounds and rhonchi. Heart: Normal rate. Irregular rhythm. S2 normal. Positive for murmur. Abdomen: Abdomen is soft and distended. Bowel sounds are normal. There is no abdominal tenderness. There is no mass. Extremities: Decreased range of motion. There is dependent edema and local swelling. Pulses: Distal pulses are intact. Neurological: Patient is alert and oriented to person, place and time. Pupils: Pupils are equal, round, and reactive to light. Skin: Warm and dry. There is a rash and ecchymosis. Labs/Imaging/Diagnostics Labs: CBC: Recent Labs 04/03/20 1501 04/04/20 0704 04/05/20 0756 WBC 6.4 5.8 6.1 RBC 5.12 4.97 4.90 HGB 15.0 14.3 14.1 HCT 47.1 46.1 44.8 MCV 92.0 92.8 91.4 RDW 16.5* 16.5* 16.4* PLT 124* 107* 109* CHEMISTRIES: Recent Labs 04/03/20 1501 04/04/20 0704 04/05/20 0756 NA 135 134* 134* K 5.4* 5.5* 5.3* CL 93* 93* 92* CO2 40* 38* 38* BUN 28* 27* 35* CREATININE 0.86 0.82 0.82 GLUCOSE 122* 108* 150* MG 2.1 2.2 2.1 PT/INR: Recent Labs 04/04/20 0704 PROTIME 12.9* INR 1.2* APTT:No results for input(s): APTT in the last 72 hours. LIVER PROFILE: Recent Labs 04/03/20 1501 AST 53* ALT 32 BILITOT 1.1 ALKPHOS 149* Imaging Last 24 Hours: Xr Chest Portable Result Date: 04/03/2020 Patient Name: ADAM MENDES Diagnostic Radiology ACCESSION EXAM DATE/TIME PROCEDURE ORDERING PROVIDER [id number] 04/03/2020 15:13 EST CR Chest Portable DAREK FARIA DANIEL M CPT code 97929 Reason For Exam (CR Chest Portable) dyspnea Report Portable chest 04/03/2020: Clinical Information: Dyspnea. Findings: A single AP portable view of the chest was obtained at 1457 hours. Comparison was made to the prior study 12/13/2017. The trachea is midline. The heart is mildly enlarged. No focal areas of consolidation or volume loss are seen. There are small bilateral pleural effusions. The pulmonary vasculature does not appear congested. The visualized bony structuresare intact. Report Dictated on --- Final --- Dictating Physician: MD HANKS RISA Signed Date and Time: 04/03/2020 3:21 pm Signed by: MD HANKS RISA Transcribed Date and Time: 04/03/2020 3:22 Assessment//Plan Assessment: Condition: In stable condition. Improving. 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 Plan: Start/continue incentive spirometry and continue respiratory treatments. Restricted diet and advance diet as tolerated. Administer medications as ordered. 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 I personally obtained the medrano and critical portions of the history and physical exam. I reviewed the labs, imaging studies, and electronic medical record. I reviewed the chart documentation, and discussed the patient with treatment team members. I have edited the note to reflect my clinical findings and my assessment and plan. SIGNATURE: Prakash Zurita MD; FACC; FHRS; FASNC; CCDS. PATIENT NAME: Adam Mendes DATE: 04/05/2020 PAGER: [phone] * Mary Healy RN - 04/05/2020 5:02 AM EST Pt expresses that he would like bloodwork drawn later in the morning. * Melvi Higgins MD - 04/04/2020 12:32 PM EST Hospitalist Progress Note 04/04/2020 12:34 PM [phone]: Please page [place] [phone] for patient care issues. [phone]: Please page [facility] night Hospitalist for any issues. Subjective: Admit Date: 04/03/2020 PCP: Carlos Cuevas MD Interval History: No overnight issues. Cont to have SOB and CASEY, edema in LEs, says breathing treatments help DIET LOW SODIUM 2 GM; Patient Vitals for the past 96 hrs (Last 3 readings): Weight 04/03/20 1414 (!) 325 lb (147.4 kg) 24HR INTAKE/OUTPUT: No intake or output data in the 24 hours ending 04/04/20 1234 Medications: methylPREDNISolone 60 mg Intravenous Q8H [START ON 04/05/2020] predniSONE 40 mg Oral Daily apixaban 5 mg Oral BID atorvastatin 10 mg Oral Nightly sodium chloride flush 10 mL Intravenous 2 times per day furosemide 40 mg Intravenous BID ipratropium-albuterol 1 ampule Inhalation Q4H WA losartan 25 mg Oral Daily carvedilol 6.25 mg Oral BID WC Objective: Vitals: BP 102/62 Pulse 74 Temp 97.3 F (36.3 C) (Temporal) Resp 18 Ht 6' (1.829 m) Wt (!)325 lb (147.4 kg) SpO2 91% BMI 44.08 kg/m Pulse Ox: SpO2 Av.2 % Min: 83 % Max: 98 % Supplemental O2: O2 Flow Rate (L/min): 4 L/min General appearance: No apparent distress, appears stated age and cooperative with exam HEENT: Normal cephalic, atraumatic without obvious deformity. Pupils equal, round, and reactive to light. Extra ocular muscles intact. Conjunctivae/corneas clear. Neck: Supple, with full range of motion. No jugular venous distention. Trachea midline. No lymphadenopathy. Respiratory: Normal respiratory effort. Clear to auscultation, bilaterally without Rales/Wheezes/Rhonchi. Cardiovascular: Regular rate and rhythm with normal S1/S2 without murmurs, rubs or gallops. Abdomen: Soft, non-tender, non-distended with normal bowel sounds. No rebound or guarding. Musculoskeletal: 2+ edema bilaterally. Full range of motion without deformity. Skin: Skin color, texture, turgor normal. No rashes or lesions. Neurologic: Neurovascularly intact without any focal sensory/motor deficits. Cranial nerves: II-XIIintact, grossly non-focal. LABS: CBC: Recent Labs 04/03/20 1501 04/04/20 0704 WBC 6.4 5.8 RBC 5.12 4.97 HGB 15.0 14.3 HCT 47.1 46.1 MCV 92.0 92.8 RDW 16.5* 16.5* PLT 124* 107* BMP: Recent Labs 04/03/20 1501 04/04/20 0704 NA 135 134* K 5.4* 5.5* CL 93* 93* CO2 40* 38* BUN 28* 27* CREATININE 0.86 0.82 GLUCOSE 122* 108* CALCIUM 8.8 8.5 ANIONGAP 2 3 LIVER PROFILE: Recent Labs 04/03/20 1501 AST 53* ALT 32 BILITOT 1.1 ALKPHOS 149* LABALBU 3.6 PROT 7.4 PT/INR: Recent Labs 04/04/20 0704 PROTIME 12.9* INR 1.2* CARDIAC ENZYMES: Recent Labs 04/03/20 1501 04/03/20 1816 TROPONINI 0.020 0.025 Procalcitonin: Lab Results Component Value Date PROCAL <0.10 03/27/2016 Glucose: No results for input(s): POCGLU in the last 72 hours. COVID-19 PCR: Recent Labs 04/03/20 1501 04/03/20 1521 COVID19 see below NEGATIVE: No targets were detected by the No.1 [employer] Upper Respiratory Pathogens PCR Panel. _ Expected Result: Not Detected The [employer] Upper Respiratory Pathogens PCR Panel can detect the following targets: SARS-CoV-2, Adenovirus, Coronavirus 229E, Coronavirus HKU1, Coronavirus NL63, Coronavirus OC43, Human Metapneumovirus, Human Rhinovirus/Enterovirus, Influenza A, Influenza B, Parainfluenza Virus 1, Parainfluenza Virus 2, Parainfluenza Virus 3, Parainfluenza Virus 4, Respiratory Syncytial Virus, Bordetella pertussis, Bordetella parapertussis, Chlamydia pneumoniae, Mycoplasma pneumoniae. Negative results do not preclude SARS-CoV-2 infection and should not be used as the sole basis for treatment or other patient management decisions. This assay was developed by [employer] and distributed under an Emergency Use Authorization (EUA) granted by the FDA for the qualitative detection of SARS-CoV-2 nucleic acid. Provider and patient fact sheets can be found at https://www.fda. gov/media/633084/download and https://www.fda.gov/media/764937/download. Assessment / Plan 1. Dyspnea - concerning for Acute on chronic heart failure and AE COPD 2. Hyperkalemia 3. AE COPD on 2-3L NC O2 at baseline 4. Right sided HF 5. AFib on OAC 6. Right Eye BCC 7. Pulm HTN 8. Hypercapnia likely chronic 9. Suspect OHS / FELICIANO - Lasix IV BID, I/Os, DWs - Cardio con - ARB added - Steroids, BD, NC O2 support keep O2 mon21-70% -am labs, replace lytes prn -increase activity -DVT prophylaxis: [] Lovenox [] Heparin [] SCDs [x] Encourage ambulation [x] Already on Anticoagulation Advance Directive: Full Code Discharge planning: TBD Melvi Higgins MD Division of Hospitalist Medicine Inpatient Medical Services PAGER: [phone] * Rolanda Serna, RD, LD - 04/04/2020 11:25 AM EST Comprehensive Nutrition Assessment Type and Reason for Visit: Initial, Consult(diet education for chf- feliciano suspected - had prior diet education for chf 2016) Nutrition Recommendations/Plan: 1)suggest to continue 2 gram sodium diet for chf, fluid retention. 2)provided Diet education for chf per MD orders - written information given with guidelines for Heart healthy label reading as well . Patient Had prior diet education 03/2016 as well for wt loss and chf RD contact information provided for questions/concerns. . Encouraged to get scale for ability to monitor wts 3)Please document PO intakes consistently in the flowsheet to better assess intake adequacy. 4) SUGGEST ACTUAL WT 5)Monitor labs, status, intakes, wts to reassess. Follow up at least weekly Nutrition Assessment: PER MD-74 y.o. male who presents to the emergency department shortness of breath and 40-50 pound weight gain over the last 4-5 months. Patient has a history of class III congestive heart failure chronic obstructive pulmonary disease, oxygen dependence. Last echocardiogram was in 2017 and was 54% ejection fraction. States he has orthopnea, dyspnea on exertion increased oxygenrequirement Malnutrition Assessment: Malnutrition Status: Insufficient data Context: Acute Illness Estimated Daily Nutrient Needs: Energy (kcal): 2021- 2426; Weight Used for Energy Requirements: [place] Protein (g): 81- 162; Weight Used for Protein Requirements: [place](1-2) Fluid (ml/day): per md; Method Used for Fluid Requirements: Nutrition Related Findings: VERY SOB, good appetite - no scale at home,+3 pitting ble, ntprobnp- 544, glu 108 fbs,20 04/03 bm Wounds: None(ceci 20) Current Nutrition Therapies: DIET LOW SODIUM 2 GM; Anthropometric Measures: Height: 6' (182.9 cm) Current Body Weight: 325 lb (147.4 kg) Admission Body Weight: Usual Body Weight: 327 lb (148.3 kg)(05/16/19) [place] Body Weight: 178 lbs; % [place] Body Weight 182.6 % BMI: 44.1 Adjusted Body Weight: ; Adjusted BMI: BMI Categories: Obese Class 3 (BMI 40.0 or greater) Nutrition Diagnosis: Food & Nutrition-related knowledge deficit related to cardiac dysfunction, other (comment)(feliciano-needs to monitor himself- wt gain) as evidenced by BMI, localized or generalized fluid accumulation(morbid obesity) Nutrition Interventions: Food and/or Nutrient Delivery: Continue Current Diet Nutrition Education/Counseling: Education needed, Education initiated, Education completed(cant hear well) Coordination of Nutrition Care: Continue to monitor while inpatient Goals: pt will receive,tolerate adequate nutrition ->50% of meals; lose fluid wt- promote healthy wt loss - labs trend toward baseline Nutrition Monitoring and Evaluation: Behavioral-Environmental Outcomes: None Identified Food/Nutrient Intake Outcomes: Food and Nutrient Intake Physical Signs/Symptoms Outcomes: Biochemical Data, Fluid Status or Edema, Hemodynamic Status, MealTime Behavior, Nutrition Focused Physical Findings, Skin, Weight Discharge Planning: Continue current diet, Recommend pursue outpatient nutrition counseling(wt loss) Contact: [phone] * Prakash Zurita MD - 04/04/2020 9:09 AM EST Progress Note Date:04/04/2020 Room:[address] [place] [address] Patient Name:Adam Mendes Date of :1945 Age:74 y.o. Subjective Subjective: Symptoms: Stable. He reports shortness of breath, weakness and anxiety. Diet: Adequate intake. Activity level: Impaired due to weakness. Pain: He reports no pain. Review of Systems Constitutional: Positive for chills and fatigue. HENT: Positive for congestion. Respiratory: Positive for shortness of breath. Cardiovascular: Positive for palpitations and leg swelling. Gastrointestinal: Positive for abdominal distention. Genitourinary: Positive for difficulty urinating. Musculoskeletal: Positive for arthralgias and myalgias. Neurological: Positive for weakness. Psychiatric/Behavioral: The patient is nervous/anxious. Objective Vitals Last 24 Hours: TEMPERATURE: Temp Av.4 F (36.3 C) Min: 97.1 F (36.2 C) Max: 97.9 F (36.6 C) RESPIRATIONS RANGE: Resp Av.5 Min: 18 Max: 24 PULSE OXIMETRY RANGE: SpO2 Av.2 % Min: 83 % Max: 98 % PULSE RANGE: Pulse Av.7 Min: 74 Max: 98 BLOOD PRESSURE RANGE: Systolic (24hrs), Av , Min:101 , Max:186 ; Diastolic (24hrs), Av, Min:58, Max:160 I/O (24Hr): No intake or output data in the 24 hours ending 04/04/20 1103 Objective: General Appearance: Comfortable and well-appearing. Vital signs: (most recent): Blood pressure 102/62, pulse 74, temperature 97.3 F (36.3 C), temperature source Temporal, resp. rate 18, height 6' (1.829 m), weight (!) 325 lb (147.4 kg), SpO2 91 %. Vital signs are normal. Output: Producing urine. HEENT: Normal HEENT exam. Lungs: Normal effort and normal respiratory rate. There are decreased breath sounds and rhonchi. Heart: Normal rate. Irregular rhythm. S2 normal. Positive for murmur. Abdomen: Abdomen is soft and distended. Bowel sounds are normal. There is no abdominal tenderness. There is no mass. Extremities: Decreased range of motion. There is dependent edema and local swelling. Pulses: Distal pulses are intact. Neurological: Patient is alert and oriented to person, place and time. Pupils: Pupils are equal, round, and reactive to light. Skin: Warm and dry. There is a rash and ecchymosis. Labs/Imaging/Diagnostics Labs: CBC: Recent Labs 04/03/20 1501 04/04/20 0704 WBC 6.4 5.8 RBC 5.12 4.97 HGB 15.0 14.3 HCT 47.1 46.1 MCV 92.0 92.8 RDW 16.5* 16.5* PLT 124* 107* CHEMISTRIES: Recent Labs 04/03/20 1501 04/04/20 0704 NA 135 134* K 5.4* 5.5* CL 93* 93* CO2 40* 38* BUN 28* 27* CREATININE 0.86 0.82 GLUCOSE 122* 108* MG 2.1 2.2 PT/INR: Recent Labs 04/04/20 0704 PROTIME 12.9* INR 1.2* APTT:No results for input(s): APTT in the last 72 hours. LIVER PROFILE: Recent Labs 04/03/20 1501 AST 53* ALT 32 BILITOT 1.1 ALKPHOS 149* Imaging Last 24 Hours: Xr Chest Portable Result Date: 04/03/2020 Patient Name: ADAM MENDES Diagnostic Radiology ACCESSION EXAM DATE/TIME PROCEDURE ORDERING PROVIDER [id number] 04/03/2020 15:13 EST CR Chest Portable DAREK FARIA DANIEL M CPT code 97598 Reason For Exam (CR Chest Portable) dyspnea Report Portable chest 04/03/2020: Clinical Information: Dyspnea. Findings: A single AP portable view of the chest was obtained at 1457 hours. Comparison was made to the prior study 12/13/2017. The trachea is midline. The heart is mildly enlarged. No focal areas of consolidation or volume loss are seen. There are small bilateral pleural effusions. The pulmonary vasculature does not appear congested. The visualized bony structuresare intact. Report Dictated on --- Final --- Dictating Physician: MD HANKS RISA Signed Date and Time: 04/03/2020 3:21 pm Signed by: MD HANKS RISA Transcribed Date and Time: 04/03/2020 3:22 Assessment//Plan Assessment: Condition: In stable condition. Unchanged. 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 Plan: Start/continue incentive spirometry and continue respiratory treatments. Restricted diet and advance diet as tolerated. Administer medications as ordered. 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 I personally obtained the medrano and critical portions of the history and physical exam. I reviewed the labs, imaging studies, and electronic medical record. I reviewed the chart documentation, and discussed the patient with treatment team members. I have edited the note to reflect my clinical findings and my assessment and plan. SIGNATURE: Prakash Zurita MD; FACC; FHRS; FASNC; CCDS. PATIENT NAME: Adam Mendes DATE: 04/04/2020 PAGER: [phone] documented in this encounter* Katarzyna Cárdenas, OT - 04/13/2020 10:13 AM EST Occupational Therapy Occupational Therapy Initial Assessment Date: 04/13/2020 Patient Name: Adam Mendes : 1945 Date of Service: 04/13/2020 Discharge Recommendations: Home with assist PRN Assessment Performance deficits / Impairments: Decreased functional mobility ;Decreased ADL status;Decreased strength;Decreased safe awareness;Decreased high-level IADLs;Decreased balance;Decreased endurance;Decreased posture Assessment: OT eval complete. Pt presents with the above deficits limiting functional independence.Based on functional observation pt is SBA to CGA for all ADL's and is limited by decreased strength, endurance and balance. Pt is currently using a FWW for functional mobility, however, at baseline only uses a cane PRN. Pt would benefit from continued OT. Recommend home with assist PRN and home OT upon discharge. Prognosis: Good Decision Making: Medium Complexity History: Pt admitted with SOB and BLE edema. PMH is listed below and is significant for hx of CHF. Exam: [facility] OT Education: Plan of Care;Energy Conservation REQUIRES OT FOLLOW UP: Yes Activity Tolerance Activity Tolerance: Patient limited by fatigue Safety Devices Safety Devices in place: Yes Type of devices: All fall risk precautions in place;Call light within reach;Gait belt;Patient at risk for falls;Left in bed;Nurse notified Restraints Initially in place: No Patient Diagnosis(es): The primary encounter diagnosis was COPD exacerbation (HCC). A diagnosis of Acute on chronic congestive heart failure, unspecified heart failure type (HCC) was also pertinent to this visit. has a past medical history of Atrial fibrillation (HCC), Atrial fibrillation (HCC), Basal cell carcinoma, Cancer (HCC), CHF (congestive heart failure) (HCC), COPD (chronic obstructive pulmonary disease) (HCC), Hyperlipidemia, Hypertension, and Pulmonary hypertension (HCC). has a past surgical history that includes hernia repair; eye surgery; skin biopsy; and Tonsillectomy. Restrictions Restrictions/Precautions Restrictions/Precautions: General Precautions, Fall Risk(4L O2) Required Braces or Orthoses?: No Subjective General Chart Reviewed: Yes Patient assessed for rehabilitation services?: Yes Family / Caregiver Present: No Subjective Subjective: Pt supine in bed. Agreeable to OT eval. General Comment Comments: Per RN therapy okay Patient Currently in Pain: Denies Vital Signs Patient Currently in Pain: Denies Height and Weight Weight: (!) 302 lb 12.8 oz (137.3 kg) Weight Method: Standing scale BMI (Calculated): 41.2 Social/Functional History Social/Functional History Lives With: Family(sister) Type of Home: House Home Layout: One level, Laundry in basement Home Access: Stairs to enter with rails Entrance Stairs - Number of Steps: 4 in front with rail, 2 on side Bathroom Shower/Tub: Tub/Shower unit, Shower chair with back Bathroom Toilet: Standard Bathroom Equipment: Grab bars in shower, 3-in-1 commode, Shower chair Bathroom Accessibility: Accessible Home Equipment: Oxygen, Cane, Rolling walker Receives Help From: Family ADL Assistance: Independent Homemaking Responsibilities: No Ambulation Assistance: Independent Transfer Assistance: Independent 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 IADL Comments: Pt reports indep with ADL's, reports he sponge bathes. Reports sister completes IADL's. Additional Comments: Pt reports indep with amb with cane PRN Objective Vision: Within Functional Limits Hearing: Within functional limits Orientation Overall Orientation Status: Within Normal Limits Orientation Level: Oriented X4 Observation/Palpation Posture: Fair Observation: BLE edema Balance Sitting Balance: Independent Standing Balance: Contact guard assistance Standing Balance Time: ~3 minutes Comment: with FWW, pt demo rapid fatigue. CGA due to pt impulsivity Functional Mobility Functional - Mobility Device: Rolling Walker Activity: To/from bathroom Assist Level: Contact guard assistance Functional Mobility Comments: CGA for safety d/t pt impulsive and rapid fatigue. Pt required seatedrest break. ADL Feeding: Independent Grooming: Modified independent UE Bathing: Stand by assistance LE Bathing: Contact guard assistance UE Dressing: Modified independent LE Dressing: Contact guard assistance Toileting: Stand by assistance Additional Comments: Pt donned/doffed slip on shoes seated EOB without the use of UE. Pt limited inADL's d/t decreased strength, edurance and balance Bed mobility Supine to Sit: Modified independent Sit to Supine: Modified independent Scooting: Modified independent Comment: HOB elevated, pt impulsive. Pt denies dizziness with position change Transfers Sit to stand: Supervision Stand to sit: Supervision Cognition Overall Cognitive Status: WFL Safety Judgement: Decreased awareness of need for assistance;Decreased awareness of need for safety Insights: Decreased awareness of deficits Cognition Comment: Pt impulsive Sensation Overall Sensation Status: WFL(denies numbness or tingling) LUE AROM (degrees) LUE AROM : WFL LUE General AROM: Observed functionally RUE AROM (degrees) RUE AROM : WFL RUE General AROM: Observed functionally LUE Strength Gross LUE Strength: WFL LUE Strength Comment: >3/5 Observed functionally RUE Strength Gross RUE Strength: WFL RUE Strength Comment: >3/5 Observed functionally Plan Plan Times per week: 6 visits Current Treatment Recommendations: Strengthening, ROM, Balance Training, Functional Mobility Training, Endurance Training, Safety Education & Training, Pain Management, Patient/Caregiver Education & Training, Equipment Evaluation, Education, & procurement, Self-Care / ADL, Home Management Training Plan Comment: POC and goals were made in collaboration with pt. AM-PAC Score AM-PAC Inpatient Daily Activity Raw Score: 22 (04/13/201010) AM-PAC Inpatient ADL T-Scale Score : 47.1 (04/13/201010) ADL Inpatient CMS 0-100% Score: 25.8 (04/13/201010) ADL Inpatient CMS G-Code Modifier : CJ (04/13/201010) Goals Short term goals Time Frame for Short term goals: 5 visits Short term goal 1: Pt will complete functional transfers and mobility using LRD with modif indep. Short term goal 2: Modif indep standing grooming task. Short term goal 3: Modif indep full body ADL Short term goal 4: Modif indep toileting including toilet transfer. Patient Goals Patient goals : To go home. Therapy Time Individual Concurrent Group Co-treatment Time In 936 Time Out 1000 Minutes 23 Timed Code Treatment Minutes: 8 Minutes(TA) Katarzyna Cárdenas OT * Rajesh Posada MD - 04/13/2020 9:59 AM EST Cardiology Progress Note Patient Name: Adam Mendes Patient Age: 74 y.o. 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) Hyperlipemia 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 (HCC) Dyspnea CHF (congestive heart failure), NYHA class IV, unspecified failure chronicity, systolic (HCC) Ectropion of right eye Chronic heart failure with preserved ejection fraction (HCC) LAB Lab Results Component Value Date NA 134 04/13/2020 K 3.9 04/13/2020 CL 91 04/13/2020 CO2 37 04/13/2020 BUN 31 04/13/2020 CREATININE 0.64 04/13/2020 GLUCOSE 115 04/13/2020 CALCIUM 8.2 04/13/2020 Lab Results Component Value Date WBC 8.5 04/13/2020 HGB 15.4 04/13/2020 HCT 48.4 04/13/2020 MCV 90.7 04/13/2020 PLT 117 (L) 04/13/2020 Lab Results Component Value Date TROPONINI 0.018 04/10/2020 Lab Results Component Value Date TSH 1.400 03/24/2016 No results found for: LABA1C No results found for: EAG No results for input(s): ALKPHOS, ALT, AST, BILITOT, BILIDIR, LABALBU, AMYLASE, LIPASE in the last 72 hours. VITALS BP (!) 95/49 Pulse 77 Temp 97.7 F (36.5 C) (Temporal) Resp 18 Ht 6' (1.829 m) Wt (!) 302 lb 12.8 oz (137.3 kg) SpO2 93% BMI 41.07 kg/m I&O In: 260 [P.O.:250; I.V.:10] Out: 300 SUBJECTIVE: CHF Readmit. Reportedly was out of meds. Burning with Stanton Cath. At. Fib With Rt. bbb. OBJECTIVE: BP 117/60 Pulse 87 Temp 96.9 F (36.1 C) (Temporal) Resp 20 Wt (!) 312 lb 1.9 oz (141.6 kg) SpO2 98% BMI 42.33 kg/m 10 systems reviewed as seen below Neck: Neck JVP 0, No carotid bruits, thyroid not enlarged Cardiovascular system: NSR, Short systolic murmur, no gallop Chest: normal breath sounds Abdomen: Abdomen soft/non-tender, no organomegaly, bowel sounds present Extremities: No edema, no varicosity Endocrine : Hypothyroidism No Diabites No GI system : GIB No Renal : CKD No FIELD TRAINER : CVA/TIA No Musculoskeletal system : DJD No CARDIAC TESTING EKG: A Fib. Echo: Troponin: Stress Test: Cardiac Cath: Ef=54 %. Increased Rvesp./feliciano. IMPRESSION : Wt.>>325>>>302.??? 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 Obesity/ FELICIANO/ PUL. HTN. PLAN : 1. Aggressive secondary risk factor management. 2. Treat underlying disease drivers. 3. IV diuretics, ARB. Continue other meds. Daily weights. 4. Reevaluatelidocain Jelly. 5. OP EVAL FOR FELICIANO., PT/OT Rajesh Posada MD * Gertrude Sheehan OT - 04/12/2020 12:22 PM EST Occupational Therapy Occupational Therapy Initial Assessment Date: 04/12/2020 Patient Name: Adam Mendes : 1945 Date of Service: 04/12/2020 OT order received, and pt's chart reviewed. Pt w/ discharge order in at this time, awaiting urine sample from pt prior to leaving. Per RN, ok to attempt if pt willing. Upon arrival, pt in bed, declining to participate in OOB OT eval d/t needing to pee first. Requesting to complete at a later time. Will continue to follow and re-attempt as needed. Gertrude Sheehan OT * Rimma Porter MD - 04/12/2020 11:23 AM EST Throughout the encounter I wore and N95 mask and face shield Hospitalist Progress Note 04/13/2020 11:23 AM [phone]: Please page me @ [phone] for patient care issues. [phone]: Please page IMS night Hospitalist for any issues. Subjective: Admit Date: 04/10/2020 PCP: Carlos Cuevas MD No overnight issues. Denies chest pain, cough, abdominal pain, nausea, vomiting, diarrhea, constipation, fevers, or chills. Breathing improved, swelling improved. DIET LOW SODIUM 2 GM; Dietary Nutrition Supplements: Diabetic Oral Supplement Patient Vitals for the past 96 hrs (Last 3 readings): Weight 04/13/20 0945 (!) 302 lb 12.8 oz (137.3 kg) 04/13/20 0333 289 lb 6.4 oz (131.3 kg) 04/12/20 0545 (!) 304 lb (137.9 kg) Medications: apixaban 5 mg Oral BID budesonide 500 mcg Nebulization BID predniSONE 50 mg Oral Daily atorvastatin 20 mg Oral Nightly sodium chloride flush 10 mL Intravenous 2 times per day furosemide 80 mg Intravenous BID carvedilol 6.25 mg Oral BID WC losartan 25 mg Oral Daily LABS: CBC: Recent Labs 04/11/20 0430 04/12/20 0512 04/13/20 0306 WBC 8.2 7.9 8.5 RBC 5.26 5.32 5.34 HGB 15.2 15.4 15.4 HCT 47.5 47.8 48.4 MCV 90.4 89.7 90.7 RDW 16.8* 16.5* 16.5* PLT 92* 112* 117* BMP: Recent Labs 04/11/20 0430 04/12/20 0512 04/13/20 0306 NA 137 137 134* K 4.0 3.8 3.9 CL 89* 89* 91* CO2 42* 42* 37* BUN 38* 39* 31* CREATININE 0.74 0.70 0.64 GLUCOSE 130* 110* 115* CALCIUM 8.3* 8.3* 8.2* ANIONGAP 5 6 6 LIVER PROFILE:No results for input(s): AST, ALT, BILITOT, ALKPHOS, LABALBU, PROT in the last 72 hours. PT/INR: No results for input(s): PROTIME, INR in the last 72 hours. CARDIAC ENZYMES: Recent Labs 04/10/20 1813 TROPONINI 0.018 Procalcitonin: Lab Results Component Value Date PROCAL <0.10 03/27/2016 Objective: Vitals: BP (!) 95/49 Pulse 77 Temp 97.7 F (36.5 C) (Temporal) Resp 18 Ht 6' (1.829 m) Wt (!) 302 lb 12.8 oz (137.3 kg) SpO2 93% BMI 41.07 kg/m Pulse Ox: SpO2 Av % Min: 91 % Max: 97 % Supplemental O2: O2 Flow Rate (L/min): 4 L/min General appearance: No apparent distress, appears stated age and cooperative with exam HEENT: Normal cephalic, atraumatic without obvious deformity. Pupils equal, round, and reactive to light. Extra ocular muscles intact. Conjunctivae/corneas clear. Neck: Supple, with full range of motion. No jugular venous distention. Trachea midline. No lymphadenopathy. Respiratory: Normal respiratory effort. Improved AE ramandeep Cardiovascular: Regular rate and rhythm with normal S1/S2 without murmurs, rubs or gallops. Abdomen: Soft, non-tender, non-distended with normal bowel sounds. No rebound or guarding. Musculoskeletal: 1+ pitting edema of the ankles, healed skin bruises on the legs Skin: Skin color, texture, turgor normal. No rashes or lesions. Neurologic: Neurovascularly intact without any focal sensory/motor deficits. Cranial nerves: II-XIIintact, grossly non-focal. Assessment Acute Congestive heart failure exacerbation, failure with preserved left ventricular fraction Underlying chronic obstructive pulmonary disease with mild exacerbation, recently treated Right pleural effusion Morbid obesity due to excess calories Past Medical History: Diagnosis Date Atrial fibrillation (HCC) CHADS 2= 2 ( CHF, HTN) HAS BLED 2 =asa, age) Atrial fibrillation (HCC) Basal cell carcinoma Cancer (HCC) CHF (congestive heart failure) (HCC) COPD (chronic obstructive pulmonary disease) (HCC) Hyperlipidemia Hypertension Pulmonary hypertension (HCC) Plan : Continue Lasix, intake and output, daily weights, cards following, weight ? Accurate Good urine output All test and lab results reviewed Consult notes reviewed Am labs, replace lytes prn PT/OT Advance care planning has been discussed, total time spent is greater than 30 mins -DVT prophylaxis: [] Lovenox [] Heparin [] SCDs [x] Encourage ambulation [] Already on Anticoagulation Advance Directive: Full Code Discharge planning: TBD RIMMA PORTER MD, MD Division of Hospitalist Medicine Inpatient Medical Services This report was created using the [employer] Speaking voice- activated system. Despiteprompt dictation and careful editorial review, there may be subtle contextual errors in this report, due to misrecognition of the spoken word. * Rajesh Posada MD - 04/12/2020 10:26 AM EST Cardiology Progress Note Patient Name: Adam Mendes Patient Age: 74 y.o. 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) Hyperlipemia 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 (HCC) Dyspnea CHF (congestive heart failure), NYHA class IV, unspecified failure chronicity, systolic (HCC) Ectropion of right eye Chronic heart failure with preserved ejection fraction (HCC) LAB Lab Results Component Value Date NA 137 04/12/2020 K 3.8 04/12/2020 CL 89 04/12/2020 CO2 42 04/12/2020 BUN 39 04/12/2020 CREATININE 0.70 04/12/2020 GLUCOSE 110 04/12/2020 CALCIUM 8.3 04/12/2020 Lab Results Component Value Date WBC 7.9 04/12/2020 HGB 15.4 04/12/2020 HCT 47.8 04/12/2020 MCV 89.7 04/12/2020 PLT 112 (L) 04/12/2020 Lab Results Component Value Date TROPONINI 0.018 04/10/2020 Lab Results Component Value Date TSH 1.400 03/24/2016 No results found for: LABA1C No results found for: EAG No results for input(s): ALKPHOS, ALT, AST, BILITOT, BILIDIR, LABALBU, AMYLASE, LIPASE in the last 72 hours. VITALS BP (!) 97/49 Pulse 84 Temp 96.5 F (35.8 C) (Temporal) Resp 16 Ht 6' (1.829 m) Wt (!) 304 lb (137.9 kg) SpO2 98% BMI 41.23 kg/m I&O In: - Out: 2875 SUBJECTIVE: CHF Readmit. Reportedly was out of meds. Burning with Stanton Cath. At. Fib With Rt. bbb. OBJECTIVE: BP 117/60 Pulse 87 Temp 96.9 F (36.1 C) (Temporal) Resp 20 Wt (!) 312 lb 1.9 oz (141.6 kg) SpO2 98% BMI 42.33 kg/m 10 systems reviewed as seen below Neck: Neck JVP 0, No carotid bruits, thyroid not enlarged Cardiovascular system: NSR, Short systolic murmur, no gallop Chest: normal breath sounds Abdomen: Abdomen soft/non-tender, no organomegaly, bowel sounds present Extremities: No edema, no varicosity Endocrine : Hypothyroidism No Diabites No GI system : GIB No Renal : CKD No FIELD TRAINER : CVA/TIA No Musculoskeletal system : DJD No CARDIAC TESTING EKG: A Fib. Echo: Troponin: Stress Test: Cardiac Cath: Ef=54 %. Increased Rvesp./feliciano. 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 Obesity/ FELICIANO/ PUL. HTN. PLAN : 1. Aggressive secondary risk factor management. 2. Treat underlying disease drivers. 3. IV diuretics, ARB. Continue other meds. Daily weights. 4. Reevaluatelidocain Jelly. 5. OP EVAL FOR FELICIANO., PT/OT Rajesh Posada MD * Rimma Porter MD - 04/11/2020 11:53 AM EST Throughout the encounter I wore and N95 mask and face shield Hospitalist Progress Note 04/11/2020 11:54 AM [phone]: Please page il @ [phone] for patient care issues. [phone]: Please page IMS night Hospitalist for any issues. Subjective: Admit Date: 04/10/2020 PCP: Carlos Cuevas MD No overnight issues. Denies chest pain, cough, abdominal pain, nausea, vomiting, diarrhea, constipation, fevers, or chills. Breathing improved, good urine output, daily weight reduced 13 pounds. DIET LOW SODIUM 2 GM; Patient Vitals for the past 96 hrs (Last 3 readings): Weight 04/11/20 0500 (!) 312 lb 1.9 oz (141.6 kg) 04/10/20 0903 (!) 325 lb 9.6 oz (147.7 kg) 04/10/20 0608 (!) 389 lb (176.4 kg) Medications: apixaban 5 mg Oral BID budesonide 500 mcg Nebulization BID predniSONE 50 mg Oral Daily atorvastatin 20 mg Oral Nightly sodium chloride flush 10 mL Intravenous 2 times per day furosemide 80 mg Intravenous BID carvedilol 6.25 mg Oral BID WC losartan 25 mg Oral Daily LABS: CBC: Recent Labs 04/10/20 0611 04/11/20 0430 WBC 6.6 8.2 RBC 5.39 5.26 HGB 15.5 15.2 HCT 48.3 47.5 MCV 89.7 90.4 RDW 16.3* 16.8* PLT 87* 92* BMP: Recent Labs 04/10/20 0611 04/11/20 0430 NA 134* 137 K 4.3 4.0 CL 90* 89* CO2 36* 42* BUN 27* 38* CREATININE 0.71 0.74 GLUCOSE 126* 130* CALCIUM 8.6 8.3* ANIONGAP 8 5 LIVER PROFILE:No results for input(s): AST, ALT, BILITOT, ALKPHOS, LABALBU, PROT in the last 72 hours. PT/INR: No results for input(s): PROTIME, INR in the last 72 hours. CARDIAC ENZYMES: Recent Labs 04/10/20 0611 04/10/20 0941 04/10/20 1813 TROPONINI 0.022 0.018 0.018 Procalcitonin: Lab Results Component Value Date PROCAL <0.10 03/27/2016 Objective: Vitals: BP (!) 91/51 Pulse 79 Temp 97.3 F (36.3 C) (Temporal) Resp 20 Wt (!) 312 lb 1.9 oz (141.6 kg) SpO2 94% BMI 42.33 kg/m Pulse Ox: SpO2 Av % Min: 92 % Max: 98 % Supplemental O2: O2 Flow Rate (L/min): 5 L/min General appearance: No apparent distress, appears stated age and cooperative with exam HEENT: Normal cephalic, atraumatic without obvious deformity. Pupils equal, round, and reactive to light. Extra ocular muscles intact. Conjunctivae/corneas clear. Neck: Supple, with full range of motion. No jugular venous distention. Trachea midline. No lymphadenopathy. Respiratory: Slight increased respiratory effort. Diminished AE ramandeep Cardiovascular: irregular rate and rhythm with normal S1/S2 without murmurs, rubs or gallops. Abdomen: Soft, non-tender, non-distended with normal bowel sounds. No rebound or guarding. Musculoskeletal: No clubbing, cyanosis bilaterally. Full range of motion without deformity. 1 Plus pitting edema of the legs Skin: Healed bruises on the legs Neurologic: Neurovascularly intact without any focal sensory/motor deficits. Cranial nerves: II-XIIintact, grossly non-focal. Assessment Acute Congestive heart failure exacerbation, failure with preserved left ventricular fraction Underlying chronic obstructive pulmonary disease with mild exacerbation, recently treated Right pleural effusion Morbid obesity Past Medical History: Diagnosis Date Atrial fibrillation (HCC) CHADS 2= 2 ( CHF, HTN) HAS BLED 2 =asa, age) Atrial fibrillation (HCC) Basal cell carcinoma Cancer (HCC) CHF (congestive heart failure) (HCC) COPD (chronic obstructive pulmonary disease) (HCC) Hyperlipidemia Hypertension Pulmonary hypertension (HCC) Plan : Continue Lasix, intake and output, daily weights, cards following All test and lab results reviewed Consult notes reviewed Am labs, replace lytes prn PT/OT -DVT prophylaxis: [] Lovenox [] Heparin [] SCDs [x] Encourage ambulation [x] Already on Anticoagulation Advance Directive: Full Code Discharge planning: TBDiana PORTER MD, Division of Hospitalist Medicine Inpatient Medical Services This report was created using the [employer] Speaking voice- activated system. Despiteprompt dictation and careful editorial review, there may be subtle contextual errors in this report, due to misrecognition of the spoken word. * Rajesh Posada MD - 04/11/2020 11:12 AM EST Cardiology Progress Note Patient Name: Adam Mendes Patient Age: 74 y.o. 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) Hyperlipemia 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 (HCC) Dyspnea CHF (congestive heart failure), NYHA class IV, unspecified failure chronicity, systolic (HCC) Ectropion of right eye LAB Lab Results Component Value Date NA 137 04/11/2020 K 4.0 04/11/2020 CL 89 04/11/2020 CO2 42 04/11/2020 BUN 38 04/11/2020 CREATININE 0.74 04/11/2020 GLUCOSE 130 04/11/2020 CALCIUM 8.3 04/11/2020 Lab Results Component Value Date WBC 8.2 04/11/2020 HGB 15.2 04/11/2020 HCT 47.5 04/11/2020 MCV 90.4 04/11/2020 PLT 92 (L) 04/11/2020 Lab Results Component Value Date TROPONINI 0.018 04/10/2020 Lab Results Component Value Date TSH 1.400 03/24/2016 No results found for: LABA1C No results found for: EAG No results for input(s): ALKPHOS, ALT, AST, BILITOT, BILIDIR, LABALBU, AMYLASE, LIPASE in the last 72 hours. VITALS BP 117/60 Pulse 87 Temp 96.9 F (36.1 C) (Temporal) Resp 20 Wt (!) 312 lb 1.9 oz (141.6 kg) SpO2 98% BMI 42.33 kg/m I&O In: - Out: 5550 SUBJECTIVE: CHF Readmit. Reportedly was out of meds. Burning with Stanton Cath. OBJECTIVE: BP 117/60 Pulse 87 Temp 96.9 F (36.1 C) (Temporal) Resp 20 Wt (!) 312 lb 1.9 oz (141.6 kg) SpO2 98% BMI 42.33 kg/m 10 systems reviewed as seen below Neck: Neck JVP 0, No carotid bruits, thyroid not enlarged Cardiovascular system: NSR, Short systolic murmur, no gallop Chest: normal breath sounds Abdomen: Abdomen soft/non-tender, no organomegaly, bowel sounds present Extremities: No edema, no varicosity Endocrine : Hypothyroidism No Diabites No GI system : GIB No Renal : CKD No FIELD TRAINER : CVA/TIA No Musculoskeletal system : DJD No CARDIAC TESTING EKG: Echo: Troponin: Stress Test: Cardiac Cath: IMPRESSION : 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 (HCC) Active Problems: Atrial fibrillation (HCC) COPD (chronic obstructive pulmonary disease) (HCC) Pulmonary hypertension (HCC) Hyperlipemia Morbid obesity with BMI of 40.0-44.9, adult (HCC) 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 Aggressive secondary risk factor management. 2. Treat underlying disease drivers. 3. IV diuretics, ARB. Continue other meds. Daily weights. 4. Reevaluatelidocain macarena Posada MD * Shiva Holland RN - 04/11/2020 4:00 AM EST Pt c/o dysuria as well as pain at stanton site when sitting upright. Urine output bloody with some small clots. Dr. Morataya notified at 7130 via perfect serve. No new orders. Dr. Morataya notified again at 4022 regarding patient's pain at stanton site and urine output. Dr. Morataya came to bedside to see patient. documented in this encounter Assessments Diagnosis Dyspnea, unspecified type- Primary COPD exacerbation (HCC) Obstructive chronic bronchitis with exacerbation Bilateral pleural effusion Unspecified pleural effusion Congestive heart failure, unspecified HF chronicity, unspecified heart failure type (HCC) Weight gain Abnormal weight gain Chronic combined systolic and diastolic heart failure (HCC) Chronic combined systolic and diastolic heart failure Pulmonary hypertension (HCC) Other chronic pulmonary heart diseases Atrial fibrillation (HCC) Atrial fibrillation COPD (chronic obstructive pulmonary disease) (HCC) Chronic airway obstruction, not elsewhere classified Morbid obesity with BMI of 40.0-44.9, adult (HCC) 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) Right bundle branch block and left posterior fascicular block Current use of continuous churn buttermaker anticoagulation Encounter for long-term (current) use of anticoagulants Hyperlipemia Other and unspecified hyperlipidemia 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 (HCC) Diagnosis 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 (HCC)- Primary COPD exacerbation (HCC) Obstructive chronic bronchitis with exacerbation Acute on chronic congestive heart failure, unspecified heart failure type (HCC) Pulmonary hypertension (HCC) Other chronic pulmonary heart diseases Atrial fibrillation (HCC) Atrial fibrillation COPD (chronic obstructive pulmonary disease) (HCC) Chronic airway obstruction, not elsewhere classified Hyperlipemia Other and unspecified hyperlipidemia Morbid obesity with BMI of 40.0-44.9, adult (HCC) 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) Right bundle branch block and left posterior fascicular block Ectropion of right eye Ectropion, unspecified Chronic heart failure with preserved ejection fraction (HCC) Hospital Course * Rimma Porter MD - 04/12/2020 3:46 PM EST Hospitalist Discharge Summary Adam Mendes : 1945 Admit date: 04/10/2020 Discharge date: 04/12/2020 Admitting Physician: Rimma Porter MD Primary Care Physician: Carlos Cuevas MD Visit Status: Admission Code Status: Full Code Discharge Diagnoses: Principal Problem: 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 (HCC) Active Problems: Pulmonary hypertension (HCC) 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 * Procedures: None Hospital Course: Improved. Patient is a 74-year-old gentleman who was admitted for acute congestiveheart failure exacerbation, treated with IV Lasix, weights were monitored and urine output was monitored, was recently in the hospital with acute chronic obstructive pulmonary disease exacerbation and congestive heart failure exacerbation as well, he was given home Lasix and prednisone, but not sure whether he was taking it, patient said he was taking it. Clinical course improved in the hospital , lasix switched to PO, advised low salt diet, look for discharge medications below, patient advisedto monitor his daily weight and if he gains 3 pounds in a week, to take extra Lasix 40 mg, follow-up with cardiology and PCP Consults: Cardiology Discharge Instructions: To lose weight ,Follow social distancing to prevent COVID 19 disease spread, wash hands frequently Diet: DIET LOW SODIUM 2 GM; Dietary Nutrition Supplements: Diabetic Oral Supplement Activity: as tolerated Recommended Outpatient Tests: Complete blood count and BMP in the week Disposition: Patient discharged in stable condition to Home with home health. Greater than 30 minutes spent discharging the patient and coming up with patient discharge plan. Vitals: BP 102/70 Pulse 79 Temp 95.7 F (35.4 C) (Temporal) Resp 16 Ht 6' (1.829 m) Wt (!)304 lb (137.9 kg) SpO2 96% BMI 41.23 kg/m Pulse Ox: SpO2 Av.5 % Min: 94 % Max: 98 % Supplemental O2: O2 Flow Rate (L/min): 5 L/min General appearance: No apparent distress, appears stated age and cooperative with exam Respiratory: Normal respiratory effort. Improved bilaterally Cardiovascular: Regular rate and rhythm with normal S1/S2 without murmurs, rubs or gallops. Abdomen: Soft, non-tender, non-distended with normal bowel sounds. No rebound or guarding. Musculoskeletal: No clubbing, cyanosis or edema bilaterally. Full range of motion without deformity. Skin: Skin color, texture, turgor normal. No rashes or lesions. Discharge Medications: Adam Mendes Home Medication Instructions EVAN:[id number] Printed on:04/12/20 3148 Medication Information albuterol (PROVENTIL) (2.5 MG/3ML) 0.083% nebulizer solution Take 3 mLs by nebulization every 6 hours as needed for Wheezing apixaban (ELIQUIS) 5 MG TABS tablet Take 1 tablet by mouth 2 times daily budesonide (PULMICORT) 0.5 MG/2ML nebulizer suspension Take 2 mLs by nebulization 2 times daily carvedilol (COREG) 3.125 MG tablet Take 1 tablet by mouth 2 times daily (with meals) furosemide (LASIX) 40 MG tablet Take 1 tablet by mouth 2 times daily Handicap Placard MISC Duration: 2 years2018 losartan (COZAAR) 25 MG tablet Take 1 tablet by mouth daily Nebulizers (COMPRESSOR/NEBULIZER) MISC Use as directed up to 4 times a day nitroGLYCERIN (NITROSTAT) 0.4 MG SL tablet up to max of 3 total doses. If no relief after 1 dose, call 911. simvastatin (ZOCOR) 20 MG tablet TAKE ONE TABLET BY MOUTH ONCE DAILY AT BEDTIME Recommended Follow-up: Carlos Cuevas MD [address] [place] [address], [address] [facility] [phone] Complexity of Follow up: [] Moderate Complexity: follow up within 7-14 calendar days (73421) [x] Severe Complexity: follow up within 7 calendar days ([id number]) Follow up Testing, Pending results or Referrals at Transitional Care Visit: [x] yes [] No GENERAL ZONES GREEN ZONE: All Clear- Your Symptoms Are Under Control No recurrence of symptoms that led to hospitalization Able to do usual activities No fever No chest pain No shortness of breath This Means You Should: Continue taking your medications as prescribed Continue activity as tolerated Keep all doctor appointments YELLOW ZONE: Caution Recurrence of symptoms that led to hospitalization Fever of 100 degrees or higher Increased fatigue or restlessness Intolerant side-effects of medications Uneasy feeling or that something is wrong This Means You Should: Call your doctor for further instructions Either your PCP or specialist RED ZONE: Medical Alert Severe or unrelieved shortness of breath at rest Unrelieved chest pain Confusion or you can't think clearly This Means You Should Call 911 Immediately Instructions to MA: Please call patient on day after discharge (must document patient contacted within 2 business days of discharge). Follow up questions for MA: 1. Did you get medications filled and taking them as instructed from discharge? 2. Are you following your discharge instructions from your hospital stay? 3. Please confirm patient is scheduled for a follow up appointment within the above time frame. A total of more than 30 mins has been spent in discharging the patient. Signed: @[place] @ [facility] Services 04/12/2020, 3:46 PM This report was created using the [employer] Speaking voice- activated system. Despiteprompt dictation and careful editorial review, there may be subtle contextual errors in this report, due to misrecognition of the spoken word. documented in this encounter Additional Source Comments (unrecognized sect ion and content) No Status Records FoundNo Status Records FoundNo Status Records FoundNo Status Records FoundNo Status Records FoundNo Status Records Found INFORMATION SOURCE (unrecogn ized section and content) DATE CREATED AUTHOR AUTHOR'S ORGANIZ ATION 08/15/2017 [facility] DATE CREATED AUTHOR AUTHOR'S ORGANIZ ATION 01/11/2018 [facility] DATE CREATED AUTHOR AUTHOR'S ORGANIZ ATION 03/24/2021 [facility] DATE CREATED AUTHOR AUTHOR'S ORGANIZ ATION 12/01/2021 [facility] DATE CREATED AUTHOR AUTHOR'S ORGANIZ ATION 12/29/2022 [facility] Reason for Visit (unrecogniz ed section and content) Specialty Diagnoses / Procedures Referred By Contac t Referred To Contact Diagnoses Shortness of breath Procedures . Cezar Forbes MD [address] [address] [facility] [address]e [address] [place] [id number] Referral ID Status Reason Start Date Expiration Date Visits Re quested Visits Authorized [id number] 1 Reason Comments Cellulitis Reason Onset Date Comments Diarrhea 06/23/2022 Ordered Prescriptions (unrec ognized section and content) Prescription Sig Dispensed Refills Start Date End Da te losartan (COZAAR) 25 MG tablet Take 1 tablet by mouth daily 30 tablet 3 04/13/2020 Prescription Sig Dispensed Refills Start Date End Da te clindamycin (CLEOCIN) 150 MG capsule Take 2 capsules by mouth 3 times daily for 7 days 42 capsule 0 10/14/2020 10/21/2020 Scheduled Active and Recently Administ ered Medications (unrecognized section and content) Scheduled Medication Order 09/27/2022 09/28/2022 09/29/2022 albuterol 108 (90 Base) MCG/ACT inhaler 4 puff (COMPLETED) 4 puff, Inhalation, Once, On Mon09/27/22 at 0000, For 1 dose, With bedside spirometry 0215 (Given - Provider: Tonny Ruiz, [employer]) amiodarone (Pacerone) tablet 400 mg 400 mg, Oral, Daily, First dose on Mon09/28/22 at 0800, Hold for HR<60 or BP<100 syst. 0848 (Given - Provider: Yina Melo RN) 801 (Given - Provider: Yina Melo RN) apixaban (Eliquis) tablet 5 mg 5 mg, Oral, 2 times daily, First dose on Mon09/24/22 at 2100, Anticoagulant 0914 (Given - Provider: Angeline Abbasi RN)2101 (Given - Provider: Onel Lott RN) 847 (Given - Provider: Yina Melo RN)2037 (Given - Provider: Ashanti Quinteros RN) 08 (Given - Provider: Yina Melo RN) atorvastatin (Lipitor) tablet 10 mg 10 mg, Oral, Nightly, First dose on 09/24/22 at 2100, Substituted for simvastatin (Zocor). 2101 (Given - Provider: Onel Lott RN) 2037 (Given - Provider: Ashanti Quinteros RN) potassium chloride CR (Klor-Con M10) ER tablet 10 mEq (CANCELED) 10 mEq, Oral, 2 times daily, First dose on 09/24/22 at 2100, Best given with food and plenty of water to minimize gastric irritation. Do not crush or chew. 09 (Given - Provider: Angeline Abbasi, RN)2101 (Given - Provider: Onel Lott, RN) 0848 (Given - Provider: Yina Melo, RN)2037 (Given - Provider: Ashanti Quinteros RN) 08 (Given - Provider: Yina Melo, RN) Continuous Medication Order 09/27/2022 09/28/2022 09/29/2022 amiodarone (Nexterone) 360 mg/200 mL (premix) (CANCELED) 0.5 mg/min (16.6667 mL/hr, rounded to 16.67 mL/hr), IntraVENous, Continuous, Starting on 09/26/22 at 2014, For 18 hours, Use in-line filter. Use in-line filter. Give through central venous catheter whenever available. Premix 0434 (New Bag - Provider: Sal Zavala RN)2110 (Stopped - Provider: Onel Lott RN) PRN Medication Order 09/27/2022 09/28/2022 09/29/2022 acetaminophen (Tylenol) suppository 650 mg(Linked Group 1) 650 mg, Rectal, Every 6 hours PRN, mild pain (1-3), fever, For temp greater than 100.4 F (38 C), Starting on 09/24/22 at 1913, Administer if oral route cannot be used. Maximum dose of acetaminophen is 4000 mg from all sources in 24 hours. acetaminophen (Tylenol) tablet 650 mg(Linked Group 1) 650 mg, Oral, Every 6 hours PRN, mild pain (1-3), fever, For temp greater than 100.4 F (38 C), Starting on 09/24/22 at 1913, Maximum dose of acetaminophen is 4000 mg from all sources in 24 hours. aluminum & magnesium hydroxide-simethicone (Mylanta) 200-200-20 MG/5ML oral suspension 20 mL(Linked Group 2) 20 mL, Oral, Every 6 hours PRN, indigestion, heartburn, Starting on 09/24/22 at 1921 0424 (See Alternative - Provider: Sal Zavala RN) calcium carbonate (Tums) chewable tablet 1,000 mg(Linked Group 2) 1,000 mg, Oral, Every 6 hours PRN, indigestion, heartburn, Starting on 09/24/22 at 1921 0424 (Given - Provider: Sal Zavala RN) diphenhydrAMINE (BENADryl) capsule 50 mg(Linked Group 3) 50 mg, Oral, Nightly PRN, sleep, Starting on 09/25/22 at 0032 2346 (Given - Provider: Onel Lott RN) Melatonin disintegrating tablet 10 mg(Linked Group 3) 10 mg, Oral, Nightly PRN, sleep, Starting on 09/25/22 at 0032 2346 (See Alternative - Provider: Onel Lott RN) ondansetron (Zofran) injection 4 mg(Linked Group 4) 4 mg, IntraVENous, Every 6 hours PRN, nausea, vomiting, Starting on 09/24/22 at 1913, 1st Line. Give IV if patient is unable to take orally. If inadequate response within 60 minutes, proceed to next-line agent or contact provider if no further options ordered. ondansetron ODT (Zofran-ODT) disintegrating tablet 4 mg(Linked Group 4) 4 mg, Oral, Every 8 hours PRN, nausea, vomiting, Starting on 09/24/22 at 1913, 1st Line. If inadequate response within 60 minutes, proceed to next-line agent or contact provider if no further options ordered. Patient should allow tablet to dissolve on tongue. Do not remove from blister pack until just before administering. perflutren lipid microspheres (Definity) injection 1.65 mg 1.65 mg, IntraVENous, IMG once PRN, other, Suboptimal echo image, Starting on 09/26/22 at 0838, For 1 dose, CV Procedural Medications, Administer up to 1.65 mg via slow IVP for suboptimal echocardiogram enhancement. May administer a calculated dose or diluted 8.5 mL of 0.9% sodium chloride for a total volume of 10 mL. May administer as divided doses to reach optimal image enhancement polyethylene glycol (PEG) 3350 (Miralax) packet 17 g 17 g, Oral, Daily PRN, constipation, Starting on 09/24/22 at 1913, 1st line for treatment of constipation - give scheduled if no bowel movement in past 24 hours. 2108 (Given - Provider: Onel Lott RN) traZODone (Desyrel) tablet 50 mg(Linked Group 3) 50 mg, Oral, Nightly PRN, sleep, Starting on 09/25/22 at 0032 2346 (See Alternative - Provider: Onel Lott RN) Linked Groups Order Group 1: acetaminophen (Tylenol) tablet 650 mgJump to med 650 mg, Oral, Every 6 hours PRN, mild pain (1-3), fever, For temp greater than 100.4 F (38 C), Starting on 09/24/22 at 1913
Maximum dose of acetaminophen is 4000 mg from all sources in 24 hours.
Or acetaminophen (Tylenol) suppository 650 mgJump to med 650 mg, Rectal, Every 6 hours PRN, mild pain (1-3), fever, For temp greater than 100.4 F (38 C), Starting on 09/24/22 at 1913
Administer if oral route cannot be used. Maximum dose of acetaminophen is 4000 mg from all sources in 24 hours.
Group 2: aluminum & magnesium hydroxide-simethicone (Mylanta) 200-200-20 MG/5ML oral suspension 20 mLJump to med 20 mL, Oral, Every 6 hours PRN, indigestion, heartburn, Starting on 09/24/22 at 1921 Or calcium carbonate (Tums) chewable tablet 1,000 mgJump to med 1,000 mg, Oral, Every 6 hours PRN, indigestion, heartburn, Starting on 09/24/22 at 1921 Group 3: Melatonin disintegrating tablet 10 mgJump to med 10 mg, Oral, Nightly PRN, sleep, Starting on 09/25/22 at 0032 Or traZODone (Desyrel) tablet 50 mgJump to med 50 mg, Oral, Nightly PRN, sleep, Starting on 09/25/22 at 0032 Or diphenhydrAMINE (BENADryl) capsule 50 mgJump to med 50 mg, Oral, Nightly PRN, sleep, Starting on 09/25/22 at 0032 Group 4: ondansetron ODT (Zofran-ODT) disintegrating tablet 4 mgJump to med 4 mg, Oral, Every 8 hours PRN, nausea, vomiting, Starting on 8/5/23 at 1913
1st Line. If inadequate response within 60 minutes, proceed to next-line agent or contact provider if no further options ordered. Patient should allow tablet to dissolve on tongue. Do not remove from blister pack until just before administering.
Or ondansetron (Zofran) injection 4 mgJump to med 4 mg, IntraVENous, Every 6 hours PRN, nausea, vomiting, Starting on 09/24/22 at 1913
1st Line. Give IV if patient is unable to take orally. If inadequate response within 60 minutes, proceed to next-line agent or contact provider if no further options ordered.
Care Teams (unrecognized sec tion and content) Gemologist Relationship Specialty Start Date End Date Carlos Cuevas MD [address] [place] [address] [phone] PCP - General 10/21/18 Gemologist Relationship Specialty Start Date End Date Carlos Cuevas MD [address] [place] [id number] PCP - General 10/21/18 FOR RECORDS PERTAINING TO PATIENTS WHO ARE OR HAVE BEEN ENROLLED IN A CHEMICAL DEPENDENCY/SUBSTANCEABUSE PROGRAM, SOME INFORMATION MAY BE OMITTED. This clinical summary was aggregated from multiple sources. Caution should be exercised in using it in the provision of clinical care. This summary normalizes information from multiple sources, and as a consequence, information in this document may materially change the coding, format and clinical context of patient data. In addition, data may be omitted in some cases. CLINICAL DECISIONS SHOULD BE BASED ON THE PRIMARY CLINICAL RECORDS. [facility]. provides no warranty or guarantee of the accuracy or completeness of information in this document.
[2023-02-07 08:48] LABS: Hematocrit 27.2 % (40-54); Hemoglobin 7.9 g/dL (13.0-16.5); Mean Corpuscular Hgb 24.5 pg (27.0-32.0); Mean Corpuscular Volume 84.5 fL (80-94); Platelet Count 265 K/mm3 (150-450); RBC Distribution Width CV 18.9 % (11.6-14.6); RBC Distribution Width SD 57.8 fl (35.1-43.9); Red Blood Count 3.22 M/mm3 (4.6-6.2); White Blood Count 5.9 K/mm3 (4.4-11.0)
[2023-02-07 09:02] LABS: Anion Gap 3 (5-15); BUN 15 mg/dL (7-18); BUN/Creat Ratio 18.8 RATIO (10-20); Calcium,Total 8.4 mg/dL (8.5-10.1); Chloride 108 mmol/L (98-107); EST Glomerular Filtration Rate 100 mL/min (>60); Est Glom Filt Rate - Afr Amer 121 mL/min (>60); Glucose 97 mg/dL (74-106); Potassium 4.2 mmol/L (3.5-5.1); Sodium Level 140 mmol/L (136-145)
== END ==
LOC: OLS.SANC 05:00
PROVIDERS: Visit Provider Internal Medicine
DX: D64.9 Anemia, unspecified (principal); E78.5 Hyperlipidemia, unspecified
CPT/HCPCS: 36415; 80048; 85027

== ENCOUNTER → 2023-03-21 | Outpatient (REF) | payer MEDICARE, MEDICAID, SELFPAY ==
--- OUTSIDE RECORDS SUMMARY | 2023-03-21 04:11 | XMS RPT_ITS | CCD ---
Author Name Unknown Address [address] [place] [address] Organization [facility] Care Team Providers Care Slurry Worker Name Role Phone CALLUM CAMACHO Unavailable Unavailable DONNA NIXON Unavailable Unavailable NICOLE CAMACHO (RES) Unavailable VERONA CastilloCA (RES) Unavailable UnaJuan Groves Unavailable Unavailable PROVIDER, UNKNOWN Unavailable Unavailable Carlos Cuevas Unavailable Unavailable Carlos Cuevas Primary Care Provider Carlos Cuevas MD Primary Care Provider Michael Reym Attending Unavailable PROVIDER, UNKNOWN Referring Unavailable Carlos Cuevas Primary Care Unavailable Carols Cuevas MD Primary Care Provider Carlos Cuevas [...] Drug Class(es) Dates Sig (Normalized) Sig (Original) [id number] 200 actuat albuterol 0.09 mg/actuat metered dose [...] Translations: [Body mass index (BMI) 40.0-44.9, adult ([facility])] Onset: 07-15-2022 Chronic Other nutritional; endocrine; and [...] sources) Long-term current use of anticoagulant; Translations: [senior care (current) use of anticoagulants] Onset: 06-15-2016 04-03-2020 [...] 97.39 [degF] Lupillo Richards MD Work Phone: [facility] 09-29-2022 07:48-0400 Diastolic blood pressure 75 mm[Hg] Lupillo Richards MD Work Phone: [facility] 09-29-2022 07:48-0400 Heart rate 82 /min Lupillo Richards MD Work Phone: [facility] 09-29-2022 07:48-0400 Respiratory rate 18 /min Lupillo Richards MD Work Phone: [facility] 09-29-2022 07:48-0400 SaO2% (BldA) [Mass fraction] 99 % Lupillo Richards MD Work Phone: [facility] 09-29-2022 07:48-0400 Systolic blood pressure 128 mm[Hg] Lupillo Richards MD Work Phone: [facility] 09-26-2022 13:03-0400 Body height 182.9 cm Lupillo Richards MD Work Phone: [facility] 09-24-2022 18:58-0400 Body mass index (BMI) [Ratio] 31.74 kg/m2 Lupillo Richards MD Work Phone: [facility] 09-24-2022 18:58-0400 Body weight 106.14 kg Lupillo Richards MD Work Phone: [facility] 10-14-2020 17:58-0400 Diastolic blood pressure 78 mm[Hg] Carlos Cuevas MD Work Phone: [facility] Work Phone: 10-14-2020 17:58-0400 Heart rate 70 /min Carlos Cuevas MD Work Phone: [facility] Work Phone: 10-14-2020 17:58-0400 Respiratory rate 18 /min Carlos Cuevas MD Work Phone: [facility] Work Phone: 10-14-2020 17:58-0400 SaO2% (BldA) [...] (Body Mass Index) 41.07 kg/m2 Benita Husseinbe [employer] Work Phone: 04-13-2020 09:45-0500 Body weight 137.35 kg Benita Kibe [employer] Work Phone: 04-13-2020 07:57-0500 Pulse Oximetry 93 % Benita Kibe [employer] Work Phone: 04-13-2020 07:57-0500 Respiratory Rate 18 [...] 04-08-2020 15:45-0500 Body Temperature 97.3 [degF] Arslan HSAWA Work Phone: 04-08-2020 15:45-0500 BP Diastolic 69 [...] 04-08-2020 04:40-0500 Body weight 176.45 kg Arslan GADNARA Work Phone: 04-04-2020 11:05-0500 Height 182.9 cm Arslan GANDARA Work Phone: Encounters Encounter Date Encounter Type Care Provider Facility Start: 12-26-2022 Telephone encounter Carlos Jain MD Work Phone: [facility] Start: 09-24-2022 End: 09-29-2022 Evaluation and management of inpatient PRAKASHReilly ZURITA [facility] Start: 09-24-2022 End: 09-29-2022 Evaluation and management of inpatient Lupillo Richards MD Work Phone: [facility] 2E TELEMETRY Procedures Date Procedure Procedure Detail [...] Start: 09-25-2022 Assay of lactate Preethi Tony CLINICAL TRIAL COORDINATOR - VIRTUALIZATION ENGINEER Work Phone: Start: 09-24-2022 Assay of lactate Preethi Tony CLINICAL TRIAL COORDINATOR - VIRTUALIZATION ENGINEER Work Phone: Start: 09-24-2022 Assay of lactate [...] Work Phone: Start: 04-10-2020 O[place] therapy [place] [place] Benita Kibe Work Phone: Start: [...] Author Start: 11-08-2026 Lipid panel Lipid Panel [facility] Start: 09-03-2024 DTaP/Tdap/Td vaccine (2 - Td or Tdap) DTaP/Tdap/Td vaccine (2 - Td or Tdap) [facility] Work Phone: Start: 09-03-2024 DTaP/Tdap/Td vaccine (2 - Td) DTaP/Tdap/Td vaccine (2 - Td) [facility] Work Phone: Start: 09-03-2024 DTaP/Tdap/Td Vaccines (2 - Td or Tdap) DTaP/Tdap/Td Vaccines (2 - Td or Tdap) [facility] Start: 09-27-2023 Creatinine measurement Creatinine Level [facility] Start: 09-27-2023 Potassium measurement Potassium Level [facility] Start: 07-05-2023 Echocardiography Echocardiogram [facility] Start: 07-04-2023 Thyroid stimulating hormone measurement TSH Level [facility] Start: 05-27-2023 Hepatitis C screening Hepatitis C Screening [facility] Immunizations Immunization Date Immunization Notes Care Provider Fa chuck 12-23-2020 Vikash SARS-CoV-2 Vaccination Lynne Mello RN [facility] 11-30-2020 Influenza, High-dose Seasonal, Quadrivalent, Preservative Free Lynne Mello RN [facility] 11-30-2020 influenza virus vacc ine, unspecified formulation Lynne Mello RN [facility] 05-15-2020 COVID-19, J&J, PF, 0.5 mL Da floresita Cuevas MD Work Phone: [facility] Work Phone: 01-06-2020 Influenza, High-dose , Quadv, 65 yrs +, IM (Fluzone) [facility] 10-04-2018 pneumococcal polysaccharide vaccine, 23 valent [facility] 11-30-2017 influenza, high dose seasonal, preservative-free [facility] 11-25-2016 influenza, high dose seasonal, preservative-free [facility] 11-25-2016 pneumococcal conjuga te vaccine, 13 valent [facility] 09-03-2014 tetanus toxoid, redu clau diphtheria toxoid, and acellular pertussis vaccine, adsorbed [facility] Payers Date Payer Category Payer [facility] [place] ONLY [id number] 2022-Present [address] [place] [address] Medicaid HMO [id number] 2022 Medicare [id number] 2015 Medicare 2015 Medicare [id number] 1945 Unknown [id number] 1945 Unknown [id number] Social History Date Type Detail Facility Start: 04-07-2020 End: 04-13-2020 Tobacco smoking status NHIS Current some day smoker [employer] Work Phone: Start: 06-04-1980 End: 03-06-2020 History of tobacco use Cigarette Smoker [employer] Work Phone: Start: 04-07-2020 End: 09-26-2022 Cigarettes smoked current (pack per day) - Reported [employer] Start: 04-07-2020 End: 12-29-2021 Tobacco use and exposure Former user [employer] Phone: End: 03-04-2016 History of tobacco use User of smokeless tobacco [employer] Phone: Start: 04-07-2020 End: 09-27-2022 Alcohol intake Current non-drinker of alcohol (finding) [employer] Work Phone: Start: 09-27-2019 History SDOH Physica l Activity DPW 0 [employer] Work Phone: Start: 09-27-2019 End: 05-26-2022 History SDOH Financial 4 [employer] Work Phone: Start: 09-27-2019 End: 05-26-2022 History SDOH Food Worry 1 [employer] Work Phone: Start: 09-27-2019 End: 05-26-2022 History SDOH Transport Med 2 [employer] Work Phone: Start: 12-13-2017 Tobacco Comment smokes 3 packs per week [employer] Work Phone: Start: 1945 Sex Assigned At Not on file S [facility] Work Phone: Start: 09-14-2022 End: 09-24-2022 Exposure to SARS-CoV-2 (event) Not sure [employer] Work Phone: Start: 06-04-2020 End: 12-29-2021 Tobacco smoking status NHIS Former smoker [employer] Work Phone: Start: 06-04-1980 End: 03-06-2020 History [...] by the provider seeing him at the [facility]. Thank you. [employer] Phone: 12-28-2022 Miscellaneous Notes Noted. Will have this managed by the provider seeing him at the [facility]. Thank you. The patient is a patient at [facility] [place]. Called patient no answer and no voicemail box set up. We received a fax from [employer] for a prescription request that is not on the patients med list. Attempted to call patient to see if he is using formoterol. Will need to try and call patient again tomorrow. Please do not sign encounter till patient is contacted. The faxed form is in the black box until patient is contacted. documented in this encounter [facility] 12-27-2022 Telephone encounter Note The patient is a patient at [facility] in [place]. [employer] 12-26-2022 Telephone encounter Note Called patient no answer and no voicemail box set up. We received a fax from [employer] for a prescription request that is not on the patients med list. Attempted to call patient to see if he is using formoterol. Will need to try and call patient again tomorrow. Please do not sign encounter till patient is contacted. The faxed form is in the black box until patient is contacted. [facility] 09-29-2022 Note Discharge Summary Adam Mendes [...] his diagnosis/management during his stay here at [facility]: # Worsening shortness of breath with exertion [...] okayed for discharge once facility arranged by [facility]/SW. # Chronic Afib with RVR - was [...] mg) by m (more content not included)... [facility] 09-29-2022 History of Presen t illness Narrative Occupational Therapy Facility/Department: [address] Occupational Therapy Treatment NAME: Adam Mendes [...] disease), Cerebral artery occlusion with cerebral infarction ([facility]), Diabetes mellitus (HCC), Hemodialysis patient ([facility]/HCC) ([facility]), History of blood transfusion, blood clots, or [...] Daily Activity Raw Score: 20 ADL Inpatient [facility] G-Code Modifier: CJ Goals Encounter Problems Encounter [...] PATIENT NAME: Adam Mendes DATE: 09/29/2022 PAGER: [phone] Images from the original note were not included. Hospitalist Progress Note 09/28/2022 [phone]: Please page me ([phone]) for patient care issues. [phone]: Please page [facility] Hospitalist for any issues. Subjective: Admit Date: 09/24/2022 PCP: Carlos Cuevas MD Room#: B2-246/B2-246 B Interval History: Patient states he is breathing fine today and denies sob at rest. A little sob with exertion but feels it is his baseline. Denies palpitations. No chest pain. No NV. No fevers or chills. No new cough. No lightheadedness or dizziness today. Adult diet Regular @[id number]@ 24HR INTAKE/OUTPUT: No intake or output data [...] MD Division of Hospitalist Medicine Inpatient Medical Services[place] PAGER: Epic chat Occupational Therapy Facility/Department: [facility] 2E Occupational Therapy Treatment NAME: Adam Mendes [...] deficits and increase strength/endurance. OT is rec [facility] with PRN assist upon planned D/C. Prognosis: [...] Risk Required Braces or Orthoses?: No Vision/Hearing [place] Cognition/Orientation Overall Cognitive Status: WFL Overall Orientation [...] PATIENT NAME: Adam Mendes DATE: 09/28/2022 PAGER: [phone] Physical Therapy Facility/Department: [facility] Physical Therapy Initial Evaluation NAME: Adam Mendes [...] to increase functional indendence and safety. Rec [facility] PT and assist prn. Performance Deficits/Impairments: Decreased [...] a cane prn. Pt would benefit from [facility] PT on discharge. Barriers to Learning: none [...] With device?: No Transfer Assistance: Independent Active Greige Goods Inspector: No Patient's Greige Goods Inspector Info: brother or sister drives Objective Observation/Palpation [...] Gt) Charo Walters PT Occupational Therapy Facility/Department: [address] Occupational Therapy Initial Evaluation NAME: Adam Mednes : 1945 Date of Service: 09/27/2022 Discharge [...] skilled OT services. Recommend planned D/C for [facility] OT with assist PRN. Prognosis: Good Decision [...] (HCC), Diabetes mellitus (HCC), Hemodialysis patient (CMS/HCC) ([facility]), History of blood transfusion, blood clots, or [...] With device?: No Transfer Assistance: Independent Active Greige Goods Inspector: No Patient's Greige Goods Inspector Info: brother or sister drives Objective Gross [...] PATIENT NAME: Adam Mendes DATE: 09/27/2022 PAGER: [phone] Images from the original note were not included. Hospitalist Progress Note 09/27/[id number]: Please page me ([phone]) for patient care issues. [phone]: Please page [facility] Hospitalist for any issues. Subjective: Admit Date: 09/24/2022 PCP: Carlos Cuevas MD Room#: [facility] B Interval History: Patient states he is breathing fine today and denies sob at rest. Denies palpitations. Currently on amiodarone drip. No chest pain. No NV. No fevers or chills. No new cough. No lightheadedness or dizziness today. Adult diet Regular @[id number]@ 24HR INTAKE/OUTPUT: Intake/Output Summary (Last 24 hours) [...] MD Division of Hospitalist Medicine Inpatient Medical Services/[facility] PAGER: Epic chat Occupational Therapy Facility/Department: Occupational Therapy Initial Evaluation NAME: Adam Mendes : 1945 Date of Service: 09/26/2022 Chart review completed and spoke to RN. Patient with recent/current elevated HR (150-180s) and on amiodarone drip and not appropriate to participate in therapy assessment. Will continue to follow and re-attempt as appropriate. Sheryl Orr OT Physical Therapy Facility/Department: [address] Physical Therapy NAME: Adam Mendes : [...] mass loss (mod) Fluid Accumulation: Mild Extremities Bowling Alley Attendant Strength: Normal batch or continuous still operator strength Nutrition Assessment: PER PA-Mr. Mendes has [...] On: Kcal/kg Weight Used for Energy Requirements: Russell Weight for Energy Calculation (kg): 81 kg Total Energy Requirements (kcals/day): 28-32 or 2414-3383 Weight Used for Protein Requirements: Russell Weight in Kg Used for Protein Requirements: [...] (280 lb) % Weight Change (Calculated): -17.1 Russell Body Weight (lbs) (Calculated): 178 lbs Russell Body Weight (Kg) (Calculated): 81 kg % Russell Body Weight (Calculated): 130.3 % BMI (kg/m2) [...] Continue current diet Rolanda Serna RD Contact: *[phone] secure chat Images from the original note were not included. Hospitalist Progress Note 09/26/2022 [phone]: Please page me ([phone]) for patient care issues. [phone]: Please page [facility] Hospitalist for any issues. Subjective: Admit Date: 09/24/2022 PCP: Carlos Cuevas MD Room#: B2-249/B2-249 B Interval History: Patient states he is breathing much better today. Denies sob at rest and said he is not that sob with exertion as before. No chest pain. No NV. No fevers or chills. No new cough. No lightheadedness or dizziness today. NPO diet @[id number]@ 24HR INTAKE/OUTPUT: Intake/Output Summary (Last 24 hours) [...] Cancer (CMS/HCC) (HCC) CHF (congestive heart failure) ([facility]/HCC) (HCC) COPD (chronic obstructive pulmonary disease) (HCC) [...] MD Division of Hospitalist Medicine Inpatient Medical Services/[facility] PAGER: Epic chat Images from the original [...] PATIENT NAME: Adam Mendes DATE: 09/26/2022 PAGER: [phone] [facility] [place] [facility] Cardiology /Electrophysiology Progress Note HPI / Interval [...] note were not included. Hospitalist Progress Note 09/25/[id number]: Please page me ([phone]) for patient care issues. [phone]: Please page [facility] night Hospitalist for any issues. Subjective: Admit Date: 09/24/2022 PCP: Carlos Cuevas MD Room#: B2-249/B2-249 B Interval History: patient breathing fine in bed. Denies sob in bed but states currently cannot walk short distance without being severely sob. No chest pain. No NV. No fevers or chills. No new cough. No lightheadedness or dizziness today. Adult diet Regular; Low Sodium (2 gm) @[id number]@ 24HR INTAKE/OUTPUT: Intake/Output Summary (Last 24 hours) [...] MD Division of Hospitalist Medicine Inpatient Medical Services/[facility] PAGER: Epic chat documented in this encounter [facility] 09-29-2022 Note Formatting of this n ote might be different from the original. Discharge med list, MAR and Covid results transmitted to return back to [facility] via [facility] per [facility] request. [facility] 09-29-2022 Note Formatting of this n ote might be different from the original. Discharge med list, MAR and Covid results transmitted to return back to [facility] via [facility] per [facility] request. [facility] 09-29-2022 Miscellaneous Notes Discharge med list, MAR and Covid results transmitted to return back to [facility] via [facility] per [facility] request. Patient with discharge orders placed. [facility] tasked, via [facility], to send discharge paperwork to [facility]. Secure message sent to to arrange transportation, notify family and facility. Patient set up for a 1600 pickle maker time. Asked by [facility] to set transport to [facility]. Cot transportation arranged through [facility] for 1600 pickle maker. Pt, pts brother, nurse, unit sec, TCC, and facility informed of time. PASRR completed in [facility] for [facility]. Sent updated notes to return back to [facility] via [facility] per [facility] request. Await review and response regarding ability to accept. [facility] notified. Images from the original note were not included. Care Management Progress Note Patient remains on 2E due to SOB, tachycardic Clinical updates: Patient on 2L O2. Still having episodes of SOB with exertion. Cardiology following . No labs for 2 days. 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 Awaiting auth. [facility] sent auth to wrong insurance, for short term, need auth from Medicaid for terminal gauger supervisor. Message sent to [facility], via [employer]. Facility also requesting updated therapy and MD notes. Task sent to [facility] via [employer] to send updated therapy and MD notes to above facility. Patient states he thinks he remembers getting a phone call from [employer] in the middle of the night, but he doesn't remember and would like me to mckay his brother in regards to this. Spoke with brother, Jacqui, to inform of both things above. Jacqui states he is going to call security to check if anyone from [employer] called. Discharge obstacles: none noted. TCC to [...] No labs for 2 days. 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 Awaiting auth. Discharge obstacles: none noted. TCC [...] (Days): 4 GMLOS: 2.7 Referral placed to [facility] via [facility] per [facility] request. Await review and response regarding ability to accept. [facility]CC notified. Images from the original note were not included. Care Management Progress Note Patient remains on 2E due to SOB, tachycardic Clinical updates: Patient on room air. Still having episodes of SOB with exertion. Cardiology following for runs of V-tach. Discharge plan: TBD. Possible long-term. Spoke with brother Jacqui, and therapy. Therapy [...] would like to have referral placed to [facility] for long-term placement under Medicaid. Jacqui states he has already talked to someone at [facility] and they are able to accept. Explained the process here and he verbalized understanding. Also explained that if patient decides he does not want to go, we cannot force him. Task sent to [facility] via [facility] to place referral as above. Discharge [...] of him, would like him placed at [facility] in [place]. Explained to brother that I will need [...] of Information: Patient Name/Contact Information: JACQUI MENDES [phone] BROTHER Cognition/Language: WFL - Within Functional Limits Permission given to speak with patient distribution sales representative/caregiver as indicated: Yes Confirmation of Payer with patient/family: Yes Payer Name: UHC MEDICARE [place]: No Confirmation of Primary Care Physician: Confirmed [...] Prescription Coverage: Yes Pharmacy Used: [facility] Medication Management: Prescription pick-up Who assists with [...] status from home with sob. Admitted to [facility], cardiology consulted, daily labs. Discharge preparation checklist [...] him . 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 Discharge plan is home with brother and sister to assist when medically stable. Rolanda Matthews RN documented in this encounter [facility] 09-29-2022 Note Formatting of this n ote might be different from the original. Patient with discharge orders placed. [facility] tasked, via [employer], to send discharge paperwork to [facility]. Secure message sent to to arrange transportation, notify family and facility. Patient set up for a 1600 pickle maker time. [facility] 09-29-2022 Note Formatting of this n ote might be different from the original. Patient with discharge orders placed. [facility] tasked, via [employer], to send discharge paperwork to [facility]. Secure message sent to to arrange transportation, notify family and facility. Patient set up for a 1600 pickle maker time. [facility] 09-29-2022 Hospital course Narrative Discharge Summary Adam [...] his diagnosis/management during his stay here at [facility]: # Worsening shortness of breath with exertion [...] okayed for discharge once facility arranged by [facility]/SW. # Chronic Afib with RVR - was [...] Your Medications These medications were sent to [facility] [place] [id number] [facility]. [address], [facility] [address] furosemide 40 MG tablet Information about where to get these medications is not yet available Ask your nurse or doctor about these medications amiodarone 400 MG tablet polyethylene glycol (PEG) 3350 17 g packet potassium chloride CR 10 MEQ ER tablet DIET: Adult diet Regular ACTIVITY: Up with assist _ COMPLEXITY OF FOLLOW UP: [] Moderate Complexity: follow up within 7-14 calendar days (23256) [] Severe Complexity: follow up within 7 calendar days (94643) FOLLOW UP TESTING, PENDING RESULTS OR REFERRALS [...] 09/29/2022, 3:02 PM documented in this encounter [facility] 09-29-2022 Note Formatting of this n ote might be different from the original. Asked by [facility] to set transport to [facility]. Cot transportation arranged through [facility] for 1600 pickle maker. Pt, pts brother, nurse, unit sec, TCC, and facility informed of time. [facility] 09-29-2022 Note Formatting of this n ote might be different from the original. Asked by [facility] to set transport to [facility]. Cot transportation arranged through [facility] for [address]. Pt, pts brother, nurse, unit sec, TCC, and facility informed of time. [facility] 09-29-2022 Note Care Management Prog ress Note Patient remains on 2E due to SOB, tachycardic Clinical updates: Patient on 2L O2. Still having episodes of SOB with exertion. Cardiology following . No labs for 2 days. Discharge plan: [facility], long-term. Awaiting auth. [facility] sent auth to [facility] insurance, for short term, need auth from Medicaid for long-term. Message sent to [facility], via [employer]. Facility also requesting updated therapy and MD notes. Task sent to [facility] via [employer] to send updated therapy and MD notes to above facility. Patient states he thinks he remembers getting a phone call from [employer] in the middle of the night, but he doesn't remember and would like me to mckay his brother in regards to this. Spoke with brother, Jacqui, to inform of both things above. Jacqui states he is going to call security to check if anyone from [employer] called. Discharge obstacles: none noted. TCC to [...] Length of Stay (Days): 5 GMLOS: 2.7 [facility] 09-29-2022 Note Formatting of this n ote might be different from the original. PASRR completed in [facility]. [facility] 09-29-2022 Note Formatting of this n ote might be different from the original. PASRR completed in [facility]. [facility] 09-29-2022 Hospital Discharg e instructions Yina Melo RN - 09/29/2022 11:27 AM EDT Continuity of Care Form Patient Name: Adam Mendes : 1945 Admit date: 09/24/2022 Discharge date: 09/29/22 Code Status Order: Full Code Advance Directives: N Admitting Physician: Cezar Forbes MD PCP: Carlos Cuevas MD Discharging Nurse: Discharging Hospital Unit/Room#: B2-246/B2-246 B Discharging Unit Phone Number: [phone] Emergency Contact: Extended Emergency Contact Information Primary [...] right Body mass index (BMI) 40.0-44.9, adult ([facility]) Anemia due to chronic kidney disease NSVT (nonsustained ventricular tachycardia) ([facility]) Nonrheumatic aortic valve stenosis Ectropion of right eye Chronic heart failure with preserved ejection fraction ([facility]) ([facility]) Dyspnea Chronic respiratory failure with hypoxia ([facility]) ([facility]) FELICIANO (obstructive sleep apnea) COPD (chronic obstructive pulmonary disease) ([facility]) Ulceration of right eyelid Atrial fibrillation (CMS/HCC) ([facility]) Moderate obesity Cellulitis of right lower extremity Current use of terminal gauger supervisor anticoagulation Hyperglycemia Basal cell carcinoma (BCC) of [...] assistance Toileting Minimal assistance Feeding Minimal assistance Agency Cashier Minimal assistance Med Delivery yes Wound Care [...] Score: @[email or web address]@ Discharging to Facility/ Agency Name: [facility] Address: [place] [address] Fax: Dialysis Facility (if applicable) Name: Address: Dialysis Schedule: Phone: Fax: Nurse Recruiter/Management Trainer signature: ICIAN SECTION Prognosis: fair Condition at Discharge: stable Rehab Potential (if transferring to Rehab): good Recommended Labs or Other Treatments After Discharge: Physician Certification: I certify the above information and transfer of Adam Mendes is necessary for the continuing treatment of the diagnosis listed and that he requires residential facility for greater than 30 days. Update Admission H&P: No change in H&P PHYSICIAN SIGNATURE: documented in this encounter [facility] 09-29-2022 Note Formatting of this n ote might be different from the original. Sent updated notes to return back to [facility] per TCC request. Await review and response regarding ability to accept. TCC notified. [facility] 09-29-2022 Note Formatting of this n ote might be different from the original. Sent updated notes to return back to [facility] via [facility] per TCC request. Await review and response regarding ability to accept. TCC notified. [facility] 09-29-2022 Note Formatting of this n ote is different from the original. Images from the original note were not included. Care Management Progress Note Patient remains on 2E due to SOB, tachycardic Clinical updates: Patient on 2L O2. Still having episodes of SOB with exertion. Cardiology following . No labs for 2 days. 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 Awaiting auth. [facility] sent auth to [facility] insurance, for short term, need auth from Medicaid for long-term. Message sent to [facility], via [employer]. Facility also requesting updated therapy and MD notes. Task sent to [facility] via [employer] to send updated therapy and MD notes to above facility. Patient states he thinks he remembers getting a phone call from [employer] in the middle of the night, but he doesn't remember and would like me to mckay his brother in regards to this. Spoke with brother, Jacqui, to inform of both things above. Jacqui states he is going to call security to check if anyone from [employer] called. Discharge obstacles: none noted. TCC to [...] Length of Stay (Days): 5 GMLOS: 2.7 [facility] 09-29-2022 Note Formatting of this n ote is different from the original. Images from the original note were not included. Care Management Progress Note Patient remains on 2E due to SOB, tachycardic Clinical updates: Patient on 2L O2. Still having episodes of SOB with exertion. Cardiology following . No labs for 2 days. 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 Awaiting auth. [facility] sent auth to [facility] insurance, for short term, need auth from Medicaid for long-term. Message sent to [facility], via [employer]. Facility also requesting updated therapy and MD notes. Task sent to [facility] via [employer] to send updated therapy and MD notes to above facility. Patient states he thinks he remembers getting a phone call from [employer] in the middle of the night, but he doesn't remember and would like me to mckay his brother in regards to this. Spoke with brother, Jacqui, to inform of both things above. Jacqui states he is going to call security to check if anyone from [employer] called. Discharge obstacles: none noted. TCC to [...] 8:03 AM 09/26/2022 Preethi Jimenez APRN - VIRTUALIZATION ENGINEER 09/24/2022 7:03 PM 09/26/2022 Preethi Jimenez APRN - DAREK 09/24/2022 3:36 PM 09/25/2022 Lupillo Richards MD 09/24/2022 3:05 PM Length of Stay (Days): 5 GMLOS: 2.7 [facility] 09-29-2022 Plan of care note The patient [...] these barriers include continue current care plan. [facility] 09-28-2022 Note Hospitalist Progress Note 09/28/2022 [phone]: Please page wy ([phone]) for patient care issues. [phone]: Please page [facility] Hospitalist for any issues. Subjective: Admit Date: 09/24/2022 PCP: Carlos Cuevas MD Room#: B2-246/B2-246 B Interval History: Patient states he is breathing fine today and denies sob at rest. A little sob with exertion but feels it is his baseline. Denies palpitations. No chest pain. No NV. No fevers or chills. No new cough. No lightheadedness or dizziness today. Adult diet Regular @[id number]@ 24HR INTAKE/OUTPUT: No intake or output data [...] [place] (more content not included)... [facility] 09-28-2022 Note Care Management Prog ress Note Patient remains on 2E due to SOB, tachycardic Clinical updates: Patient on room air. Still having episodes of SOB with exertion. Cardiology following . No labs for 2 days. Discharge plan: [facility]. Awaiting auth. Discharge obstacles: none noted. TCC to continue to follow. Discharge Milestones and Delays Expected Date/Time: 09/30/[address] discharge order Complete med reconciliation Case mgmt discharge readiness Clinical Stability Diagnsotic Workup Expected Discharge History Expected Date/Time Set By Reviewed At 09/30/2022 Vikki Mayo RN 09/28/2022 7:52 AM TCC estiaashlyn 09/30/2022 Vikki aMyo RN 09/27/2022 7:46 AM 09/27/2022 Cezar Forbes MD 09/26/2022 2:18 PM 09/27/2022 Vikki Mayo RN 09/26/2022 8:03 AM 09/26/2022 Preethi Jimenez CLINICAL TRIAL COORDINATOR - VIRTUALIZATION ENGINEER 09/24/2022 7:03 PM 09/26/2022 Preethi Jimenez APRN - VIRTUALIZATION ENGINEER 09/24/2022 3:36 PM 09/25/2022 Lupillo Richards MD 09/24/2022 3:05 PM Length of Stay (Days): 4 GMLOS: 2.7 [facility] 09-28-2022 Note Formatting of this n ote is different from the original. Images from the original note were not included. Care Management Progress Note Patient remains on 2E due to SOB, tachycardic Clinical updates: Patient on room air. Still having episodes of SOB with exertion. Cardiology following . No labs for 2 days. Discharge plan: [facility]. Awaiting auth. Discharge obstacles: none noted. TCC [...] 7:03 PM 09/26/2022 Preethi Jimenez APRN - VIRTUALIZATION ENGINEER 09/24/2022 3:36 PM 09/25/2022 Lupillo Richards MD 09/24/2022 3:05 PM Length of Stay (Days): 4 GMLOS: 2.7 T [facility] 09-28-2022 Note Formatting of this n ote is different from the original. Images from the original note were not included. Care Management Progress Note Patient remains on 2E due to SOB, tachycardic Clinical updates: Patient on room air. Still having episodes of SOB with exertion. Cardiology following . No labs for 2 days. Discharge plan: [facility] term. Awaiting auth. Discharge obstacles: none noted. [...] 8:03 AM 09/26/2022 Preethi Jimenez APRN - VIRTUALIZATION ENGINEER 09/24/2022 7:03 PM 09/26/2022 Preethi Jimenez APRN - VIRTUALIZATION ENGINEER 09/24/2022 3:36 PM 09/25/2022 Lupillo Richards MD 09/24/2022 3:05 PM Length of Stay (Days): 4 GMLOS: 2.7 [facility] 09-27-2022 Note Referral placed to [facility] via [facility] per TCC request. Await review and response regarding ability to accept. TCC notified. [facility] 09-27-2022 Note Formatting of this n ote might be different from the original. Referral placed to [facility] via [facility] per TCC request. Await review and response regarding ability to accept. TCC notified. [facility] 09-27-2022 Note Formatting of this n ote might be different from the original. Referral placed to [facility] via [employer] per TCC request. Await review and response regarding ability to accept. TCC notified. T [facility] 09-27-2022 Note Care Management Prog ress Note Patient remains on 2E due to SOB, tachycardic Clinical updates: Patient on room air. Still having episodes of SOB with exertion. Cardiology following for runs of V-tach. Discharge plan: TBD. 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 Spoke with brother Jacqui, and therapy. Therapy [...] would like to have referral placed to [facility] for long-term placement under Medicaid. Jacqui states he has already talked to someone at [facility] and they are able to accept. Explained the process here and he verbalized understanding. Also explained that if patient decides he does not want to go, we cannot force him. Task sent to [facility] via [employer] to place referral as above. [...] Length of Stay (Days): 3 GMLOS: 2.7 [facility] 09-27-2022 Note Hospitalist Progress Note 09/27/2022 [phone]: Please page me ([phone]) for patient care issues. [phone]: Please page [facility] Hospitalist for any issues. Subjective: Admit Date: 09/24/2022 PCP: Carlos Cuevas MD Room#: B2-246/B2-246 B Interval History: Patient states he is breathing fine today and denies sob at rest. Denies palpitations. Currently on amiodarone drip. No chest pain. No NV. No fevers or chills. No new cough. No lightheadedness or dizziness today. Adult diet Regular @[id number]@ 24HR INTAKE/OUTPUT: Intake/Output Summary (Last 24 hours) [...] cardiology. Lasix remain (more content not included)... [facility] 09-27-2022 Note Formatting of this n ote is different from the original. Images from the original note were not included. Care Management Progress Note Patient remains on 2E due to SOB, tachycardic Clinical updates: Patient on room air. Still having episodes of SOB with exertion. Cardiology following for runs of V-tach. Discharge plan: TBD. 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 Spoke with brother Jacqui, and therapy. Therapy [...] would like to have referral placed to [facility] [place] for terminal gauger supervisor placement under Medicaid. Jacqui states he has already talked to someone at [facility] and they are able to accept. Explained the process here and he verbalized understanding. Also explained that if patient decides he does not want to go, we cannot force him. Task sent to [facility] via [facility] to place referral as above. Discharge [...] Length of Stay (Days): 3 GMLOS: 2.7 [facility] 09-27-2022 Note Formatting of this n ote is different from the original. Images from the original note were not included. Care Management Progress Note Patient remains on 2E due to SOB, tachycardic Clinical updates: Patient on room air. Still having episodes of SOB with exertion. Cardiology following for runs of V-tach. Discharge plan: TBD. Possible long-term. Spoke with brother Jacqui, and therapy. Therapy [...] would like to have referral placed to [facility] for long-term placement under Medicaid. Jacqui states he has already talked to someone at [facility] and they are able to accept. Explained the process here and he verbalized understanding. Also explained that if patient decides he does not want to go, we cannot force him. Task sent to [facility] via [facility] to place referral as above. Discharge [...] of Stay (Days): 3 GMLOS: 2.7 T [facility] 09-27-2022 Note Problem: Safety - Ad ult Goal: Free from fall injury Outcome: Progressing Flowsheets (Taken 09/27/2022 0234) Free from fall injury: Instruct family/caregiver on patient safety [facility] 09-27-2022 Plan of care note Problem: Safety - Adult Goal: Free from fall injury Outcome: Progressing Flowsheets (Taken 09/27/2022 0234) Free from fall injury: Instruct family/caregiver on patient safety T [facility] 09-26-2022 Note Care Management Prog ress Note TRANSITIONAL CARE DAILY NOTE/UPDATES: Patient remains on 2E due to SOB. Clinical updates: Patient was NPO for nuclear stress test today. Patient on 3L O2, has O2 at home. Cardiology following. Discharge plan: TBD. Spoke with brother Jacqui, who states patient cannot return home as they can't take care of him, would like him placed at [facility] in [place]. Explained to brother that I will need [...] Stay (Days): 0 GMLOS: No GMLOS Documented [facility] 09-26-2022 Note Formatting of this n ote [...] of him, would like him placed at [facility] in [place]. Explained to brother that I will need [...] Stay (Days): 0 GMLOS: No GMLOS Documented [facility] 09-26-2022 Note Formatting of this n ote [...] of him, would like him placed at [facility] in [place]. Explained to brother that I will need [...] Stay (Days): 0 GMLOS: No GMLOS Documented [facility] 09-26-2022 Note Hospitalist Progress Note 09/26/[phone]: Please page me ([phone]) for patient care issues. [phone]: Please page [facility] Hospitalist for any issues. Subjective: Admit Date: 09/24/2022 PCP: Carlos Cuevas MD Room#: B2-249/B2-249 B Interval History: Patient states he is breathing much better today. Denies sob at rest and said he is not that sob with exertion as before. No chest pain. No NV. No fevers or chills. No new cough. No lightheadedness or dizziness today. NPO diet @[id number]@ 24HR INTAKE/OUTPUT: Intake/Output Summary (Last 24 hours) [...] Zurita who saw (more content not included)... [facility] 09-26-2022 Note [facility] Cardiology /Electrophysiology Progress Note HPI / [...] Pamelabarbara San PA-C Date Of Service 09/26/2022 [facility] 09-26-2022 Plan of care note The patient is Moderately Stable - Low risk of patient condition declining or worsening The patient's goals for the shift include eat/drink after stress test The clinical goals for the shift include tolerate stress test Over the shift, the patient did not make progress toward the following goals. Barriers to progression include pending test. [facility] 09-25-2022 Consult note Associated Order (s): IP CONSULT TO CARDIOLOGY Images from the original note were not included. [facility] [address] [place] [phone] Dept: [phone] This is a 77-year-old man seen for [...] disease and encouraged referral to cardiopulmonary rehab. [facility] 09-25-2022 Consult note Associated Order (s): IP CONSULT TO CARDIOLOGY Images from the original note were not included. [facility] [address] [place] [phone] Dept: [phone] This is a 77-year-old man seen for [...] to cardiopulmonary rehab. documented in this encounter [facility] 09-25-2022 Note Hospitalist Progress Note 09/25/2022 [phone]: Please page me ([phone]) for patient care issues. [phone]: Please page [facility] night Hospitalist for any issues. Subjective: Admit Date: 09/24/2022 PCP: Carlos Cuevas MD Room#: B2-249/B2-249 B Interval History: patient breathing fine in bed. Denies sob in bed but states currently cannot walk short distance without being severely sob. No chest pain. No NV. No fevers or chills. No new cough. No lightheadedness or dizziness today. Adult diet Regular; Low Sodium (2 gm) @[id number]@ 24HR INTAKE/OUTPUT: Intake/Output Summary (Last 24 hours) [...] MD Division of Hospitalist Medicine Inpatient Medical Services/[facility] PAGER: Tristin lynn [facility] 09-25-2022 Note Formatting of this n ote might be different from the original. Care Managment Initial Assessment Date: 09/25/2022 Patient Name: Adam Mendes : 1945 Patient Information Source of Information: Patient Name/Contact Information: JACQUI MENDES [phone] BROTHER Cognition/Language: WFL - Within Functional Limits Permission given to speak with patient distribution sales representative/caregiver as indicated: Yes Confirmation of Payer with patient/family: Yes Payer Name: [employer] MEDICARE [place]: No Confirmation of Primary Care Physician: Confirmed [...] Prescription Coverage: Yes Pharmacy Used: [facility] Medication Management: Prescription pick-up Who assists with [...] him . 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 Discharge plan is home with brother and sister to assist when medically stable. Rolanda Matthews RN [facility] 09-25-2022 Note Formatting of this n ote might be different from the original. Care Managment Initial Assessment Date: 09/25/2022 Patient Name: Adam Mendes : 1945 Patient Information Source of Information: Patient Name/Contact Information: JACQUI MENDES [phone] BROTHER Cognition/Language: WFL - Within Functional Limits Permission given to speak with patient distribution sales representative/caregiver as indicated: Yes Confirmation of Payer with patient/family: Yes Payer Name: [facility] MEDICARE [place]: No Confirmation of Primary Care Physician: Confirmed [...] Living Prescription Coverage: Yes Pharmacy Used: [facility] Medication Management: Prescription pick-up Who assists with [...] status from home with sob. Admitted to [facility], cardiology consulted, daily labs. Discharge preparation checklist [...] him . 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 Discharge plan is home with brother and sister to assist when medically stable. Rolanda Matthews RN [facility] 09-24-2022 Emergency department Note Patient transported to via [employer] at this time in stable condition. Ondina Bateman RN 09/24/22 1837 [facility] 09-24-2022 Emergency department Note Patient transported to via [employer] at this time in stable condition. Ondina [...] Bateman RN 09/24/22 1023 Emergency Department Encounter [facility] ED Patient: Adam Mendes : 1945 Date [...] [employer] Lupillo Richards MD 09/24/22 6220 Pt c.o increased SOB since this a.m. Pt states he cant walk more then 5 ft without feeling winded. Pt wears 3-4 L NC baseline. Hypotensive in triage. documented in this encounter [facility] 09-24-2022 Note Attending History an d Physical [...] side of his (more content not included)... [facility] 09-24-2022 Emergency department Note Meal tray ordered for patient at this time. Sitting up at side of bed for comfort. Call light within reach. Respirations easy and unlabored. Does not appear to be in distress. Ondina Bateman RN 09/24/22 1438 [facility] 09-24-2022 Emergency department Note Respiratory at bedside at this time. Ondina Bateman RN 09/24/22 1246 [facility] 09-24-2022 Emergency department Note Respiratory called for breathing treatment at this time. Ondina Bateman RN 09/24/22 1243 [facility] 09-24-2022 Emergency department Note Patient states he is experiencing increase SOB. Requesting a breathing treatment at this time. Dr. Richards notified. Ondina Bateman RN 09/24/22 1331 [facility] 09-24-2022 Emergency department Note Xray at bedside at this time Ondina Bateman RN 09/24/22 1023 [facility] 09-24-2022 Emergency department Triage note Pt c.o increased SOB since this a.m. Pt states he cant walk more then 5 ft without feeling winded. Pt wears 3-4 L NC baseline. Hypotensive in triage. [facility] 09-24-2022 Physician Emergency department Note Emergency Department Encounter [facility] ED Patient: Adam Mendes : 1945 Date [...] [employer] Lupillo Richards MD 09/24/22 1530 [facility] 07-08-2022 Note Care Management Prog ress Note [...] Set By Reviewed At 07/08/2022 Midday King Robles MD 07/08/2022 12:03 PM Cardiac clearance, await clinical improvement. Declining [facility] 07/08/2022 VENKAT Rajput 07/08/2022 10:03 AM 07/07/2022 VENKAT Rajput 07/07/2022 10:27 AM Cardiac clearance, await clinical improvement 07/07/2022 VENKAT Rajput 07/06/2022 10:40 AM 07/05/2022 Alma Delia Britton RN 07/05/2022 9:10 AM 07/06/2022 VENKAT Rajput 07/04/2022 10:27 AM 07/06/2022 Aram Stevens DO 07/03/2022 4:20 AM 07/06/2022 Mauro Morataya MD 07/03/2022 3:07 AM Length of Stay (Days): 5 GMLOS: 3.9 [facility] 07-08-2022 Note Discharge Summary Adam Mendes : [...] Your Medications These medications were sent to [facility] [address] [place] [address] Hours: Monday to Monday 10 am to 6 pm bacitracin-polymyxin b ointment ferrous sulfate 325 (65 Fe) MG tablet furosemide 40 MG tablet predniSONE 10 MG tablet DIET: Adult diet Regular ACTIVITY: up with assist COMPLEXITY OF FOLLOW UP: [] Moderate Complexity: follow up within 7-14 calendar days (49703) [] Severe Complexity: follow up within 7 calendar days (01316) FOLLOW UP TESTING, PENDING RESULTS OR REFERRALS AT TRANSITIONAL CARE VISIT: [] Yes [] No PENDING STUDIES: No DISPOSITION: Home FACILITY/HOME CARE AGENCY NAME: Follow up with Prakash Zurita MD [address] [place] [address], [address] [place] [address] Follow up in 2 week(s) Carlos Cuevas MD 25 [facility] [address] Schedule an appointment as soon as possible [...] patient is s (more content not included)... [facility] 07-07-2022 Note Problem: Safety - Ad ult [...] clinical goals for the shift include safety [facility] 07-07-2022 Note Hospitalist Progress Note 07/07/2022 [phone]: Please page me ([phone]) for patient care issues. [phone]: Please page [facility] Hospitalist for any issues. Subjective: Admit Date: 07/03/2022 PCP: Carlos Cuevas MD Room#: Y2-593/H3-995 A Interval History: Patient states he feels a little tired but other than that, states he is doing fine this am. Denies being sob currently (then states maybe a little). No chest pain. No NV. No fevers or chills. Currently on 3L NC O2. Adult diet Regular @[id number]@ 24HR INTAKE/OUTPUT: Intake/Output Summary (Last 24 hours) [...] Information Primary Emerge (more content not included)... [facility] 07-06-2022 Note Care Management Prog ress Note Patient remains on 4 South today with continued reports of dyspnea with exertion. On 4L O2 NC, at baseline. Continued PO steroids and breathing tx. Soft BP, monitoring. Cardiology following, cardiac medication adjustment. On tele. Monitoring labs/lytes. Strict I/O and lazo weights. Patient waiting on cardiac clearance for discharge. Therapy recommending [facility], patient declined. Discharge Milestones and Delays Expected [...] Length of Stay (Days): 3 GMLOS: 3.9 [facility] 07-06-2022 Note Hospitalist Progress Note 07/06/2022 [phone]: Please page me ([phone]) for patient care issues. [phone]: Please page [facility] Hospitalist for any issues. Subjective: Admit Date: 07/03/2022 PCP: Carlos Cuevas MD Room#: [id number] A Interval History: Patient doing fine this morning. States he is doing same. He admits to being a little sob only which is worst with exertion but denies any chest pain. Does NOT have any conversational dyspnea and breathing very comfortable. He denies any abdominal pain, nausea, vomiting, diarrhea, constipation, fevers, or chills. Adult diet Regular @[id number]@ 24HR INTAKE/OUTPUT: Intake/Output Summary (Last 24 hours) [...] Contact Information Primary Emergency Contact: Jacqui Mendes Kulm Phon (more content not included)... [facility] 07-05-2022 Note Hospitalist Progress Note 07/05/2022 [phone]: Please page me ([phone]) for patient care issues. [phone]: Please page [facility] Hospitalist for any issues. Subjective: Admit Date: 07/03/2022 PCP: Carlos Cuevas MD Room#: U9-459/G7-459 A Interval History: Patient doing okay this am. He admits to being a little sob only which is worst with exertion but denies any chest pain. Does NOT have any conversational dyspnea and breathing very comfortable. No abdominal pain, nausea, vomiting, diarrhea, constipation, fevers, or chills. Adult diet Regular @[id number]@ 24HR INTAKE/OUTPUT: Intake/Output Summary (Last 24 hours) [...] MD Division of Hospitalist Medicine Inpatient Medical Services/[facility] PAGER: Tristin lynn [facility] 07-04-2022 Note Care Management Prog ress Note [...] Stay (Days): 1 GMLOS: No GMLOS Documented [facility] 07-04-2022 Note Hospitalist Progress Note 07/04/2022 [phone]: Please page wy ([phone]) for patient care issues. [phone]: Please page [facility] Hospitalist for any issues. Subjective: Admit Date: 07/03/2022 PCP: Carlos Cuevas MD Room#: E7-474/Y2-601 A Interval History: No overnight issues. Denies chest pain, but admits to being a little sob which is worst with exertion. No abdominal pain, nausea, vomiting, diarrhea, constipation, fevers, or chills. Adult diet Regular @[id number]@ 24HR INTAKE/OUTPUT: Intake/Output Summary (Last 24 hours) [...] MD Division of Hospitalist Medicine Inpatient Medical Services/[facility] PAGER: [facility] 07-03-2022 Note History and Physical [facility] Adam Mendes : 1945 AGE 76 [...] rate and rh (more content not included)... [facility] 06-23-2022 Telephone encounter Note Patient notified. [facility] 06-23-2022 Miscellaneous Notes Patient notified. 1 loose [...] AND lasting > 4 weeks) Protocols used: Jwqlpany-TKCTD-QH documented in this encounter [facility] 06-23-2022 Telephone encounter Note 1 loose bowel movement is not diarrhea, he does not need to take anything if he has had 1 loose bowel movement if he has watery bowel movement that is diarrhea and if that happens multiple times then he needs to take something [facility] 06-23-2022 Telephone encounter Note S: Patient spoke [...] AND lasting > 4 weeks) Protocols used: Woyfjzvk-LVHKH-GJ [employer] 10-14-2020 Note HNO ID: [id number] Author: Connie Cruz APRN.VIRTUALIZATION ENGINEER Service: ? Author Type: Nurse Practitioner Type: Progress Notes Filed: 10/14/2020 11:02 AM Note Text: This note was created using Monstrousriter. Subjective Adam Mendes is a 75 year [...] now. Unsure if he will go to [place] [facility] or [facility]. [facility] documented in this encounter [facility] Work Phone: [...] aortic valve stenosis documented in this encounter [facility] Discharge instructions* Attachments The following attachments cannot be sent through Care Everywhere. * Cellulitis (Frisian) [facility] Work Phone: Summary Purpose Family History No Family History Records FoundNo Family History Records FoundNo Family History Records FoundNo Family History Records FoundNo Family History Records FoundNo Family History Records Found Advance Directives No Advanced Directives Records FoundDocuments on File Type Date Recorded Patient Industrial Equipment Mechanic Expl anation ACP-Advance Directive ACP-Power of Big Data Platform Architect Latest Code Status on File Code Status [...] Davis RCP - 04/08/2020 2:52 PM EST [facility] Respiratory Care Department Progress Note SpO2 at rest on 5 LPM o2 = 92% HR at rest = 109 SpO2 with ambulation on 6 LPM = 86% Peak HR = 122 Qualify for home O2 Y/N = {YES Patient mobile at home Y/N = {YES * Tanika Akers, CLINICAL TRIAL COORDINATOR - VIRTUALIZATION ENGINEER - 04/08/2020 10:55 AM EST [facility], Pulmonary Critical Care and Sleep Medicine [address] [place] [address] Patient - Adam Mendes, Age - 74 y.o. - 1945 Room Number - [facility]/4551 Consulting - Melvi Higgins MD Primary [...] Hospital Problems Diagnosis Date Noted Pulmonary hypertension (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) [E66.01, Z68.41] 04/05/2016 Atrial fibrillation ([facility]) [I48.91] 03/22/2016 COPD (chronic obstructive pulmonary disease) ([facility]) [J44.9] 03/22/2016 Assessment and Plan Acute on [...] - Had followed with Dr. Farias at [facility] Hx Atrial fibrillation, on OAC [...] patient and reviewed the case with the HOOKMAN. I agree with the current plan of [...] 04/08/2020 9:47 AM EST Physical Therapy Facility/Department: [facility] 4S TELEMETRY Initial Assessment NAME: Adam Mendes : 1945 Date of Service: 04/08/2020 Chart review complete. Upon entry into room pt found ambulating from bathroom with no device and G0lijizoovf. Stated he has been getting up independently. 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 Plan: Start/continue incentive spirometry and continue respiratory treatments. Restricted diet and advance diet as tolerated. Administer medications as ordered. (Specialty Problems Cardiology Problems Atrial fibrillation (HCC) with current use of terminal gauger supervisor anticoagulation Hypertensive heart disease with chronic combined [...] PATIENT NAME: Adam Mendes DATE: 04/08/2020 PAGER: [phone] * Lara Kim RN - 04/08/2020 3:22 [...] EST Hospitalist Progress Note 04/07/2020 1:51 PM [phone]: Please page me ([phone]) for patient care issues. [phone]: Please page [facility] night Hospitalist for any issues. Subjective: Admit Date: 04/03/2020 PCP: Carlos Cuevas MD Room#: 599/5310 Interval History: No overnight issues. Denies chest [...] of Hospitalist Medicine Inpatient Medical Services PAGER: [phone] * Gertrude Sheehan, OT - 04/07/2020 12:11 PM EST Occupational Therapy Occupational Therapy Initial Assessment Date: 04/07/2020 Patient Name: Adam Mendes : 1945 Date of Service: 04/07/2020 Discharge Recommendations: Home with assist PRN(Initial 24 hour assist from family) OT Equipment Recommendations Equipment Needed: No Assessment Performance deficits / Impairments: Decreased high-level IADLs Assessment: Pt is a 74 yo male admitted to [facility] with increased weakness, CASEY, BLE edema, found [...] Assistance: Independent(without AD) Transfer Assistance: Independent Active Greige Goods Inspector: Yes Mode of Transportation: Truck Occupation: Retired [...] 10 Gertrude Sheehan OT * AkersSlick ferraraidi, CLINICAL TRIAL COORDINATOR - VIRTUALIZATION ENGINEER - 04/07/2020 11:13 AM EST [facility], Pulmonary Critical Care and Sleep Medicine [address] [place] [address] Patient - Adam Mendes, Age - 74 y.o. - 1945 Room Number - 455/4551 Consulting - Melvi Higgins MD Primary Care Physician - [id number] Date of Admission - 04/03/2020 2:11 PM [...] failure (HCC) [I50.42] 04/03/2020 Current use of terminal gauger supervisor anticoagulation [Z79.01] 06/15/2016 Morbid obesity with BMI [...] - Had followed with Dr. Farias at [facility] Hx Atrial fibrillation, on OAC [...] 04/07/2020 8:17 AM EST Progress Note Date:04/07/2020 Room:[address] [place] [address] Patient Name:Adam Mendes Date of :1945 Age:74 [...] Radiology ACCESSION EXAM DATE/TIME PROCEDURE ORDERING PROVIDER [id number] 04/03/2020 15:13 EST CR Chest Portable DAREK FARIA DANIEL M CPT code 76088 Reason For Exam (CR Chest Portable) dyspnea [...] Atrial fibrillation (HCC) with current use of terminal gauger supervisor anticoagulation COPD (chronic obstructive pulmonary disease) (HCC) Hyperlipemia >>>Meds Morbid obesity with BMI of 40.0-44.9, adult (HCC) 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 Plan: Start/continue incentive spirometry and continue respiratory treatments. Restricted diet and advance diet as tolerated. Administer medications as ordered. (Specialty Problems Cardiology Problems Atrial fibrillation (HCC) with current use of terminal gauger supervisor anticoagulation Hypertensive heart disease with chronic combined [...] PATIENT NAME: Adam Mendes DATE: 04/07/2020 PAGER: [phone] * Melvi Higgins MD - 04/06/2020 1:46 PM EST Hospitalist Progress Note 04/06/2020 1:46 PM [phone]: Please page wy [phone] for patient care issues. [phone]: Please page [facility] Hospitalist for any issues. Subjective: Admit [...] NEGATIVE: No targets were detected by the [employer] Upper Respiratory Pathogens PCR Panel. _ Expected Result: Not Detected The [employer] Upper Respiratory Pathogens PCR Panel can detect [...] management decisions. This assay was developed by [employer] and distributed under an Emergency Use Authorization (EUA) granted by the FDA for the qualitative detection of SARS-CoV-2 nucleic acid. Provider and patient fact sheets can be found at https://www.fda. gov/media/698791/download and https://www.fda.gov/media/469487/download. Assessment / Plan 1. Dyspnea - concerning [...] Steroids, BD, NC O2 support keep O2 vwx04-97% - Consult pulm for eval and med optimization for COPD -am labs, replace lytes prn -increase activity -DVT prophylaxis: [] Lovenox [] Heparin [] SCDs [x] Encourage ambulation [x] Already on Anticoagulation Advance Directive: Full Code Discharge planning: TBD Melvi Higgins MD Division of Hospitalist Medicine Inpatient Medical Services PAGER: [phone] * Prakash Zurita MD - 04/06/2020 8:44 AM EST Progress Note Date:04/06/2020 Room:[address] [place] [address] Patient Name:Adam Mendes Date of :1945 Age:74 [...] Radiology ACCESSION EXAM DATE/TIME PROCEDURE ORDERING PROVIDER [id number] 04/03/2020 15:13 EST CR Chest Portable GIANA DAREKMAURO CPT code 49697 Reason For Exam (CR Chest Portable) dyspnea [...] Atrial fibrillation (HCC) with current use of terminal gauger supervisor anticoagulation COPD (chronic obstructive pulmonary disease) (HCC) Hyperlipemia >>>Meds Morbid obesity with BMI of 40.0-44.9, adult (HCC) 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 Plan: Start/continue incentive spirometry and continue respiratory treatments. Restricted diet and advance diet as tolerated. Administer medications as ordered. (Specialty Problems Cardiology Problems Atrial fibrillation (HCC) with current use of terminal gauger supervisor anticoagulation Hypertensive heart disease with chronic combined [...] PATIENT NAME: Adam Mendes DATE: 04/06/2020 PAGER: [phone] * Melvi Higgins MD - 04/05/2020 2:27 PM EST Hospitalist Progress Note 04/05/2020 2:27 PM [phone]: Please page wy [phone] for patient care issues. [phone]: Please page [facility] night Hospitalist for any issues. Subjective: Admit [...] Panel. _ Expected Result: Not Detected The [employer] Upper Respiratory Pathogens PCR Panel can detect [...] management decisions. This assay was developed by [employer] and distributed under an Emergency Use Authorization (EUA) granted by the FDA for the qualitative detection of SARS-CoV-2 nucleic acid. Provider and patient fact sheets can be found at https://www.fda. gov/media/622084/download and https://www.fda.gov/media/762783/download. Assessment / Plan 1. Dyspnea - concerning [...] Steroids, BD, NC O2 support keep O2 cxi93-09% - Consult pulm for eval and med optimization for COPD -am labs, replace lytes prn -increase activity -DVT prophylaxis: [] Lovenox [] Heparin [] SCDs [x] Encourage ambulation [x] Already on Anticoagulation Advance Directive: Full Code Discharge planning: TBD Melvi Higgins MD Division of Hospitalist Medicine Inpatient Medical Services PAGER: [phone] * Prakash Zurita MD - 04/05/2020 9:40 AM EST Progress Note Date:04/05/2020 Room:[address] [place] [address] Patient Name:Adam Mendes Date of :1945 Age:74 [...] Radiology ACCESSION EXAM DATE/TIME PROCEDURE ORDERING PROVIDER [id number] 04/03/2020 15:13 EST CR Chest Portable DAREK FARIA DANIEL M CPT code 75731 Reason For Exam (CR Chest Portable) dyspnea [...] Atrial fibrillation (HCC) with current use of long-term anticoagulation COPD (chronic obstructive pulmonary disease) (HCC) Hyperlipemia >>>Meds Morbid obesity with BMI of 40.0-44.9, adult (HCC) 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 Plan: Start/continue incentive spirometry and continue respiratory treatments. Restricted diet and advance diet as tolerated. Administer medications as ordered. (Specialty Problems Cardiology Problems Atrial fibrillation (HCC) with current use of terminal gauger supervisor anticoagulation Hypertensive heart disease with chronic combined [...] PATIENT NAME: Adam Mendes DATE: 04/05/2020 PAGER: [phone] * Mary Healy RN - 04/05/2020 5:02 AM EST Pt expresses that he would like bloodwork drawn later in the morning. * Melvi Higgins MD - 04/04/2020 12:32 PM EST Hospitalist Progress Note 04/04/2020 12:34 PM [phone]: Please page wy [phone] for patient care issues. [phone]: Please page [facility] night Hospitalist for any issues. Subjective: Admit [...] NEGATIVE: No targets were detected by the [employer] Upper Respiratory Pathogens PCR Panel. _ Expected [...] management decisions. This assay was developed by [employer] and distributed under an Emergency Use Authorization (EUA) granted by the FDA for the qualitative detection of SARS-CoV-2 nucleic acid. Provider and patient fact sheets can be found at https://www.fda. gov/media/234510/download and https://www.fda.gov/media/661860/download. Assessment / Plan 1. Dyspnea - concerning [...] Steroids, BD, NC O2 support keep O2 ltg43-37% -am labs, replace lytes prn -increase activity -DVT prophylaxis: [] Lovenox [] Heparin [] SCDs [x] Encourage ambulation [x] Already on Anticoagulation Advance Directive: Full Code Discharge planning: TBD Melvi Higgins MD Division of Hospitalist Medicine Inpatient Medical Services PAGER: [phone] * Rolanda Serna, RD, LD - 04/04/2020 [...] 2021- 2426; Weight Used for Energy Requirements: Russell Protein (g): 81- 162; Weight Used for Protein Requirements: Russell(1-2) Fluid (ml/day): per md; Method Used for [...] Usual Body Weight: 327 lb (148.3 kg)(05/16/19) Russell Body Weight: 178 lbs; % Russell Body Weight 182.6 % BMI: 44.1 Adjusted [...] 04/04/2020 9:09 AM EST Progress Note Date:04/04/2020 Room:[address] [place] [address] Patient Name:Adam Mendes Date of :1945 Age:74 [...] Radiology ACCESSION EXAM DATE/TIME PROCEDURE ORDERING PROVIDER [id number] 04/03/2020 15:13 EST CR Chest Portable DAREK FARIA DANIEL M CPT code 84518 Reason For Exam (CR Chest Portable) dyspnea [...] Atrial fibrillation (HCC) with current use of long-term anticoagulation COPD (chronic obstructive pulmonary disease) (HCC) Hyperlipemia >>>Meds Morbid obesity with BMI of 40.0-44.9, adult (HCC) 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 Plan: Start/continue incentive spirometry and continue respiratory treatments. Restricted diet and advance diet as tolerated. Administer medications as ordered. (Specialty Problems Cardiology Problems Atrial fibrillation (HCC) with current use of long-term anticoagulation Hypertensive heart disease with chronic combined [...] PATIENT NAME: Adam Mendes DATE: 04/04/2020 PAGER: [phone] documented in this encounter* Katarzyna Cárdenas, OT [...] is significant for hx of CHF. Exam: [facility] OT Education: Plan of Care;Energy Conservation REQUIRES [...] Ambulation Assistance: Independent Transfer Assistance: Independent Active Greige Goods Inspector: Yes Mode of Transportation: Truck Occupation: Retired [...] of 40.0-44.9, adult (HCC) Current use of long-term anticoagulation Acute recurrent pancreatitis Pancreatitis, gallstone Basal [...] : GIB No Renal : CKD No DOUBLE ENDING MACHINE OPERATOR : CVA/TIA No Musculoskeletal system : DJD [...] shield Hospitalist Progress Note 04/13/2020 11:23 AM [phone]: Please page me @ [phone] for patient care issues. [phone]: Please page [facility] night Hospitalist for any [...] Services This report was created using the [employer] Speaking voice- activated system. Despiteprompt dictation and [...] of 40.0-44.9, adult (HCC) Current use of long-term anticoagulation Acute recurrent pancreatitis Pancreatitis, gallstone Basal [...] : GIB No Renal : CKD No DOUBLE ENDING MACHINE OPERATOR : CVA/TIA No Musculoskeletal system : DJD [...] shield Hospitalist Progress Note 04/11/2020 11:54 AM [phone]: Please page wy @ [phone] for patient care issues. [phone]: Please page [facility] night Hospitalist for any [...] Services This report was created using the [employer] Speaking voice- activated system. Despiteprompt dictation and [...] of 40.0-44.9, adult (HCC) Current use of long-term anticoagulation Acute recurrent pancreatitis Pancreatitis, gallstone Basal [...] : GIB No Renal : CKD No DOUBLE ENDING MACHINE OPERATOR : CVA/TIA No Musculoskeletal system : DJD [...] some small clots. Dr. Morataya notified at 4813 via perfect serve. No new orders. Dr. Morataya notified again at 1352 regarding patient's pain at stanton site and [...] left posterior fascicular block Current use of terminal gauger supervisor anticoagulation Encounter for long-term (current) use of [...] Discharge Medications: Adam Mendes Home Medication Instructions EVAN:[id number] Printed on:04/12/20 3982 Medication Information albuterol (PROVENTIL) (2.5 MG/3ML) 0.083% [...] AT BEDTIME Recommended Follow-up: Carlos Cuevas MD [address] [place] [address], [address] [facility] [id number] Complexity of Follow up: [] Moderate Complexity: follow up within 7-14 calendar days (27713) [x] Severe Complexity: follow up within 7 calendar days (39838) Follow up Testing, Pending results or Referrals [...] been spent in discharging the patient. Signed: @LA @ MD Division of Hospitalist Medicine Inpatient Medical Services 04/12/2020, 3:46 PM This report was created using the [employer] Speaking voice- activated system. Despiteprompt dictation and [...] DATE CREATED AUTHOR AUTHOR'S ORGANIZ ATION 08/15/2017 [facility] DATE CREATED AUTHOR AUTHOR'S ORGANIZ ATION 01/11/2018 [facility] DATE CREATED AUTHOR AUTHOR'S ORGANIZ ATION 03/24/2021 [facility] DATE CREATED AUTHOR AUTHOR'S ORGANIZ ATION 12/01/2021 [facility] DATE CREATED AUTHOR AUTHOR'S ORGANIZ ATION 12/29/2022 [facility] Reason for Visit (unrecogniz ed section and content) Specialty Diagnoses / Procedures Referred By Contac t Referred To Contact Diagnoses Shortness of breath Procedures . Cezar Forbes MD [address] [address] [facility] [address] [place] [phone] Referral ID Status Reason Start Date Expiration Date Visits Re quested Visits Authorized [id number] 1 Reason Comments Cellulitis Reason Onset [...] spirometry 0215 (Given - Provider: Tonny Ruiz, WRAPPER CASHIER) amiodarone (Pacerone) tablet 400 mg 400 mg, [...]
Care Teams (unrecognized sec tion and content) Slurry Worker Relationship Specialty Start Date End Date Carlos Cuevas MD [address] [place] [address] [phone] PCP - General 10/21/18 Slurry Worker Relationship Specialty Start Date End Date Carlos Cuevas MD [address] [place] [id number] PCP - General 10/21/18 FOR RECORDS PERTAINING [...] BE BASED ON THE PRIMARY CLINICAL RECORDS. [facility] [employer] [facility]. provides no warranty or guarantee of the accuracy or completeness of information in this document.
[2023-03-21 08:26] LABS: Hematocrit 22.5 % (40-54); Hemoglobin 6.2 g/dL (13.0-16.5); Mean Corp Hgb Conc 27.6 g/dL (32-36); Mean Corpuscular Hgb 21.1 pg (27.0-32.0); Mean Corpuscular Volume 76.5 fL (80-94); Mean Platelet Vol. 9.4 fl (6.2-12.0); Platelet Count 222 K/mm3 (150-450); RBC Distribution Width CV 19.6 % (11.6-14.6); Red Blood Count 2.94 M/mm3 (4.6-6.2); White Blood Count 6.4 K/mm3 (4.4-11.0)
[2023-03-21 08:42] LABS: Anion Gap 2 (5-15); BUN 18 mg/dL (7-18); Calcium,Total 8.4 mg/dL (8.5-10.1); Chloride 106 mmol/L (98-107); Creatinine, Serum 0.86 mg/dL (0.70-1.30); EST Glomerular Filtration Rate 92 mL/min (>60); Est Glom Filt Rate - Afr Amer 112 mL/min (>60); Glucose 107 mg/dL (74-106); Potassium 4.5 mmol/L (3.5-5.1); Sodium Level 140 mmol/L (136-145)
== END ==
LOC: OLS.SANC 05:00
PROVIDERS: Visit Provider Internal Medicine
DX: I48.91 Unspecified atrial fibrillation (principal); J44.9 Chronic obstructive pulmonary disease, unspecified; I10 Essential (primary) hypertension; E78.5 Hyperlipidemia, unspecified
CPT/HCPCS: 36415; 80048; 85027

== ENCOUNTER → 2023-03-28 | Outpatient (REF) | payer MEDICARE, MEDICAID, SELFPAY ==
[2023-03-28 10:01] LABS: Hematocrit 29.7 % (40-54); Hemoglobin 7.9 g/dL (13.0-16.5); Mean Corp Hgb Conc 26.6 g/dL (32-36); Mean Corpuscular Hgb 22.1 pg (27.0-32.0); Mean Corpuscular Volume 83.2 fL (80-94); Mean Platelet Vol. 9.6 fl (6.2-12.0); POSITIVE MORPHOLOGY YES; Platelet Count 218 K/mm3 (150-450); RBC Distribution Width CV 22.5 % (11.6-14.6); RBC Distribution Width SD 66.5 fl (35.1-43.9); Red Blood Count 3.57 M/mm3 (4.6-6.2); White Blood Count 5.2 K/mm3 (4.4-11.0)
[2023-03-28 10:03] LABS: Scan Indicated on CBC? Y/N YES- FLAGS NOTED
[2023-03-28 10:30] LABS: Differential Comment SCANNED
[2023-03-28 10:32] LABS: Anion Gap -3 (5-15); BUN 17 mg/dL (7-18); Calcium,Total 8.4 mg/dL (8.5-10.1); Chloride 100 mmol/L (98-107); Creatinine, Serum 0.81 mg/dL (0.70-1.30); EST Glomerular Filtration Rate 98 mL/min (>60); Est Glom Filt Rate - Afr Amer 119 mL/min (>60); Glucose 106 mg/dL (74-106); Potassium 4.6 mmol/L (3.5-5.1); Sodium Level 136 mmol/L (136-145)
== END ==
LOC: OLS.SANC 04:00
PROVIDERS: Visit Provider Internal Medicine
DX: I48.91 Unspecified atrial fibrillation (principal); D64.9 Anemia, unspecified; I11.0 Hypertensive heart disease with heart failure; I50.9 Heart failure, unspecified; J44.9 Chronic obstructive pulmonary disease, unspecified; E78.5 Hyperlipidemia, unspecified
CPT/HCPCS: 36415; 80048; 85027

== ENCOUNTER → 2023-03-29 | Outpatient (REF) | payer MEDICARE, MEDICAID, SELFPAY ==
[2023-03-29 09:14] LABS: Hematocrit 30.6 % (40-54); Hemoglobin 8.6 g/dL (13.0-16.5); Mean Corp Hgb Conc 28.1 g/dL (32-36); Mean Corpuscular Hgb 22.6 pg (27.0-32.0); Mean Corpuscular Volume 80.5 fL (80-94); Mean Platelet Vol. 9.9 fl (6.2-12.0); POSITIVE MORPHOLOGY YES; Platelet Count 251 K/mm3 (150-450); RBC Distribution Width CV 22.8 % (11.6-14.6); RBC Distribution Width SD 64.2 fl (35.1-43.9); White Blood Count 4.9 K/mm3 (4.4-11.0)
[2023-03-29 09:17] LABS: Scan Indicated on CBC? Y/N YES- FLAGS NOTED
[2023-03-29 09:40] LABS: BNP,B-Type NATRIURETIC PEPTIDE 299.5 pg/mL (0-100)
[2023-03-29 11:39] LABS: Anion Gap 5 (5-15); BUN 18 mg/dL (7-18); BUN/Creat Ratio 20.7 RATIO (10-20); Calcium,Total 8.6 mg/dL (8.5-10.1); Chloride 101 mmol/L (98-107); Creatinine, Serum 0.87 mg/dL (0.70-1.30); EST Glomerular Filtration Rate 91 mL/min (>60); Est Glom Filt Rate - Afr Amer 110 mL/min (>60); Glucose 129 mg/dL (74-106); Potassium 4.3 mmol/L (3.5-5.1); Sodium Level 136 mmol/L (136-145)
== END ==
LOC: OLS.SANC 05:00
PROVIDERS: Visit Provider Internal Medicine
DX: I50.9 Heart failure, unspecified (principal)
CPT/HCPCS: 36415; 80048; 83880; 85027

== ENCOUNTER → 2023-03-31 | Outpatient (REF) | payer MEDICARE, MEDICAID, SELFPAY ==
[2023-03-31 07:55] LABS: Hematocrit 27.7 % (40-54); Hemoglobin 7.8 g/dL (13.0-16.5); Mean Corp Hgb Conc 28.2 g/dL (32-36); Mean Corpuscular Hgb 22.5 pg (27.0-32.0); Mean Corpuscular Volume 79.8 fL (80-94); Mean Platelet Vol. 9.6 fl (6.2-12.0); POSITIVE MORPHOLOGY YES; Platelet Count 216 K/mm3 (150-450); RBC Distribution Width CV 23.5 % (11.6-14.6); RBC Distribution Width SD 66.3 fl (35.1-43.9); Red Blood Count 3.47 M/mm3 (4.6-6.2); White Blood Count 5.5 K/mm3 (4.4-11.0)
[2023-03-31 08:04] LABS: Anion Gap -1 (5-15); BUN 22 mg/dL (7-18); BUN/Creat Ratio 25.4 RATIO (10-20); Calcium,Total 8.4 mg/dL (8.5-10.1); Chloride 101 mmol/L (98-107); Creatinine, Serum 0.87 mg/dL (0.70-1.30); EST Glomerular Filtration Rate 91 mL/min (>60); Est Glom Filt Rate - Afr Amer 110 mL/min (>60); Glucose 112 mg/dL (74-106); Sodium Level 142 mmol/L (136-145)
[2023-03-31 08:07] LABS: Scan Indicated on CBC? Y/N YES- FLAGS NOTED
== END ==
LOC: OLS.SANC 05:00
PROVIDERS: Visit Provider Internal Medicine
DX: I48.91 Unspecified atrial fibrillation (principal); D64.9 Anemia, unspecified; J44.9 Chronic obstructive pulmonary disease, unspecified
CPT/HCPCS: 36415; 80048; 85027

== ENCOUNTER → 2023-04-06 | Outpatient (REF) | payer MEDICARE, MEDICAID, SELFPAY ==
[2023-04-06 08:50] LABS: Hematocrit 27.6 % (40-54); Hemoglobin 7.6 g/dL (13.0-16.5); Mean Corp Hgb Conc 27.5 g/dL (32-36); Mean Corpuscular Hgb 22.6 pg (27.0-32.0); Mean Corpuscular Volume 81.9 fL (80-94); Mean Platelet Vol. 10.1 fl (6.2-12.0); POSITIVE MORPHOLOGY YES; Platelet Count 210 K/mm3 (150-450); RBC Distribution Width CV 25.6 % (11.6-14.6); RBC Distribution Width SD 73.7 fl (35.1-43.9); Red Blood Count 3.37 M/mm3 (4.6-6.2); White Blood Count 5.2 K/mm3 (4.4-11.0)
[2023-04-06 09:15] LABS: Anion Gap 0 (5-15); BUN 20 mg/dL (7-18); Calcium,Total 8.9 mg/dL (8.5-10.1); Chloride 106 mmol/L (98-107); EST Glomerular Filtration Rate 77 mL/min (>60); Est Glom Filt Rate - Afr Amer 93 mL/min (>60); Glucose 103 mg/dL (74-106); Potassium 4.3 mmol/L (3.5-5.1); Sodium Level 143 mmol/L (136-145)
[2023-04-06 09:23] LABS: Scan Indicated on CBC? Y/N YES- FLAGS NOTED
== END ==
LOC: OLS.SANC 05:00
PROVIDERS: Visit Provider Internal Medicine
DX: D64.9 Anemia, unspecified (principal); I50.9 Heart failure, unspecified; J44.9 Chronic obstructive pulmonary disease, unspecified
CPT/HCPCS: 36415; 80048; 85027